=== PATIENT | male | born 1930 | race Caucasian/White ===

== ENCOUNTER 2019-05-04 09:12 | Emergency (ER) | payer MEDICARE ==
[~2019-05-04] VITALS: Ht 182.8 cm; Wt 75.0 kg
[~2019-05-04 09:12] MED LIST: CODE118S2 PO; FLEC100T2; IMIP25TA4; LISI20TA; Z-Pak
[2019-05-04] MEDS ORDERED: IBUPROFEN 800 MG (MOTRIN) TAB PO STA (09:34)
--- NOTE | 2019-05-04 09:34 | ED Fall/Injury ---
General Stated Complaint: RIB PAIN Source: patient Exam Limitations: no limitations History of Present Illness Date Seen by Provider: May 04, 2019 Time Seen by Provider: 09:34 Initial Comments 88-year-old male presents with right posterior rib pain. Patient reports that he got his boots stuck in the mud last night around 5 PM. She was trying to get him unstuck he fell. Reports he just "hit a dirt clot" on his right posterior ribs. Reports he's having some pain with it today. He has taken some aspirin but nothing else for the pain. He does not have any shortness of breath, nausea, vomiting, palpitations or any other systemic complaints at this time. Patient did not hit his head denies any other injury. Allergies and Home Medications Allergies Coded Allergies: No Known Drug Allergies (Unverified , 06/07/13) Home Medications Codeine/Promethazine Hcl 120 Ml Syrup, 1 TSP PO Q 4 - 6 HRS PRN Prescribed by: LINDA ALCALA on 06/07/13 8262 Patient Home Medication List Home Medication List Reviewed: Yes Review of Systems Review of Systems Constitutional: No chills, No dizziness, No fever Eyes: No Symptoms Reported Ears, Nose, Mouth, Throat: no symptoms reported Respiratory: No cough, No dyspnea on exertion, No short of breath Cardiovascular: no symptoms reported Genitourinary: no symptoms reported Musculoskeletal: see HPI Skin: no symptoms reported Psychiatric/Neurological: No Symptoms Reported Past Mmumlzs-Mhlpvl-Vxczwa Hx Past Med/Social Hx: Reviewed Nursing Past Med/Soc Hx Patient Social History Recent Foreign Travel: No Contact w/Someone Who Travel: No Past Medical History Prostate Physical Exam Vital Signs Vital Signs - First Documented 05/04/19 09:25 Temp 36.0 Pulse 102 Resp 18 B/P (MAP) 130/82 (98) Capillary Refill : Height, Weight, BMI Height: 6'" Weight: 180lbs. oz. 81.927562vw; BMI Method: General Appearance: WD/WN, no apparent distress HEENT: PERRL/EOMI Neck: non-tender, full range of motion, supple Cardiovascular: normal peripheral pulses, regular rate, rhythm Respiratory: chest non-tender, lungs clear, normal breath sounds Gastrointestinal: non tender Back: other (mild right posterior rib tenderness) Extremities: non-tender, normal inspection Neurologic/Psychiatric: no motor/sensory deficits, alert, normal mood/affect, oriented x 3 Skin: normal color, warm/dry Progress/Results/Core Measures Results/Orders My Orders Orders - BAY SAUCEDA DO Ibuprofen Tablet (Motrin Tablet) (05/04/19 09:34) Ribs/Unilateral With Chest (05/04/19 09:34) Vital Signs/I&O 05/04/19 09:25 Temp 36.0 Pulse 102 Resp 18 B/P (MAP) 130/82 (98) Departure Impression Primary Impression: Fracture of one rib, right side, initial encounter for closed fracture Disposition: HOME, SELF-CARE Condition: Stable Departure-Patient Inst. Referrals: DAMARIS OLSEN DO (PCP/Family) Primary Care Physician Patient Instructions: Rib Fractures in Adults Scripts Hydrocodone Bit/Acetaminophen (Hydrocodone/Acetaminophen 5/325mg Tablet) 1 Tab Tab 1 EACH PO Q8H PRN for PAIN-MODERATE MDD 10 for 3 Days, #10 TAB Prov: BAY SAUCEDA DO 05/04/19 BAY SAUCEDA DO May 04, 2019 09:34
--- NOTE | 2019-05-04 10:07 | Diagnostic Imaging Report ---
INDICATION: Fall and right rib pain. TIME OF EXAM: 9:46 AM Right hemidiaphragm is elevated. Lungs appear to be clear. No contusion, effusion or pneumothorax is detected. There is a nondisplaced fracture which may be segmental involving a lower right lateral and anterolateral rib. As best seen on the final image and abdomen may represent approximately the 9th rib. No other fractures are seen. IMPRESSION: Right approximately 9th rib fracture. No pulmonary contusion, effusion or pneumothorax is detected. Dictated by: Dictated on workstation # [id number]
[2019-05-04] MEDS ORDERED: ACHD5005 PO (10:20)
[2019-05-04 10:35] VITALS: BP 130/82
== END 2019-05-04 10:35 | disposition home or self-care (01) ==
LOC: EDUNIT# 09:12 → ER 09:14
DX: S22.31XA Fracture of one rib, right side, initial encounter for closed fracture (principal); W18.39XA Other fall on same level, initial encounter
CPT/HCPCS: 71101

== ENCOUNTER → 2019-05-25 | Outpatient (CLI) | payer MEDICARE ==
[~2019-05-25] MED LIST changes: +ACHD5005 PO
== END ==
LOC: RT 15:15
PROVIDERS: ATTEND Family Medicine
DX: R06.00 Dyspnea, unspecified (principal)
CPT/HCPCS: 94060; 94726; 94729

== ENCOUNTER 2019-09-15 18:27 | Emergency (ER) | payer MEDICARE ==
[~2019-09-15] VITALS: Ht 182.8 cm; Wt 75.0 kg
--- OUTSIDE RECORDS SUMMARY | 2019-09-15 18:32 | XMS REPORT | CCD ---
Author Author Jason Carey APRN Organization [facility] Address [address] [place] [address] Phone Care Team Providers Care Employee Services Manager Name Role Phone PP Unavailable CCM Unavailable Summary Purpose Interface Exchange Insurance Providers Payer name Policy type / Coverage type Covered green party ID Effective Begin Date Effective End Date WPS MEDICARE PART B [place] Medicare Part B [id number] Unknown [facility] Medicare Part B [id number] Un known Family History Family History data not found Social History Social History Element Codes Description Effective Dates Tobacco history SNOMED CT: 337731742 Never smoker 01/20/2015 Allergies, Adverse Reactions, Alerts Substance Reaction Codes Entered Date Inactivated Date Status * NO KNOWN DRUG ALLERGIES Unknown 02/07/2012 No Inactiv e Date Active Problems Condition Codes Effective Dates Condition Status Anemia ICD-9: 285.9 ICD-10: D64.9 05/10/2019 Active Dyspnea ICD-9: 786.09 ICD-10: R06.00 07/05/2019 Active Dyspnea on exertion ICD-9: 786.09 ICD-10: R06.09 05/23/2019 Active Left hip pain ICD-9: 719.45 ICD-10: M25.552 06/11/2019 Active Recurrent falls ICD-9: V15.88 ICD-10: R29.6 06/11/2019 Active Urinary tract infection, site not specified ICD-9: 599 .0 ICD-10: N39.0 05/15/2019 Active Hypertension Unknown 05/10/2019 Active Essential (primary) hypertension ICD-9: 401.9 ICD-10: I10 05/10/2019 Active Hyperglycemia, unspecified ICD-9: 790.29 ICD-10: R73.9 05/10/2019 Active Mixed hyperlipidemia ICD-9: 272.4 ICD-10: E78.2 05/10/2019 Active Broken rib ICD-9: 807.00 ICD-10: S22.39XA 05/09/2019 Active Encounter for follow-up examination afte r completed treatment for conditions other than malignant neoplasm ICD-9: V67.4 ICD-10: Z09 01/27/2015 Active Localized enlarged lymph nodes ICD-9: 785.6 ICD-10: R59.0 01/12/2015 Active LOCAL SKIN INFECTION ICD-9: 686.9 01/12/2015 Active LYMPHADENOPATHY ICD-9: 785.6 01/12/2015 Active 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 02/07/2012 Active Medications Medication Codes Instructions Start Date Stop Date Status Fill Instructions Vitamin D3 2,000 unit tablet RxNorm: 369088 1 Tablet(s) Oral QD 01/2020 No Stop Date Active flecainide 100 mg tablet RxNorm: 169421 1 Tablet(s) Oral two ti mes a day 05/28/2019 No Stop Date Active imipramine 25 mg tablet RxNorm: 557957 1 Tablet(s) Oral three t imes a day 05/28/2019 No Stop Date Active aspirin 81 mg tablet,delayed release RxNorm: 426540 1 Tablet(s) Oral QD 05/23/2019 06/22/2019 Inactive multivitamin with iron tablet RxNorm: 1 Tablet(s) Oral QD 04/19 No Stop Date Active hydrocodone 10 mg-acetaminophen 300 mg tablet RxNorm: 862913 1 Tablet(s) Oral Q8H as needed for pain 05/09/2019 05/22/2019 Inactive hydrocodone 5 mg-acetaminophen 325 mg tablet RxNorm: 925528 1 Tablet(s) Oral Every 6 hours as needed 05/09/2019 06/10/2019 Inactive Bactrim DS 800 mg-160 mg tablet RxNorm: 640400 1 Tablet(s) PO BID 0 01/13/2015 01/22/2015 Inactive aspirin 81 mg tablet,delayed release RxNorm: 024754 1 Tablet(s) PO QD 02/07/2012 03/07/2012 Inactive Vitamin D3 1000 units Capsule RxNorm: 2 Capsule(s) PO QD No St art Date 05/27/2019 Inactive lisinopril 20 mg tablet RxNorm: 815903 1 Tablet(s) PO QD No Start D ate 02/06/2012 Inactive flecainide 100 mg tablet RxNorm: 482802 1 Tablet(s) PO QD No Start Date 05/27/2019 Inactive lisinopril 20 mg tablet RxNorm: 010854 1/2 Tablet(s) PO PRN No Star t Date 05/22/2019 Inactive Meclizine 25 mg Tab RxNorm: 6231690 1 Tablet(s) PO QID prn dizzi ness No Start Date 05/09/2019 Inactive imipramine pamoate 75 mg capsule RxNorm: 138817 1 Capsule(s) PO QD No Start Date 05/27/2019 Inactive Medication Administered No Medication Administered data Immunizations Vaccine Codes Date Status Tetanus, Diptheria, Pertussis CVX: 115 12/27/2018 Results Observation Observation Code Item Item Code Result Date S vice Location COMPLETE BLOOD COUNT [id number] WBC 6.8 10e9/L 07/05/19 20 Unknown COMPLETE BLOOD COUNT [id number] RBC 2.97 10e12/L 2019 Unknown COMPLETE BLOOD COUNT [id number] HEMOGLOBIN 10.1 g/dL 07/05/19 20 Unknown COMPLETE BLOOD COUNT [id number] HEMATOCRIT 31.5 % 07/05/19 20 Unknown COMPLETE BLOOD COUNT [id number] MCV 106.1 fL 0 Unknown COMPLETE BLOOD COUNT [id number] MCH 34.0 pg 0 Unknown COMPLETE BLOOD COUNT 5222819 MCHC 32.1 g/dL 0 Unknown COMPLETE BLOOD COUNT [id number] PLATELET COUNT 176 10e9/L Unknown COMPLETE BLOOD COUNT [id number] Mean Plt Volume 12.2 fL Unknown COMPLETE BLOOD COUNT [id number] Neut Auto 70.5 % 0 Unknown COMPLETE BLOOD COUNT [id number] Lymph Auto 15.8 % 07/05/19 20 Unknown COMPLETE BLOOD COUNT [id number] [place] Auto 12.4 % 0 Unknown COMPLETE BLOOD COUNT [id number] RDW 14.2 % 0 Unknown COMPLETE BLOOD COUNT 2262084 Eos Auto 1.2 % 0 Unknown COMPLETE BLOOD COUNT [id number] Baso Auto 0.1 % 0 Unknown COMPLETE BLOOD COUNT [id number] Neutrophil Abs 4.79 10e9/L Unknown COMPLETE BLOOD COUNT [id number] Lymphocyte Abs 1.07 10e9/L Unknown COMPLETE BLOOD COUNT [id number] Monocyte Abs 0.84 10e9/L 06/16 Unknown COMPLETE BLOOD COUNT [id number] Eosinophil Abs 0.08 10e9/L Unknown COMPLETE BLOOD COUNT [id number] RDW-SD 52.7 fL 0 Unknown COMPLETE BLOOD COUNT [id number] Basophil Abs 0.01 10e9/L 06/16 Unknown FERRITIN 60649 FERRITIN 238.7 ng/mL 05/10/2019 Unknown IRON PROFILE 67250 Iron 89 ug/dL 05/10/2019 Unknow n IRON PROFILE 09414 TIBC 295 ug/dL 05/10/2019 Unknow n IRON PROFILE 09054 % SATURATION 30 % 05/10/2019 Unk nown IRON PROFILE 36127 UIBC 206 ug/dL 05/10/2019 Unknow n COMPREHENSIVE METABOLIC 21828 AST 22 U/L 2019 Unknown COMPREHENSIVE METABOLIC 65772 ALT 15 U/L 2019 Unknown COMPREHENSIVE METABOLIC 88473 BUN 33 mg/dL 2019 Unknown COMPREHENSIVE METABOLIC 43762 ALBUMIN 4.1 g/dL 2019 Unknown COMPREHENSIVE METABOLIC 69195 CHLORIDE 100 mmol/L 05/10 Unknown COMPREHENSIVE METABOLIC 96855 Bili Total 0.4 mg/dL 05/10 Unknown COMPREHENSIVE METABOLIC 47091 ALK PHOS 63 U/L 2019 Unknown COMPREHENSIVE METABOLIC 58300 SODIUM 135 mmol/L 05/10 Unknown COMPREHENSIVE METABOLIC 93098 CREATININE 1.59 mg/dL 04/19 Unknown COMPREHENSIVE METABOLIC 98968 CALCIUM 9.3 mg/dL 2019 Unknown COMPREHENSIVE METABOLIC 82620 POTASSIUM 5.0 mmol/L 05/10 Unknown COMPREHENSIVE METABOLIC 69147 Total Protein 6.9 g/dL Unknown COMPREHENSIVE METABOLIC 12441 Glucose 106 mg/dL 2019 Unknown COMPREHENSIVE METABOLIC 88736 Bicarbonate 28 mmol/L 04/19 Unknown COMPREHENSIVE METABOLIC 39346 AGAP 7 mmol/L 2019 Unknown GFR CALC 1956625 GFR Non Afr Amr 41 mL/min 05/10/2019 Unk nown GFR CALC 5434555 GFR Afr Amr 50 mL/min 05/10/2019 Unknown COMPLETE BLOOD COUNT [id number] WBC 5.5 10e9/L 05/10/19 20 Unknown COMPLETE BLOOD COUNT [id number] RBC 3.11 10e12/L 2019 Unknown COMPLETE BLOOD COUNT 0736226 HEMOGLOBIN 10.5 g/dL 05/10/19 Unknown COMPLETE BLOOD COUNT [id number] HEMATOCRIT 32.8 % 05/10/19 20 Unknown COMPLETE BLOOD COUNT [id number] MCV 105.5 fL 0 Unknown COMPLETE BLOOD COUNT 0610493 MCH 33.8 pg 0 Unknown COMPLETE BLOOD COUNT 6137906 MCHC 32.0 g/dL 0 Unknown COMPLETE BLOOD COUNT 1886995 PLATELET COUNT 167 10e9/L Unknown COMPLETE BLOOD COUNT 5479174 Mean Plt Volume 13.2 fL Unknown COMPLETE BLOOD COUNT 1872256 Neut Auto 62.9 % 0 Unknown COMPLETE BLOOD COUNT 3042859 Lymph Auto 23.8 % 05/10/19 Unknown COMPLETE BLOOD COUNT 6386481 [place] Auto 11.6 % 0 Unknown COMPLETE BLOOD COUNT 9193484 RDW 14.6 % 0 Unknown COMPLETE BLOOD COUNT 5814459 Eos Auto 1.5 % 0 Unknown COMPLETE BLOOD COUNT 4270382 Baso Auto 0.2 % 0 Unknown COMPLETE BLOOD COUNT 4246120 Neutrophil Abs 3.46 10e9/L Unknown COMPLETE BLOOD COUNT 1559280 Lymphocyte Abs 1.31 10e9/L Unknown COMPLETE BLOOD COUNT [id number] Monocyte Abs 0.64 10e9/L 04/19 Unknown COMPLETE BLOOD COUNT [id number] Eosinophil Abs 0.08 10e9/L Unknown COMPLETE BLOOD COUNT 2651105 RDW-SD 54.4 fL 0 Unknown COMPLETE BLOOD COUNT 1403697 Basophil Abs 0.01 10e9/L 04/19 Unknown [facility] 20794 Cholesterol 173 mg/dL 05/10/2019 Unkno wn L[facility] GROUP 33398 Triglyceride 105 mg/dL 05/10/2019 Unkn own [facility] 21715 HDL CHOLESTEROL 47 mg/dL 05/10/2019 U nknown [facility] 37032 Chol/HDL Ratio 3.68 ratio 05/10/2019 U nknown [facility] 20816 NON-HDL Chol 126 mg/dL 05/10/2019 Unkn own [facility] 23695 LDL Cholesterol 105 mg/dL 05/10/2019 U nknown Procedures Procedure Codes Date ROUTINE VENIPUNCTURE CPT-4: 25561 07/05/2019 COMPLETE CBC W/AUTO DIFF WBC CPT-4: 13425 07/05/2019 URINE CULTURE/ COLONY COUNT CPT-4: 65168 05/15/2019 ROUTINE VENIPUNCTURE CPT-4: 16001 05/10/2019 COMPREHEN METABOLIC PANEL CPT-4: 07934 05/10/2019 COMPLETE CBC W/AUTO DIFF WBC CPT-4: 52977 05/10/2019 LIPID PANEL CPT-4: 61990 05/10/2019 IRON PROFILE CPT-4: 04902 05/10/2019 ASSAY OF FERRITIN CPT-4: 89161 05/10/2019 CUR TOBACCO NON-USER CPT-4: G8457 01/20/2015 PRESCRIP TRANSMIT VIA ERX SY CPT-4: G8553 01/13/2015 Vital Signs Date Vital 07/05/2019 Blood Pressure 1: 128/68 Code: 8480-6 Heart Rate 1: 88 bpm Respiratory Rate: 20 bpm SpO2: 99% Temperature: 36.6 (C) / 97.9 (F) We ight: 174 lbs 06/11/2019 Blood Pressure 1: 132/64 Code: 8480-6 Respirator y Rate: 20 bpm SpO2: 95% Temperature: 36.7 (C) / 98.0 (F) Weight: 172 lbs 05/23/2019 Blood Pressure 1: 142/70 Code: 8480-6 Heart Rate 1: 80 bpm Respiratory Rate: 20 bpm SpO2: 100% Temperature: 36.2 (C) / 97.2 (F) We ight: 168 lbs 05/09/2019 Blood Pressure 1: 143/75 Code: 8480-6 Heart Rate 1: 85 bpm Respiratory Rate: 17 bpm SpO2: 96% Temperature: 36.5 (C) / 97.7 (F) We ight: 170 lbs 01/28/2015 Blood Pressure 1: 126/70 Code: 8480-6 BMI: 24.8 Code: 62870-7 Heart Rate 1: 84 bpm Height: 6' Respiratory Rate: 20 bpm Temperature: 36 .6 (C) / 97.8 (F) Weight: 183 lbs 01/20/2015 Blood Pressure 1: 122/58 Code: 8480-6 BMI: 24.8 Code: 44920-7 Heart Rate 1: 80 bpm Height: 6' Respiratory Rate: 20 bpm Temperature: 36 .4 (C) / 97.6 (F) Weight: 183 lbs 01/13/2015 Blood Pressure 1: 142/68 Code: 8480-6 BMI: 24.8 Code: 32356-4 Heart Rate 1: 86 bpm Height: 6' Respiratory Rate: 20 bpm Temperature: 36 .6 (C) / 97.8 (F) Weight: 183 lbs 02/07/2012 Blood Pressure 1: 130/70 Code: 8480-6 BMI: 25.7 Code: 24745-1 Heart Rate 1: 74 bpm Height: 5'11" Temperature: 36.6 (C) / 97.8 (F) Weight: 184 lbs Functional Status No Functional Status data Reason For Visit Reason For Visit Effective Dates Notes follow up 07/05/[address] Caruso follow up 06/11/2019 follow up 05/23/2019 bone fracture 05/09/2019 right ribs follow up 01/28/2015 follow up 01/20/2015 1 week sore throat 01/13/2015 knee pain 02/07/2012 Encounters Encounter Performer Location Codes Date ([id number]) OFFICE/OUTPATIENT VISIT EST Diagnosis: Anemia[ICD10: D64.9] Diagnosis: Dyspnea[ICD10: R06.00] Damaris Cantu [employer] CPT-4: 65992 07/05/2019 ([id number]) OFFICE/OUTPATIENT VISIT EST Diagnosis: Left hip pain[ICD10: M25.552] Diagnosis: Recurrent falls[ICD10: R29.6] Diagnosis: Dyspnea on exertion[ICD10: R06.09] Damaris CONKLIN [employer] CPT-4: 31408 06/11/2019 ([id number]) OFFICE/OUTPATIENT VISIT EST Diagnosis: Dyspnea on exertion[ICD10: R06.09] Diagnosis: Anemia[ICD10: D64.9] Damaris CON[facility] DO [facility] CPT-4: 84824 05/23/2019 ([id number]) NURSE/OUTPATIENT VISIT EST Diagnosis: Urinary tract infection, site not specified[ICD10: N39.0] Damaris Solorio PATRICKNDER [employer] [facility] CPT-4: 43408 05/15/2019 ([id number]) NURSE/OUTPATIENT VISIT EST Diagnosis: Mixed hyperlipidemia[ICD10: E78.2] Diagnosis: Hyperglycemia, unspecified[ICD10: R73.9] Diagnosis: Essential (primary) hypertension[ICD10: I10] Diagnosis: Anemia, unspecified[ICD10: D64.9] Damaris Gustafson S. [facility]ER [employer] [facility] CPT-4: 59989 05/10/2019 ([id number]) OFFICE/OUTPATIENT VISIT NEW Diagnosis: Broken rib[ICD10: S22.39XA] Lizzette Giles DAMARIS S. Estella NAVARRO [employer] [facility] CPT-4: 64226 05/09/2019 OFFICE/OUTPATIENT VISIT EST Diagnosis: Localized enlarged lymph nodes[ICD10: R59.0] Diagnosis: Encounter for follow-up examination after completed treatment for conditions other than malignant neoplasm[ICD10: Z09] Lashawnsa Aldo OCAMPO S. [facility] [employer] [facility] CPT-4: 65543 01/28/2015 OFFICE/OUTPATIENT VISIT EST Diagnosis: Localized enlarged lymph nodes[ICD10: R59.0] Lashawn YuriTea OCAMPO S. [facility] [employer] [facility] CPT-4: 43122 01/20/2015 OFFICE/OUTPATIENT VISIT EST Diagnosis: LYMPHADENOPATHY[ICD9: 785.6] Diagnosis: LOCAL SKIN INFECTION[ICD9: 686.9] Lashawn Gustafson S. [facility] [employer] [facility] CPT-4: 03385 01/13/2015 OFFICE/OUTPATIENT VISIT NEW Diagnosis: Grey's cyst of knee[ICD9: 727.51] Taylor GAYLE S. 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 but since has not worsened patient wishes to monitor for now ICD-9 : 786.09 ICD-10 : R06.00 07/05/2019 Appointment: Damaris Conklinl: [address] [place], [place] [phone] [place] FOLLOW UP 07/05/2019 Appointment: Damaris Conklin WPtel: [address] [place], [place] [phone] [place] RESCHEDULED 07/02/2019 Visit Diagnosis Plan: Dyspnea on exertion Discussion: Difficult historian--now states he mainly gets short of air when he is using his arms which sounds more cardiac but her follows routinely with cardiology ICD-9 : 786.09 ICD-10 : R06.09 06/11/2019 Visit Diagnosis Plan: Recurrent falls Discussion: Last fall was because he tripped over a cord--he has 9 dogs ICD-9 : V15.88 ICD-10 : R29.6 06/11/2019 Visit Diagnosis Plan: Left hip pain Discussion: Improv ing Discussed need to stop hydrocodone since ribs are better ICD-9 : 719.45 ICD-10 : M25.552 06/11/2019 Appointment: Damaris Conklin WPtel: [address] [place] [address] [place] FOLLOW UP 06/11/2019 Appointment: Damaris Conklin WPtel: [address] [place] [address] [place] 05/28/2019 1407--updated medications from patients medication bottles (km) CANCELED 05/28/2019 Visit Diagnosis Plan: Dyspnea on exertion Discussion: Check PFT Obtain most recent ECHO results ICD-9 : 786.09 ICD-10 : R06.09 05/23/2019 Visit Diagnosis Plan: Anemia Discussion: Discussed Hem atology--wants to hold at this time ICD-9 : 285.9 ICD-10 : D64.9 05/23/2019 Appointment: Damaris Conklin WPtel: [address] [place], [place] [phone] [place] FOLLOW UP 05/23/2019 Appointment: Damaris Conklin WPtel: [address] [place], [place] [phone] [place] UA 05/15/2019 Appointment: Damaris Conklin WPtel: [address] [place], [place] [phone] [place] LAB 05/10/2019 Visit Diagnosis Plan: Broken rib Discussion: will obta in records from ED. hydrocodone rx filled to take as needed but instructed to avoid taking it with tylenol. instructed to alternate the two. miralax samples given to patient to be used daily to assist with opioid related constipation that may occur. instructed to go to ED with any worsening symptoms such as dyspnea or chest pain. patient hasn't been seen for 4 years. patient reports he sees dr. caruso and elier routinely so will obtain recent labs from their offices. instructed patient that he may need additional blood work though pending what they ordered. instructed to follow up with dr. conklin in 1 month though since he hasn't been seen much and will re-assess his bp. ICD-9 : 807.00 ICD-10 : S22.39XA 05/09/2019 Appointment: Lizzette Giles [address] [place], [place] [id number] FOLLOW UP 05/09/2019 Visit Plan: Continue to monitor localize d lymph nodes for changes Follow-up for worsening symptoms 01/28/2015 Appointment: Lashawn Carlson WPtel: [address] [place] [phone] [place] FOLLOW UP 01/28/2015 Patient Education: Patient Medication Summary Completed 01/28/2015 Visit Plan: Complete antibiotics. Monito r lymph node size and follow-up for persistent symptoms. 01/20/2015 Appointment: Lashawn Carlson WPtel: [address] [place], [place] [phone] 01/17 confirmed FOLLOW UP 01/20/2015 Patient Education: Patient Medication Summary Completed 01/20/2015 Visit Plan: Septra DS - 1 po bid x 10 da ys Follow-up in 1 week. 01/13/2015 Appointment: Lashawn Carlson WPtel: [address] [place] [phone] [place] FOLLOW UP 01/13/2015 Patient Education: Patient Medication Summary Completed 01/13/2015 Appointment: Clarisa Garcia WPtel: [address] [facility] [place] cancelled because patient evaluated in ER ACUTE ILLNESS 06/08/2013 Appointment: Damaris Conklin WPtel: [phone] [facility] [address] [place] INJECTION 12/04/2012 Appointment: Taylor Carey WPtel: [address] [place] [phone] RE-ESTABLISH 02/07/2012 Patient Education: Patient Medication Summary Completed 02/07/2012 Instructions Comment . Continue to monitor localized lymph no dory for changes Follow-up for worsening symptoms . Complete antibiotics. Monitor lymph node size and follow-up for persistent symptoms. . Septra DS - 1 po bid x 10 days Follow-up in 1 week. Medical Equipment No Medical Equipment data Health Concerns Section Health Concerns data not found Goals Section Goals data not found Interventions Section Interventions data not found Health Status Evaluations/Outcomes Section Health Status Evaluations/Outcomes data not found Advance Directives No Advance Directive data
--- OUTSIDE RECORDS SUMMARY | 2019-09-15 18:32 | XMS REPORT | CCD ---
Author Author Jason Carey APRN Organization [facility] Address [address] [place] [address] Phone Care Team Providers Care Repair Department Supervisor Name Role Phone PP Unavailable CCM Unavailable Summary Purpose Interface Exchange Insurance Providers Payer name Policy type / Coverage type Covered libertarian ID Effective Begin Date Effective End Date WPS MEDIC[place] PART B [place] Medicare Part B [id number] Unknown [facility] Medicare Part B [id number] Un known Family History Family History data not found Social History Social History Element Codes Description Effective Dates Tobacco history SNOMED CT: 759784341 Never smoker 01/20/2015 Allergies, Adverse Reactions, Alerts [...] Instructions Vitamin D3 2,000 unit tablet RxNorm: 959476 1 Tablet(s) Oral QD 01/2020 No Stop Date Active flecainide 100 mg tablet RxNorm: 807449 1 Tablet(s) Oral two ti mes a day 05/28/2019 No Stop Date Active imipramine 25 mg tablet RxNorm: 728315 1 Tablet(s) Oral three t imes a day 05/28/2019 No Stop Date Active aspirin 81 mg tablet,delayed release RxNorm: 747578 1 Tablet(s) Oral QD 05/23/2019 06/22/2019 Inactive multivitamin with iron tablet RxNorm: 1 Tablet(s) Oral QD 04/19 No Stop Date Active hydrocodone 10 mg-acetaminophen 300 mg tablet RxNorm: 329775 1 Tablet(s) Oral Q8H as needed for pain 05/09/2019 05/22/2019 Inactive hydrocodone 5 mg-acetaminophen 325 mg tablet RxNorm: 586591 1 Tablet(s) Oral Every 6 hours as needed 05/09/2019 06/10/2019 Inactive Bactrim DS 800 mg-160 mg tablet RxNorm: 607755 1 Tablet(s) PO BID 0 01/13/2015 01/22/2015 Inactive aspirin 81 mg tablet,delayed release RxNorm: 592192 1 Tablet(s) PO QD 02/07/2012 03/07/2012 Inactive Vitamin D3 1000 units Capsule RxNorm: 2 Capsule(s) PO QD No St art Date 05/27/2019 Inactive lisinopril 20 mg tablet RxNorm: 360553 1 Tablet(s) PO QD No Start D ate 02/06/2012 Inactive flecainide 100 mg tablet RxNorm: 046420 1 Tablet(s) PO QD No Start Date 05/27/2019 Inactive lisinopril 20 mg tablet RxNorm: 727448 1/2 Tablet(s) PO PRN No Star t Date 05/22/2019 Inactive Meclizine 25 mg Tab RxNorm: 0970584 1 Tablet(s) PO QID prn dizzi ness No Start Date 05/09/2019 Inactive imipramine pamoate 75 mg capsule RxNorm: 037829 1 Capsule(s) PO QD No Start Date 05/27/2019 Inactive Medication Administered No Medication Administered data Immunizations Vaccine Codes Date Status Tetanus, Diptheria, Pertussis CVX: 115 12/27/2018 Results Observation Observation Code Item Item Code Result Date S vice Location COMPLETE BLOOD COUNT [id number] WBC 6.8 10e9/L 07/05/19 20 Unknown COMPLETE BLOOD COUNT [id number] RBC 2.97 10e12/L 2019 Unknown COMPLETE BLOOD COUNT [id number] HEMOGLOBIN 10.1 g/dL 07/05/19 20 Unknown COMPLETE BLOOD COUNT [id number] HEMATOCRIT 31.5 % 07/05/19 20 Unknown COMPLETE BLOOD COUNT [id number] MCV 106.1 fL 0 Unknown COMPLETE BLOOD COUNT [id number] MCH 34.0 pg 0 Unknown COMPLETE BLOOD COUNT [id number] MCHC 32.1 g/dL 0 Unknown COMPLETE BLOOD COUNT [id number] PLATELET COUNT 176 10e9/L Unknown COMPLETE BLOOD COUNT 2130829 Mean Plt Volume 12.2 fL Unknown COMPLETE BLOOD COUNT [id number] Neut Auto 70.5 % 0 Unknown COMPLETE BLOOD COUNT [id number] Lymph Auto 15.8 % 07/05/19 20 Unknown COMPLETE BLOOD COUNT 0439527 [place] Auto 12.4 % 0 Unknown COMPLETE BLOOD COUNT [id number] RDW 14.2 % 0 Unknown COMPLETE BLOOD COUNT [id number] Eos Auto 1.2 % 0 Unknown COMPLETE BLOOD COUNT [id number] Baso Auto 0.1 % 0 Unknown COMPLETE BLOOD COUNT 1029637 Neutrophil Abs 4.79 10e9/L Unknown COMPLETE BLOOD COUNT [id number] Lymphocyte Abs 1.07 10e9/L Unknown COMPLETE BLOOD COUNT [id number] Monocyte Abs 0.84 10e9/L 06/16 Unknown COMPLETE BLOOD COUNT [id number] Eosinophil Abs 0.08 10e9/L Unknown COMPLETE BLOOD COUNT 3127525 RDW-SD 52.7 fL 0 Unknown COMPLETE BLOOD COUNT [id number] Basophil Abs 0.01 10e9/L 06/16 Unknown FERRITIN 60559 FERRITIN 238.7 ng/mL 05/10/2019 Unknown IRON PROFILE 18890 Iron 89 ug/dL 05/10/2019 Unknow n IRON PROFILE 40550 TIBC 295 ug/dL 05/10/2019 Unknow n IRON PROFILE 28464 % SATURATION 30 % 05/10/2019 Unk nown IRON PROFILE 74869 UIBC 206 ug/dL 05/10/2019 Unknow n COMPREHENSIVE METABOLIC 58145 AST 22 U/L 2019 Unknown COMPREHENSIVE METABOLIC 77259 ALT 15 U/L 2019 Unknown COMPREHENSIVE METABOLIC 85787 BUN 33 mg/dL 2019 Unknown COMPREHENSIVE METABOLIC 70885 ALBUMIN 4.1 g/dL 2019 Unknown COMPREHENSIVE METABOLIC 48994 CHLORIDE 100 mmol/L 05/10 Unknown COMPREHENSIVE METABOLIC 53032 Bili Total 0.4 mg/dL 05/10 Unknown COMPREHENSIVE METABOLIC 51435 ALK PHOS 63 U/L 2019 Unknown COMPREHENSIVE METABOLIC 19038 SODIUM 135 mmol/L 05/10 Unknown COMPREHENSIVE METABOLIC 29898 CREATININE 1.59 mg/dL 04/19 Unknown COMPREHENSIVE METABOLIC 10441 CALCIUM 9.3 mg/dL 2019 Unknown COMPREHENSIVE METABOLIC 35976 POTASSIUM 5.0 mmol/L 05/10 Unknown COMPREHENSIVE METABOLIC 17930 Total Protein 6.9 g/dL Unknown COMPREHENSIVE METABOLIC 90186 Glucose 106 mg/dL 2019 Unknown COMPREHENSIVE METABOLIC 88199 Bicarbonate 28 mmol/L 04/19 Unknown COMPREHENSIVE METABOLIC 79621 AGAP 7 mmol/L 2019 Unknown GFR CALC 6052991 GFR Non Afr Amr 41 mL/min 05/10/2019 Unk nown GFR CALC 2168116 GFR Afr Amr 50 mL/min 05/10/2019 Unknown COMPLETE BLOOD COUNT [id number] WBC 5.5 10e9/L 05/10/19 20 Unknown COMPLETE BLOOD COUNT [id number] RBC 3.11 10e12/L 2019 Unknown COMPLETE BLOOD COUNT [id number] HEMOGLOBIN 10.5 g/dL 05/10/19 Unknown COMPLETE BLOOD COUNT 0830610 HEMATOCRIT 32.8 % 05/10/19 20 Unknown COMPLETE BLOOD COUNT [id number] MCV 105.5 fL 0 Unknown COMPLETE BLOOD COUNT 4783916 MCH 33.8 pg 0 Unknown COMPLETE BLOOD COUNT 9169353 MCHC 32.0 g/dL 0 Unknown COMPLETE BLOOD COUNT 7428882 PLATELET COUNT 167 10e9/L Unknown COMPLETE BLOOD COUNT 4533772 Mean Plt Volume 13.2 fL Unknown COMPLETE BLOOD COUNT 8627515 Neut Auto 62.9 % 0 Unknown COMPLETE BLOOD COUNT 8773275 Lymph Auto 23.8 % 05/10/19 Unknown COMPLETE BLOOD COUNT 3954216 [place] Auto 11.6 % 0 Unknown COMPLETE BLOOD COUNT 5486675 RDW 14.6 % 0 Unknown COMPLETE BLOOD COUNT 1944231 Eos Auto 1.5 % 0 Unknown COMPLETE BLOOD COUNT 7259613 Baso Auto 0.2 % 0 Unknown COMPLETE BLOOD COUNT 6428224 Neutrophil Abs 3.46 10e9/L Unknown COMPLETE BLOOD COUNT 3254932 Lymphocyte Abs 1.31 10e9/L Unknown COMPLETE BLOOD COUNT 1623148 Monocyte Abs 0.64 10e9/L 04/19 Unknown COMPLETE BLOOD COUNT 8825600 Eosinophil Abs 0.08 10e9/L Unknown COMPLETE BLOOD COUNT 1347179 RDW-SD 54.4 fL 0 Unknown COMPLETE BLOOD COUNT [id number] Basophil Abs 0.01 10e9/L 04/19 Unknown LIPID GROUP 08151 Cholesterol 173 mg/dL 05/10/2019 Unkno wn LIPID GROUP 99661 Triglyceride 105 mg/dL 05/10/2019 Unkn own LIPID GROUP 55410 HDL CHOLESTEROL 47 mg/dL 05/10/2019 U nknown LIPID GROUP 05104 Chol/HDL Ratio 3.68 ratio 05/10/2019 U nknown LIPID GROUP 46014 NON-HDL Chol 126 mg/dL 05/10/2019 Unkn own L[facility] GROUP 37307 LDL Cholesterol 105 mg/dL 05/10/2019 U nknown Procedures Procedure Codes Date ROUTINE VENIPUNCTURE CPT-4: 33721 07/05/2019 COMPLETE CBC W/AUTO DIFF WBC CPT-4: 58180 07/05/2019 URINE CULTURE/ COLONY COUNT CPT-4: 88159 05/15/2019 ROUTINE VENIPUNCTURE CPT-4: 90025 05/10/2019 COMPREHEN METABOLIC PANEL CPT-4: 52751 05/10/2019 COMPLETE CBC W/AUTO DIFF WBC CPT-4: 87358 05/10/2019 LIPID PANEL CPT-4: 82891 05/10/2019 IRON PROFILE CPT-4: 43206 05/10/2019 ASSAY OF FERRITIN CPT-4: 24118 05/10/2019 CUR TOBACCO NON-USER CPT-4: G8457 01/20/2015 [...] 1: 126/70 Code: 8480-6 BMI: 24.8 Code: 86091-2 Heart Rate 1: 84 bpm Height: 6' Respiratory Rate: 20 bpm Temperature: 36 .6 (C) / 97.8 (F) Weight: 183 lbs 01/20/2015 Blood Pressure 1: 122/58 Code: 8480-6 BMI: 24.8 Code: 75124-2 Heart Rate 1: 80 bpm Height: 6' Respiratory Rate: 20 bpm Temperature: 36 .4 (C) / 97.6 (F) Weight: 183 lbs 01/13/2015 Blood Pressure 1: 142/68 Code: 8480-6 BMI: 24.8 Code: 92869-0 Heart Rate 1: 86 bpm Height: 6' Respiratory Rate: 20 bpm Temperature: 36 .6 (C) / 97.8 (F) Weight: 183 lbs 02/07/2012 Blood Pressure 1: 130/70 Code: 8480-6 BMI: 25.7 Code: 06887-4 Heart Rate 1: 74 bpm Height: 5'11" [...] 02/07/2012 Encounters Encounter Performer Location Codes Date ([id number]) OFFICE/OUTPATIENT VISIT EST Diagnosis: Anemia[ICD10: D64.9] Diagnosis: Dyspnea[ICD10: R06.00] [facility] Cantu [facility] CPT-4: 00492 07/05/2019 ([id number]) OFFICE/OUTPATIENT VISIT EST Diagnosis: Left hip pain[ICD10: M25.552] Diagnosis: Recurrent falls[ICD10: R29.6] Diagnosis: Dyspnea on exertion[ICD10: R06.09] Dam[facility] CPT-4: 72779 06/11/2019 ([id number]) OFFICE/OUTPATIENT VISIT EST Diagnosis: Dyspnea on exertion[ICD10: R06.09] Diagnosis: Anemia[ICD10: D64.9] Damaris CON[facility] DO [employer] CPT-4: 88343 05/23/2019 ([id number]) NURSE/OUTPATIENT VISIT EST Diagnosis: Urinary tract infection, site not specified[ICD10: N39.0] Damaris Solorio [facility] CPT-4: 10052 05/15/2019 ([id number]) NURSE/OUTPATIENT VISIT EST Diagnosis: Mixed hyperlipidemia[ICD10: E78.2] Diagnosis: Hyperglycemia, unspecified[ICD10: R73.9] Diagnosis: Essential (primary) hypertension[ICD10: I10] Diagnosis: Anemia, unspecified[ICD10: D64.9] Damaris Gustafson S. [facility]ER [facility] CPT-4: 23090 05/10/2019 ([id number]) OFFICE/OUTPATIENT VISIT NEW Diagnosis: Broken rib[ICD10: S22.39XA] Lizzette Giles DAM[facility] S. Estella NAVARRO [employer] CPT-4: 99558 05/09/2019 OFFICE/OUTPATIENT VISIT EST Diagnosis: Localized enlarged lymph nodes[ICD10: R59.0] Diagnosis: Encounter for follow-up examination after completed treatment for conditions other than malignant neoplasm[ICD10: Z09] Lashawnsa Aldo OCAMPO S. [facility] CPT-4: 23057 01/28/2015 OFFICE/OUTPATIENT VISIT EST Diagnosis: Localized enlarged lymph nodes[ICD10: R59.0] Lashawn YuriTea OCAMPO S. [facility] CPT-4: 00210 01/20/2015 OFFICE/OUTPATIENT VISIT EST Diagnosis: LYMPHADENOPATHY[ICD9: 785.6] Diagnosis: LOCAL SKIN INFECTION[ICD9: 686.9] Lashawn Gustafson S. [facility] [employer] [facility] CPT-4: 11924 01/13/2015 OFFICE/OUTPATIENT VISIT NEW Diagnosis: Grey's cyst of knee[ICD9: 727.51] Taylor GAYLE S. [facility] CPT-4: 08772 02/07/2012 Plan of Care Planned Activity Notes [...] ICD-10 : R06.00 07/05/2019 Appointment: Damaris Conklinl: [address] [place], [place] [id number] [place] RESCHEDULED 07/02/2019 Visit Diagnosis Plan: Dyspnea [...] : M25.552 06/11/2019 Appointment: Damaris Conklin WPtel: [address] [place], [place] [id number] [place] FOLLOW UP 06/11/2019 Appointment: Damaris Conklin WPtel: [address] [place], [place] [id number] [place] 05/28/2019 1407--updated medications from patients medication bottles (km) CANCELED 05/28/2019 Visit Diagnosis Plan: Dyspnea on exertion Discussion: Check PFT Obtain most recent ECHO results ICD-9 : 786.09 ICD-10 : R06.09 05/23/2019 Visit Diagnosis Plan: Anemia Discussion: Discussed Hem atology--wants to hold at this time ICD-9 : 285.9 ICD-10 : D64.9 05/23/2019 Appointment: Damaris Conklin WPtel: [address] [place], [place] [id number] [place] FOLLOW UP 05/23/2019 Appointment: Damaris Conklin WPtel: [address] [place], [place] [phone] [place] UA 05/15/2019 Appointment: Damaris Conklin WPtel: [address] [place], [place] [phone] [place] LAB 05/10/2019 Visit Diagnosis Plan: Broken [...] ICD-10 : S22.39XA 05/09/2019 Appointment: Lizzette Giles [address] [facility] FOLLOW UP 05/09/2019 Visit Plan: Continue to monitor localize d lymph nodes for changes Follow-up for worsening symptoms 01/28/2015 Appointment: Lashawn Carlson WPtel: [address] [place], [place] [phone] FOLLOW UP 01/28/2015 Patient Education: Patient Medication Summary Completed 01/28/2015 Visit Plan: Complete antibiotics. Monito r lymph node size and follow-up for persistent symptoms. 01/20/2015 Appointment: Lashawn Carlson WPtel: [address] [place], [place] [phone] 01/17 confirmed FOLLOW UP 01/20/2015 Patient Education: Patient Medication Summary Completed 01/20/2015 Visit Plan: Septra DS - 1 po bid x 10 da ys Follow-up in 1 week. 01/13/2015 Appointment: Lashawn Carlson WPtel: [address] [place], [place] [phone] [place] FOLLOW UP 01/13/2015 Patient Education: Patient Medication Summary Completed 01/13/2015 Appointment: Clarisa Garcia WPtel: [phone] [id number] [place] cancelled because patient evaluated in ER ACUTE ILLNESS 06/08/2013 [facility]ment[facility] [phone] [id number] [facility] 12/04/2012 [facility]ment[facility] [phone] [id number] [facility] 02/07/2012 Patient Education: Patient Medication Summary [...]
--- OUTSIDE RECORDS SUMMARY | 2019-09-15 18:32 | XMS REPORT | CCD ---
Author Author Jason Carey APRN Organization [facility] Address [address] [place] [address] Phone Care Team Providers Care Regulation Supervisor Name Role Phone PP Unavailable CCM Unavailable Summary Purpose Interface Exchange Insurance Providers Payer name Policy type / Coverage type Covered republican ID Effective Begin Date Effective End Date WPS MEDICARE PART B [place] Medicare Part B [id number] Unknown [facility] Medicare Part B [id number] Un known Family History Family History data not found Social History Social History Element Codes Description Effective Dates Tobacco history SNOMED CT: [id number] Never smoker 01/20/2015 Allergies, Adverse Reactions, Alerts [...] Instructions Vitamin D3 2,000 unit tablet RxNorm: 568196 1 Tablet(s) Oral QD 01/2020 No Stop Date Active flecainide 100 mg tablet RxNorm: 788825 1 Tablet(s) Oral two ti mes a day 05/28/2019 No Stop Date Active imipramine 25 mg tablet RxNorm: 318617 1 Tablet(s) Oral three t imes a day 05/28/2019 No Stop Date Active aspirin 81 mg tablet,delayed release RxNorm: 436074 1 Tablet(s) Oral QD 05/23/2019 06/22/2019 Inactive multivitamin with iron tablet RxNorm: 1 Tablet(s) Oral QD 04/19 No Stop Date Active hydrocodone 10 mg-acetaminophen 300 mg tablet RxNorm: 770096 1 Tablet(s) Oral Q8H as needed for pain 05/09/2019 05/22/2019 Inactive hydrocodone 5 mg-acetaminophen 325 mg tablet RxNorm: 758743 1 Tablet(s) Oral Every 6 hours as needed 05/09/2019 06/10/2019 Inactive Bactrim DS 800 mg-160 mg tablet RxNorm: 672746 1 Tablet(s) PO BID 0 01/13/2015 01/22/2015 Inactive aspirin 81 mg tablet,delayed release RxNorm: 858094 1 Tablet(s) PO QD 02/07/2012 03/07/2012 Inactive Vitamin D3 1000 units Capsule RxNorm: 2 Capsule(s) PO QD No St art Date 05/27/2019 Inactive lisinopril 20 mg tablet RxNorm: 800149 1 Tablet(s) PO QD No Start D ate 02/06/2012 Inactive flecainide 100 mg tablet RxNorm: 693999 1 Tablet(s) PO QD No Start Date 05/27/2019 Inactive lisinopril 20 mg tablet RxNorm: 338484 1/2 Tablet(s) PO PRN No Star t Date 05/22/2019 Inactive Meclizine 25 mg Tab RxNorm: 1900816 1 Tablet(s) PO QID prn dizzi ness No Start Date 05/09/2019 Inactive imipramine pamoate 75 mg capsule RxNorm: 370830 1 Capsule(s) PO QD No Start Date 05/27/2019 Inactive Medication Administered No Medication Administered data Immunizations Vaccine Codes Date Status Tetanus, Diptheria, Pertussis CVX: 115 12/27/2018 Results Observation Observation Code Item Item Code Result Date S vice Location COMPLETE BLOOD COUNT [id number] WBC 6.8 10e9/L 07/05/19 20 Unknown COMPLETE BLOOD COUNT [id number] RBC 2.97 10e12/L 2019 Unknown COMPLETE BLOOD COUNT [id number] HEMOGLOBIN 10.1 g/dL 07/05/19 20 Unknown COMPLETE BLOOD COUNT [id number] HEMATOCRIT 31.5 % 07/05/19 20 Unknown COMPLETE BLOOD COUNT [id number] MCV 106.1 fL 0 Unknown COMPLETE BLOOD COUNT [id number] MCH 34.0 pg 0 Unknown COMPLETE BLOOD COUNT 4623505 MCHC 32.1 g/dL 0 Unknown COMPLETE BLOOD COUNT [id number] PLATELET COUNT 176 10e9/L Unknown COMPLETE BLOOD COUNT 1052191 Mean Plt Volume 12.2 fL Unknown COMPLETE BLOOD COUNT 5903696 Neut Auto 70.5 % 0 Unknown COMPLETE BLOOD COUNT 6347964 Lymph Auto 15.8 % 07/05/19 20 Unknown COMPLETE BLOOD COUNT 9276614 Trimble Auto 12.4 % 0 Unknown COMPLETE BLOOD COUNT 2360717 RDW 14.2 % 0 Unknown COMPLETE BLOOD COUNT 0207964 Eos Auto 1.2 % 0 Unknown COMPLETE BLOOD COUNT 5960924 Baso Auto 0.1 % 0 Unknown COMPLETE BLOOD COUNT 8106575 Neutrophil Abs 4.79 10e9/L Unknown COMPLETE BLOOD COUNT [id number] Lymphocyte Abs 1.07 10e9/L Unknown COMPLETE BLOOD COUNT [id number] Monocyte Abs 0.84 10e9/L 06/16 Unknown COMPLETE BLOOD COUNT [id number] Eosinophil Abs 0.08 10e9/L Unknown COMPLETE BLOOD COUNT 1701961 RDW-SD 52.7 fL 0 Unknown COMPLETE BLOOD COUNT [id number] Basophil Abs 0.01 10e9/L 06/16 Unknown FERRITIN 96311 FERRITIN 238.7 ng/mL 05/10/2019 Unknown IRON PROFILE 21926 Iron 89 ug/dL 05/10/2019 Unknow n IRON PROFILE 04840 TIBC 295 ug/dL 05/10/2019 Unknow n IRON PROFILE 95266 % SATURATION 30 % 05/10/2019 Unk nown IRON PROFILE 52501 UIBC 206 ug/dL 05/10/2019 Unknow n COMPREHENSIVE METABOLIC 34715 AST 22 U/L 2019 Unknown COMPREHENSIVE METABOLIC 33220 ALT 15 U/L 2019 Unknown COMPREHENSIVE METABOLIC 24068 BUN 33 mg/dL 2019 Unknown COMPREHENSIVE METABOLIC 96347 ALBUMIN 4.1 g/dL 2019 Unknown COMPREHENSIVE METABOLIC 46963 CHLORIDE 100 mmol/L 05/10 Unknown COMPREHENSIVE METABOLIC 95967 Bili Total 0.4 mg/dL 05/10 Unknown COMPREHENSIVE METABOLIC 42608 ALK PHOS 63 U/L 2019 Unknown COMPREHENSIVE METABOLIC 01660 SODIUM 135 mmol/L 05/10 Unknown COMPREHENSIVE METABOLIC 61089 CREATININE 1.59 mg/dL 04/19 Unknown COMPREHENSIVE METABOLIC 25364 CALCIUM 9.3 mg/dL 2019 Unknown COMPREHENSIVE METABOLIC 66886 POTASSIUM 5.0 mmol/L 05/10 Unknown COMPREHENSIVE METABOLIC 03959 Total Protein 6.9 g/dL Unknown COMPREHENSIVE METABOLIC 77614 Glucose 106 mg/dL 2019 Unknown COMPREHENSIVE METABOLIC 61809 Bicarbonate 28 mmol/L 04/19 Unknown COMPREHENSIVE METABOLIC 69346 AGAP 7 mmol/L 2019 Unknown GFR CALC 0445503 GFR Non Afr Amr 41 mL/min 05/10/2019 Unk nown GFR CALC 8792830 GFR Afr Amr 50 mL/min 05/10/2019 Unknown COMPLETE BLOOD COUNT [id number] WBC 5.5 10e9/L 05/10/19 20 Unknown COMPLETE BLOOD COUNT 1130528 RBC 3.11 10e12/L 2019 Unknown COMPLETE BLOOD COUNT 8943555 HEMOGLOBIN 10.5 g/dL 05/10/19 Unknown COMPLETE BLOOD COUNT [id number] HEMATOCRIT 32.8 % 05/10/19 20 Unknown COMPLETE BLOOD COUNT 5379344 MCV 105.5 fL 0 Unknown COMPLETE BLOOD COUNT 3081793 MCH 33.8 pg 0 Unknown COMPLETE BLOOD COUNT 5691920 MCHC 32.0 g/dL 0 Unknown COMPLETE BLOOD COUNT 9928964 PLATELET COUNT 167 10e9/L Unknown COMPLETE BLOOD COUNT 6098375 Mean Plt Volume 13.2 fL Unknown COMPLETE BLOOD COUNT 5175621 Neut Auto 62.9 % 0 Unknown COMPLETE BLOOD COUNT 6169173 Lymph Auto 23.8 % 05/10/19 Unknown COMPLETE BLOOD COUNT 9737654 Trimble Auto 11.6 % 0 Unknown COMPLETE BLOOD COUNT 2548008 Eos Auto 1.5 % 0 Unknown COMPLETE BLOOD COUNT 1713560 RDW 14.6 % 0 Unknown COMPLETE BLOOD COUNT 1569997 Baso Auto 0.2 % 0 Unknown COMPLETE BLOOD COUNT 8678066 Neutrophil Abs 3.46 10e9/L Unknown COMPLETE BLOOD COUNT 6747429 Lymphocyte Abs 1.31 10e9/L Unknown COMPLETE BLOOD COUNT 8976725 Monocyte Abs 0.64 10e9/L 04/19 Unknown COMPLETE BLOOD COUNT 8898956 Eosinophil Abs 0.08 10e9/L Unknown COMPLETE BLOOD COUNT 2349258 RDW-SD 54.4 fL 0 Unknown COMPLETE BLOOD COUNT [id number] Basophil Abs 0.01 10e9/L 04/19 Unknown LIPID GROUP 69756 Cholesterol 173 mg/dL 05/10/2019 Unkno wn LIPID GROUP 17470 Triglyceride 105 mg/dL 05/10/2019 Unkn own LIP[facility] GROUP 83771 HDL CHOLESTEROL 47 mg/dL 05/10/2019 U nknown L[facility] GROUP 34416 Chol/HDL Ratio 3.68 ratio 05/10/2019 U nknown LIPID GROUP 26428 NON-HDL Chol 126 mg/dL 05/10/2019 Unkn own [facility] GROUP 68228 LDL Cholesterol 105 mg/dL 05/10/2019 U nknown Procedures Procedure Codes Date ROUTINE VENIPUNCTURE CPT-4: 34984 07/05/2019 COMPLETE CBC W/AUTO DIFF WBC CPT-4: 72145 07/05/2019 URINE CULTURE/ COLONY COUNT CPT-4: 78986 05/15/2019 ROUTINE VENIPUNCTURE CPT-4: 07436 05/10/2019 COMPREHEN METABOLIC PANEL CPT-4: 00016 05/10/2019 COMPLETE CBC W/AUTO DIFF WBC CPT-4: 18211 05/10/2019 LIPID PANEL CPT-4: 24164 05/10/2019 IRON PROFILE CPT-4: 68268 05/10/2019 ASSAY OF FERRITIN CPT-4: 14920 05/10/2019 CUR TOBACCO NON-USER CPT-4: G8457 01/20/2015 [...] 1: 126/70 Code: 8480-6 BMI: 24.8 Code: 57100-0 Heart Rate 1: 84 bpm Height: 6' Respiratory Rate: 20 bpm Temperature: 36 .6 (C) / 97.8 (F) Weight: 183 lbs 01/20/2015 Blood Pressure 1: 122/58 Code: 8480-6 BMI: 24.8 Code: 87626-1 Heart Rate 1: 80 bpm Height: 6' Respiratory Rate: 20 bpm Temperature: 36 .4 (C) / 97.6 (F) Weight: 183 lbs 01/13/2015 Blood Pressure 1: 142/68 Code: 8480-6 BMI: 24.8 Code: 52441-6 Heart Rate 1: 86 bpm Height: 6' Respiratory Rate: 20 bpm Temperature: 36 .6 (C) / 97.8 (F) Weight: 183 lbs 02/07/2012 Blood Pressure 1: 130/70 Code: 8480-6 BMI: 25.7 Code: 18212-5 Heart Rate 1: 74 bpm Height: 5'11" [...] 02/07/2012 Encounters Encounter Performer Location Codes Date ([id number]) OFFICE/OUTPATIENT VISIT EST Diagnosis: Anemia[ICD10: D64.9] Diagnosis: Dyspnea[ICD10: R06.00] Damaris Cantu [employer] CPT-4: 72267 07/05/2019 ([id number]) OFFICE/OUTPATIENT VISIT EST Diagnosis: Left hip pain[ICD10: M25.552] Diagnosis: Recurrent falls[ICD10: R29.6] Diagnosis: Dyspnea on exertion[ICD10: R06.09] Damaris CONKLIN [employer] CPT-4: 51470 06/11/2019 ([id number]) OFFICE/OUTPATIENT VISIT EST Diagnosis: Dyspnea on exertion[ICD10: R06.09] Diagnosis: Anemia[ICD10: D64.9] Damaris CONKLIN DO [employer] CPT-4: 94160 05/23/2019 ([id number]) NURSE/OUTPATIENT VISIT EST Diagnosis: Urinary tract infection, site not specified[ICD10: N39.0] Damaris Solorio [facility]ER [facility] CPT-4: 78416 05/15/2019 ([id number]) NURSE/OUTPATIENT VISIT EST Diagnosis: Mixed hyperlipidemia[ICD10: E78.2] Diagnosis: Hyperglycemia, unspecified[ICD10: R73.9] Diagnosis: Essential (primary) hypertension[ICD10: I10] Diagnosis: Anemia, unspecified[ICD10: D64.9] Damaris Gustafson S. PAT[facility]ICK[facility]ER [facility] CPT-4: 75898 05/10/2019 ([id number]) OFFICE/OUTPATIENT VISIT NEW Diagnosis: Broken rib[ICD10: S22.39XA] Lizzette Giles DAMARIS S. Estella NAVARRO [facility] CPT-4: 79734 05/09/2019 OFFICE/OUTPATIENT VISIT EST Diagnosis: Localized enlarged lymph nodes[ICD10: R59.0] Diagnosis: Encounter for follow-up examination after completed treatment for conditions other than malignant neoplasm[ICD10: Z09] Lashawnsa Aldo OCAMPO S. [facility] CPT-4: 84501 01/28/2015 OFFICE/OUTPATIENT VISIT EST Diagnosis: Localized enlarged lymph nodes[ICD10: R59.0] Lashawn YuriTea OCAMPO S. [facility] CPT-4: 19728 01/20/2015 OFFICE/OUTPATIENT VISIT EST Diagnosis: LYMPHADENOPATHY[ICD9: 785.6] Diagnosis: LOCAL SKIN INFECTION[ICD9: 686.9] Lashawn Gustafson S. 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 PATRICK[facility]ER [employer] CPT-4: 02709 02/07/2012 Plan of Care Planned Activity Notes [...] ICD-10 : R06.00 07/05/2019 Appointment: Damaris Conklinl: [address] [place], [place] [phone] [place] FOLLOW UP 07/05/2019 Appointment: Damaris Conklin WPtel: [address] [place], [place] [phone] [place] RESCHEDULED 07/02/2019 Visit Diagnosis Plan: Dyspnea [...] : M25.552 06/11/2019 Appointment: Damaris Conklin WPtel: [address] [place] [address] [place] FOLLOW UP 06/11/2019 Appointment: Damaris Conklin WPtel: [address] [place] [address] [place] 05/28/2019 1407--updated medications from patients medication bottles (km) CANCELED 05/28/2019 Visit Diagnosis Plan: Dyspnea on exertion Discussion: Check PFT Obtain most recent ECHO results ICD-9 : 786.09 ICD-10 : R06.09 05/23/2019 Visit Diagnosis Plan: Anemia Discussion: Discussed Hem atology--wants to hold at this time ICD-9 : 285.9 ICD-10 : D64.9 05/23/2019 Appointment: Damaris Conklin WPtel: [address] [place], [place] [phone] [place] FOLLOW UP 05/23/2019 Appointment: Damaris Conklin WPtel: [address] [place], [place] [phone] [place] UA 05/15/2019 Appointment: Damaris Conklin WPtel: [address] [place], [place] [phone] [place] LAB 05/10/2019 Visit Diagnosis Plan: Broken [...] ICD-10 : S22.39XA 05/09/2019 Appointment: Lizzette Giles [address] [place], [place] [phone] FOLLOW UP 05/09/2019 Visit Plan: Continue to monitor localize d lymph nodes for changes Follow-up for worsening symptoms 01/28/2015 Appointment: Lashawn Carlson WPtel: [address] [place], [place] [phone] [place] FOLLOW UP 01/28/2015 Patient Education: Patient Medication Summary Completed 01/28/2015 Visit Plan: Complete antibiotics. Monito r lymph node size and follow-up for persistent symptoms. 01/20/2015 Appointment: Lashawn Carlson WPtel: [address] [place], [place] [phone] 01/17 confirmed FOLLOW UP 01/20/2015 Patient Education: Patient Medication Summary Completed 01/20/2015 Visit Plan: Septra DS - 1 po bid x 10 da ys Follow-up in 1 week. 01/13/2015 Appointment: Lashawn Carlson WPtel: [address] [place], [place] [phone] [place] FOLLOW UP 01/13/2015 Patient Education: Patient Medication Summary Completed 01/13/2015 Appointment: Clarisa Garcia WPtel: [phone] [phone] [place] cancelled because patient evaluated in ER ACUTE ILLNESS 06/08/2013 Appointment: Damaris Conklin WPtel: [phone] [facility] [place] INJECTION 12/04/2012 Appointment: Taylor Carey WPtel: [phone] [place], [place] [phone] RE-ESTABLISH 02/07/2012 Patient Education: Patient Medication Summary [...]
--- OUTSIDE RECORDS SUMMARY | 2019-09-15 18:33 | XMS REPORT | CCD ---
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 Name Role Phone PP Unavailable CCM Unavailable Summary Purpose Interface Exchange Insurance Providers Payer name Policy type / Coverage type Covered democrat ID Effective Begin Date Effective End Date WPS MEDICARE PART B [place] Medicare Part B [id number] Unknown [facility] Medicare Part B [id number] Un known Family History Family History data not found Social History Social History Element Codes Description Effective Dates Tobacco history SNOMED CT: 754249076 Never smoker 01/20/2015 Allergies, Adverse Reactions, Alerts Substance Reaction Codes Entered Date Inactivated Date Status * NO KNOWN DRUG ALLERGIES Unknown 02/07/2012 No Inactiv e Date Active Problems Condition Codes Effective Dates Condition Status Dyspnea on exertion ICD-9: 786.09 ICD-10: R06.09 05/23/2019 Active Left hip pain ICD-9: 719.45 ICD-10: M25.552 06/11/2019 Active Recurrent falls ICD-9: V15.88 ICD-10: R29.6 06/11/2019 Active Anemia ICD-9: 285.9 ICD-10: D64.9 05/10/2019 Active Urinary tract infection, site not specified [...] Instructions Vitamin D3 2,000 unit tablet RxNorm: 767436 1 Tablet(s) Oral QD 01/2020 No Stop Date Active flecainide 100 mg tablet RxNorm: 553106 1 Tablet(s) Oral two ti mes a day 05/28/2019 No Stop Date Active imipramine 25 mg tablet RxNorm: 177461 1 Tablet(s) Oral three t imes a day 05/28/2019 No Stop Date Active aspirin 81 mg tablet,delayed release RxNorm: 293548 1 Tablet(s) Oral QD 05/23/2019 06/22/2019 Active multivitamin with iron tablet RxNorm: 1 Tablet(s) Oral QD 04/19 No Stop Date Active hydrocodone 10 mg-acetaminophen 300 mg tablet RxNorm: 869266 1 Tablet(s) Oral Q8H as needed for pain 05/09/2019 05/22/2019 Inactive hydrocodone 5 mg-acetaminophen 325 mg tablet RxNorm: 640777 1 Tablet(s) Oral Every 6 hours as needed 05/09/2019 06/10/2019 Inactive Bactrim DS 800 mg-160 mg tablet RxNorm: 518591 1 Tablet(s) PO BID 0 01/13/2015 01/22/2015 Inactive aspirin 81 mg tablet,delayed release RxNorm: 246082 1 Tablet(s) PO QD 02/07/2012 03/07/2012 Inactive Vitamin D3 1000 units Capsule RxNorm: 2 Capsule(s) PO QD No St art Date 05/27/2019 Inactive lisinopril 20 mg tablet RxNorm: 621140 1 Tablet(s) PO QD No Start D ate 02/06/2012 Inactive flecainide 100 mg tablet RxNorm: 446584 1 Tablet(s) PO QD No Start Date 05/27/2019 Inactive lisinopril 20 mg tablet RxNorm: 402339 1/2 Tablet(s) PO PRN No Star t Date 05/22/2019 Inactive Meclizine 25 mg Tab RxNorm: 5804774 1 Tablet(s) PO QID prn dizzi ness No Start Date 05/09/2019 Inactive imipramine pamoate 75 mg capsule RxNorm: 579413 1 Capsule(s) PO QD No Start Date 05/27/2019 Inactive Medication Administered No Medication Administered data Immunizations Vaccine Codes Date Status Tetanus, Diptheria, Pertussis CVX: 115 12/27/2018 Results Observation Observation Code Item Item Code Result Date S ervice Location FERRITIN 69280 FERRITIN 238.7 ng/mL 05/10/2019 Unknown IRON PROFILE 74503 Iron 89 ug/dL 05/10/2019 Unknow n IRON PROFILE 08760 TIBC 295 ug/dL 05/10/2019 Unknow n IRON PROFILE 04384 % SATURATION 30 % 05/10/2019 Unk nown IRON PROFILE 13809 UIBC 206 ug/dL 05/10/2019 Unknow n COMPREHENSIVE METABOLIC 30109 AST 22 U/L 2019 Unknown COMPREHENSIVE METABOLIC 62125 ALT 15 U/L 2019 Unknown COMPREHENSIVE METABOLIC 38850 BUN 33 mg/dL 2019 Unknown COMPREHENSIVE METABOLIC 34964 ALBUMIN 4.1 g/dL 2019 Unknown COMPREHENSIVE METABOLIC 22264 CHLORIDE 100 mmol/L 05/10 Unknown COMPREHENSIVE METABOLIC 78241 Bili Total 0.4 mg/dL 05/10 Unknown COMPREHENSIVE METABOLIC 44627 ALK PHOS 63 U/L 2019 Unknown COMPREHENSIVE METABOLIC 74277 SODIUM 135 mmol/L 05/10 Unknown COMPREHENSIVE METABOLIC 57740 CREATININE 1.59 mg/dL 04/19 Unknown COMPREHENSIVE METABOLIC 75022 CALCIUM 9.3 mg/dL 2019 Unknown COMPREHENSIVE METABOLIC 34113 POTASSIUM 5.0 mmol/L 05/10 Unknown COMPREHENSIVE METABOLIC 08950 Total Protein 6.9 g/dL Unknown COMPREHENSIVE METABOLIC 98537 Glucose 106 mg/dL 2019 Unknown COMPREHENSIVE METABOLIC 96234 Bicarbonate 28 mmol/L 04/19 Unknown COMPREHENSIVE METABOLIC 94543 AGAP 7 mmol/L 2019 Unknown GFR CALC 6910115 GFR Non Afr Amr 41 mL/min 05/10/2019 Unk nown GFR CALC 5772353 GFR Afr Amr 50 mL/min 05/10/2019 Unknown COMPLETE BLOOD COUNT 2404098 WBC 5.5 10e9/L 05/10/19 20 Unknown COMPLETE BLOOD COUNT 3975350 RBC 3.11 10e12/L 2019 Unknown COMPLETE BLOOD COUNT 1322327 HEMOGLOBIN 10.5 g/dL 05/10/19 20 Unknown COMPLETE BLOOD COUNT [id number] HEMATOCRIT 32.8 % 05/10/19 20 Unknown COMPLETE BLOOD COUNT 0232273 MCV 105.5 fL 0 Unknown COMPLETE BLOOD COUNT 1870256 MCH 33.8 pg 0 Unknown COMPLETE BLOOD COUNT 7136737 MCHC 32.0 g/dL 0 Unknown COMPLETE BLOOD COUNT 9886888 PLATELET COUNT 167 10e9/L Unknown COMPLETE BLOOD COUNT 6192408 Mean Plt Volume 13.2 fL Unknown COMPLETE BLOOD COUNT 4390373 Neut Auto 62.9 % 0 Unknown COMPLETE BLOOD COUNT 6260737 Lymph Auto 23.8 % 05/10/19 20 Unknown COMPLETE BLOOD COUNT 4446961 [place] Auto 11.6 % 0 Unknown COMPLETE BLOOD COUNT 2300497 RDW 14.6 % 0 Unknown COMPLETE BLOOD COUNT 6163923 Eos Auto 1.5 % 0 Unknown COMPLETE BLOOD COUNT 5978245 Baso Auto 0.2 % 0 Unknown COMPLETE BLOOD COUNT 3922661 Neutrophil Abs 3.46 10e9/L Unknown COMPLETE BLOOD COUNT 3328845 Lymphocyte Abs 1.31 10e9/L Unknown COMPLETE BLOOD COUNT 3992885 Monocyte Abs 0.64 10e9/L 04/19 Unknown COMPLETE BLOOD COUNT 6646807 Eosinophil Abs 0.08 10e9/L Unknown COMPLETE BLOOD COUNT 7516097 RDW-SD 54.4 fL 0 Unknown COMPLETE BLOOD COUNT 0706393 Basophil Abs 0.01 10e9/L 04/19 Unknown [facility] 03845 Cholesterol 173 mg/dL 05/10/2019 Unkno wn LIPID GROUP 15778 Triglyceride 105 mg/dL 05/10/2019 Unkn own L[facility] GROUP 15521 HDL CHOLESTEROL 47 mg/dL 05/10/2019 U nknown LIP[facility] GROUP 04792 Chol/HDL Ratio 3.68 ratio 05/10/2019 U nknown LIPID GROUP 40618 NON-HDL Chol 126 mg/dL 05/10/2019 Unkn own [facility] 37876 LDL Cholesterol 105 mg/dL 05/10/2019 U nknown Procedures Procedure Codes Date URINE CULTURE/ COLONY COUNT CPT-4: 44056 05/15/2019 ROUTINE VENIPUNCTURE CPT-4: 93209 05/10/2019 COMPREHEN METABOLIC PANEL CPT-4: 23742 05/10/2019 COMPLETE CBC W/AUTO DIFF WBC CPT-4: 76651 05/10/2019 LIPID PANEL CPT-4: 21136 05/10/2019 IRON PROFILE CPT-4: 01206 05/10/2019 ASSAY OF FERRITIN CPT-4: 04579 05/10/2019 CUR TOBACCO NON-USER CPT-4: G8457 01/20/2015 PRESCRIP TRANSMIT VIA ERX SY CPT-4: G8553 01/13/2015 Vital Signs Date Vital 06/11/2019 Blood Pressure 1: 132/64 Code: 8480-6 [...] 1: 126/70 Code: 8480-6 BMI: 24.8 Code: 94595-4 Heart Rate 1: 84 bpm Height: 6' Respiratory Rate: 20 bpm Temperature: 36 .6 (C) / 97.8 (F) Weight: 183 lbs 01/20/2015 Blood Pressure 1: 122/58 Code: 8480-6 BMI: 24.8 Code: 54928-7 Heart Rate 1: 80 bpm Height: 6' Respiratory Rate: 20 bpm Temperature: 36 .4 (C) / 97.6 (F) Weight: 183 lbs 01/13/2015 Blood Pressure 1: 142/68 Code: 8480-6 BMI: 24.8 Code: 48760-9 Heart Rate 1: 86 bpm Height: 6' Respiratory Rate: 20 bpm Temperature: 36 .6 (C) / 97.8 (F) Weight: 183 lbs 02/07/2012 Blood Pressure 1: 130/70 Code: 8480-6 BMI: 25.7 Code: 11310-7 Heart Rate 1: 74 bpm Height: 5'11" Temperature: 36.6 (C) / 97.8 (F) Weight: 184 lbs Functional Status No Functional Status data Reason For Visit Reason For Visit Effective Dates Notes follow up 06/11/2019 follow up 05/23/2019 bone fracture 05/09/2019 right ribs follow up 01/28/2015 follow up 01/20/2015 1 week sore throat 01/13/2015 knee pain 02/07/2012 Encounters Encounter Performer Location Codes Date ([id number]) OFFICE/OUTPATIENT VISIT EST Diagnosis: Left hip pain[ICD10: M25.552] Diagnosis: Recurrent falls[ICD10: R29.6] Diagnosis: Dyspnea on exertion[ICD10: R06.09] Dam[facility] GAYLE [email or web address] [facility] CPT-4: 12561 06/11/2019 ([id number]) OFFICE/OUTPATIENT VISIT EST Diagnosis: Dyspnea on exertion[ICD10: R06.09] Diagnosis: Anemia[ICD10: D64.9] Damaris OC[facility]PO [facility] CPT-4: 11115 05/23/2019 ([id number]) NURSE/OUTPATIENT VISIT EST Diagnosis: Urinary tract infection, site not specified[ICD10: N39.0] Dam[facility] Solorio [facility] CPT-4: 78853 05/15/2019 ([id number]) NURSE/OUTPATIENT VISIT EST Diagnosis: Mixed hyperlipidemia[ICD10: E78.2] Diagnosis: Hyperglycemia, unspecified[ICD10: R73.9] Diagnosis: Essential (primary) hypertension[ICD10: I10] Diagnosis: Anemia, unspecified[ICD10: D64.9] Dam[facility] Gustafson [email or web address] [facility] CPT-4: 96049 05/10/2019 ([id number]) OFFICE/OUTPATIENT VISIT NEW Diagnosis: Broken rib[ICD10: S22.39XA] Lizzette Giles [facility] SEcho NAVARRO DO [facility] CPT-4: 82059 05/09/2019 OFFICE/OUTPATIENT VISIT EST Diagnosis: Localized enlarged lymph nodes[ICD10: R59.0] Diagnosis: Encounter for follow-up examination after completed treatment for conditions other than malignant neoplasm[ICD10: Z09] Lashawn Aldo [facility]PO [facility]ICK[facility]CL[facility] CPT-4: 69344 01/28/2015 OFFICE/OUTPATIENT VISIT EST Diagnosis: Localized enlarged lymph nodes[ICD10: R59.0] Lashawn Aldo OC[facility] PATRICKNDER DO [facility] CPT-4: 11799 01/20/2015 OFFICE/OUTPATIENT VISIT EST Diagnosis: LYMPHADENOPATHY[ICD9: 785.6] Diagnosis: LOCAL SKIN INFECTION[ICD9: 686.9] Lashawn Aldo Gustafson [employer] [employer] [facility] CPT-4: 29344 01/13/2015 OFFICE/OUTPATIENT VISIT NEW Diagnosis: Grey's cyst of knee[ICD9: 727.51] Taylor GAYLE [facility] CPT-4: 49860 02/07/2012 Plan of Care Planned Activity Notes Codes Status Date Visit Diagnosis Plan: Dyspnea on exertion Discussion: [...] : M25.552 06/11/2019 Appointment: [facility] [phone] [facility] [id number] 05/28/2019 1402--updated medications from patients medication bottles (km) CANCELED 05/28/2019 Visit Diagnosis Plan: Dyspnea on exertion Discussion: Check PFT Obtain most recent ECHO results ICD-9 : 786.09 ICD-10 : R06.09 05/23/2019 Visit Diagnosis Plan: Anemia Discussion: Discussed Hem atology--wants to hold at this time ICD-9 : 285.9 ICD-10 : D64.9 05/23/2019 Appointment: [facility] WPtel: [address] [place], [place] [phone] [place] FOLLOW UP 05/23/2019 Appointment: [facility] WPtel: [phone] [place], [place] [phone] [place] UA 05/15/2019 Appointment: [facility] WPtel: [address] [place] [address] [place] LAB 05/10/2019 Visit Diagnosis Plan: Broken [...] 4 years. patient reports he sees dr. al and elier routinely so will obtain recent labs from their offices. instructed patient that he may need additional blood work though pending what they ordered. instructed to follow up with dr. conklin in 1 month though since he hasn't been seen much and will re-assess his bp. ICD-9 : 807.00 ICD-10 : S22.39XA 05/09/2019 Appointment: Lizzette Giles [address] [place] [address] FOLLOW UP 05/09/2019 Visit Plan: Continue to monitor localize d lymph nodes for changes Follow-up for worsening symptoms 01/28/2015 Appointment: Lashawn Carlson WPtel: [address] [place], [place] [phone] FOLLOW UP 01/28/2015 Patient Education: Patient Medication Summary Completed 01/28/2015 Visit Plan: Complete antibiotics. Monito r lymph node size and follow-up for persistent symptoms. 01/20/2015 Appointment: Lashawn Carlson WPtel: [address] [place], [place] [phone] 01/17 confirmed FOLLOW UP 01/20/2015 Patient Education: Patient Medication Summary Completed 01/20/2015 Visit Plan: Septra DS - 1 po bid x 10 da ys Follow-up in 1 week. 01/13/2015 Appointment: Lashawn Carlson WPtel: [address] [place], [place] [phone] [place] FOLLOW UP 01/13/2015 Patient Education: Patient Medication Summary Completed 01/13/2015 Appointment: Clarisa Garcia WPtel: [phone] [place] [address] [place] cancelled because patient evaluated in ER ACUTE ILLNESS 06/08/2013 Appointment: [facility] WPtel: [phone] [place], [place] [phone] [place] INJECTION 12/04/2012 Appointment: Taylor Carey WPtel: [address] [place] [address] [place] RE-ESTABLISH 02/07/2012 Patient Education: Patient Medication Summary [...]
--- OUTSIDE RECORDS SUMMARY | 2019-09-15 18:33 | XMS REPORT | CCD ---
Author Author Jason Carey APRN Organization [facility] Address [address] [place] [address] Phone Care Team Providers Care Asp Net Developer Name Role Phone PP Unavailable CCM Unavailable Summary Purpose Interface Exchange Insurance Providers Payer name Policy type / Coverage type Covered libertarian ID Effective Begin Date Effective End Date WPS MEDIC[place] PART B [place] Medicare Part B [id number] Unknown [facility] Medicare Part B [id number] Un known Family History Family History data not found Social History Social History Element Codes Description Effective Dates Tobacco history SNOMED CT: 164626235 Never smoker 01/20/2015 Allergies, Adverse Reactions, Alerts [...] Instructions Vitamin D3 2,000 unit tablet RxNorm: 771529 1 Tablet(s) Oral QD 01/2020 No Stop Date Active flecainide 100 mg tablet RxNorm: 996924 1 Tablet(s) Oral two ti mes a day 05/28/2019 No Stop Date Active imipramine 25 mg tablet RxNorm: 877405 1 Tablet(s) Oral three t imes a day 05/28/2019 No Stop Date Active aspirin 81 mg tablet,delayed release RxNorm: 549488 1 Tablet(s) Oral QD 05/23/2019 06/22/2019 Inactive multivitamin with iron tablet RxNorm: 1 Tablet(s) Oral QD 04/19 No Stop Date Active hydrocodone 10 mg-acetaminophen 300 mg tablet RxNorm: 653554 1 Tablet(s) Oral Q8H as needed for pain 05/09/2019 05/22/2019 Inactive hydrocodone 5 mg-acetaminophen 325 mg tablet RxNorm: 511528 1 Tablet(s) Oral Every 6 hours as needed 05/09/2019 06/10/2019 Inactive Bactrim DS 800 mg-160 mg tablet RxNorm: 410018 1 Tablet(s) PO BID 0 01/13/2015 01/22/2015 Inactive aspirin 81 mg tablet,delayed release RxNorm: 147621 1 Tablet(s) PO QD 02/07/2012 03/07/2012 Inactive Vitamin D3 1000 units Capsule RxNorm: 2 Capsule(s) PO QD No St art Date 05/27/2019 Inactive lisinopril 20 mg tablet RxNorm: 498235 1 Tablet(s) PO QD No Start D ate 02/06/2012 Inactive flecainide 100 mg tablet RxNorm: 191431 1 Tablet(s) PO QD No Start Date 05/27/2019 Inactive lisinopril 20 mg tablet RxNorm: 944271 1/2 Tablet(s) PO PRN No Star t Date 05/22/2019 Inactive Meclizine 25 mg Tab RxNorm: 6641310 1 Tablet(s) PO QID prn dizzi ness No Start Date 05/09/2019 Inactive imipramine pamoate 75 mg capsule RxNorm: 602757 1 Capsule(s) PO QD No Start Date 05/27/2019 Inactive Medication Administered No Medication Administered data Immunizations Vaccine Codes Date Status Tetanus, Diptheria, Pertussis CVX: 115 12/27/2018 Results Observation Observation Code Item Item Code Result Date S vice Location COMPLETE BLOOD COUNT [id number] WBC 6.8 10e9/L 07/05/19 20 Unknown COMPLETE BLOOD COUNT [id number] RBC 2.97 10e12/L 2019 Unknown COMPLETE BLOOD COUNT [id number] HEMOGLOBIN 10.1 g/dL 07/05/19 20 Unknown COMPLETE BLOOD COUNT [id number] HEMATOCRIT 31.5 % 07/05/19 20 Unknown COMPLETE BLOOD COUNT [id number] MCV 106.1 fL 0 Unknown COMPLETE BLOOD COUNT [id number] MCH 34.0 pg 0 Unknown COMPLETE BLOOD COUNT [id number] MCHC 32.1 g/dL 0 Unknown COMPLETE BLOOD COUNT [id number] PLATELET COUNT 176 10e9/L Unknown COMPLETE BLOOD COUNT [id number] Mean Plt Volume 12.2 fL Unknown COMPLETE BLOOD COUNT [id number] Neut Auto 70.5 % 0 Unknown COMPLETE BLOOD COUNT [id number] Lymph Auto 15.8 % 07/05/19 20 Unknown COMPLETE BLOOD COUNT [id number] [place] Auto 12.4 % 0 Unknown COMPLETE BLOOD COUNT [id number] RDW 14.2 % 0 Unknown COMPLETE BLOOD COUNT [id number] Eos Auto 1.2 % 0 Unknown COMPLETE BLOOD COUNT [id number] Baso Auto 0.1 % 0 Unknown COMPLETE BLOOD COUNT [id number] Neutrophil Abs 4.79 10e9/L Unknown COMPLETE BLOOD COUNT [id number] Lymphocyte Abs 1.07 10e9/L Unknown COMPLETE BLOOD COUNT [id number] Monocyte Abs 0.84 10e9/L 06/16 Unknown COMPLETE BLOOD COUNT [id number] Eosinophil Abs 0.08 10e9/L Unknown COMPLETE BLOOD COUNT [id number] RDW-SD 52.7 fL 0 Unknown COMPLETE BLOOD COUNT [id number] Basophil Abs 0.01 10e9/L 06/16 Unknown FERRITIN 65593 FERRITIN 238.7 ng/mL 05/10/2019 Unknown IRON PROFILE 01961 Iron 89 ug/dL 05/10/2019 Unknow n IRON PROFILE 55491 TIBC 295 ug/dL 05/10/2019 Unknow n IRON PROFILE 99823 % SATURATION 30 % 05/10/2019 Unk nown IRON PROFILE 53969 UIBC 206 ug/dL 05/10/2019 Unknow n COMPREHENSIVE METABOLIC 66347 AST 22 U/L 2019 Unknown COMPREHENSIVE METABOLIC 57217 ALT 15 U/L 2019 Unknown COMPREHENSIVE METABOLIC 67802 BUN 33 mg/dL 2019 Unknown COMPREHENSIVE METABOLIC 38048 ALBUMIN 4.1 g/dL 2019 Unknown COMPREHENSIVE METABOLIC 82128 CHLORIDE 100 mmol/L 05/10 Unknown COMPREHENSIVE METABOLIC 51554 Bili Total 0.4 mg/dL 05/10 Unknown COMPREHENSIVE METABOLIC 22843 ALK PHOS 63 U/L 2019 Unknown COMPREHENSIVE METABOLIC 71665 SODIUM 135 mmol/L 05/10 Unknown COMPREHENSIVE METABOLIC 72382 CREATININE 1.59 mg/dL 04/19 Unknown COMPREHENSIVE METABOLIC 65469 CALCIUM 9.3 mg/dL 2019 Unknown COMPREHENSIVE METABOLIC 41282 POTASSIUM 5.0 mmol/L 05/10 Unknown COMPREHENSIVE METABOLIC 19010 Total Protein 6.9 g/dL Unknown COMPREHENSIVE METABOLIC 24572 Glucose 106 mg/dL 2019 Unknown COMPREHENSIVE METABOLIC 09094 Bicarbonate 28 mmol/L 04/19 Unknown COMPREHENSIVE METABOLIC 77447 AGAP 7 mmol/L 2019 Unknown GFR CALC 6808432 GFR Non Afr Amr 41 mL/min 05/10/2019 Unk nown GFR CALC 6426850 GFR Afr Amr 50 mL/min 05/10/2019 Unknown COMPLETE BLOOD COUNT [id number] WBC 5.5 10e9/L 05/10/19 20 Unknown COMPLETE BLOOD COUNT [id number] RBC 3.11 10e12/L 2019 Unknown COMPLETE BLOOD COUNT [id number] HEMOGLOBIN 10.5 g/dL 05/10/19 Unknown COMPLETE BLOOD COUNT [id number] HEMATOCRIT 32.8 % 05/10/19 20 Unknown COMPLETE BLOOD COUNT [id number] MCV 105.5 fL 0 Unknown COMPLETE BLOOD COUNT [id number] MCH 33.8 pg 0 Unknown COMPLETE BLOOD COUNT 4080052 MCHC 32.0 g/dL 0 Unknown COMPLETE BLOOD COUNT [id number] PLATELET COUNT 167 10e9/L Unknown COMPLETE BLOOD COUNT [id number] Mean Plt Volume 13.2 fL Unknown COMPLETE BLOOD COUNT [id number] Neut Auto 62.9 % 0 Unknown COMPLETE BLOOD COUNT [id number] Lymph Auto 23.8 % 05/10/19 Unknown COMPLETE BLOOD COUNT [id number] [place] Auto 11.6 % 0 Unknown COMPLETE BLOOD COUNT [id number] RDW 14.6 % 0 Unknown COMPLETE BLOOD COUNT 0301303 Eos Auto 1.5 % 0 Unknown COMPLETE BLOOD COUNT [id number] Baso Auto 0.2 % 0 Unknown COMPLETE BLOOD COUNT [id number] Neutrophil Abs 3.46 10e9/L Unknown COMPLETE BLOOD COUNT [id number] Lymphocyte Abs 1.31 10e9/L Unknown COMPLETE BLOOD COUNT [id number] Monocyte Abs 0.64 10e9/L 04/19 Unknown COMPLETE BLOOD COUNT [id number] Eosinophil Abs 0.08 10e9/L Unknown COMPLETE BLOOD COUNT [id number] RDW-SD 54.4 fL 0 Unknown COMPLETE BLOOD COUNT [id number] Basophil Abs 0.01 10e9/L 04/19 Unknown LIPID GROUP 44009 Cholesterol 173 mg/dL 05/10/2019 Unkno wn L[facility] GROUP 58013 Triglyceride 105 mg/dL 05/10/2019 Unkn own [facility] 83633 HDL CHOLESTEROL 47 mg/dL 05/10/2019 U nknown [facility] 25749 Chol/HDL Ratio 3.68 ratio 05/10/2019 U nknown [facility] 44404 NON-HDL Chol 126 mg/dL 05/10/2019 Unkn own [facility] 28784 LDL Cholesterol 105 mg/dL 05/10/2019 U nknown Procedures Procedure Codes Date ROUTINE VENIPUNCTURE CPT-4: 83265 07/05/2019 COMPLETE CBC W/AUTO DIFF WBC CPT-4: 89500 07/05/2019 URINE CULTURE/ COLONY COUNT CPT-4: 96064 05/15/2019 ROUTINE VENIPUNCTURE CPT-4: 84817 05/10/2019 COMPREHEN METABOLIC PANEL CPT-4: 07836 05/10/2019 COMPLETE CBC W/AUTO DIFF WBC CPT-4: 82798 05/10/2019 LIPID PANEL CPT-4: 76234 05/10/2019 IRON PROFILE CPT-4: 21189 05/10/2019 ASSAY OF FERRITIN CPT-4: 82775 05/10/2019 CUR TOBACCO NON-USER CPT-4: G8457 01/20/2015 [...] 1: 126/70 Code: 8480-6 BMI: 24.8 Code: 92785-8 Heart Rate 1: 84 bpm Height: 6' Respiratory Rate: 20 bpm Temperature: 36 .6 (C) / 97.8 (F) Weight: 183 lbs 01/20/2015 Blood Pressure 1: 122/58 Code: 8480-6 BMI: 24.8 Code: 59906-5 Heart Rate 1: 80 bpm Height: 6' Respiratory Rate: 20 bpm Temperature: 36 .4 (C) / 97.6 (F) Weight: 183 lbs 01/13/2015 Blood Pressure 1: 142/68 Code: 8480-6 BMI: 24.8 Code: 44034-0 Heart Rate 1: 86 bpm Height: 6' Respiratory Rate: 20 bpm Temperature: 36 .6 (C) / 97.8 (F) Weight: 183 lbs 02/07/2012 Blood Pressure 1: 130/70 Code: 8480-6 BMI: 25.7 Code: 39743-2 Heart Rate 1: 74 bpm Height: 5'11" [...] 02/07/2012 Encounters Encounter Performer Location Codes Date ([id number]) OFFICE/OUTPATIENT VISIT EST Diagnosis: Anemia[ICD10: D64.9] Diagnosis: Dyspnea[ICD10: R06.00] Damaris Cantu TOOVIA CPT-4: 51522 07/05/2019 ([id number]) OFFICE/OUTPATIENT VISIT EST Diagnosis: Left hip pain[ICD10: M25.552] Diagnosis: Recurrent falls[ICD10: R29.6] Diagnosis: Dyspnea on exertion[ICD10: R06.09] Damaris CONKLIN TOOVIA CPT-4: 28867 06/11/2019 ([id number]) OFFICE/OUTPATIENT VISIT EST Diagnosis: Dyspnea on exertion[ICD10: R06.09] Diagnosis: Anemia[ICD10: D64.9] Damaris CONKLIN DO [employer] CPT-4: 65819 05/23/2019 ([id number]) NURSE/OUTPATIENT VISIT EST Diagnosis: Urinary tract infection, site not specified[ICD10: N39.0] Damaris Solorio PATR[facility]NDER [facility] CPT-4: 02969 05/15/2019 ([id number]) NURSE/OUTPATIENT VISIT EST Diagnosis: Mixed hyperlipidemia[ICD10: E78.2] Diagnosis: Hyperglycemia, unspecified[ICD10: R73.9] Diagnosis: Essential (primary) hypertension[ICD10: I10] Diagnosis: Anemia, unspecified[ICD10: D64.9] Damaris Gustafson S. [facility]NDER [facility] CPT-4: 86863 05/10/2019 ([id number]) OFFICE/OUTPATIENT VISIT NEW Diagnosis: Broken rib[ICD10: S22.39XA] Lizzette Giles DAMARIS S. Estella NAVARRO [facility] CPT-4: 59536 05/09/2019 OFFICE/OUTPATIENT VISIT EST Diagnosis: Localized enlarged lymph nodes[ICD10: R59.0] Diagnosis: Encounter for follow-up examination after completed treatment for conditions other than malignant neoplasm[ICD10: Z09] Lashawn OCAMPO S. [facility]ER [facility] CPT-4: 55149 01/28/2015 OFFICE/OUTPATIENT VISIT EST Diagnosis: Localized enlarged lymph nodes[ICD10: R59.0] Lashawn YuriTea OCAMPO S. [facility] CPT-4: 36790 01/20/2015 OFFICE/OUTPATIENT VISIT EST Diagnosis: LYMPHADENOPATHY[ICD9: 785.6] Diagnosis: LOCAL SKIN INFECTION[ICD9: 686.9] Lashawn Gustafson S. [facility]ER [facility] CPT-4: 25816 01/13/2015 OFFICE/OUTPATIENT VISIT NEW Diagnosis: Grey's cyst of knee[ICD9: 727.51] Taylor GAYLE S. 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 but since has not worsened patient wishes to monitor for now ICD-9 : 786.09 ICD-10 : R06.00 07/05/2019 Visit Diagnosis Plan: Anemia Discussion: Repeat CBC Fw up pending results Follow Up: As needed ICD-9 : 285.9 ICD-10 : D64.9 07/05/2019 Appointment: Damaris Conklinl: [address] [place], [place] [id number] [place] RESCHEDULED 07/02/2019 Visit Diagnosis Plan: Dyspnea [...] : M25.552 06/11/2019 Appointment: Damaris Conklin WPtel: [address] [place], [place] [id number] [place] FOLLOW UP 06/11/2019 Appointment: Damaris Conklin WPtel: [address] [place], [place] [id number] [place] 05/28/2019 1407--updated medications from patients medication bottles (km) CANCELED 05/28/2019 Visit Diagnosis Plan: Dyspnea on exertion Discussion: Check PFT Obtain most recent ECHO results ICD-9 : 786.09 ICD-10 : R06.09 05/23/2019 Visit Diagnosis Plan: Anemia Discussion: Discussed Hem atology--wants to hold at this time ICD-9 : 285.9 ICD-10 : D64.9 05/23/2019 Appointment: Damaris Conklin WPtel: [address] [place], [place] [id number] [place] FOLLOW UP 05/23/2019 Appointment: Damaris Conklin WPtel: [address] [place], [place] [phone] [place] UA 05/15/2019 Appointment: Damaris Conklin WPtel: [address] [place], [place] [phone] [place] LAB 05/10/2019 Visit Diagnosis Plan: Broken [...] S22.39XA 05/09/2019 Appointment: Lizzette Giles [address] [facility] FOLLOW UP 05/09/2019 Visit Plan: Continue to monitor localize d lymph nodes for changes Follow-up for worsening symptoms 01/28/2015 Appointment: Lashawn Carlson WPtel: [address] [place], [place] [phone] FOLLOW UP 01/28/2015 Patient Education: Patient Medication Summary Completed 01/28/2015 Visit Plan: Complete antibiotics. Monito r lymph node size and follow-up for persistent symptoms. 01/20/2015 Appointment: Lashawn Carlson WPtel: [address] [place], [place] [phone] 01/17 confirmed FOLLOW UP 01/20/2015 Patient Education: Patient Medication Summary Completed 01/20/2015 Visit Plan: Septra DS - 1 po bid x 10 da ys Follow-up in 1 week. 01/13/2015 Appointment: Lashawn Carlson WPtel: [address] [place], [place] [phone] [place] FOLLOW UP 01/13/2015 Patient Education: Patient Medication Summary Completed 01/13/2015 Appointment: Clarisa Garcia WPtel: [phone] [id number] [place] cancelled because patient evaluated in ER ACUTE ILLNESS 06/08/2013 Appointment: [facility]el[facility] [phone] [facility] [facility] 12/04/2012 Appointment: Taylor [facility]el[facility] [phone] [facility] [facility] 02/07/2012 Patient Education: Patient Medication Summary [...]
--- OUTSIDE RECORDS SUMMARY | 2019-09-15 18:33 | XMS REPORT | CCD ---
Author Author Jason Carey APRN Organization [facility] Address [address] [place] [address] Phone Care Team Providers Care Drapery And Upholstery Estimator Name Role Phone PP Unavailable CCM Unavailable Summary Purpose Interface Exchange Insurance Providers Payer name Policy type / Coverage type Covered green party ID Effective Begin Date Effective End Date WPS MEDICARE PART B [place] Medicare Part B [id number] Unknown [facility] Medicare Part B [id number] Un known Family History Family History data not found Social History Social History Element Codes Description Effective Dates Tobacco history SNOMED CT: [id number] Never smoker 01/20/2015 Allergies, Adverse Reactions, Alerts [...] Instructions Vitamin D3 2,000 unit tablet RxNorm: 901844 1 Tablet(s) Oral QD 01/2020 No Stop Date Active flecainide 100 mg tablet RxNorm: 712194 1 Tablet(s) Oral two ti mes a day 05/28/2019 No Stop Date Active imipramine 25 mg tablet RxNorm: 185324 1 Tablet(s) Oral three t imes a day 05/28/2019 No Stop Date Active aspirin 81 mg tablet,delayed release RxNorm: 191057 1 Tablet(s) Oral QD 05/23/2019 06/22/2019 Active multivitamin with iron tablet RxNorm: 1 Tablet(s) Oral QD 04/19 No Stop Date Active hydrocodone 10 mg-acetaminophen 300 mg tablet RxNorm: 815465 1 Tablet(s) Oral Q8H as needed for pain 05/09/2019 05/22/2019 Inactive hydrocodone 5 mg-acetaminophen 325 mg tablet RxNorm: 919882 1 Tablet(s) Oral Every 6 hours as needed 05/09/2019 06/10/2019 Inactive Bactrim DS 800 mg-160 mg tablet RxNorm: 541329 1 Tablet(s) PO BID 0 01/13/2015 01/22/2015 Inactive aspirin 81 mg tablet,delayed release RxNorm: 893260 1 Tablet(s) PO QD 02/07/2012 03/07/2012 Inactive Vitamin D3 1000 units Capsule RxNorm: 2 Capsule(s) PO QD No St art Date 05/27/2019 Inactive lisinopril 20 mg tablet RxNorm: 206993 1 Tablet(s) PO QD No Start D ate 02/06/2012 Inactive flecainide 100 mg tablet RxNorm: 860713 1 Tablet(s) PO QD No Start Date 05/27/2019 Inactive lisinopril 20 mg tablet RxNorm: 618843 1/2 Tablet(s) PO PRN No Star t Date 05/22/2019 Inactive Meclizine 25 mg Tab RxNorm: 2236929 1 Tablet(s) PO QID prn dizzi ness No Start Date 05/09/2019 Inactive imipramine pamoate 75 mg capsule RxNorm: 986170 1 Capsule(s) PO QD No Start Date 05/27/2019 Inactive Medication Administered No Medication Administered data Immunizations Vaccine Codes Date Status Tetanus, Diptheria, Pertussis CVX: 115 12/27/2018 Results Observation Observation Code Item Item Code Result Date S ervice Location FERRITIN 45056 FERRITIN 238.7 ng/mL 05/10/2019 Unknown IRON PROFILE 54039 Iron 89 ug/dL 05/10/2019 Unknow n IRON PROFILE 20450 TIBC 295 ug/dL 05/10/2019 Unknow n IRON PROFILE 27491 % SATURATION 30 % 05/10/2019 Unk nown IRON PROFILE 50270 UIBC 206 ug/dL 05/10/2019 Unknow n COMPREHENSIVE METABOLIC 08468 AST 22 U/L 2019 Unknown COMPREHENSIVE METABOLIC 29944 ALT 15 U/L 2019 Unknown COMPREHENSIVE METABOLIC 84523 BUN 33 mg/dL 2019 Unknown COMPREHENSIVE METABOLIC 61668 ALBUMIN 4.1 g/dL 2019 Unknown COMPREHENSIVE METABOLIC 04680 CHLORIDE 100 mmol/L 05/10 Unknown COMPREHENSIVE METABOLIC 44080 Bili Total 0.4 mg/dL 05/10 Unknown COMPREHENSIVE METABOLIC 59150 ALK PHOS 63 U/L 2019 Unknown COMPREHENSIVE METABOLIC 70163 SODIUM 135 mmol/L 05/10 Unknown COMPREHENSIVE METABOLIC 91422 CREATININE 1.59 mg/dL 04/19 Unknown COMPREHENSIVE METABOLIC 10440 CALCIUM 9.3 mg/dL 2019 Unknown COMPREHENSIVE METABOLIC 97583 POTASSIUM 5.0 mmol/L 05/10 Unknown COMPREHENSIVE METABOLIC 54152 Total Protein 6.9 g/dL Unknown COMPREHENSIVE METABOLIC 42690 Glucose 106 mg/dL 2019 Unknown COMPREHENSIVE METABOLIC 54671 Bicarbonate 28 mmol/L 04/19 Unknown COMPREHENSIVE METABOLIC 66591 AGAP 7 mmol/L 2019 Unknown GFR CALC 0211127 GFR Non Afr Amr 41 mL/min 05/10/2019 Unk nown GFR CALC 4797920 GFR Afr Amr 50 mL/min 05/10/2019 Unknown COMPLETE BLOOD COUNT 2213318 WBC 5.5 10e9/L 05/10/19 20 Unknown COMPLETE BLOOD COUNT 6010389 RBC 3.11 10e12/L 2019 Unknown COMPLETE BLOOD COUNT 1771951 HEMOGLOBIN 10.5 g/dL 05/10/19 20 Unknown COMPLETE BLOOD COUNT 7195768 HEMATOCRIT 32.8 % 05/10/19 20 Unknown COMPLETE BLOOD COUNT 1367217 MCV 105.5 fL 0 Unknown COMPLETE BLOOD COUNT 2356264 MCH 33.8 pg 0 Unknown COMPLETE BLOOD COUNT 9484557 MCHC 32.0 g/dL 0 Unknown COMPLETE BLOOD COUNT 0140595 PLATELET COUNT 167 10e9/L Unknown COMPLETE BLOOD COUNT 8155152 Mean Plt Volume 13.2 fL Unknown COMPLETE BLOOD COUNT 5542419 Neut Auto 62.9 % 0 Unknown COMPLETE BLOOD COUNT 5650232 Lymph Auto 23.8 % 05/10/19 20 Unknown COMPLETE BLOOD COUNT 3601949 [place] Auto 11.6 % 0 Unknown COMPLETE BLOOD COUNT 4877306 RDW 14.6 % 0 Unknown COMPLETE BLOOD COUNT 4504761 Eos Auto 1.5 % 0 Unknown COMPLETE BLOOD COUNT 9345531 Baso Auto 0.2 % 0 Unknown COMPLETE BLOOD COUNT 5785478 Neutrophil Abs 3.46 10e9/L Unknown COMPLETE BLOOD COUNT 9100967 Lymphocyte Abs 1.31 10e9/L Unknown COMPLETE BLOOD COUNT 2501401 Monocyte Abs 0.64 10e9/L 04/19 Unknown COMPLETE BLOOD COUNT 9123802 Eosinophil Abs 0.08 10e9/L Unknown COMPLETE BLOOD COUNT 3559609 RDW-SD 54.4 fL 0 Unknown COMPLETE BLOOD COUNT 1209960 Basophil Abs 0.01 10e9/L 04/19 Unknown LIPID GROUP 99959 Cholesterol 173 mg/dL 05/10/2019 Unkno wn L[facility] 54667 Triglyceride 105 mg/dL 05/10/2019 Unkn own [facility] 22910 HDL CHOLESTEROL 47 mg/dL 05/10/2019 U nknown [facility] 40690 Chol/HDL Ratio 3.68 ratio 05/10/2019 U nknown [facility] GROUP 73701 NON-HDL Chol 126 mg/dL 05/10/2019 Unkn own [facility] 65556 LDL Cholesterol 105 mg/dL 05/10/2019 U nknown Procedures Procedure Codes Date URINE CULTURE/ COLONY COUNT CPT-4: 60099 05/15/2019 ROUTINE VENIPUNCTURE CPT-4: 86935 05/10/2019 COMPREHEN METABOLIC PANEL CPT-4: 04984 05/10/2019 COMPLETE CBC W/AUTO DIFF WBC CPT-4: 46373 05/10/2019 LIPID PANEL CPT-4: 56910 05/10/2019 IRON PROFILE CPT-4: 29219 05/10/2019 ASSAY OF FERRITIN CPT-4: 34016 05/10/2019 CUR TOBACCO NON-USER CPT-4: G8457 01/20/2015 [...] 1: 126/70 Code: 8480-6 BMI: 24.8 Code: 33110-3 Heart Rate 1: 84 bpm Height: 6' Respiratory Rate: 20 bpm Temperature: 36 .6 (C) / 97.8 (F) Weight: 183 lbs 01/20/2015 Blood Pressure 1: 122/58 Code: 8480-6 BMI: 24.8 Code: 88471-3 Heart Rate 1: 80 bpm Height: 6' Respiratory Rate: 20 bpm Temperature: 36 .4 (C) / 97.6 (F) Weight: 183 lbs 01/13/2015 Blood Pressure 1: 142/68 Code: 8480-6 BMI: 24.8 Code: 06244-4 Heart Rate 1: 86 bpm Height: 6' Respiratory Rate: 20 bpm Temperature: 36 .6 (C) / 97.8 (F) Weight: 183 lbs 02/07/2012 Blood Pressure 1: 130/70 Code: 8480-6 BMI: 25.7 Code: 60716-7 Heart Rate 1: 74 bpm Height: 5'11" Temperature: 36.6 (C) / 97.8 (F) Weight: 184 lbs Functional Status No Functional Status data Reason For Visit Reason For Visit Effective Dates Notes follow up 06/11/2019 follow up 05/23/2019 bone fracture 05/09/2019 right ribs follow up 01/28/2015 follow up 01/20/2015 1 week sore throat 01/13/2015 knee pain 02/07/2012 Encounters Encounter Performer Location Codes Date (37599) OFFICE/OUTPATIENT VISIT EST Diagnosis: Left hip pain[ICD10: M25.552] Diagnosis: Recurrent falls[ICD10: R29.6] Diagnosis: Dyspnea on exertion[ICD10: R06.09] Damaris GAYLE [email or web address] CPT-4: 58463 06/11/2019 ([id number]) OFFICE/OUTPATIENT VISIT EST Diagnosis: Dyspnea on exertion[ICD10: R06.09] Diagnosis: Anemia[ICD10: D64.9] Damaris OCAMPO [employer] CPT-4: 21280 05/23/2019 ([id number]) NURSE/OUTPATIENT VISIT EST Diagnosis: Urinary tract infection, site not specified[ICD10: N39.0] Damaris Solorio [employer] CPT-4: 20204 05/15/2019 ([id number]) NURSE/OUTPATIENT VISIT EST Diagnosis: Mixed hyperlipidemia[ICD10: E78.2] Diagnosis: Hyperglycemia, unspecified[ICD10: R73.9] Diagnosis: Essential (primary) hypertension[ICD10: I10] Diagnosis: Anemia, unspecified[ICD10: D64.9] Damaris Gustafson [email or web address] CPT-4: 51814 05/10/2019 ([id number]) OFFICE/OUTPATIENT VISIT NEW Diagnosis: Broken rib[ICD10: S22.39XA] Lizzette Giles DAMARIS SEcho NAVARRO DO [facility] CPT-4: 84118 05/09/2019 OFFICE/OUTPATIENT VISIT EST Diagnosis: Localized enlarged lymph nodes[ICD10: R59.0] Diagnosis: Encounter for follow-up examination after completed treatment for conditions other than malignant neoplasm[ICD10: Z09] Lashawn Aldo OCAMPO S. PATRICKNDCLIFF DO [facility] CPT-4: 53233 01/28/2015 OFFICE/OUTPATIENT VISIT EST Diagnosis: Localized enlarged lymph nodes[ICD10: R59.0] Lashawn Aldo OCAMPO SEcho PATRICKNDER DO [facility] CPT-4: 02071 01/20/2015 OFFICE/OUTPATIENT VISIT EST Diagnosis: LYMPHADENOPATHY[ICD9: 785.6] Diagnosis: LOCAL SKIN INFECTION[ICD9: 686.9] Lashawn Aldo Gustafson [employer] DO [employer] CPT-4: 42396 01/13/2015 OFFICE/OUTPATIENT VISIT NEW Diagnosis: Grey's cyst of knee[ICD9: 727.51] Taylor GAYLE S. PATRICKNDCLIFF DO [employer] CPT-4: 02142 02/07/2012 Plan of Care Planned Activity Notes [...] Appointment: Damaris Conklin [facility]el[facility] [phone] [facility] 05/28/2019 1403--updated medications from patients medication bottles (km) CANCELED 05/28/2019 Visit Diagnosis Plan: Dyspnea on exertion Discussion: Check PFT Obtain most recent ECHO results ICD-9 : 786.09 ICD-10 : R06.09 05/23/2019 Visit Diagnosis Plan: Anemia Discussion: Discussed Hem atology--wants to hold at this time ICD-9 : 285.9 ICD-10 : D64.9 05/23/2019 Appointment: Damaris Conklin WPtel: [address] [place], [place] [phone] [place] FOLLOW UP 05/23/2019 Appointment: Damaris Conklin WPtel: [phone] [place], [place] [phone] [place] UA 05/15/2019 Appointment: Damaris Conklin WPtel: [address] [place] [address] US LAB 05/10/2019 Visit Diagnosis Plan: Broken [...] ICD-10 : S22.39XA 05/09/2019 Appointment: Lizzette Giles [address] [place] [address] FOLLOW UP 05/09/2019 Visit Plan: Continue to monitor localize d lymph nodes for changes Follow-up for worsening symptoms 01/28/2015 Appointment: Lashawn Carlson WPtel: [address] [place], [place] [phone] FOLLOW UP 01/28/2015 Patient Education: Patient Medication Summary Completed 01/28/2015 Visit Plan: Complete antibiotics. Monito r lymph node size and follow-up for persistent symptoms. 01/20/2015 Appointment: Lashawn Carlson WPtel: [address] [place] [place] [phone] 01/17 confirmed FOLLOW UP 01/20/2015 Patient Education: Patient Medication Summary Completed 01/20/2015 Visit Plan: Septra DS - 1 po bid x 10 da ys Follow-up in 1 week. 01/13/2015 Appointment: Lashawn Carlson WPtel: [address] [place], [place] [phone] [place] FOLLOW UP 01/13/2015 Patient Education: Patient Medication Summary Completed 01/13/2015 Appointment: Clarisa Garcia WPtel: [phone] [place] [address] US cancelled because patient evaluated in ER ACUTE ILLNESS 06/08/2013 Appointment: Damaris Conklin WPtel: [address] [place], [place] [phone] US INJECTION 12/04/2012 Appointment: Taylor Carey WPtel: [address] [place] [address] [place] RE-ESTABLISH 02/07/2012 Patient Education: Patient Medication [...]
--- OUTSIDE RECORDS SUMMARY | 2019-09-15 18:33 | XMS REPORT | CCD ---
Author Author Jason Carey APRN Organization [facility] Address [address] [place] [address] Phone Care Team Providers Care Satellite Technician Name Role Phone PP Unavailable CCM Unavailable Summary Purpose Interface Exchange Insurance Providers Payer name Policy type / Coverage type Covered democrat ID Effective Begin Date Effective End Date WPS MEDIC[place] PART [place] Medicare Part B [id number] Unknown [facility] Medicare Part B [id number] Un known Family History Family History data not found Social History Social History Element Codes Description Effective Dates Tobacco history SNOMED CT: 866748622 Never smoker 01/20/2015 Allergies, Adverse Reactions, Alerts [...] Instructions Vitamin D3 2,000 unit tablet RxNorm: 114417 1 Tablet(s) Oral QD 01/2020 No Stop Date Active flecainide 100 mg tablet RxNorm: 262087 1 Tablet(s) Oral two ti mes a day 05/28/2019 No Stop Date Active imipramine 25 mg tablet RxNorm: 321957 1 Tablet(s) Oral three t imes a day 05/28/2019 No Stop Date Active aspirin 81 mg tablet,delayed release RxNorm: 732901 1 Tablet(s) Oral QD 05/23/2019 06/22/2019 Active multivitamin with iron tablet RxNorm: 1 Tablet(s) Oral QD 04/19 No Stop Date Active hydrocodone 10 mg-acetaminophen 300 mg tablet RxNorm: 200024 1 Tablet(s) Oral Q8H as needed for pain 05/09/2019 05/22/2019 Inactive hydrocodone 5 mg-acetaminophen 325 mg tablet RxNorm: 960014 1 Tablet(s) Oral Every 6 hours as needed 05/09/2019 06/10/2019 Inactive Bactrim DS 800 mg-160 mg tablet RxNorm: 198513 1 Tablet(s) PO BID 0 01/13/2015 01/22/2015 Inactive aspirin 81 mg tablet,delayed release RxNorm: 351395 1 Tablet(s) PO QD 02/07/2012 03/07/2012 Inactive Vitamin D3 1000 units Capsule RxNorm: 2 Capsule(s) PO QD No St art Date 05/27/2019 Inactive lisinopril 20 mg tablet RxNorm: 299315 1 Tablet(s) PO QD No Start D ate 02/06/2012 Inactive flecainide 100 mg tablet RxNorm: 543109 1 Tablet(s) PO QD No Start Date 05/27/2019 Inactive lisinopril 20 mg tablet RxNorm: 448263 1/2 Tablet(s) PO PRN No Star t Date 05/22/2019 Inactive Meclizine 25 mg Tab RxNorm: 7903467 1 Tablet(s) PO QID prn dizzi ness No Start Date 05/09/2019 Inactive imipramine pamoate 75 mg capsule RxNorm: 937181 1 Capsule(s) PO QD No Start Date 05/27/2019 Inactive Medication Administered No Medication Administered data Immunizations Vaccine Codes Date Status Tetanus, Diptheria, Pertussis CVX: 115 12/27/2018 Results Observation Observation Code Item Item Code Result Date S ervice Location FERRITIN 14991 FERRITIN 238.7 ng/mL 05/10/2019 Unknown IRON PROFILE 81793 Iron 89 ug/dL 05/10/2019 Unknow n IRON PROFILE 27854 TIBC 295 ug/dL 05/10/2019 Unknow n IRON PROFILE 25717 % SATURATION 30 % 05/10/2019 Unk nown IRON PROFILE 52759 UIBC 206 ug/dL 05/10/2019 Unknow n COMPREHENSIVE METABOLIC 91847 AST 22 U/L 2019 Unknown COMPREHENSIVE METABOLIC 80605 ALT 15 U/L 2019 Unknown COMPREHENSIVE METABOLIC 98665 BUN 33 mg/dL 2019 Unknown COMPREHENSIVE METABOLIC 00781 ALBUMIN 4.1 g/dL 2019 Unknown COMPREHENSIVE METABOLIC 29924 CHLORIDE 100 mmol/L 05/10 Unknown COMPREHENSIVE METABOLIC 00540 Bili Total 0.4 mg/dL 05/10 Unknown COMPREHENSIVE METABOLIC 41490 ALK PHOS 63 U/L 2019 Unknown COMPREHENSIVE METABOLIC 15934 SODIUM 135 mmol/L 05/10 Unknown COMPREHENSIVE METABOLIC 49239 CREATININE 1.59 mg/dL 04/19 Unknown COMPREHENSIVE METABOLIC 25990 CALCIUM 9.3 mg/dL 2019 Unknown COMPREHENSIVE METABOLIC 56235 POTASSIUM 5.0 mmol/L 05/10 Unknown COMPREHENSIVE METABOLIC 59537 Total Protein 6.9 g/dL Unknown COMPREHENSIVE METABOLIC 37320 Glucose 106 mg/dL 2019 Unknown COMPREHENSIVE METABOLIC 03698 Bicarbonate 28 mmol/L 04/19 Unknown COMPREHENSIVE METABOLIC 60184 AGAP 7 mmol/L 2019 Unknown GFR CALC 5507855 GFR Non Afr Amr 41 mL/min 05/10/2019 Unk nown GFR CALC 6366360 GFR Afr Amr 50 mL/min 05/10/2019 Unknown COMPLETE BLOOD COUNT 8249517 WBC 5.5 10e9/L 05/10/19 20 Unknown COMPLETE BLOOD COUNT 3800083 RBC 3.11 10e12/L 2019 Unknown COMPLETE BLOOD COUNT 9999074 HEMOGLOBIN 10.5 g/dL 05/10/19 20 Unknown COMPLETE BLOOD COUNT 1710612 HEMATOCRIT 32.8 % 05/10/19 20 Unknown COMPLETE BLOOD COUNT 1270832 MCV 105.5 fL 0 Unknown COMPLETE BLOOD COUNT 2006317 MCH 33.8 pg 0 Unknown COMPLETE BLOOD COUNT 0605837 MCHC 32.0 g/dL 0 Unknown COMPLETE BLOOD COUNT 5021334 PLATELET COUNT 167 10e9/L Unknown COMPLETE BLOOD COUNT 8820819 Mean Plt Volume 13.2 fL Unknown COMPLETE BLOOD COUNT 6822942 Neut Auto 62.9 % 0 Unknown COMPLETE BLOOD COUNT 8033404 Lymph Auto 23.8 % 05/10/19 20 Unknown COMPLETE BLOOD COUNT 7231354 [place] Auto 11.6 % 0 Unknown COMPLETE BLOOD COUNT 8879871 RDW 14.6 % 0 Unknown COMPLETE BLOOD COUNT 9719728 Eos Auto 1.5 % 0 Unknown COMPLETE BLOOD COUNT 6952536 Baso Auto 0.2 % 0 Unknown COMPLETE BLOOD COUNT 1015229 Neutrophil Abs 3.46 10e9/L Unknown COMPLETE BLOOD COUNT 4835901 Lymphocyte Abs 1.31 10e9/L Unknown COMPLETE BLOOD COUNT 3599740 Monocyte Abs 0.64 10e9/L 04/19 Unknown COMPLETE BLOOD COUNT 5059756 Eosinophil Abs 0.08 10e9/L Unknown COMPLETE BLOOD COUNT 7592186 RDW-SD 54.4 fL 0 Unknown COMPLETE BLOOD COUNT 3850733 Basophil Abs 0.01 10e9/L 04/19 Unknown LIPID GROUP 37833 Cholesterol 173 mg/dL 05/10/2019 Unkno wn LIPID GROUP 18773 Triglyceride 105 mg/dL 05/10/2019 Unkn own [facility] GROUP 22633 HDL CHOLESTEROL 47 mg/dL 05/10/2019 U nknown L[facility] GROUP 68427 Chol/HDL Ratio 3.68 ratio 05/10/2019 U nknown LIPID GROUP 62743 NON-HDL Chol 126 mg/dL 05/10/2019 Unkn own LIP[facility] GROUP 69100 LDL Cholesterol 105 mg/dL 05/10/2019 U nknown Procedures Procedure Codes Date URINE CULTURE/ COLONY COUNT CPT-4: 55351 05/15/2019 ROUTINE VENIPUNCTURE CPT-4: 54622 05/10/2019 COMPREHEN METABOLIC PANEL CPT-4: 36293 05/10/2019 COMPLETE CBC W/AUTO DIFF WBC CPT-4: 54701 05/10/2019 LIPID PANEL CPT-4: 59504 05/10/2019 IRON PROFILE CPT-4: 74881 05/10/2019 ASSAY OF FERRITIN CPT-4: 62900 05/10/2019 CUR TOBACCO NON-USER CPT-4: G8457 01/20/2015 [...] 1: 126/70 Code: 8480-6 BMI: 24.8 Code: 53943-8 Heart Rate 1: 84 bpm Height: 6' Respiratory Rate: 20 bpm Temperature: 36 .6 (C) / 97.8 (F) Weight: 183 lbs 01/20/2015 Blood Pressure 1: 122/58 Code: 8480-6 BMI: 24.8 Code: 28551-8 Heart Rate 1: 80 bpm Height: 6' Respiratory Rate: 20 bpm Temperature: 36 .4 (C) / 97.6 (F) Weight: 183 lbs 01/13/2015 Blood Pressure 1: 142/68 Code: 8480-6 BMI: 24.8 Code: 72652-7 Heart Rate 1: 86 bpm Height: 6' Respiratory Rate: 20 bpm Temperature: 36 .6 (C) / 97.8 (F) Weight: 183 lbs 02/07/2012 Blood Pressure 1: 130/70 Code: 8480-6 BMI: 25.7 Code: 17959-5 Heart Rate 1: 74 bpm Height: 5'11" Temperature: 36.6 (C) / 97.8 (F) Weight: 184 lbs Functional Status No Functional Status data Reason For Visit Reason For Visit Effective Dates Notes follow up 06/11/2019 follow up 05/23/2019 bone fracture 05/09/2019 right ribs follow up 01/28/2015 follow up 01/20/2015 1 week sore throat 01/13/2015 knee pain 02/07/2012 Encounters Encounter Performer Location Codes Date ([id number]) OFFICE/OUTPATIENT VISIT EST Diagnosis: Left hip pain[ICD10: M25.552] Diagnosis: Recurrent falls[ICD10: R29.6] Diagnosis: Dyspnea on exertion[ICD10: R06.09] Damaris GAYLE [employer] CPT-4: 62871 06/11/2019 ([id number]) OFFICE/OUTPATIENT VISIT EST Diagnosis: Dyspnea on exertion[ICD10: R06.09] Diagnosis: Anemia[ICD10: D64.9] Damaris OCAMPO [facility]cho [employer] CPT-4: 27433 05/23/2019 ([id number]) NURSE/OUTPATIENT VISIT EST Diagnosis: Urinary tract infection, site not specified[ICD10: N39.0] Damaris Solorio [employer] CPT-4: 56506 05/15/2019 ([id number]) NURSE/OUTPATIENT VISIT EST Diagnosis: Mixed hyperlipidemia[ICD10: E78.2] Diagnosis: Hyperglycemia, unspecified[ICD10: R73.9] Diagnosis: Essential (primary) hypertension[ICD10: I10] Diagnosis: Anemia, unspecified[ICD10: D64.9] Damaris Gustafson [employer] CPT-4: 75850 05/10/2019 ([id number]) OFFICE/OUTPATIENT VISIT NEW Diagnosis: Broken rib[ICD10: S22.39XA] Lizzette Giles [facility] SEcho NAVARRO DO [facility] CPT-4: 57194 05/09/2019 OFFICE/OUTPATIENT VISIT EST Diagnosis: Localized enlarged lymph nodes[ICD10: R59.0] Diagnosis: Encounter for follow-up examination after completed treatment for conditions other than malignant neoplasm[ICD10: Z09] Lashawn Aldo OCAMPO S. PATRICKNDCLIFF DO [facility] CPT-4: 73085 01/28/2015 OFFICE/OUTPATIENT VISIT EST Diagnosis: Localized enlarged lymph nodes[ICD10: R59.0] Lashawn Aldo OCAMPO SEcho PATRICKNDER DO [facility] CPT-4: 11426 01/20/2015 OFFICE/OUTPATIENT VISIT EST Diagnosis: LYMPHADENOPATHY[ICD9: 785.6] Diagnosis: LOCAL SKIN INFECTION[ICD9: 686.9] Lashawn Aldo Gustafson SEcho PRETTY DO [facility] CPT-4: 06245 01/13/2015 OFFICE/OUTPATIENT VISIT NEW Diagnosis: Grey's cyst of knee[ICD9: 727.51] Taylor GAYLE S. PATRICKNDCLIFF DO [facility] CPT-4: 62369 02/07/2012 Plan of Care Planned Activity Notes [...] M25.552 06/11/2019 Appointment: [facility] [phone] [id number] 05/28/2019 1404--updated medications from patients medication bottles (km) CANCELED 05/28/2019 Visit Diagnosis Plan: Dyspnea on exertion Discussion: Check PFT Obtain most recent ECHO results ICD-9 : 786.09 ICD-10 : R06.09 05/23/2019 Visit Diagnosis Plan: Anemia Discussion: Discussed Hem atology--wants to hold at this time ICD-9 : 285.9 ICD-10 : D64.9 05/23/2019 Appointment: Damaris Conklin WPtel: [address] [place], [place] [phone] [place] FOLLOW UP 05/23/2019 Appointment: Damaris Conklin WPtel: [phone] [place], [place] [phone] [place] UA 05/15/2019 Appointment: Damaris Conklin WPtel: [address] [place] [address] US LAB 05/10/2019 Visit Diagnosis Plan: Broken [...] ICD-10 : S22.39XA 05/09/2019 Appointment: Lizzette Giles [address] [place] [address] FOLLOW UP 05/09/2019 Visit Plan: Continue to monitor localize d lymph nodes for changes Follow-up for worsening symptoms 01/28/2015 Appointment: Lashawn Carlson WPtel: [address] [place], [place] [phone] FOLLOW UP 01/28/2015 Patient Education: Patient Medication Summary Completed 01/28/2015 Visit Plan: Complete antibiotics. Monito r lymph node size and follow-up for persistent symptoms. 01/20/2015 Appointment: Lashawn Carlson WPtel: [address] [place], [place] [phone] 01/17 confirmed FOLLOW UP 01/20/2015 Patient Education: Patient Medication Summary Completed 01/20/2015 Visit Plan: Septra DS - 1 po bid x 10 da ys Follow-up in 1 week. 01/13/2015 Appointment: Lashawn Carlson WPtel: [address] [place], [place] [phone] [place] FOLLOW UP 01/13/2015 Patient Education: Patient Medication Summary Completed 01/13/2015 Appointment: Clarisa Garcia WPtel: [phone] [place] [address] US cancelled because patient evaluated in ER ACUTE ILLNESS 06/08/2013 Appointment: Damaris Conklin WPtel: [address] [place], [place] [phone] US INJECTION 12/04/2012 Appointment: Taylor Carey WPtel: [address] [place] [address] [place] RE-ESTABLISH 02/07/2012 Patient Education: Patient Medication [...]
--- OUTSIDE RECORDS SUMMARY | 2019-09-15 18:33 | XMS REPORT | CCD ---
Author Author Jason Carey APRN Organization [facility] Address [address] [place] [address] Phone Care Team Providers Care Candy Cutter Hand Name Role Phone PP Unavailable CCM Unavailable Summary Purpose Interface Exchange Insurance Providers Payer name Policy type / Coverage type Covered alliance party ID Effective Begin Date Effective End Date WPS MEDICARE PART B [place] Medicare Part B [id number] Unknown [facility] Medicare Part B [id number] Un known Family History Family History data not found Social History Social History Element Codes Description Effective Dates Tobacco history SNOMED CT: 263481872 Never smoker 01/20/2015 Allergies, Adverse Reactions, Alerts [...] Instructions Vitamin D3 2,000 unit tablet RxNorm: 293372 1 Tablet(s) Oral QD 01/2020 No Stop Date Active flecainide 100 mg tablet RxNorm: 059210 1 Tablet(s) Oral two ti mes a day 05/28/2019 No Stop Date Active imipramine 25 mg tablet RxNorm: 915476 1 Tablet(s) Oral three t imes a day 05/28/2019 No Stop Date Active aspirin 81 mg tablet,delayed release RxNorm: 947441 1 Tablet(s) Oral QD 05/23/2019 06/22/2019 Active multivitamin with iron tablet RxNorm: 1 Tablet(s) Oral QD 04/19 No Stop Date Active hydrocodone 10 mg-acetaminophen 300 mg tablet RxNorm: 106727 1 Tablet(s) Oral Q8H as needed for pain 05/09/2019 05/22/2019 Inactive hydrocodone 5 mg-acetaminophen 325 mg tablet RxNorm: 816333 1 Tablet(s) Oral Every 6 hours as needed 05/09/2019 06/10/2019 Inactive Bactrim DS 800 mg-160 mg tablet RxNorm: 725861 1 Tablet(s) PO BID 0 01/13/2015 01/22/2015 Inactive aspirin 81 mg tablet,delayed release RxNorm: 117554 1 Tablet(s) PO QD 02/07/2012 03/07/2012 Inactive Vitamin D3 1000 units Capsule RxNorm: 2 Capsule(s) PO QD No St art Date 05/27/2019 Inactive lisinopril 20 mg tablet RxNorm: 562199 1 Tablet(s) PO QD No Start D ate 02/06/2012 Inactive flecainide 100 mg tablet RxNorm: 112821 1 Tablet(s) PO QD No Start Date 05/27/2019 Inactive lisinopril 20 mg tablet RxNorm: 289919 1/2 Tablet(s) PO PRN No Star t Date 05/22/2019 Inactive Meclizine 25 mg Tab RxNorm: 0055762 1 Tablet(s) PO QID prn dizzi ness No Start Date 05/09/2019 Inactive imipramine pamoate 75 mg capsule RxNorm: 660832 1 Capsule(s) PO QD No Start Date 05/27/2019 Inactive Medication Administered No Medication Administered data Immunizations Vaccine Codes Date Status Tetanus, Diptheria, Pertussis CVX: 115 12/27/2018 Results Observation Observation Code Item Item Code Result Date S ervice Location FERRITIN 55151 FERRITIN 238.7 ng/mL 05/10/2019 Unknown IRON PROFILE 57874 Iron 89 ug/dL 05/10/2019 Unknow n IRON PROFILE 99980 TIBC 295 ug/dL 05/10/2019 Unknow n IRON PROFILE 14308 % SATURATION 30 % 05/10/2019 Unk nown IRON PROFILE 67820 UIBC 206 ug/dL 05/10/2019 Unknow n COMPREHENSIVE METABOLIC 61994 AST 22 U/L 2019 Unknown COMPREHENSIVE METABOLIC 19814 ALT 15 U/L 2019 Unknown COMPREHENSIVE METABOLIC 18768 BUN 33 mg/dL 2019 Unknown COMPREHENSIVE METABOLIC 38369 ALBUMIN 4.1 g/dL 2019 Unknown COMPREHENSIVE METABOLIC 01374 CHLORIDE 100 mmol/L 05/10 Unknown COMPREHENSIVE METABOLIC 84731 Bili Total 0.4 mg/dL 05/10 Unknown COMPREHENSIVE METABOLIC 52065 ALK PHOS 63 U/L 2019 Unknown COMPREHENSIVE METABOLIC 43945 SODIUM 135 mmol/L 05/10 Unknown COMPREHENSIVE METABOLIC 09881 CREATININE 1.59 mg/dL 04/19 Unknown COMPREHENSIVE METABOLIC 65354 CALCIUM 9.3 mg/dL 2019 Unknown COMPREHENSIVE METABOLIC 56999 POTASSIUM 5.0 mmol/L 05/10 Unknown COMPREHENSIVE METABOLIC 99191 Total Protein 6.9 g/dL Unknown COMPREHENSIVE METABOLIC 12332 Glucose 106 mg/dL 2019 Unknown COMPREHENSIVE METABOLIC 19673 Bicarbonate 28 mmol/L 04/19 Unknown COMPREHENSIVE METABOLIC 37269 AGAP 7 mmol/L 2019 Unknown GFR CALC 6958092 GFR Non Afr Amr 41 mL/min 05/10/2019 Unk nown GFR CALC 8388513 GFR Afr Amr 50 mL/min 05/10/2019 Unknown COMPLETE BLOOD COUNT 2110347 WBC 5.5 10e9/L 05/10/19 20 Unknown COMPLETE BLOOD COUNT 6106417 RBC 3.11 10e12/L 2019 Unknown COMPLETE BLOOD COUNT 3060824 HEMOGLOBIN 10.5 g/dL 05/10/19 20 Unknown COMPLETE BLOOD COUNT 0920173 HEMATOCRIT 32.8 % 05/10/19 20 Unknown COMPLETE BLOOD COUNT 8014523 MCV 105.5 fL 0 Unknown COMPLETE BLOOD COUNT 8127492 MCH 33.8 pg 0 Unknown COMPLETE BLOOD COUNT 8660674 MCHC 32.0 g/dL 0 Unknown COMPLETE BLOOD COUNT 6231134 PLATELET COUNT 167 10e9/L Unknown COMPLETE BLOOD COUNT 7074315 Mean Plt Volume 13.2 fL Unknown COMPLETE BLOOD COUNT 3338602 Neut Auto 62.9 % 0 Unknown COMPLETE BLOOD COUNT 9281655 Lymph Auto 23.8 % 05/10/19 20 Unknown COMPLETE BLOOD COUNT 3878451 [place] Auto 11.6 % 0 Unknown COMPLETE BLOOD COUNT 3695158 RDW 14.6 % 0 Unknown COMPLETE BLOOD COUNT 2054164 Eos Auto 1.5 % 0 Unknown COMPLETE BLOOD COUNT 1369366 Baso Auto 0.2 % 0 Unknown COMPLETE BLOOD COUNT 5807928 Neutrophil Abs 3.46 10e9/L Unknown COMPLETE BLOOD COUNT 4846962 Lymphocyte Abs 1.31 10e9/L Unknown COMPLETE BLOOD COUNT 1795928 Monocyte Abs 0.64 10e9/L 04/19 Unknown COMPLETE BLOOD COUNT 0113762 Eosinophil Abs 0.08 10e9/L Unknown COMPLETE BLOOD COUNT 2784235 RDW-SD 54.4 fL 0 Unknown COMPLETE BLOOD COUNT 9865041 Basophil Abs 0.01 10e9/L 04/19 Unknown LIPID GROUP 31743 Cholesterol 173 mg/dL 05/10/2019 Unkno wn LIPID GROUP 67395 Triglyceride 105 mg/dL 05/10/2019 Unkn own LIPID GROUP 75008 HDL CHOLESTEROL 47 mg/dL 05/10/2019 U nknown LIPID GROUP 17771 Chol/HDL Ratio 3.68 ratio 05/10/2019 U nknown LIPID GROUP 02796 NON-HDL Chol 126 mg/dL 05/10/2019 Unkn own LIPID GROUP 79268 LDL Cholesterol 105 mg/dL 05/10/2019 U nknown Procedures Procedure Codes Date URINE CULTURE/ COLONY COUNT CPT-4: 49801 05/15/2019 ROUTINE VENIPUNCTURE CPT-4: 17152 05/10/2019 COMPREHEN METABOLIC PANEL CPT-4: 53816 05/10/2019 COMPLETE CBC W/AUTO DIFF WBC CPT-4: 79608 05/10/2019 LIPID PANEL CPT-4: 86111 05/10/2019 IRON PROFILE CPT-4: 85302 05/10/2019 ASSAY OF FERRITIN CPT-4: 11025 05/10/2019 CUR TOBACCO NON-USER CPT-4: G8457 01/20/2015 [...] 1: 126/70 Code: 8480-6 BMI: 24.8 Code: 25470-9 Heart Rate 1: 84 bpm Height: 6' Respiratory Rate: 20 bpm Temperature: 36 .6 (C) / 97.8 (F) Weight: 183 lbs 01/20/2015 Blood Pressure 1: 122/58 Code: 8480-6 BMI: 24.8 Code: 77389-2 Heart Rate 1: 80 bpm Height: 6' Respiratory Rate: 20 bpm Temperature: 36 .4 (C) / 97.6 (F) Weight: 183 lbs 01/13/2015 Blood Pressure 1: 142/68 Code: 8480-6 BMI: 24.8 Code: 69816-5 Heart Rate 1: 86 bpm Height: 6' Respiratory Rate: 20 bpm Temperature: 36 .6 (C) / 97.8 (F) Weight: 183 lbs 02/07/2012 Blood Pressure 1: 130/70 Code: 8480-6 BMI: 25.7 Code: 38814-2 Heart Rate 1: 74 bpm Height: 5'11" Temperature: 36.6 (C) / 97.8 (F) Weight: 184 lbs Functional Status No Functional Status data Reason For Visit Reason For Visit Effective Dates Notes follow up 06/11/2019 follow up 05/23/2019 bone fracture 05/09/2019 right ribs follow up 01/28/2015 follow up 01/20/2015 1 week sore throat 01/13/2015 knee pain 02/07/2012 Encounters Encounter Performer Location Codes Date ([id number]) OFFICE/OUTPATIENT VISIT EST Diagnosis: Left hip pain[ICD10: M25.552] Diagnosis: Recurrent falls[ICD10: R29.6] Diagnosis: Dyspnea on exertion[ICD10: R06.09] Damaris GAYLE [employer] CPT-4: 11291 06/11/2019 ([id number]) OFFICE/OUTPATIENT VISIT EST Diagnosis: Dyspnea on exertion[ICD10: R06.09] Diagnosis: Anemia[ICD10: D64.9] Damaris OCAMPO [employer] [employer] CPT-4: 99605 05/23/2019 ([id number]) NURSE/OUTPATIENT VISIT EST Diagnosis: Urinary tract infection, site not specified[ICD10: N39.0] Damaris Solorio [employer] CPT-4: 70985 05/15/2019 ([id number]) NURSE/OUTPATIENT VISIT EST Diagnosis: Mixed hyperlipidemia[ICD10: E78.2] Diagnosis: Hyperglycemia, unspecified[ICD10: R73.9] Diagnosis: Essential (primary) hypertension[ICD10: I10] Diagnosis: Anemia, unspecified[ICD10: D64.9] Damaris Gustafson [employer] CPT-4: 56651 05/10/2019 ([id number]) OFFICE/OUTPATIENT VISIT NEW Diagnosis: Broken rib[ICD10: S22.39XA] Lizzette Giles DAMARIS SEcho NAVARRO DO [facility] CPT-4: 16317 05/09/2019 OFFICE/OUTPATIENT VISIT EST Diagnosis: Localized enlarged lymph nodes[ICD10: R59.0] Diagnosis: Encounter for follow-up examination after completed treatment for conditions other than malignant neoplasm[ICD10: Z09] Lashawn Aldo OCAMPO S[facility] PATRICKNDCLIFF DO [facility] CPT-4: 19066 01/28/2015 OFFICE/OUTPATIENT VISIT EST Diagnosis: Localized enlarged lymph nodes[ICD10: R59.0] Lashawn Aldo OCAMPO SEcho PATRICKNDER DO [facility] CPT-4: 12423 01/20/2015 OFFICE/OUTPATIENT VISIT EST Diagnosis: LYMPHADENOPATHY[ICD9: 785.6] Diagnosis: LOCAL SKIN INFECTION[ICD9: 686.9] Lashawn Aldo Gustafson SEcho PRETTY DO [employer] CPT-4: 55464 01/13/2015 OFFICE/OUTPATIENT VISIT NEW Diagnosis: Grey's cyst of knee[ICD9: 727.51] Taylor GAYLE S. PATRICKNDCLIFF DO [employer] CPT-4: 66653 02/07/2012 Plan of Care Planned Activity Notes [...] M25.552 06/11/2019 Appointment: Dam[facility] Conklin [facility]el[facility] [phone] [id number] 05/28/2019 1404--updated medications from patients medication bottles (km) CANCELED 05/28/2019 Visit Diagnosis Plan: Dyspnea on exertion Discussion: Check PFT Obtain most recent ECHO results ICD-9 : 786.09 ICD-10 : R06.09 05/23/2019 Visit Diagnosis Plan: Anemia Discussion: Discussed Hem atology--wants to hold at this time ICD-9 : 285.9 ICD-10 : D64.9 05/23/2019 Appointment: Damaris Conklin WPtel: [address] [place], [place] [phone] [place] FOLLOW UP 05/23/2019 Appointment: Damaris Conklin WPtel: [address] [place], [place] [phone] [place] UA 05/15/2019 Appointment: Damaris Conklin WPtel: [address] [place] [address] US LAB 05/10/2019 Visit Diagnosis Plan: Broken [...] ICD-10 : S22.39XA 05/09/2019 Appointment: Lizzette Giles [address] [place] [address] FOLLOW UP 05/09/2019 Visit Plan: Continue to monitor localize d lymph nodes for changes Follow-up for worsening symptoms 01/28/2015 Appointment: Lashawn Carlson WPtel: [address] [place], [place] [phone] FOLLOW UP 01/28/2015 Patient Education: Patient Medication Summary Completed 01/28/2015 Visit Plan: Complete antibiotics. Monito r lymph node size and follow-up for persistent symptoms. 01/20/2015 Appointment: Lashawn Carlson WPtel: [address] [place], [place] [phone] 01/17 confirmed FOLLOW UP 01/20/2015 Patient Education: Patient Medication Summary Completed 01/20/2015 Visit Plan: Septra DS - 1 po bid x 10 da ys Follow-up in 1 week. 01/13/2015 Appointment: Lashawn Carlson WPtel: [address] [place], [place] [phone] [place] FOLLOW UP 01/13/2015 Patient Education: Patient Medication Summary Completed 01/13/2015 Appointment: Clarisa Garcia WPtel: [address] [place] [address] US cancelled because patient evaluated in ER ACUTE ILLNESS 06/08/2013 Appointment: Damaris Conklin WPtel: [address] [place], [place] [phone] [place] INJECTION 12/04/2012 Appointment: Taylor Carey WPtel: [address] [place] [address] [place] RE-ESTABLISH 02/07/2012 Patient Education: Patient Medication [...]
--- OUTSIDE RECORDS SUMMARY | 2019-09-15 18:33 | XMS REPORT | CCD ---
Author Author Jason Carey APRN Organization [facility] Address [address] [place] [address] Phone Care Team Providers Care Operations Planner Name Role Phone PP Unavailable CCM Unavailable Summary Purpose Interface Exchange Insurance Providers Payer name Policy type / Coverage type Covered alliance party ID Effective Begin Date Effective End Date WPS MEDIC[place] PART B [place] Medicare Part B [id number] Unknown [facility] Medicare Part B [id number] Un known Family History Family History data not found Social History Social History Element Codes Description Effective Dates Tobacco history SNOMED CT: 730010060 Never smoker 01/20/2015 Allergies, Adverse Reactions, Alerts Substance Reaction Codes Entered Date Inactivated Date Status * NO KNOWN DRUG ALLERGIES Unknown 02/07/2012 No Inactiv e Date Active Problems Condition Codes Effective Dates Condition Status Anemia ICD-9: 285.9 ICD-10: D64.9 05/10/2019 Active Dyspnea on exertion ICD-9: 786.09 ICD-10: [...] Instructions Vitamin D3 2,000 unit tablet RxNorm: 471262 1 Tablet(s) Oral QD 01/2020 No Stop Date Active flecainide 100 mg tablet RxNorm: 891047 1 Tablet(s) Oral two ti mes a day 05/28/2019 No Stop Date Active imipramine 25 mg tablet RxNorm: 435639 1 Tablet(s) Oral three t imes a day 05/28/2019 No Stop Date Active aspirin 81 mg tablet,delayed release RxNorm: 963272 1 Tablet(s) Oral QD 05/23/2019 06/22/2019 Inactive multivitamin with iron tablet RxNorm: 1 Tablet(s) Oral QD 04/19 No Stop Date Active hydrocodone 10 mg-acetaminophen 300 mg tablet RxNorm: 342345 1 Tablet(s) Oral Q8H as needed for pain 05/09/2019 05/22/2019 Inactive hydrocodone 5 mg-acetaminophen 325 mg tablet RxNorm: 281512 1 Tablet(s) Oral Every 6 hours as needed 05/09/2019 06/10/2019 Inactive Bactrim DS 800 mg-160 mg tablet RxNorm: 188415 1 Tablet(s) PO BID 0 01/13/2015 01/22/2015 Inactive aspirin 81 mg tablet,delayed release RxNorm: 431689 1 Tablet(s) PO QD 02/07/2012 03/07/2012 Inactive Vitamin D3 1000 units Capsule RxNorm: 2 Capsule(s) PO QD No St art Date 05/27/2019 Inactive lisinopril 20 mg tablet RxNorm: 767426 1 Tablet(s) PO QD No Start D ate 02/06/2012 Inactive flecainide 100 mg tablet RxNorm: 715731 1 Tablet(s) PO QD No Start Date 05/27/2019 Inactive lisinopril 20 mg tablet RxNorm: 188509 1/2 Tablet(s) PO PRN No Star t Date 05/22/2019 Inactive Meclizine 25 mg Tab RxNorm: 8937217 1 Tablet(s) PO QID prn dizzi ness No Start Date 05/09/2019 Inactive imipramine pamoate 75 mg capsule RxNorm: 001444 1 Capsule(s) PO QD No Start Date 05/27/2019 Inactive Medication Administered No Medication Administered data Immunizations Vaccine Codes Date Status Tetanus, Diptheria, Pertussis CVX: 115 12/27/2018 Results Observation Observation Code Item Item Code Result Date S ervice Location COMPLETE BLOOD COUNT [id number] WBC 6.8 10e9/L 07/05/19 20 Unknown COMPLETE BLOOD COUNT [id number] RBC 2.97 10e12/L 2019 Unknown COMPLETE BLOOD COUNT [id number] HEMOGLOBIN 10.1 g/dL 07/05/19 20 Unknown COMPLETE BLOOD COUNT [id number] HEMATOCRIT 31.5 % 07/05/19 20 Unknown COMPLETE BLOOD COUNT [id number] MCV 106.1 fL 0 Unknown COMPLETE BLOOD COUNT [id number] MCH 34.0 pg 0 Unknown COMPLETE BLOOD COUNT [id number] MCHC 32.1 g/dL 0 Unknown COMPLETE BLOOD COUNT [id number] PLATELET COUNT 176 10e9/L Unknown COMPLETE BLOOD COUNT [id number] Mean Plt Volume 12.2 fL Unknown COMPLETE BLOOD COUNT 4489137 Neut Auto 70.5 % 0 Unknown COMPLETE BLOOD COUNT [id number] Lymph Auto 15.8 % 07/05/19 20 Unknown COMPLETE BLOOD COUNT [id number] Bracken Auto 12.4 % 0 Unknown COMPLETE BLOOD COUNT [id number] RDW 14.2 % 0 Unknown COMPLETE BLOOD COUNT [id number] Eos Auto 1.2 % 0 Unknown COMPLETE BLOOD COUNT [id number] Baso Auto 0.1 % 0 Unknown COMPLETE BLOOD COUNT [id number] Neutrophil Abs 4.79 10e9/L Unknown COMPLETE BLOOD COUNT [id number] Lymphocyte Abs 1.07 10e9/L Unknown COMPLETE BLOOD COUNT [id number] Monocyte Abs 0.84 10e9/L 06/16 Unknown COMPLETE BLOOD COUNT [id number] Eosinophil Abs 0.08 10e9/L Unknown COMPLETE BLOOD COUNT [id number] RDW-SD 52.7 fL 0 Unknown COMPLETE BLOOD COUNT [id number] Basophil Abs 0.01 10e9/L 06/16 Unknown FERRITIN 79487 FERRITIN 238.7 ng/mL 05/10/2019 Unknown IRON PROFILE 97699 Iron 89 ug/dL 05/10/2019 Unknow n IRON PROFILE 18763 TIBC 295 ug/dL 05/10/2019 Unknow n IRON PROFILE 33720 % SATURATION 30 % 05/10/2019 Unk nown IRON PROFILE 75351 UIBC 206 ug/dL 05/10/2019 Unknow n COMPREHENSIVE METABOLIC 29649 AST 22 U/L 2019 Unknown COMPREHENSIVE METABOLIC 51776 ALT 15 U/L 2019 Unknown COMPREHENSIVE METABOLIC 80745 BUN 33 mg/dL 2019 Unknown COMPREHENSIVE METABOLIC 23665 ALBUMIN 4.1 g/dL 2019 Unknown COMPREHENSIVE METABOLIC 29731 CHLORIDE 100 mmol/L 05/10 Unknown COMPREHENSIVE METABOLIC 27806 Bili Total 0.4 mg/dL 05/10 Unknown COMPREHENSIVE METABOLIC 98262 ALK PHOS 63 U/L 2019 Unknown COMPREHENSIVE METABOLIC 08914 SODIUM 135 mmol/L 05/10 Unknown COMPREHENSIVE METABOLIC 44742 CREATININE 1.59 mg/dL 04/19 Unknown COMPREHENSIVE METABOLIC 30447 CALCIUM 9.3 mg/dL 2019 Unknown COMPREHENSIVE METABOLIC 09115 POTASSIUM 5.0 mmol/L 05/10 Unknown COMPREHENSIVE METABOLIC 25839 Total Protein 6.9 g/dL Unknown COMPREHENSIVE METABOLIC 99169 Glucose 106 mg/dL 2019 Unknown COMPREHENSIVE METABOLIC 22535 Bicarbonate 28 mmol/L 04/19 Unknown COMPREHENSIVE METABOLIC 63098 AGAP 7 mmol/L 2019 Unknown GFR CALC 5021694 GFR Afr Amr 50 mL/min 05/10/2019 Unknown GFR CALC 6906323 GFR Non Afr Amr 41 mL/min 05/10/2019 Unk nown COMPLETE BLOOD COUNT [id number] WBC 5.5 10e9/L 05/10/19 20 Unknown COMPLETE BLOOD COUNT [id number] RBC 3.11 10e12/L 2019 Unknown COMPLETE BLOOD COUNT [id number] HEMOGLOBIN 10.5 g/dL 05/10/19 20 Unknown COMPLETE BLOOD COUNT [id number] HEMATOCRIT 32.8 % 05/10/19 20 Unknown COMPLETE BLOOD COUNT [id number] MCV 105.5 fL 0 Unknown COMPLETE BLOOD COUNT [id number] MCH 33.8 pg 0 Unknown COMPLETE BLOOD COUNT [id number] MCHC 32.0 g/dL 0 Unknown COMPLETE BLOOD COUNT [id number] PLATELET COUNT 167 10e9/L Unknown COMPLETE BLOOD COUNT 3734746 Mean Plt Volume 13.2 fL Unknown COMPLETE BLOOD COUNT [id number] Neut Auto 62.9 % 0 Unknown COMPLETE BLOOD COUNT [id number] Lymph Auto 23.8 % 05/10/19 20 Unknown COMPLETE BLOOD COUNT [id number] Bracken Auto 11.6 % 0 Unknown COMPLETE BLOOD COUNT [id number] RDW 14.6 % 0 Unknown COMPLETE BLOOD COUNT [id number] Eos Auto 1.5 % 0 Unknown COMPLETE BLOOD COUNT [id number] Baso Auto 0.2 % 0 Unknown COMPLETE BLOOD COUNT [id number] Neutrophil Abs 3.46 10e9/L Unknown COMPLETE BLOOD COUNT [id number] Lymphocyte Abs 1.31 10e9/L Unknown COMPLETE BLOOD COUNT [id number] Monocyte Abs 0.64 10e9/L 04/19 Unknown COMPLETE BLOOD COUNT 4876531 Eosinophil Abs 0.08 10e9/L Unknown COMPLETE BLOOD COUNT [id number] RDW-SD 54.4 fL 0 Unknown COMPLETE BLOOD COUNT [id number] Basophil Abs 0.01 10e9/L 04/19 Unknown [facility] 32703 Cholesterol 173 mg/dL 05/10/2019 Unkno wn [facility] 48551 Triglyceride 105 mg/dL 05/10/2019 Unkn own [facility] 45949 HDL CHOLESTEROL 47 mg/dL 05/10/2019 U nknown [facility] 47041 Chol/HDL Ratio 3.68 ratio 05/10/2019 U nknown [facility] 05294 NON-HDL Chol 126 mg/dL 05/10/2019 Unkn own [facility] 66112 LDL Cholesterol 105 mg/dL 05/10/2019 U nknown Procedures Procedure Codes Date URINE CULTURE/ COLONY COUNT CPT-4: 09569 05/15/2019 ROUTINE VENIPUNCTURE CPT-4: 46254 05/10/2019 COMPREHEN METABOLIC PANEL CPT-4: 84059 05/10/2019 COMPLETE CBC W/AUTO DIFF WBC CPT-4: 11642 05/10/2019 LIPID PANEL CPT-4: 02998 05/10/2019 IRON PROFILE CPT-4: 77306 05/10/2019 ASSAY OF FERRITIN CPT-4: 49847 05/10/2019 CUR TOBACCO NON-USER CPT-4: G8457 01/20/2015 [...] 1: 126/70 Code: 8480-6 BMI: 24.8 Code: 61337-7 Heart Rate 1: 84 bpm Height: 6' Respiratory Rate: 20 bpm Temperature: 36 .6 (C) / 97.8 (F) Weight: 183 lbs 01/20/2015 Blood Pressure 1: 122/58 Code: 8480-6 BMI: 24.8 Code: 98775-2 Heart Rate 1: 80 bpm Height: 6' Respiratory Rate: 20 bpm Temperature: 36 .4 (C) / 97.6 (F) Weight: 183 lbs 01/13/2015 Blood Pressure 1: 142/68 Code: 8480-6 BMI: 24.8 Code: 22683-3 Heart Rate 1: 86 bpm Height: 6' Respiratory Rate: 20 bpm Temperature: 36 .6 (C) / 97.8 (F) Weight: 183 lbs 02/07/2012 Blood Pressure 1: 130/70 Code: 8480-6 BMI: 25.7 Code: 20475-3 Heart Rate 1: 74 bpm Height: 5'11" Temperature: 36.6 (C) / 97.8 (F) Weight: 184 lbs Functional Status No Functional Status data Reason For Visit Reason For Visit Effective Dates Notes follow up 06/11/2019 follow up 05/23/2019 bone fracture 05/09/2019 right ribs follow up 01/28/2015 follow up 01/20/2015 1 week sore throat 01/13/2015 knee pain 02/07/2012 Encounters Encounter Performer Location Codes Date ([id number]) OFFICE/OUTPATIENT VISIT EST Diagnosis: Left hip pain[ICD10: M25.552] Diagnosis: Recurrent falls[ICD10: R29.6] Diagnosis: Dyspnea on exertion[ICD10: R06.09] Damaris Solorio [employer] CPT-4: 86543 06/11/2019 ([id number]) OFFICE/OUTPATIENT VISIT EST Diagnosis: Dyspnea on exertion[ICD10: R06.09] Diagnosis: Anemia[ICD10: D64.9] Damaris OCAMPO SEcho [employer] CPT-4: 81094 05/23/2019 ([id number]) NURSE/OUTPATIENT VISIT EST Diagnosis: Urinary tract infection, site not specified[ICD10: N39.0] Damaris Solorio [facility] [employer] [employer] CPT-4: 37346 05/15/2019 ([id number]) NURSE/OUTPATIENT VISIT EST Diagnosis: Mixed hyperlipidemia[ICD10: E78.2] Diagnosis: Hyperglycemia, unspecified[ICD10: R73.9] Diagnosis: Essential (primary) hypertension[ICD10: I10] Diagnosis: Anemia, unspecified[ICD10: D64.9] Damaris Gustafson [employer] CPT-4: 27012 05/10/2019 ([id number]) OFFICE/OUTPATIENT VISIT NEW Diagnosis: Broken rib[ICD10: S22.39XA] Lizzette Giles DAMARIS S. Estella NAVARRO [employer] CPT-4: 68129 05/09/2019 OFFICE/OUTPATIENT VISIT EST Diagnosis: Localized enlarged lymph nodes[ICD10: R59.0] Diagnosis: Encounter for follow-up examination after completed treatment for conditions other than malignant neoplasm[ICD10: Z09] Lashawn CONKLIN [employer] CPT-4: 82393 01/28/2015 OFFICE/OUTPATIENT VISIT EST Diagnosis: Localized enlarged lymph nodes[ICD10: R59.0] Lashawn NGUYENNDER DO [place] CPT-4: 02798 01/20/2015 OFFICE/OUTPATIENT VISIT EST Diagnosis: LYMPHADENOPATHY[ICD9: 785.6] Diagnosis: LOCAL SKIN INFECTION[ICD9: 686.9] Lashawn Gustafson SEcho NGUYENNDER DO [place] CPT-4: 24772 01/13/2015 OFFICE/OUTPATIENT VISIT NEW Diagnosis: Grey's cyst of knee[ICD9: 727.51] Taylor GAYLE SEcho NGUYENNDER [employer] CPT-4: 77549 02/07/2012 Plan of Care Planned Activity Notes Codes Status Date Appointment: Damaris Conklintel: [address] [place], [place] [phone] US RESCHEDULED 07/02/2019 Visit Diagnosis Plan: Dyspnea [...] 719.45 ICD-10 : M25.552 06/11/2019 Appointment: Damaris Conklintel: [address] [place], [place] [phone] [place] FOLLOW UP 06/11/2019 Appointment: Damaris Conklin WPtel: [address] [place], [place] [phone] [place] 05/28/2019 1407--updated medications from patients medication bottles (km) CANCELED 05/28/2019 Visit Diagnosis Plan: Dyspnea on exertion Discussion: Check PFT Obtain most recent ECHO results ICD-9 : 786.09 ICD-10 : R06.09 05/23/2019 Visit Diagnosis Plan: Anemia Discussion: Discussed Hem atology--wants to hold at this time ICD-9 : 285.9 ICD-10 : D64.9 05/23/2019 Appointment: Damaris Conklin WPtel: [address] [place] [address] US FOLLOW UP 05/23/2019 Appointment: Damaris Conklin WPtel: [address] [place] [address] US UA 05/15/2019 Appointment: Damaris Conklin WPtel: [address] [place] [address] US LAB 05/10/2019 Visit Diagnosis Plan: Broken [...] ICD-10 : S22.39XA 05/09/2019 Appointment: Lizzette Giles [address] [place] [address] FOLLOW UP 05/09/2019 Visit Plan: Continue to monitor localize d lymph nodes for changes Follow-up for worsening symptoms 01/28/2015 Appointment: Lashawn Carlson WPtel: [address] [place] [address] [place] FOLLOW UP 01/28/2015 Patient Education: Patient Medication Summary Completed 01/28/2015 Visit Plan: Complete antibiotics. Monito r lymph node size and follow-up for persistent symptoms. 01/20/2015 Appointment: Lashawn Carlson WPtel: [address] [place], [place] [phone] 01/17 confirmed FOLLOW UP 01/20/2015 Patient Education: Patient Medication Summary Completed 01/20/2015 Visit Plan: Septra DS - 1 po bid x 10 da ys Follow-up in 1 week. 01/13/2015 Appointment: Lashawn Carlson WPtel: [address] [place], [place] [phone] FOLLOW UP 01/13/2015 Patient Education: Patient Medication Summary Completed 01/13/2015 Appointment: Clarisa Garcia WPtel: [address] [place], [place] [phone] [place] cancelled because patient evaluated in ER ACUTE ILLNESS 06/08/2013 Appointment: Damaris Conklin WPtel: [address] [place], [place] [phone] [place] INJECTION 12/04/2012 Appointment: Taylor Carey WPtel: [address] [place], [place] [phone] [place] RE-ESTABLISH 02/07/2012 Patient Education: Patient Medication [...]
--- OUTSIDE RECORDS SUMMARY | 2019-09-15 18:34 | XMS REPORT | CCD ---
Author Author Jason Carey APRN Organization [facility] Address [address] [place] [address] Phone Care Team Providers Care Negative Turner Name Role Phone PP Unavailable CCM Unavailable Summary Purpose Interface Exchange Insurance Providers Payer name Policy type / Coverage type Covered green party ID Effective Begin Date Effective End Date WPS MEDIC[place] PART B [place] Medicare Part B [id number] Unknown [facility] Medicare Part B [id number] Un known Family History Family History data not found Social History Social History Element Codes Description Effective Dates Tobacco history SNOMED CT: 301510411 Never smoker 01/20/2015 Allergies, Adverse Reactions, Alerts Substance Reaction Codes Entered Date Inactivated Date Status * NO KNOWN DRUG ALLERGIES Unknown 02/07/2012 No Inactiv e Date Active Problems Condition Codes Effective Dates Condition Status Urinary tract infection, site not specified ICD-9: 599 .0 ICD-10: N39.0 05/15/2019 Active Hypertension Unknown 05/10/2019 Active Anemia, unspecified ICD-9: 285.9 ICD-10: D64.9 05/10/2019 Active Essential (primary) hypertension ICD-9: 401.9 [...] Start Date Stop Date Status Fill Instructions multivitamin with iron tablet RxNorm: 1 Tablet(s) Oral QD 04/19 No Stop Date Active hydrocodone 10 mg-acetaminophen 300 mg tablet RxNorm: 880138 1 Tablet(s) Oral Q8H as needed for pain 05/09/2019 No Stop Date Active hydrocodone 5 mg-acetaminophen 325 mg tablet RxNorm: 520144 1 Tablet(s) Oral Every 6 hours as needed 05/09/2019 No Stop Date Active Bactrim DS 800 mg-160 mg tablet RxNorm: 084471 1 Tablet(s) PO BID 0 01/13/2015 01/22/2015 Inactive aspirin 81 mg tablet,delayed release RxNorm: 056551 1 Tablet(s) PO QD 02/07/2012 03/07/2012 Inactive Vitamin D3 1000 units Capsule RxNorm: 2 Capsule(s) PO QD No Start Date Active flecainide 100 mg tablet RxNorm: 995809 1 Tablet(s) PO QD No Start Da te Active lisinopril 20 mg tablet RxNorm: 315757 1/2 Tablet(s) PO PRN No Start Date Active imipramine pamoate 75 mg capsule RxNorm: 723172 1 Capsule(s) PO QD No Start Date Active lisinopril 20 mg tablet RxNorm: 602015 1 Tablet(s) PO QD No Start D ate 02/06/2012 Inactive Meclizine 25 mg Tab RxNorm: 6683367 1 Tablet(s) PO QID prn dizzi ness No Start Date 05/09/2019 Inactive Medication Administered No Medication Administered data Immunizations Vaccine Codes Date Status Tetanus, Diptheria, Pertussis CVX: 115 12/27/2018 Results Observation Observation Code Item Item Code Result Date S ervice Location FERRITIN 52068 FERRITIN 238.7 ng/mL 05/10/2019 Unknown IRON PROFILE 43121 Iron 89 ug/dL 05/10/2019 Unknow n IRON PROFILE 05797 TIBC 295 ug/dL 05/10/2019 Unknow n IRON PROFILE 84641 % SATURATION 30 % 05/10/2019 Unk nown IRON PROFILE 30926 UIBC 206 ug/dL 05/10/2019 Unknow n COMPREHENSIVE METABOLIC 54895 AST 22 U/L 2019 Unknown COMPREHENSIVE METABOLIC 15193 ALT 15 U/L 2019 Unknown COMPREHENSIVE METABOLIC 78098 BUN 33 mg/dL 2019 Unknown COMPREHENSIVE METABOLIC 36957 ALBUMIN 4.1 g/dL 2019 Unknown COMPREHENSIVE METABOLIC 79847 CHLORIDE 100 mmol/L 05/10 Unknown COMPREHENSIVE METABOLIC 51201 Bili Total 0.4 mg/dL 05/10 Unknown COMPREHENSIVE METABOLIC 17567 ALK PHOS 63 U/L 2019 Unknown COMPREHENSIVE METABOLIC 99360 SODIUM 135 mmol/L 05/10 Unknown COMPREHENSIVE METABOLIC 21456 CREATININE 1.59 mg/dL 04/19 Unknown COMPREHENSIVE METABOLIC 31707 CALCIUM 9.3 mg/dL 2019 Unknown COMPREHENSIVE METABOLIC 79332 POTASSIUM 5.0 mmol/L 05/10 Unknown COMPREHENSIVE METABOLIC 70092 Total Protein 6.9 g/dL Unknown COMPREHENSIVE METABOLIC 79086 Glucose 106 mg/dL 2019 Unknown COMPREHENSIVE METABOLIC 52181 Bicarbonate 28 mmol/L 04/19 Unknown COMPREHENSIVE METABOLIC 36989 AGAP 7 mmol/L 2019 Unknown GFR CALC 5067404 GFR Non Afr Amr 41 mL/min 05/10/2019 Unk nown GFR CALC 6926033 GFR Afr Amr 50 mL/min 05/10/2019 Unknown COMPLETE BLOOD COUNT 4594125 WBC 5.5 10e9/L 05/10/19 20 Unknown COMPLETE BLOOD COUNT [id number] RBC 3.11 10e12/L 2019 Unknown COMPLETE BLOOD COUNT 8568955 HEMOGLOBIN 10.5 g/dL 05/10/19 20 Unknown COMPLETE BLOOD COUNT 1439512 HEMATOCRIT 32.8 % 05/10/19 20 Unknown COMPLETE BLOOD COUNT 7607315 MCV 105.5 fL 0 Unknown COMPLETE BLOOD COUNT 7968191 MCH 33.8 pg 0 Unknown COMPLETE BLOOD COUNT 0053949 MCHC 32.0 g/dL 0 Unknown COMPLETE BLOOD COUNT 9035526 PLATELET COUNT 167 10e9/L Unknown COMPLETE BLOOD COUNT 5788877 Mean Plt Volume 13.2 fL Unknown COMPLETE BLOOD COUNT 5230146 Neut Auto 62.9 % 0 Unknown COMPLETE BLOOD COUNT 1752019 Lymph Auto 23.8 % 05/10/19 20 Unknown COMPLETE BLOOD COUNT 0408581 Frio Auto 11.6 % 0 Unknown COMPLETE BLOOD COUNT 7278169 RDW 14.6 % 0 Unknown COMPLETE BLOOD COUNT 9077959 Eos Auto 1.5 % 0 Unknown COMPLETE BLOOD COUNT 1931958 Baso Auto 0.2 % 0 Unknown COMPLETE BLOOD COUNT 6472403 Neutrophil Abs 3.46 10e9/L Unknown COMPLETE BLOOD COUNT 9567255 Lymphocyte Abs 1.31 10e9/L Unknown COMPLETE BLOOD COUNT 7461254 Monocyte Abs 0.64 10e9/L 04/19 Unknown COMPLETE BLOOD COUNT 0932832 Eosinophil Abs 0.08 10e9/L Unknown COMPLETE BLOOD COUNT 4108010 RDW-SD 54.4 fL 0 Unknown COMPLETE BLOOD COUNT 8554034 Basophil Abs 0.01 10e9/L 04/19 Unknown [facility] 16783 Cholesterol 173 mg/dL 05/10/2019 Unkno wn [facility] 98081 Triglyceride 105 mg/dL 05/10/2019 Unkn own [facility] 20375 HDL CHOLESTEROL 47 mg/dL 05/10/2019 U nknown [facility] 49793 Chol/HDL Ratio 3.68 ratio 05/10/2019 U nknown [facility] 80282 NON-HDL Chol 126 mg/dL 05/10/2019 Unkn own [facility] 31432 LDL Cholesterol 105 mg/dL 05/10/2019 U nknown Procedures Procedure Codes Date URINE CULTURE/ COLONY COUNT CPT-4: 44308 05/15/2019 ROUTINE VENIPUNCTURE CPT-4: 23044 05/10/2019 COMPREHEN METABOLIC PANEL CPT-4: 88618 05/10/2019 COMPLETE CBC W/AUTO DIFF WBC CPT-4: 33713 05/10/2019 LIPID PANEL CPT-4: 10028 05/10/2019 IRON PROFILE CPT-4: 76038 05/10/2019 ASSAY OF FERRITIN CPT-4: 43810 05/10/2019 CUR TOBACCO NON-USER CPT-4: G8457 01/20/2015 PRESCRIP TRANSMIT VIA ERX SY CPT-4: G8553 01/13/2015 Vital Signs Date Vital 05/09/2019 Blood Pressure 1: 143/75 Code: 8480-6 Heart Rate 1: 85 bpm Respiratory Rate: 17 bpm SpO2: 96% Temperature: 36.5 (C) / 97.7 (F) We ight: 170 lbs 01/28/2015 Blood Pressure 1: 126/70 Code: 8480-6 BMI: 24.8 Code: 72270-2 Heart Rate 1: 84 bpm Height: 6' Respiratory Rate: 20 bpm Temperature: 36 .6 (C) / 97.8 (F) Weight: 183 lbs 01/20/2015 Blood Pressure 1: 122/58 Code: 8480-6 BMI: 24.8 Code: 37612-5 Heart Rate 1: 80 bpm Height: 6' Respiratory Rate: 20 bpm Temperature: 36 .4 (C) / 97.6 (F) Weight: 183 lbs 01/13/2015 Blood Pressure 1: 142/68 Code: 8480-6 BMI: 24.8 Code: 25136-6 Heart Rate 1: 86 bpm Height: 6' Respiratory Rate: 20 bpm Temperature: 36 .6 (C) / 97.8 (F) Weight: 183 lbs 02/07/2012 Blood Pressure 1: 130/70 Code: 8480-6 BMI: 25.7 Code: 75537-2 Heart Rate 1: 74 bpm Height: 5'11" Temperature: 36.6 (C) / 97.8 (F) Weight: 184 lbs Functional Status No Functional Status data Reason For Visit Reason For Visit Effective Dates Notes bone fracture 05/09/2019 right ribs follow up 01/28/2015 follow up 01/20/2015 1 week sore throat 01/13/2015 knee pain 02/07/2012 Encounters Encounter Performer Location Codes Date (07225) NURSE/OUTPATIENT VISIT EST Diagnosis: Urinary tract infection, site not specified[ICD10: N39.0] Damaris POON DO [facility] CPT-4: 41949 05/15/2019 ([id number]) NURSE/OUTPATIENT VISIT EST Diagnosis: Mixed hyperlipidemia[ICD10: E78.2] Diagnosis: Hyperglycemia, unspecified[ICD10: R73.9] Diagnosis: Essential (primary) hypertension[ICD10: I10] Diagnosis: Anemia, unspecified[ICD10: D64.9] Damaris OROZCOER DO [facility] CPT-4: 39982 05/10/2019 ([id number]) OFFICE/OUTPATIENT VISIT NEW Diagnosis: Broken rib[ICD10: S22.39XA] Lizzette JACOBSENQUELINE Lyndsey NAVARRO DO [facility] CPT-4: 15820 05/09/2019 OFFICE/OUTPATIENT VISIT EST Diagnosis: Localized enlarged lymph nodes[ICD10: R59.0] Diagnosis: Encounter for follow-up examination after completed treatment for conditions other than malignant neoplasm[ICD10: Z09] Lashawn WelchRaisaelza CERVANTESLINE Lyndsey POON DO [facility] CPT-4: 48164 01/28/2015 OFFICE/OUTPATIENT VISIT EST Diagnosis: Localized enlarged lymph nodes[ICD10: R59.0] Lashawn CERVANTESLINE Lyndsey POON DO [facility] CPT-4: 76694 01/20/2015 OFFICE/OUTPATIENT VISIT EST Diagnosis: LYMPHADENOPATHY[ICD9: 785.6] Diagnosis: LOCAL SKIN INFECTION[ICD9: 686.9] Lashawn WelchRaisatobiasmaya ZAMORA Janay SchumacherEcho PRETTY MUELLER [employer] CPT-4: 21278 01/13/2015 OFFICE/OUTPATIENT VISIT NEW Diagnosis: Grey's cyst of knee[ICD9: 727.51] Taylor GAYLE Lyndsey POON DO [employer] CPT-4: 53608 02/07/2012 Plan of Care Planned Activity Notes Codes Status Date Appointment: Damaris [facility]oon [facility] [phone] [id number] [facility] 05/10/2019 Visit Diagnosis Plan: Broken rib [...] 4 years. patient reports he sees dr. mehta routinely so will obtain recent labs from their offices. instructed patient that he may need additional blood work though pending what they ordered. instructed to follow up with dr. poon in 1 month though since he hasn't been seen much and will re-assess his bp. ICD-9 : 807.00 ICD-10 : S22.39XA 05/09/2019 Appointment: Lizzette Giles [address] FOLLOW UP 05/09/2019 Visit Plan: Continue to monitor localize d lymph nodes for changes Follow-up for worsening symptoms 01/28/2015 Appointment: Lashawn Carlson WPtel: [address] [place] [address] [place] FOLLOW UP 01/28/2015 Patient Education: Patient Medication Summary Completed 01/28/2015 Visit Plan: Complete antibiotics. Monito r lymph node size and follow-up for persistent symptoms. 01/20/2015 Appointment: Lashawn Carlson WPtel: [address] [place] [address] 01/17 confirmed FOLLOW UP 01/20/2015 Patient Education: Patient Medication Summary Completed 01/20/2015 Visit Plan: Septra DS - 1 po bid x 10 da ys Follow-up in 1 week. 01/13/2015 Appointment: Lashawn Carlson WPtel: [address] [place] [address] US FOLLOW UP 01/13/2015 Patient Education: Patient Medication Summary Completed 01/13/2015 Appointment: Clarisa Garcia WPtel: [address] [place] [address] US cancelled because patient evaluated in ER ACUTE ILLNESS 06/08/2013 Appointment: Damaris Poon WPtel: [address] [place] [address] US INJECTION 12/04/2012 Appointment: Taylor Carey WPtel: [address] [place] [address] US RE-ESTABLISH 02/07/2012 Patient Education: Patient Medication [...]
--- OUTSIDE RECORDS SUMMARY | 2019-09-15 18:34 | XMS REPORT | CCD ---
Author Author Jason Carey APRN Organization [facility] Address [address] [place] [address] Phone Care Team Providers Care Bindery Leadperson Name Role Phone PP Unavailable CCM Unavailable Summary Purpose Interface Exchange Insurance Providers Payer name Policy type / Coverage type Covered green party ID Effective Begin Date Effective End Date WPS MEDIC[place] B [place] Medicare Part B [id number] [address] [facility] Medicare Part B [id number] Un known Family History Family History data not found Social History Social History Element Codes Description Effective Dates Tobacco history SNOMED CT: 634126830 Never smoker 01/20/2015 Allergies, Adverse Reactions, Alerts Substance Reaction Codes Entered Date Inactivated Date Status * NO KNOWN DRUG ALLERGIES Unknown 02/07/2012 No Inactiv e Date Active Problems Condition Codes Effective Dates Condition Status Hypertension Unknown 05/10/2019 Active Anemia, unspecified ICD-9: [...] Start Date Stop Date Status Fill Instructions hydrocodone 10 mg-acetaminophen 300 mg tablet RxNorm: 404911 1 Tablet(s) Oral Q8H as needed for pain 05/09/2019 No Stop Date Active hydrocodone 5 mg-acetaminophen 325 mg tablet RxNorm: 625668 1 Tablet(s) Oral Every 6 hours as needed 05/09/2019 No Stop Date Active Bactrim DS 800 mg-160 mg tablet RxNorm: 061896 1 Tablet(s) PO BID 0 01/13/2015 01/22/2015 Inactive aspirin 81 mg tablet,delayed release RxNorm: 508373 1 Tablet(s) PO QD 02/07/2012 03/07/2012 Inactive Vitamin D3 1000 units Capsule RxNorm: 2 Capsule(s) PO QD No Start Date Active flecainide 100 mg tablet RxNorm: 648960 1 Tablet(s) PO QD No Start Da te Active lisinopril 20 mg tablet RxNorm: 091737 1/2 Tablet(s) PO PRN No Start Date Active imipramine pamoate 75 mg capsule RxNorm: 523827 1 Capsule(s) PO QD No Start Date Active lisinopril 20 mg tablet RxNorm: 557786 1 Tablet(s) PO QD No Start D ate 02/06/2012 Inactive Meclizine 25 mg Tab RxNorm: 7409663 1 Tablet(s) PO QID prn dizzi ness No Start Date 05/09/2019 Inactive Medication Administered No Medication Administered data Immunizations Vaccine Codes Date Status Tetanus, Diptheria, Pertussis CVX: 115 12/27/2018 Results No Results data Procedures Procedure Codes Date ROUTINE VENIPUNCTURE CPT-4: 89674 05/10/2019 COMPREHEN METABOLIC PANEL CPT-4: 71594 05/10/2019 COMPLETE CBC W/AUTO DIFF WBC CPT-4: 36692 05/10/2019 LIPID PANEL CPT-4: 53743 05/10/2019 IRON PROFILE CPT-4: 92542 05/10/2019 ASSAY OF FERRITIN CPT-4: 28465 05/10/2019 CUR TOBACCO NON-USER CPT-4: G8457 01/20/2015 PRESCRIP TRANSMIT VIA ERX SY CPT-4: G8553 01/13/2015 Vital Signs Date Vital 05/09/2019 Blood Pressure 1: 143/75 Code: 8480-6 Heart Rate 1: 85 bpm Respiratory Rate: 17 bpm SpO2: 96% Temperature: 36.5 (C) / 97.7 (F) We ight: 170 lbs 01/28/2015 Blood Pressure 1: 126/70 Code: 8480-6 BMI: 24.8 Code: 75082-5 Heart Rate 1: 84 bpm Height: 6' Respiratory Rate: 20 bpm Temperature: 36 .6 (C) / 97.8 (F) Weight: 183 lbs 01/20/2015 Blood Pressure 1: 122/58 Code: 8480-6 BMI: 24.8 Code: 00207-4 Heart Rate 1: 80 bpm Height: 6' Respiratory Rate: 20 bpm Temperature: 36 .4 (C) / 97.6 (F) Weight: 183 lbs 01/13/2015 Blood Pressure 1: 142/68 Code: 8480-6 BMI: 24.8 Code: 06255-5 Heart Rate 1: 86 bpm Height: 6' Respiratory Rate: 20 bpm Temperature: 36 .6 (C) / 97.8 (F) Weight: 183 lbs 02/07/2012 Blood Pressure 1: 130/70 Code: 8480-6 BMI: 25.7 Code: 52969-9 Heart Rate 1: 74 bpm Height: 5'11" Temperature: 36.6 (C) / 97.8 (F) Weight: 184 lbs Functional Status No Functional Status data Reason For Visit Reason For Visit Effective Dates Notes bone fracture 05/09/2019 right ribs follow up 01/28/2015 follow up 01/20/2015 1 week sore throat 01/13/2015 knee pain 02/07/2012 Encounters Encounter Performer Location Codes Date (61984) NURSE/OUTPATIENT VISIT EST Diagnosis: Mixed hyperlipidemia[ICD10: E78.2] Diagnosis: Hyperglycemia, unspecified[ICD10: R73.9] Diagnosis: Essential (primary) hypertension[ICD10: I10] Diagnosis: Anemia, unspecified[ICD10: D64.9] Damaris CONKLIN DO [employer] CPT-4: 12526 05/10/2019 (71538) OFFICE/OUTPATIENT VISIT NEW Diagnosis: Broken rib[ICD10: S22.39XA] Lizzette Tisha OCAMPO S. Estella NAVARRO kaufDA CPT-4: 94806 05/09/2019 OFFICE/OUTPATIENT VISIT EST Diagnosis: Localized enlarged lymph nodes[ICD10: R59.0] Diagnosis: Encounter for follow-up examination after completed treatment for conditions other than malignant neoplasm[ICD10: Z09] Lashawn WelchRaisaelza CONKLIN DO [facility] CPT-4: 56350 01/28/2015 OFFICE/OUTPATIENT VISIT EST Diagnosis: Localized enlarged lymph nodes[ICD10: R59.0] Lashawn CONKLIN DO [facility] CPT-4: 68182 01/20/2015 OFFICE/OUTPATIENT VISIT EST Diagnosis: LYMPHADENOPATHY[ICD9: 785.6] Diagnosis: LOCAL SKIN INFECTION[ICD9: 686.9] Lashwan ZAMORA Janay CONKLIN DO [facility] CPT-4: 14095 01/13/2015 OFFICE/OUTPATIENT VISIT NEW Diagnosis: Grey's cyst of knee[ICD9: 727.51] Taylor GAYLE Lyndsey CONKLIN DO [facility] CPT-4: 64911 02/07/2012 Plan of Care Planned Activity Notes Codes Status Date Visit Diagnosis Plan: Broken rib Discussion: will [...] ICD-10 : S22.39XA 05/09/2019 Appointment: Lizzette Giles [address] [place], [place] [phone] FOLLOW UP 05/09/2019 Visit Plan: Continue to monitor localize d lymph nodes for changes Follow-up for worsening symptoms 01/28/2015 Appointment: Lashawn Carlson WPtel: [address] [place], [place] [phone] [place] FOLLOW UP 01/28/2015 Patient Education: Patient Medication Summary Completed 01/28/2015 Visit Plan: Complete antibiotics. Monito r lymph node size and follow-up for persistent symptoms. 01/20/2015 Appointment: Lashawn Carlson WPtel: [address] [place], [place] [phone] 01/17 confirmed FOLLOW UP 01/20/2015 Patient Education: Patient Medication Summary Completed 01/20/2015 Visit Plan: Septra DS - 1 po bid x 10 da ys Follow-up in 1 week. 01/13/2015 Appointment: Lashawn Carlson WPtel: [address] [place], [place] [phone] [place] FOLLOW UP 01/13/2015 Patient Education: Patient Medication Summary Completed 01/13/2015 Appointment: Clarisa Garcia WPtel: [address] [place] [address] [place] cancelled because patient evaluated in ER ACUTE ILLNESS 06/08/2013 Appointment: Damaris Conklin WPtel: [address] [place], [place] [phone] [place] INJECTION 12/04/2012 Referral: Damaris Conklin WPtel: [address] [place], [place] [phone] [place] Referral Initiated 02/14/2012 Appointment: Taylor Carey WPtel: [address] [place], [place] [phone] [place] RE-ESTABLISH 02/07/2012 Patient Education: Patient Medication [...]
--- OUTSIDE RECORDS SUMMARY | 2019-09-15 18:34 | XMS REPORT | CCD ---
Author Author Jason Carey APRN Organization [facility] Address [address] [place] [address] Phone Care Team Providers Care Furnace Liner Name Role Phone PP Unavailable CCM Unavailable Summary Purpose Interface Exchange Insurance Providers Payer name Policy type / Coverage type Covered libertarian ID Effective Begin Date Effective End Date WPS MEDIC[place] PART B [place] Medicare Part B [id number] Unknown [facility] Medicare Part B [id number] Un known Family History Family History data not found Social History Social History Element Codes Description Effective Dates Tobacco history SNOMED CT: 900611228 Never smoker 01/20/2015 Allergies, Adverse Reactions, Alerts [...] hydrocodone 10 mg-acetaminophen 300 mg tablet RxNorm: 950585 1 Tablet(s) Oral Q8H as needed for pain 05/09/2019 No Stop Date Active hydrocodone 5 mg-acetaminophen 325 mg tablet RxNorm: 926432 1 Tablet(s) Oral Every 6 hours as needed 05/09/2019 No Stop Date Active Bactrim DS 800 mg-160 mg tablet RxNorm: 372821 1 Tablet(s) PO BID 0 01/13/2015 01/22/2015 Inactive aspirin 81 mg tablet,delayed release RxNorm: 879066 1 Tablet(s) PO QD 02/07/2012 03/07/2012 Inactive Vitamin D3 1000 units Capsule RxNorm: 2 Capsule(s) PO QD No Start Date Active flecainide 100 mg tablet RxNorm: 036090 1 Tablet(s) PO QD No Start Da te Active lisinopril 20 mg tablet RxNorm: 715103 1/2 Tablet(s) PO PRN No Start Date Active imipramine pamoate 75 mg capsule RxNorm: 448646 1 Capsule(s) PO QD No Start Date Active lisinopril 20 mg tablet RxNorm: 206563 1 Tablet(s) PO QD No Start D ate 02/06/2012 Inactive Meclizine 25 mg Tab RxNorm: 9791747 1 Tablet(s) PO QID prn dizzi ness No Start Date 05/09/2019 Inactive Medication Administered No Medication Administered data Immunizations Vaccine Codes Date Status Tetanus, Diptheria, Pertussis CVX: 115 12/27/2018 Results Observation Observation Code Item Item Code Result Date S ervice Location FERRITIN 89688 FERRITIN 238.7 ng/mL 05/10/2019 Unknown IRON PROFILE 70550 Iron 89 ug/dL 05/10/2019 Unknow n IRON PROFILE 03267 TIBC 295 ug/dL 05/10/2019 Unknow n IRON PROFILE 57084 % SATURATION 30 % 05/10/2019 Unk nown IRON PROFILE 89290 UIBC 206 ug/dL 05/10/2019 Unknow n COMPREHENSIVE METABOLIC 50181 AST 22 U/L 2019 Unknown COMPREHENSIVE METABOLIC 62055 ALT 15 U/L 2019 Unknown COMPREHENSIVE METABOLIC 58231 BUN 33 mg/dL 2019 Unknown COMPREHENSIVE METABOLIC 47568 ALBUMIN 4.1 g/dL 2019 Unknown COMPREHENSIVE METABOLIC 56554 CHLORIDE 100 mmol/L 05/10 Unknown COMPREHENSIVE METABOLIC 19215 Bili Total 0.4 mg/dL 05/10 Unknown COMPREHENSIVE METABOLIC 30849 ALK PHOS 63 U/L 2019 Unknown COMPREHENSIVE METABOLIC 18087 SODIUM 135 mmol/L 05/10 Unknown COMPREHENSIVE METABOLIC 23904 CREATININE 1.59 mg/dL 04/19 Unknown COMPREHENSIVE METABOLIC 99490 CALCIUM 9.3 mg/dL 2019 Unknown COMPREHENSIVE METABOLIC 66086 POTASSIUM 5.0 mmol/L 05/10 Unknown COMPREHENSIVE METABOLIC 22681 Total Protein 6.9 g/dL Unknown COMPREHENSIVE METABOLIC 32703 Glucose 106 mg/dL 2019 Unknown COMPREHENSIVE METABOLIC 33529 Bicarbonate 28 mmol/L 04/19 Unknown COMPREHENSIVE METABOLIC 11200 AGAP 7 mmol/L 2019 Unknown GFR CALC 1105925 GFR Non Afr Amr 41 mL/min 05/10/2019 Unk nown GFR CALC 8732544 GFR Afr Amr 50 mL/min 05/10/2019 Unknown COMPLETE BLOOD COUNT [id number] WBC 5.5 10e9/L 05/10/19 20 Unknown COMPLETE BLOOD COUNT 9102519 RBC 3.11 10e12/L 2019 Unknown COMPLETE BLOOD COUNT 6979651 HEMOGLOBIN 10.5 g/dL 05/10/19 20 Unknown COMPLETE BLOOD COUNT 8356295 HEMATOCRIT 32.8 % 05/10/19 20 Unknown COMPLETE BLOOD COUNT 7939938 MCV 105.5 fL 0 Unknown COMPLETE BLOOD COUNT [id number] MCH 33.8 pg 0 Unknown COMPLETE BLOOD COUNT 9553540 MCHC 32.0 g/dL 0 Unknown COMPLETE BLOOD COUNT 9746722 PLATELET COUNT 167 10e9/L Unknown COMPLETE BLOOD COUNT 4770384 Mean Plt Volume 13.2 fL Unknown COMPLETE BLOOD COUNT 1315998 Neut Auto 62.9 % 0 Unknown COMPLETE BLOOD COUNT 1937818 Lymph Auto 23.8 % 05/10/19 20 Unknown COMPLETE BLOOD COUNT 8538800 [place] Auto 11.6 % 0 Unknown COMPLETE BLOOD COUNT 8823361 RDW 14.6 % 0 Unknown COMPLETE BLOOD COUNT 6505683 Eos Auto 1.5 % 0 Unknown COMPLETE BLOOD COUNT 5851306 Baso Auto 0.2 % 0 Unknown COMPLETE BLOOD COUNT 7431161 Neutrophil Abs 3.46 10e9/L Unknown COMPLETE BLOOD COUNT 9656843 Lymphocyte Abs 1.31 10e9/L Unknown COMPLETE BLOOD COUNT 1216555 Monocyte Abs 0.64 10e9/L 04/19 Unknown COMPLETE BLOOD COUNT 8778111 Eosinophil Abs 0.08 10e9/L Unknown COMPLETE BLOOD COUNT 0554263 RDW-SD 54.4 fL 0 Unknown COMPLETE BLOOD COUNT 3237542 Basophil Abs 0.01 10e9/L 04/19 Unknown LIPID GROUP 05114 Cholesterol 173 mg/dL 05/10/2019 Unkno wn LIPID GROUP 15784 Triglyceride 105 mg/dL 05/10/2019 Unkn own LIPID GROUP 93317 HDL CHOLESTEROL 47 mg/dL 05/10/2019 U nknown LIPID GROUP 95671 Chol/HDL Ratio 3.68 ratio 05/10/2019 U nknown LIPID GROUP 28850 NON-HDL Chol 126 mg/dL 05/10/2019 Unkn own LIPID GROUP 64849 LDL Cholesterol 105 mg/dL 05/10/2019 U nknown Procedures Procedure Codes Date URINE CULTURE/ COLONY COUNT CPT-4: 60968 05/15/2019 ROUTINE VENIPUNCTURE CPT-4: 98612 05/10/2019 COMPREHEN METABOLIC PANEL CPT-4: 82913 05/10/2019 COMPLETE CBC W/AUTO DIFF WBC CPT-4: 58807 05/10/2019 LIPID PANEL CPT-4: 85722 05/10/2019 IRON PROFILE CPT-4: 24086 05/10/2019 ASSAY OF FERRITIN CPT-4: 07027 05/10/2019 CUR TOBACCO NON-USER CPT-4: G8457 01/20/2015 PRESCRIP TRANSMIT VIA ERX SY CPT-4: G8553 01/13/2015 Vital Signs Date Vital 05/09/2019 Blood Pressure 1: 143/75 Code: 8480-6 Heart Rate 1: 85 bpm Respiratory Rate: 17 bpm SpO2: 96% Temperature: 36.5 (C) / 97.7 (F) We ight: 170 lbs 01/28/2015 Blood Pressure 1: 126/70 Code: 8480-6 BMI: 24.8 Code: 63229-7 Heart Rate 1: 84 bpm Height: 6' Respiratory Rate: 20 bpm Temperature: 36 .6 (C) / 97.8 (F) Weight: 183 lbs 01/20/2015 Blood Pressure 1: 122/58 Code: 8480-6 BMI: 24.8 Code: 06424-3 Heart Rate 1: 80 bpm Height: 6' Respiratory Rate: 20 bpm Temperature: 36 .4 (C) / 97.6 (F) Weight: 183 lbs 01/13/2015 Blood Pressure 1: 142/68 Code: 8480-6 BMI: 24.8 Code: 93431-2 Heart Rate 1: 86 bpm Height: 6' Respiratory Rate: 20 bpm Temperature: 36 .6 (C) / 97.8 (F) Weight: 183 lbs 02/07/2012 Blood Pressure 1: 130/70 Code: 8480-6 BMI: 25.7 Code: 85578-6 Heart Rate 1: 74 bpm Height: 5'11" Temperature: 36.6 (C) / 97.8 (F) Weight: 184 lbs Functional Status No Functional Status data Reason For Visit Reason For Visit Effective Dates Notes bone fracture 05/09/2019 right ribs follow up 01/28/2015 follow up 01/20/2015 1 week sore throat 01/13/2015 knee pain 02/07/2012 Encounters Encounter Performer Location Codes Date (87867) NURSE/OUTPATIENT VISIT EST Diagnosis: Urinary tract infection, site not specified[ICD10: N39.0] Damaris POON DO [facility] CPT-4: 69209 05/15/2019 (02073) NURSE/OUTPATIENT VISIT EST Diagnosis: Mixed hyperlipidemia[ICD10: E78.2] Diagnosis: Hyperglycemia, unspecified[ICD10: R73.9] Diagnosis: Essential (primary) hypertension[ICD10: I10] Diagnosis: Anemia, unspecified[ICD10: D64.9] Damaris OROZCOER DO [facility] CPT-4: 60360 05/10/2019 (74749) OFFICE/OUTPATIENT VISIT NEW Diagnosis: Broken rib[ICD10: S22.39XA] Lizzette JACOBSENQUELINE Lyndsey NAVARRO DO [facility] CPT-4: 49021 05/09/2019 OFFICE/OUTPATIENT VISIT EST Diagnosis: Localized enlarged lymph nodes[ICD10: R59.0] Diagnosis: Encounter for follow-up examination after completed treatment for conditions other than malignant neoplasm[ICD10: Z09] Lashawn WelchRaisaelza CERVANTESLINE Lyndsey POON DO [facility] CPT-4: 06215 01/28/2015 OFFICE/OUTPATIENT VISIT EST Diagnosis: Localized enlarged lymph nodes[ICD10: R59.0] Lashawn CERVANTESLINE Lyndsey POON DO [facility] CPT-4: 51060 01/20/2015 OFFICE/OUTPATIENT VISIT EST Diagnosis: LYMPHADENOPATHY[ICD9: 785.6] Diagnosis: LOCAL SKIN INFECTION[ICD9: 686.9] Lashawn WelchRaisatobiasmaya ZAMORA Janay SchumacherEcho PRETTY MUELLER [place] CPT-4: 87896 01/13/2015 OFFICE/OUTPATIENT VISIT NEW Diagnosis: Grey's cyst of knee[ICD9: 727.51] Taylor GAYLE Lyndsey POON DO [facility] CPT-4: 41334 02/07/2012 Plan of Care Planned Activity Notes Codes Status Date Appointment: [facility] [phone] [id number] [facility]2019 Visit Diagnosis Plan: Broken rib [...] : S22.39XA 05/09/2019 Appointment: Lizzette Giles [address] FOLLOW UP 05/09/2019 Visit Plan: Continue to monitor localize d lymph nodes for changes Follow-up for worsening symptoms 01/28/2015 Appointment: Lashawn Carlson WPtel: [address] [place] [address] [place] FOLLOW UP 01/28/2015 Patient Education: Patient Medication Summary Completed 01/28/2015 Visit Plan: Complete antibiotics. Monito r lymph node size and follow-up for persistent symptoms. 01/20/2015 Appointment: Lashawn Carlson WPtel: [address] [place] [address] 01/17 confirmed FOLLOW UP 01/20/2015 Patient Education: Patient Medication Summary Completed 01/20/2015 Visit Plan: Septra DS - 1 po bid x 10 da ys Follow-up in 1 week. 01/13/2015 Appointment: Lashawn Carlson WPtel: [address] [place] [address] [place] FOLLOW UP 01/13/2015 Patient Education: Patient Medication Summary Completed 01/13/2015 Appointment: Clarisa Garcia WPtel: [address] [place] [address] [place] cancelled because patient evaluated in ER ACUTE ILLNESS 06/08/2013 Appointment: Damaris Poon WPtel: [address] [place] [address] [place] INJECTION 12/04/2012 Appointment: Taylor Carey WPtel: [address] [place] [address] [place] RE-ESTABLISH 02/07/2012 Patient Education: Patient Medication [...]
--- OUTSIDE RECORDS SUMMARY | 2019-09-15 18:34 | XMS REPORT | CCD ---
Author Author Jason Carey APRN Organization [facility] Address [address] [place] [address] Phone Care Team Providers Care Contact Person Name Role Phone PP Unavailable CCM Unavailable Summary Purpose Interface Exchange Insurance Providers Payer name Policy type / Coverage type Covered libertarian ID Effective Begin Date Effective End Date W[place] MEDIC[place] PART B [place] Medicare Part B [id number] 2015 Unknown [facility] Medicare Part B [id number] Un known Family History Family History data not found Social History Social History Element Codes Description Effective Dates Tobacco history SNOMED CT: 778209465 Never smoker 01/20/2015 Allergies, Adverse Reactions, Alerts [...] hydrocodone 10 mg-acetaminophen 300 mg tablet RxNorm: 348303 1 Tablet(s) Oral Q8H as needed for pain 05/09/2019 No Stop Date Active hydrocodone 5 mg-acetaminophen 325 mg tablet RxNorm: 324893 1 Tablet(s) Oral Every 6 hours as needed 05/09/2019 No Stop Date Active Bactrim DS 800 mg-160 mg tablet RxNorm: 774231 1 Tablet(s) PO BID 0 01/13/2015 01/22/2015 Inactive aspirin 81 mg tablet,delayed release RxNorm: 826595 1 Tablet(s) PO QD 02/07/2012 03/07/2012 Inactive Vitamin D3 1000 units Capsule RxNorm: 2 Capsule(s) PO QD No Start Date Active flecainide 100 mg tablet RxNorm: 045874 1 Tablet(s) PO QD No Start Da te Active lisinopril 20 mg tablet RxNorm: 230714 1/2 Tablet(s) PO PRN No Start Date Active imipramine pamoate 75 mg capsule RxNorm: 166328 1 Capsule(s) PO QD No Start Date Active lisinopril 20 mg tablet RxNorm: 948315 1 Tablet(s) PO QD No Start D ate 02/06/2012 Inactive Meclizine 25 mg Tab RxNorm: 8450227 1 Tablet(s) PO QID prn dizzi ness No Start Date 05/09/2019 Inactive Medication Administered No Medication Administered data Immunizations Vaccine Codes Date Status Tetanus, Diptheria, Pertussis CVX: 115 12/27/2018 Results Observation Observation Code Item Item Code Result Date S [facility] Location COMPLETE BLOOD COUNT [id number] WBC 5.5 10e9/L 05/10/19 20 Unknown COMPLETE BLOOD COUNT 2574756 RBC 3.11 10e12/L 2019 Unknown COMPLETE BLOOD COUNT 3205602 HEMOGLOBIN 10.5 g/dL 05/10/19 20 Unknown COMPLETE BLOOD COUNT 5094002 HEMATOCRIT 32.8 % 05/10/19 20 Unknown COMPLETE BLOOD COUNT 5653069 MCV 105.5 fL 0 Unknown COMPLETE BLOOD COUNT 4860716 MCH 33.8 pg 0 Unknown COMPLETE BLOOD COUNT 7672469 MCHC 32.0 g/dL 0 Unknown COMPLETE BLOOD COUNT 7703238 PLATELET COUNT 167 10e9/L Unknown COMPLETE BLOOD COUNT 1241246 Mean Plt Volume 13.2 fL Unknown COMPLETE BLOOD COUNT 0882034 Neut Auto 62.9 % 0 Unknown COMPLETE BLOOD COUNT 1487835 Lymph Auto 23.8 % 05/10/19 20 Unknown COMPLETE BLOOD COUNT 5219903 [place] Auto 11.6 % 0 Unknown COMPLETE BLOOD COUNT 4274477 RDW 14.6 % 0 Unknown COMPLETE BLOOD COUNT 1962425 Eos Auto 1.5 % 0 Unknown COMPLETE BLOOD COUNT 9708596 Baso Auto 0.2 % 0 Unknown COMPLETE BLOOD COUNT 8092884 Neutrophil Abs 3.46 10e9/L Unknown COMPLETE BLOOD COUNT 4374274 Lymphocyte Abs 1.31 10e9/L Unknown COMPLETE BLOOD COUNT 4385243 Monocyte Abs 0.64 10e9/L 04/19 Unknown COMPLETE BLOOD COUNT 9516961 Eosinophil Abs 0.08 10e9/L Unknown COMPLETE BLOOD COUNT 5780282 RDW-SD 54.4 fL 0 Unknown COMPLETE BLOOD COUNT 6033550 Basophil Abs 0.01 10e9/L 04/19 Unknown Procedures Procedure Codes Date ROUTINE VENIPUNCTURE CPT-4: 95804 05/10/2019 COMPREHEN METABOLIC PANEL CPT-4: 77008 05/10/2019 COMPLETE CBC W/AUTO DIFF WBC CPT-4: 14807 05/10/2019 LIPID PANEL CPT-4: 51084 05/10/2019 IRON PROFILE CPT-4: 70224 05/10/2019 ASSAY OF FERRITIN CPT-4: 01089 05/10/2019 CUR TOBACCO NON-USER CPT-4: G8457 01/20/2015 PRESCRIP TRANSMIT VIA ERX SY CPT-4: G8553 01/13/2015 Vital Signs Date Vital 05/09/2019 Blood Pressure 1: 143/75 Code: 8480-6 Heart Rate 1: 85 bpm Respiratory Rate: 17 bpm SpO2: 96% Temperature: 36.5 (C) / 97.7 (F) We ight: 170 lbs 01/28/2015 Blood Pressure 1: 126/70 Code: 8480-6 BMI: 24.8 Code: 22471-4 Heart Rate 1: 84 bpm Height: 6' Respiratory Rate: 20 bpm Temperature: 36 .6 (C) / 97.8 (F) Weight: 183 lbs 01/20/2015 Blood Pressure 1: 122/58 Code: 8480-6 BMI: 24.8 Code: 75704-6 Heart Rate 1: 80 bpm Height: 6' Respiratory Rate: 20 bpm Temperature: 36 .4 (C) / 97.6 (F) Weight: 183 lbs 01/13/2015 Blood Pressure 1: 142/68 Code: 8480-6 BMI: 24.8 Code: 67035-0 Heart Rate 1: 86 bpm Height: 6' Respiratory Rate: 20 bpm Temperature: 36 .6 (C) / 97.8 (F) Weight: 183 lbs 02/07/2012 Blood Pressure 1: 130/70 Code: 8480-6 BMI: 25.7 Code: 75777-9 Heart Rate 1: 74 bpm Height: 5'11" Temperature: 36.6 (C) / 97.8 (F) Weight: 184 lbs Functional Status No Functional Status data Reason For Visit Reason For Visit Effective Dates Notes bone fracture 05/09/2019 right ribs follow up 01/28/2015 follow up 01/20/2015 1 week sore throat 01/13/2015 knee pain 02/07/2012 Encounters Encounter Performer Location Codes Date (58360) NURSE/OUTPATIENT VISIT EST Diagnosis: Mixed hyperlipidemia[ICD10: E78.2] Diagnosis: Hyperglycemia, unspecified[ICD10: R73.9] Diagnosis: Essential (primary) hypertension[ICD10: I10] Diagnosis: Anemia, unspecified[ICD10: D64.9] Damaris CONKLIN DO [facility] CPT-4: 94389 05/10/2019 (79725) OFFICE/OUTPATIENT VISIT NEW Diagnosis: Broken rib[ICD10: S22.39XA] Lizzette Tisha NAVARRO DO [facility] CPT-4: 89667 05/09/2019 OFFICE/OUTPATIENT VISIT EST Diagnosis: Localized enlarged lymph nodes[ICD10: R59.0] Diagnosis: Encounter for follow-up examination after completed treatment for conditions other than malignant neoplasm[ICD10: Z09] Lashawn NGUYENNDER DO [facility] CPT-4: 25330 01/28/2015 OFFICE/OUTPATIENT VISIT EST Diagnosis: Localized enlarged lymph nodes[ICD10: R59.0] Lashawn CONKLIN DO [facility] CPT-4: 40869 01/20/2015 OFFICE/OUTPATIENT VISIT EST Diagnosis: LYMPHADENOPATHY[ICD9: 785.6] Diagnosis: LOCAL SKIN INFECTION[ICD9: 686.9] Lashawn JACOBSENAMADOU CONKLIN DO [facility] CPT-4: 64732 01/13/2015 OFFICE/OUTPATIENT VISIT NEW Diagnosis: Grey's cyst of knee[ICD9: 727.51] Taylor GAYLE Lyndsey CONKLIN DO [facility] CPT-4: 80349 02/07/2012 Plan of Care Planned Activity Notes [...] ICD-10 : S22.39XA 05/09/2019 Appointment: Lizzette Giles [address] [place], [place] [phone] FOLLOW UP 05/09/2019 Visit Plan: Continue to monitor localize d lymph nodes for changes Follow-up for worsening symptoms 01/28/2015 Appointment: Lashawn Carlson WPtel: [phone] [facility] [place] FOLLOW UP 01/28/2015 Patient Education: Patient Medication Summary Completed 01/28/2015 Visit Plan: Complete antibiotics. Monito r lymph node size and follow-up for persistent symptoms. 01/20/2015 Appointment: Lashawn Carlson WPtel: [address] [place], [place] [phone] 01/17 confirmed FOLLOW UP 01/20/2015 Patient Education: Patient Medication Summary Completed 01/20/2015 Visit Plan: Septra DS - 1 po bid x 10 da ys Follow-up in 1 week. 01/13/2015 Appointment: Lashawn Carlson WPtel: [address] [place], [place] [phone] [place] FOLLOW UP 01/13/2015 Patient Education: Patient Medication Summary Completed 01/13/2015 Appointment: Clarisa Garcia WPtel: [address] [place], [place] [phone] [place] cancelled because patient evaluated in ER ACUTE ILLNESS 06/08/2013 Appointment: Damaris Conklin WPtel: [address] [place], [place] [phone] [place] INJECTION 12/04/2012 Referral: Damaris Conklin WPtel: [address] [place], [place] [phone] [place] Referral Initiated 02/14/2012 Appointment: Taylor Carey WPtel: [address] [place], [place] [phone] [place] RE-ESTABLISH 02/07/2012 Patient Education: Patient Medication [...]
--- OUTSIDE RECORDS SUMMARY | 2019-09-15 18:34 | XMS REPORT | CCD ---
Author Author Jasno Carey APRN Organization ELENI CONKLIN [facility] Address [address] [place] [address] Phone Care Team Providers Care Mobile Designer Name Role Phone PP Unavailable CCM Unavailable Summary Purpose Interface Exchange Insurance Providers Payer name Policy type / Coverage type Covered libertarian ID Effective Begin Date Effective End Date WPS MEDIC[place] PART [place] Medicare Part B [id number] 2015 Unknown [facility] Medicare Part B [id number] Un known Family History Family History data not found Social History Social History Element Codes Description Effective Dates Tobacco history SNOMED CT: 189119433 Never smoker 01/20/2015 Allergies, Adverse Reactions, Alerts Substance Reaction Codes Entered Date Inactivated Date Status * NO KNOWN DRUG ALLERGIES Unknown 02/07/2012 No Inactiv e Date Active Problems Condition Codes Effective Dates Condition Status Anemia ICD-9: 285.9 ICD-10: D64.9 05/10/2019 Active Dyspnea on exertion ICD-9: 786.09 ICD-10: R06.09 05/23/2019 Active Urinary tract infection, site not specified [...] Start Date Stop Date Status Fill Instructions aspirin 81 mg tablet,delayed release RxNorm: 335311 1 Tablet(s) Oral QD 05/23/2019 06/22/2019 Active multivitamin with iron tablet RxNorm: 1 Tablet(s) Oral QD 04/19 No Stop Date Active hydrocodone 5 mg-acetaminophen 325 mg tablet RxNorm: 849696 1 Tablet(s) Oral Every 6 hours as needed 05/09/2019 No Stop Date Active hydrocodone 10 mg-acetaminophen 300 mg tablet RxNorm: 741508 1 Tablet(s) Oral Q8H as needed for pain 05/09/2019 05/22/2019 Inactive Bactrim DS 800 mg-160 mg tablet RxNorm: 913178 1 Tablet(s) PO BID 0 01/13/2015 01/22/2015 Inactive aspirin 81 mg tablet,delayed release RxNorm: 263573 1 Tablet(s) PO QD 02/07/2012 03/07/2012 Inactive Vitamin D3 1000 units Capsule RxNorm: 2 Capsule(s) PO QD No Start Date Active flecainide 100 mg tablet RxNorm: 521428 1 Tablet(s) PO QD No Start Da te Active imipramine pamoate 75 mg capsule RxNorm: 912004 1 Capsule(s) PO QD No Start Date Active lisinopril 20 mg tablet RxNorm: 465567 1 Tablet(s) PO QD No Start D ate 02/06/2012 Inactive lisinopril 20 mg tablet RxNorm: 283196 1/2 Tablet(s) PO PRN No Star t Date 05/22/2019 Inactive Meclizine 25 mg Tab RxNorm: 6348462 1 Tablet(s) PO QID prn dizzi ness No Start Date 05/09/2019 Inactive Medication Administered No Medication Administered data Immunizations Vaccine Codes Date Status Tetanus, Diptheria, Pertussis CVX: 115 12/27/2018 Results Observation Observation Code Item Item Code Result Date S ervice Location FERRITIN 60827 FERRITIN 238.7 ng/mL 05/10/2019 Unknown IRON PROFILE 33529 Iron 89 ug/dL 05/10/2019 Unknow n IRON PROFILE 11910 TIBC 295 ug/dL 05/10/2019 Unknow n IRON PROFILE 82154 % SATURATION 30 % 05/10/2019 Unk nown IRON PROFILE 34023 UIBC 206 ug/dL 05/10/2019 Unknow n COMPREHENSIVE METABOLIC 98245 AST 22 U/L 2019 Unknown COMPREHENSIVE METABOLIC 39055 ALT 15 U/L 2019 Unknown COMPREHENSIVE METABOLIC 48531 BUN 33 mg/dL 2019 Unknown COMPREHENSIVE METABOLIC 27819 ALBUMIN 4.1 g/dL 2019 Unknown COMPREHENSIVE METABOLIC 90859 CHLORIDE 100 mmol/L 05/10 Unknown COMPREHENSIVE METABOLIC 19978 Bili Total 0.4 mg/dL 05/10 Unknown COMPREHENSIVE METABOLIC 55689 ALK PHOS 63 U/L 2019 Unknown COMPREHENSIVE METABOLIC 09971 SODIUM 135 mmol/L 05/10 Unknown COMPREHENSIVE METABOLIC 79833 CREATININE 1.59 mg/dL 04/19 Unknown COMPREHENSIVE METABOLIC 17489 CALCIUM 9.3 mg/dL 2019 Unknown COMPREHENSIVE METABOLIC 00472 POTASSIUM 5.0 mmol/L 05/10 Unknown COMPREHENSIVE METABOLIC 72862 Total Protein 6.9 g/dL Unknown COMPREHENSIVE METABOLIC 24489 Glucose 106 mg/dL 2019 Unknown COMPREHENSIVE METABOLIC 22924 Bicarbonate 28 mmol/L 04/19 Unknown COMPREHENSIVE METABOLIC 23473 AGAP 7 mmol/L 2019 Unknown GFR CALC 2158523 GFR Non Afr Amr 41 mL/min 05/10/2019 Unk nown GFR CALC 3129000 GFR Afr Amr 50 mL/min 05/10/2019 Unknown COMPLETE BLOOD COUNT [id number] WBC 5.5 10e9/L 05/10/19 20 Unknown COMPLETE BLOOD COUNT 2621681 RBC 3.11 10e12/L 2019 Unknown COMPLETE BLOOD COUNT 5401229 HEMOGLOBIN 10.5 g/dL 05/10/19 20 Unknown COMPLETE BLOOD COUNT 7103486 HEMATOCRIT 32.8 % 05/10/19 20 Unknown COMPLETE BLOOD COUNT 1997175 MCV 105.5 fL 0 Unknown COMPLETE BLOOD COUNT 6672641 MCH 33.8 pg 0 Unknown COMPLETE BLOOD COUNT 8874868 MCHC 32.0 g/dL 0 Unknown COMPLETE BLOOD COUNT 2453791 PLATELET COUNT 167 10e9/L Unknown COMPLETE BLOOD COUNT 3057595 Mean Plt Volume 13.2 fL Unknown COMPLETE BLOOD COUNT [id number] Neut Auto 62.9 % 0 Unknown COMPLETE BLOOD COUNT [id number] Lymph Auto 23.8 % 05/10/19 20 Unknown COMPLETE BLOOD COUNT 4741317 [place] Auto 11.6 % 0 Unknown COMPLETE BLOOD COUNT 5606319 RDW 14.6 % 0 Unknown COMPLETE BLOOD COUNT 2386211 Eos Auto 1.5 % 0 Unknown COMPLETE BLOOD COUNT 3243280 Baso Auto 0.2 % 0 Unknown COMPLETE BLOOD COUNT 0264374 Neutrophil Abs 3.46 10e9/L Unknown COMPLETE BLOOD COUNT 8724428 Lymphocyte Abs 1.31 10e9/L Unknown COMPLETE BLOOD COUNT [id number] Monocyte Abs 0.64 10e9/L 04/19 Unknown COMPLETE BLOOD COUNT 6887220 Eosinophil Abs 0.08 10e9/L Unknown COMPLETE BLOOD COUNT [id number] RDW-SD 54.4 fL 0 Unknown COMPLETE BLOOD COUNT 1869553 Basophil Abs 0.01 10e9/L 04/19 Unknown LIP[facility] GROUP 74297 Cholesterol 173 mg/dL 05/10/2019 Unkno wn [facility] 16337 Triglyceride 105 mg/dL 05/10/2019 Unkn own [facility] 86347 HDL CHOLESTEROL 47 mg/dL 05/10/2019 U nknown [facility] 25398 Chol/HDL Ratio 3.68 ratio 05/10/2019 U nknown L[facility] GROUP 79075 NON-HDL Chol 126 mg/dL 05/10/2019 Unkn own [facility] 42889 LDL Cholesterol 105 mg/dL 05/10/2019 U nknown Procedures Procedure Codes Date URINE CULTURE/ COLONY COUNT CPT-4: 75701 05/15/2019 ROUTINE VENIPUNCTURE CPT-4: 52272 05/10/2019 COMPREHEN METABOLIC PANEL CPT-4: 03728 05/10/2019 COMPLETE CBC W/AUTO DIFF WBC CPT-4: 07636 05/10/2019 LIPID PANEL CPT-4: 36394 05/10/2019 IRON PROFILE CPT-4: 82624 05/10/2019 ASSAY OF FERRITIN CPT-4: 43416 05/10/2019 CUR TOBACCO NON-USER CPT-4: G8457 01/20/2015 PRESCRIP TRANSMIT VIA ERX SY CPT-4: G8553 01/13/2015 Vital Signs Date Vital 05/23/2019 Blood Pressure 1: 142/70 Code: 8480-6 [...] 1: 126/70 Code: 8480-6 BMI: 24.8 Code: 01195-9 Heart Rate 1: 84 bpm Height: 6' Respiratory Rate: 20 bpm Temperature: 36 .6 (C) / 97.8 (F) Weight: 183 lbs 01/20/2015 Blood Pressure 1: 122/58 Code: 8480-6 BMI: 24.8 Code: 89373-1 Heart Rate 1: 80 bpm Height: 6' Respiratory Rate: 20 bpm Temperature: 36 .4 (C) / 97.6 (F) Weight: 183 lbs 01/13/2015 Blood Pressure 1: 142/68 Code: 8480-6 BMI: 24.8 Code: 83014-8 Heart Rate 1: 86 bpm Height: 6' Respiratory Rate: 20 bpm Temperature: 36 .6 (C) / 97.8 (F) Weight: 183 lbs 02/07/2012 Blood Pressure 1: 130/70 Code: 8480-6 BMI: 25.7 Code: 01870-5 Heart Rate 1: 74 bpm Height: 5'11" Temperature: 36.6 (C) / 97.8 (F) Weight: 184 lbs Functional Status No Functional Status data Reason For Visit Reason For Visit Effective Dates Notes follow up 05/23/2019 bone fracture 05/09/2019 right ribs follow up 01/28/2015 follow up 01/20/2015 1 week sore throat 01/13/2015 knee pain 02/07/2012 Encounters Encounter Performer Location Codes Date ([id number]) OFFICE/OUTPATIENT VISIT EST Diagnosis: Dyspnea on exertion[ICD10: R06.09] Diagnosis: Anemia[ICD10: D64.9] Eleni CERVANTESLINE Lyndsey CONKLIN [employer] [facility] CPT-4: 65647 05/23/2019 ([id number]) NURSE/OUTPATIENT VISIT EST Diagnosis: Urinary tract infection, site not specified[ICD10: N39.0] Eleni CONKLIN DO [facility] CPT-4: 98404 05/15/2019 ([id number]) NURSE/OUTPATIENT VISIT EST Diagnosis: Mixed hyperlipidemia[ICD10: E78.2] Diagnosis: Hyperglycemia, unspecified[ICD10: R73.9] Diagnosis: Essential (primary) hypertension[ICD10: I10] Diagnosis: Anemia, unspecified[ICD10: D64.9] Eleni CERVANTESLIN Janay CONKLIN [employer] [facility] CPT-4: 62367 05/10/2019 ([id number]) OFFICE/OUTPATIENT VISIT NEW Diagnosis: Broken rib[ICD10: S22.39XA] Lizzette Giles ELENI S. Estella NAVARRO [facility] CPT-4: 74861 05/09/2019 OFFICE/OUTPATIENT VISIT EST Diagnosis: Localized enlarged lymph nodes[ICD10: R59.0] Diagnosis: Encounter for follow-up examination after completed treatment for conditions other than malignant neoplasm[ICD10: Z09] Lashawn WelchRaisaelza CERVANTESLINE Endy. PRE[employer]Y [employer] [facility] CPT-4: 02582 01/28/2015 OFFICE/OUTPATIENT VISIT EST Diagnosis: Localized enlarged lymph nodes[ICD10: R59.0] Lashawn WelchRaisatobiasmaya ELENI Lyndsey CONKLIN DO [facility] CPT-4: 12822 01/20/2015 OFFICE/OUTPATIENT VISIT EST Diagnosis: LYMPHADENOPATHY[ICD9: 785.6] Diagnosis: LOCAL SKIN INFECTION[ICD9: 686.9] Lashawn YuriTea Gustafson Lyndsey CONKLIN [employer] [facility] CPT-4: 30218 01/13/2015 OFFICE/OUTPATIENT VISIT NEW Diagnosis: Grey's cyst of knee[ICD9: 727.51] Taylor GAYLE Lyndsey OROZCO [employer] [facility] CPT-4: 89539 02/07/2012 Plan of Care Planned Activity Notes Codes Status Date Visit Diagnosis Plan: Dyspnea on exertion Discussion: Check PFT Obtain most recent ECHO results ICD-9 : 786.09 ICD-10 : R06.09 05/23/2019 Visit Diagnosis Plan: Anemia Discussion: Discussed Hem atology--wants to hold at this time ICD-9 : 285.9 ICD-10 : D64.9 05/23/2019 Appointment: Eleni Conklin WPtel: [address] [place], [place] [phone] [place] UA 05/15/2019 Appointment: Eleni Conklin WPtel: [address] [place], [place] [phone] [place] LAB 05/10/2019 Visit Diagnosis Plan: Broken [...] : S22.39XA 05/09/2019 Appointment: Lizzette Giles [address] FOLLOW UP 05/09/2019 Visit Plan: Continue to monitor localize d lymph nodes for changes Follow-up for worsening symptoms 01/28/2015 Appointment: Lashawn Carlson WPtel: [address] [place] [address] [place] FOLLOW UP 01/28/2015 Patient Education: Patient Medication Summary Completed 01/28/2015 Visit Plan: Complete antibiotics. Monito r lymph node size and follow-up for persistent symptoms. 01/20/2015 Appointment: Lashawn Carlson WPtel: [address] [place], [place] [phone] 01/17 confirmed FOLLOW UP 01/20/2015 Patient Education: Patient Medication Summary Completed 01/20/2015 Visit Plan: Septra DS - 1 po bid x 10 da ys Follow-up in 1 week. 01/13/2015 Appointment: Lashawn Carlson WPtel: [address] [place], [place] [phone] [place] FOLLOW UP 01/13/2015 Patient Education: Patient Medication Summary Completed 01/13/2015 Appointment: Clarisa Garcia WPtel: [address] [place], [place] [phone] [place] cancelled because patient evaluated in ER ACUTE ILLNESS 06/08/2013 Appointment: Eleni Conklin WPtel: [address] [place], [place] [phone] [place] INJECTION 12/04/2012 Appointment: Taylor Carey WPtel: [address] [place], [place] [phone] [place] RE-ESTABLISH 02/07/2012 Patient Education: Patient Medication [...]
--- OUTSIDE RECORDS SUMMARY | 2019-09-15 18:34 | XMS REPORT | CCD ---
Author Author Jason Carey APRN Organization [facility] PO[facility] Address [address] [place] [address] Phone Care Team Providers Care Physical Chemistry Teacher Name Role Phone PP Unavailable CCM Unavailable Summary Purpose Interface Exchange Insurance Providers Payer name Policy type / Coverage type Covered green party ID Effective Begin Date Effective End Date WPS MEDICARE PART B [place] Medicare Part B [id number] Unknown [facility] Medicare Part B [id number] Un known Family History Family History data not found Social History Social History Element Codes Description Effective Dates Tobacco history SNOMED CT: 938397581 Never smoker 01/20/2015 Allergies, Adverse Reactions, Alerts [...] hydrocodone 10 mg-acetaminophen 300 mg tablet RxNorm: 410829 1 Tablet(s) Oral Q8H as needed for pain 05/09/2019 No Stop Date Active hydrocodone 5 mg-acetaminophen 325 mg tablet RxNorm: 195295 1 Tablet(s) Oral Every 6 hours as needed 05/09/2019 No Stop Date Active Bactrim DS 800 mg-160 mg tablet RxNorm: 158787 1 Tablet(s) PO BID 0 01/13/2015 01/22/2015 Inactive aspirin 81 mg tablet,delayed release RxNorm: 939344 1 Tablet(s) PO QD 02/07/2012 03/07/2012 Inactive Vitamin D3 1000 units Capsule RxNorm: 2 Capsule(s) PO QD No Start Date Active flecainide 100 mg tablet RxNorm: 205014 1 Tablet(s) PO QD No Start Da te Active lisinopril 20 mg tablet RxNorm: 666452 1/2 Tablet(s) PO PRN No Start Date Active imipramine pamoate 75 mg capsule RxNorm: 967587 1 Capsule(s) PO QD No Start Date Active lisinopril 20 mg tablet RxNorm: 037325 1 Tablet(s) PO QD No Start D ate 02/06/2012 Inactive Meclizine 25 mg Tab RxNorm: 3145196 1 Tablet(s) PO QID prn dizzi ness No Start Date 05/09/2019 Inactive Medication Administered No Medication Administered data Immunizations Vaccine Codes Date Status Tetanus, Diptheria, Pertussis CVX: 115 12/27/2018 Results Observation Observation Code Item Item Code Result Date S ervice Location FERRITIN 10039 FERRITIN 238.7 ng/mL 05/10/2019 Unknown IRON PROFILE 46048 Iron 89 ug/dL 05/10/2019 Unknow n IRON PROFILE 67648 TIBC 295 ug/dL 05/10/2019 Unknow n IRON PROFILE 27295 % SATURATION 30 % 05/10/2019 Unk nown IRON PROFILE 52284 UIBC 206 ug/dL 05/10/2019 Unknow n COMPREHENSIVE METABOLIC 48454 AST 22 U/L 2019 Unknown COMPREHENSIVE METABOLIC 84367 ALT 15 U/L 2019 Unknown COMPREHENSIVE METABOLIC 52291 BUN 33 mg/dL 2019 Unknown COMPREHENSIVE METABOLIC 87348 ALBUMIN 4.1 g/dL 2019 Unknown COMPREHENSIVE METABOLIC 15821 CHLORIDE 100 mmol/L 05/10 Unknown COMPREHENSIVE METABOLIC 78383 Bili Total 0.4 mg/dL 05/10 Unknown COMPREHENSIVE METABOLIC 29708 ALK PHOS 63 U/L 2019 Unknown COMPREHENSIVE METABOLIC 73697 SODIUM 135 mmol/L 05/10 Unknown COMPREHENSIVE METABOLIC 81371 CREATININE 1.59 mg/dL 04/19 Unknown COMPREHENSIVE METABOLIC 56705 CALCIUM 9.3 mg/dL 2019 Unknown COMPREHENSIVE METABOLIC 94346 POTASSIUM 5.0 mmol/L 05/10 Unknown COMPREHENSIVE METABOLIC 87804 Total Protein 6.9 g/dL Unknown COMPREHENSIVE METABOLIC 76052 Glucose 106 mg/dL 2019 Unknown COMPREHENSIVE METABOLIC 05151 Bicarbonate 28 mmol/L 04/19 Unknown COMPREHENSIVE METABOLIC 86557 AGAP 7 mmol/L 2019 Unknown GFR CALC 7450563 GFR Non Afr Amr 41 mL/min 05/10/2019 Unk nown GFR CALC 0498852 GFR Afr Amr 50 mL/min 05/10/2019 Unknown COMPLETE BLOOD COUNT 4704602 WBC 5.5 10e9/L 05/10/19 20 Unknown COMPLETE BLOOD COUNT 3768177 RBC 3.11 10e12/L 2019 Unknown COMPLETE BLOOD COUNT 7068134 HEMOGLOBIN 10.5 g/dL 05/10/19 20 Unknown COMPLETE BLOOD COUNT 6995154 HEMATOCRIT 32.8 % 05/10/19 20 Unknown COMPLETE BLOOD COUNT 5875813 MCV 105.5 fL 0 Unknown COMPLETE BLOOD COUNT 7288490 MCH 33.8 pg 0 Unknown COMPLETE BLOOD COUNT 9384147 MCHC 32.0 g/dL 0 Unknown COMPLETE BLOOD COUNT 3110757 PLATELET COUNT 167 10e9/L Unknown COMPLETE BLOOD COUNT 5243776 Mean Plt Volume 13.2 fL Unknown COMPLETE BLOOD COUNT 4609519 Neut Auto 62.9 % 0 Unknown COMPLETE BLOOD COUNT 1399251 Lymph Auto 23.8 % 05/10/19 20 Unknown COMPLETE BLOOD COUNT 2960508 [place] Auto 11.6 % 0 Unknown COMPLETE BLOOD COUNT 5965655 RDW 14.6 % 0 Unknown COMPLETE BLOOD COUNT 1168321 Eos Auto 1.5 % 0 Unknown COMPLETE BLOOD COUNT 0109574 Baso Auto 0.2 % 0 Unknown COMPLETE BLOOD COUNT 3343365 Neutrophil Abs 3.46 10e9/L Unknown COMPLETE BLOOD COUNT 8656536 Lymphocyte Abs 1.31 10e9/L Unknown COMPLETE BLOOD COUNT 1300769 Monocyte Abs 0.64 10e9/L 04/19 Unknown COMPLETE BLOOD COUNT 3513612 Eosinophil Abs 0.08 10e9/L Unknown COMPLETE BLOOD COUNT 1313499 RDW-SD 54.4 fL 0 Unknown COMPLETE BLOOD COUNT 2510925 Basophil Abs 0.01 10e9/L 04/19 Unknown LIPID GROUP 13951 Cholesterol 173 mg/dL 05/10/2019 Unkno wn L[facility] GROUP 12810 Triglyceride 105 mg/dL 05/10/2019 Unkn own [facility] 72691 HDL CHOLESTEROL 47 mg/dL 05/10/2019 U nknown L[facility] GROUP 69354 Chol/HDL Ratio 3.68 ratio 05/10/2019 U nknown L[facility] GROUP 02724 NON-HDL Chol 126 mg/dL 05/10/2019 Unkn own [facility] 61249 LDL Cholesterol 105 mg/dL 05/10/2019 U nknown Procedures Procedure Codes Date URINE CULTURE/ COLONY COUNT CPT-4: 43030 05/15/2019 ROUTINE VENIPUNCTURE CPT-4: 72459 05/10/2019 COMPREHEN METABOLIC PANEL CPT-4: 07680 05/10/2019 COMPLETE CBC W/AUTO DIFF WBC CPT-4: 62556 05/10/2019 LIPID PANEL CPT-4: 01715 05/10/2019 IRON PROFILE CPT-4: 78159 05/10/2019 ASSAY OF FERRITIN CPT-4: 09061 05/10/2019 CUR TOBACCO NON-USER CPT-4: G8457 01/20/2015 PRESCRIP TRANSMIT VIA ERX SY CPT-4: G8553 01/13/2015 Vital Signs Date Vital 05/09/2019 Blood Pressure 1: 143/75 Code: 8480-6 Heart Rate 1: 85 bpm Respiratory Rate: 17 bpm SpO2: 96% Temperature: 36.5 (C) / 97.7 (F) We ight: 170 lbs 01/28/2015 Blood Pressure 1: 126/70 Code: 8480-6 BMI: 24.8 Code: 34201-4 Heart Rate 1: 84 bpm Height: 6' Respiratory Rate: 20 bpm Temperature: 36 .6 (C) / 97.8 (F) Weight: 183 lbs 01/20/2015 Blood Pressure 1: 122/58 Code: 8480-6 BMI: 24.8 Code: 69750-4 Heart Rate 1: 80 bpm Height: 6' Respiratory Rate: 20 bpm Temperature: 36 .4 (C) / 97.6 (F) Weight: 183 lbs 01/13/2015 Blood Pressure 1: 142/68 Code: 8480-6 BMI: 24.8 Code: 57229-2 Heart Rate 1: 86 bpm Height: 6' Respiratory Rate: 20 bpm Temperature: 36 .6 (C) / 97.8 (F) Weight: 183 lbs 02/07/2012 Blood Pressure 1: 130/70 Code: 8480-6 BMI: 25.7 Code: 65270-3 Heart Rate 1: 74 bpm Height: 5'11" Temperature: 36.6 (C) / 97.8 (F) Weight: 184 lbs Functional Status No Functional Status data Reason For Visit Reason For Visit Effective Dates Notes bone fracture 05/09/2019 right ribs follow up 01/28/2015 follow up 01/20/2015 1 week sore throat 01/13/2015 knee pain 02/07/2012 Encounters Encounter Performer Location Codes Date (98006) NURSE/OUTPATIENT VISIT EST Diagnosis: Urinary tract infection, site not specified[ICD10: N39.0] Damaris POON DO [facility] CPT-4: 65884 05/15/2019 ([id number]) NURSE/OUTPATIENT VISIT EST Diagnosis: Mixed hyperlipidemia[ICD10: E78.2] Diagnosis: Hyperglycemia, unspecified[ICD10: R73.9] Diagnosis: Essential (primary) hypertension[ICD10: I10] Diagnosis: Anemia, unspecified[ICD10: D64.9] Damaris OROZCOER DO [facility] CPT-4: 91150 05/10/2019 ([id number]) OFFICE/OUTPATIENT VISIT NEW Diagnosis: Broken rib[ICD10: S22.39XA] Lizzette JACOBSENQUELINE Lyndsey NAVARRO DO [facility] CPT-4: 32137 05/09/2019 OFFICE/OUTPATIENT VISIT EST Diagnosis: Localized enlarged lymph nodes[ICD10: R59.0] Diagnosis: Encounter for follow-up examination after completed treatment for conditions other than malignant neoplasm[ICD10: Z09] Lashawn WelchRaisaelza CERVANTESLINE Lyndsey POON DO [facility] CPT-4: 79963 01/28/2015 OFFICE/OUTPATIENT VISIT EST Diagnosis: Localized enlarged lymph nodes[ICD10: R59.0] Lashawn CERVANTESLINE Lyndsey POON DO [facility] CPT-4: 42702 01/20/2015 OFFICE/OUTPATIENT VISIT EST Diagnosis: LYMPHADENOPATHY[ICD9: 785.6] Diagnosis: LOCAL SKIN INFECTION[ICD9: 686.9] Lashawn WelchRaisatobiasmaya ZAMORA Janay SchumacherEcho PRETTY MUELLER [employer] CPT-4: 69562 01/13/2015 OFFICE/OUTPATIENT VISIT NEW Diagnosis: Grey's cyst of knee[ICD9: 727.51] Taylor GAYLE Lyndsey POON DO [employer] CPT-4: 75866 02/07/2012 Plan of Care Planned Activity Notes Codes Status Date Appointment: [facility] [phone] [id number] [facility] 05/10/2019 Visit Diagnosis Plan: Broken rib [...] : S22.39XA 05/09/2019 Appointment: Lizzette Giles [address] FOLLOW UP 05/09/2019 Visit Plan: Continue to monitor localize d lymph nodes for changes Follow-up for worsening symptoms 01/28/2015 Appointment: Lashawn Carlson WPtel: [address] [place] [address] [place] FOLLOW UP 01/28/2015 Patient Education: Patient Medication Summary Completed 01/28/2015 Visit Plan: Complete antibiotics. Monito r lymph node size and follow-up for persistent symptoms. 01/20/2015 Appointment: Lashawn Carlson WPtel: [address] [place] [address] 01/17 confirmed FOLLOW UP 01/20/2015 Patient Education: Patient Medication Summary Completed 01/20/2015 Visit Plan: Septra DS - 1 po bid x 10 da ys Follow-up in 1 week. 01/13/2015 Appointment: Lashawn Carlson WPtel: [address] [place] [address] [place] FOLLOW UP 01/13/2015 Patient Education: Patient Medication Summary Completed 01/13/2015 Appointment: Clarisa Garcia WPtel: [address] [place] [address] [place] cancelled because patient evaluated in ER ACUTE ILLNESS 06/08/2013 Appointment: Damaris Poon WPtel: [address] [place] [address] [place] INJECTION 12/04/2012 Appointment: Taylor Carey WPtel: [address] [place] [address] [place] RE-ESTABLISH 02/07/2012 Patient Education: Patient Medication [...]
--- OUTSIDE RECORDS SUMMARY | 2019-09-15 18:34 | XMS REPORT | CCD ---
Author Author Jason Carey APRN Organization [facility] Address [address] [place] [address] Phone Care Team Providers Care Penology Teacher Name Role Phone PP Unavailable CCM Unavailable Summary Purpose Interface Exchange Insurance Providers Payer name Policy type / Coverage type Covered republican ID Effective Begin Date Effective End Date WPS MEDICARE PART B [place] Medicare Part B [id number] 2015 Unknown [facility] Medicare Part B [id number] Un known Family History Family History data not found Social History Social History Element Codes Description Effective Dates Tobacco history SNOMED CT: 867491013 Never smoker 01/20/2015 Allergies, Adverse Reactions, Alerts [...] Instructions aspirin 81 mg tablet,delayed release RxNorm: 278917 1 Tablet(s) Oral QD 05/23/2019 06/22/2019 Active multivitamin with iron tablet RxNorm: 1 Tablet(s) Oral QD 04/19 No Stop Date Active hydrocodone 5 mg-acetaminophen 325 mg tablet RxNorm: 414289 1 Tablet(s) Oral Every 6 hours as needed 05/09/2019 No Stop Date Active hydrocodone 10 mg-acetaminophen 300 mg tablet RxNorm: 084677 1 Tablet(s) Oral Q8H as needed for pain 05/09/2019 05/22/2019 Inactive Bactrim DS 800 mg-160 mg tablet RxNorm: 329257 1 Tablet(s) PO BID 0 01/13/2015 01/22/2015 Inactive aspirin 81 mg tablet,delayed release RxNorm: 902024 1 Tablet(s) PO QD 02/07/2012 03/07/2012 Inactive Vitamin D3 1000 units Capsule RxNorm: 2 Capsule(s) PO QD No Start Date Active flecainide 100 mg tablet RxNorm: 731019 1 Tablet(s) PO QD No Start Da te Active imipramine pamoate 75 mg capsule RxNorm: 911974 1 Capsule(s) PO QD No Start Date Active lisinopril 20 mg tablet RxNorm: 096787 1 Tablet(s) PO QD No Start D ate 02/06/2012 Inactive lisinopril 20 mg tablet RxNorm: 659882 1/2 Tablet(s) PO PRN No Star t Date 05/22/2019 Inactive Meclizine 25 mg Tab RxNorm: 1168784 1 Tablet(s) PO QID prn dizzi ness No Start Date 05/09/2019 Inactive Medication Administered No Medication Administered data Immunizations Vaccine Codes Date Status Tetanus, Diptheria, Pertussis CVX: 115 12/27/2018 Results Observation Observation Code Item Item Code Result Date S ervice Location FERRITIN 83531 FERRITIN 238.7 ng/mL 05/10/2019 Unknown IRON PROFILE 26178 Iron 89 ug/dL 05/10/2019 Unknow n IRON PROFILE 24435 TIBC 295 ug/dL 05/10/2019 Unknow n IRON PROFILE 71341 % SATURATION 30 % 05/10/2019 Unk nown IRON PROFILE 89523 UIBC 206 ug/dL 05/10/2019 Unknow n COMPREHENSIVE METABOLIC 53074 AST 22 U/L 2019 Unknown COMPREHENSIVE METABOLIC 51544 ALT 15 U/L 2019 Unknown COMPREHENSIVE METABOLIC 82739 BUN 33 mg/dL 2019 Unknown COMPREHENSIVE METABOLIC 43167 ALBUMIN 4.1 g/dL 2019 Unknown COMPREHENSIVE METABOLIC 49260 CHLORIDE 100 mmol/L 05/10 Unknown COMPREHENSIVE METABOLIC 40671 Bili Total 0.4 mg/dL 05/10 Unknown COMPREHENSIVE METABOLIC 87207 ALK PHOS 63 U/L 2019 Unknown COMPREHENSIVE METABOLIC 04295 SODIUM 135 mmol/L 05/10 Unknown COMPREHENSIVE METABOLIC 55391 CREATININE 1.59 mg/dL 04/19 Unknown COMPREHENSIVE METABOLIC 33118 CALCIUM 9.3 mg/dL 2019 Unknown COMPREHENSIVE METABOLIC 78942 POTASSIUM 5.0 mmol/L 05/10 Unknown COMPREHENSIVE METABOLIC 46851 Total Protein 6.9 g/dL Unknown COMPREHENSIVE METABOLIC 44501 Glucose 106 mg/dL 2019 Unknown COMPREHENSIVE METABOLIC 37205 Bicarbonate 28 mmol/L 04/19 Unknown COMPREHENSIVE METABOLIC 12848 AGAP 7 mmol/L 2019 Unknown GFR CALC 0150039 GFR Non Afr Amr 41 mL/min 05/10/2019 Unk nown GFR CALC 2907361 GFR Afr Amr 50 mL/min 05/10/2019 Unknown COMPLETE BLOOD COUNT 2767498 WBC 5.5 10e9/L 05/10/19 20 Unknown COMPLETE BLOOD COUNT 7322606 RBC 3.11 10e12/L 2019 Unknown COMPLETE BLOOD COUNT 1076359 HEMOGLOBIN 10.5 g/dL 05/10/19 20 Unknown COMPLETE BLOOD COUNT 5172879 HEMATOCRIT 32.8 % 05/10/19 20 Unknown COMPLETE BLOOD COUNT 2933664 MCV 105.5 fL 0 Unknown COMPLETE BLOOD COUNT 4788963 MCH 33.8 pg 0 Unknown COMPLETE BLOOD COUNT 5065068 MCHC 32.0 g/dL 0 Unknown COMPLETE BLOOD COUNT 0677408 PLATELET COUNT 167 10e9/L Unknown COMPLETE BLOOD COUNT 4099861 Mean Plt Volume 13.2 fL Unknown COMPLETE BLOOD COUNT 5423950 Neut Auto 62.9 % 0 Unknown COMPLETE BLOOD COUNT [id number] Lymph Auto 23.8 % 05/10/19 20 Unknown COMPLETE BLOOD COUNT 2459095 [place] Auto 11.6 % 0 Unknown COMPLETE BLOOD COUNT 1732776 RDW 14.6 % 0 Unknown COMPLETE BLOOD COUNT 7720312 Eos Auto 1.5 % 0 Unknown COMPLETE BLOOD COUNT 1544593 Baso Auto 0.2 % 0 Unknown COMPLETE BLOOD COUNT 8520589 Neutrophil Abs 3.46 10e9/L Unknown COMPLETE BLOOD COUNT 4674602 Lymphocyte Abs 1.31 10e9/L Unknown COMPLETE BLOOD COUNT 9062069 Monocyte Abs 0.64 10e9/L 04/19 Unknown COMPLETE BLOOD COUNT 5209080 Eosinophil Abs 0.08 10e9/L Unknown COMPLETE BLOOD COUNT 9511703 RDW-SD 54.4 fL 0 Unknown COMPLETE BLOOD COUNT [id number] Basophil Abs 0.01 10e9/L 04/19 Unknown LIPID GROUP 98746 Cholesterol 173 mg/dL 05/10/2019 Unkno wn L[facility] 49152 Triglyceride 105 mg/dL 05/10/2019 Unkn own [facility] 83398 HDL CHOLESTEROL 47 mg/dL 05/10/2019 U nknown L[facility] GROUP 48684 Chol/HDL Ratio 3.68 ratio 05/10/2019 U nknown L[facility] GROUP 25901 NON-HDL Chol 126 mg/dL 05/10/2019 Unkn own [facility] 96885 LDL Cholesterol 105 mg/dL 05/10/2019 U nknown Procedures Procedure Codes Date URINE CULTURE/ COLONY COUNT CPT-4: 62184 05/15/2019 ROUTINE VENIPUNCTURE CPT-4: 91289 05/10/2019 COMPREHEN METABOLIC PANEL CPT-4: 17259 05/10/2019 COMPLETE CBC W/AUTO DIFF WBC CPT-4: 30067 05/10/2019 LIPID PANEL CPT-4: 54730 05/10/2019 IRON PROFILE CPT-4: 52309 05/10/2019 ASSAY OF FERRITIN CPT-4: 30272 05/10/2019 CUR TOBACCO NON-USER CPT-4: G8457 01/20/2015 [...] 1: 126/70 Code: 8480-6 BMI: 24.8 Code: 90169-0 Heart Rate 1: 84 bpm Height: 6' Respiratory Rate: 20 bpm Temperature: 36 .6 (C) / 97.8 (F) Weight: 183 lbs 01/20/2015 Blood Pressure 1: 122/58 Code: 8480-6 BMI: 24.8 Code: 66091-7 Heart Rate 1: 80 bpm Height: 6' Respiratory Rate: 20 bpm Temperature: 36 .4 (C) / 97.6 (F) Weight: 183 lbs 01/13/2015 Blood Pressure 1: 142/68 Code: 8480-6 BMI: 24.8 Code: 47624-8 Heart Rate 1: 86 bpm Height: 6' Respiratory Rate: 20 bpm Temperature: 36 .6 (C) / 97.8 (F) Weight: 183 lbs 02/07/2012 Blood Pressure 1: 130/70 Code: 8480-6 BMI: 25.7 Code: 39062-0 Heart Rate 1: 74 bpm Height: 5'11" Temperature: 36.6 (C) / 97.8 (F) Weight: 184 lbs Functional Status No Functional Status data Reason For Visit Reason For Visit Effective Dates Notes follow up 05/23/2019 bone fracture 05/09/2019 right ribs follow up 01/28/2015 follow up 01/20/2015 1 week sore throat 01/13/2015 knee pain 02/07/2012 Encounters Encounter Performer Location Codes Date ([id number]) OFFICE/OUTPATIENT VISIT EST Diagnosis: Dyspnea on exertion[ICD10: R06.09] Diagnosis: Anemia[ICD10: D64.9] Eleni CERVANTESLINE Lyndsey CONKLIN [facility] CPT-4: 24486 05/23/2019 ([id number]) NURSE/OUTPATIENT VISIT EST Diagnosis: Urinary tract infection, site not specified[ICD10: N39.0] Eleni CONKLIN DO [facility] CPT-4: 63389 05/15/2019 ([id number]) NURSE/OUTPATIENT VISIT EST Diagnosis: Mixed hyperlipidemia[ICD10: E78.2] Diagnosis: Hyperglycemia, unspecified[ICD10: R73.9] Diagnosis: Essential (primary) hypertension[ICD10: I10] Diagnosis: Anemia, unspecified[ICD10: D64.9] Eleni CERVANTESLIN Janay CONKLIN [employer] CPT-4: 86446 05/10/2019 ([id number]) OFFICE/OUTPATIENT VISIT NEW Diagnosis: Broken rib[ICD10: S22.39XA] Lizzette Giles ELENI S. Estella NAVARRO [facility] CPT-4: 29871 05/09/2019 OFFICE/OUTPATIENT VISIT EST Diagnosis: Localized enlarged lymph nodes[ICD10: R59.0] Diagnosis: Encounter for follow-up examination after completed treatment for conditions other than malignant neoplasm[ICD10: Z09] Lashawn WelchRaisaelza CERVANTESLINE Endy. PRETTY [employer] CPT-4: 77719 01/28/2015 OFFICE/OUTPATIENT VISIT EST Diagnosis: Localized enlarged lymph nodes[ICD10: R59.0] Lashawn WelchRaisatobiasmaya ELENI Lyndsey CONKLIN DO [facility] CPT-4: 66445 01/20/2015 OFFICE/OUTPATIENT VISIT EST Diagnosis: LYMPHADENOPATHY[ICD9: 785.6] Diagnosis: LOCAL SKIN INFECTION[ICD9: 686.9] Lashawn YuriTea Gustafson Lyndsey CONKLIN [facility] CPT-4: 19233 01/13/2015 OFFICE/OUTPATIENT VISIT NEW Diagnosis: Grey's cyst of knee[ICD9: 727.51] Taylor GAYLE Lyndsey OROZCO [employer] CPT-4: 97543 02/07/2012 Plan of Care Planned Activity Notes Codes Status Date Visit Diagnosis Plan: Dyspnea on exertion Discussion: Check PFT Obtain most recent ECHO results ICD-9 : 786.09 ICD-10 : R06.09 05/23/2019 Visit Diagnosis Plan: Anemia Discussion: Discussed Hem atology--wants to hold at this time ICD-9 : 285.9 ICD-10 : D64.9 05/23/2019 Appointment: Eleni Conklin WPtel: [address] [place], [place] [phone] [place] UA 05/15/2019 Appointment: Eleni Conklin WPtel: [address] [place], [place] [phone] [place] LAB 05/10/2019 Visit Diagnosis Plan: Broken [...] : S22.39XA 05/09/2019 Appointment: Lizzette Giles [address] FOLLOW UP 05/09/2019 Visit Plan: Continue to monitor localize d lymph nodes for changes Follow-up for worsening symptoms 01/28/2015 Appointment: Lashawn Carlson WPtel: [address] [place] [address] [place] FOLLOW UP 01/28/2015 Patient Education: Patient Medication Summary Completed 01/28/2015 Visit Plan: Complete antibiotics. Monito r lymph node size and follow-up for persistent symptoms. 01/20/2015 Appointment: Lashawn Carlson WPtel: [address] [place], [place] [phone] 01/17 confirmed FOLLOW UP 01/20/2015 Patient Education: Patient Medication Summary Completed 01/20/2015 Visit Plan: Septra DS - 1 po bid x 10 da ys Follow-up in 1 week. 01/13/2015 Appointment: Lashawn Carlson WPtel: [address] [place], [place] [phone] [place] FOLLOW UP 01/13/2015 Patient Education: Patient Medication Summary Completed 01/13/2015 Appointment: Clarisa Garcia WPtel: [phone] [place], [place] [phone] [place] cancelled because patient evaluated in ER ACUTE ILLNESS 06/08/2013 Appointment: Eleni Conklin WPtel: [address] [place], [place] [phone] [place] INJECTION 12/04/2012 Appointment: Taylor Carey WPtel: [address] [place], [place] [phone] [place] RE-ESTABLISH 02/07/2012 Patient Education: Patient Medication [...]
--- OUTSIDE RECORDS SUMMARY | 2019-09-15 18:34 | XMS REPORT | CCD ---
Author Author Jason Carey APRN Organization [facility] Address [address] [place] [address] Phone Care Team Providers Care Decatizer Name Role Phone PP Unavailable CCM Unavailable Summary Purpose Interface Exchange Insurance Providers Payer name Policy type / Coverage type Covered republican ID Effective Begin Date Effective End Date WPS MEDICARE PART B [place] Medicare Part B [id number] Unknown [facility] Medicare Part B [id number] Un known Family History Family History data not found Social History Social History Element Codes Description Effective Dates Tobacco history SNOMED CT: 220171797 Never smoker 01/20/2015 Allergies, Adverse Reactions, Alerts [...] hydrocodone 10 mg-acetaminophen 300 mg tablet RxNorm: 893371 1 Tablet(s) Oral Q8H as needed for pain 05/09/2019 No Stop Date Active hydrocodone 5 mg-acetaminophen 325 mg tablet RxNorm: 160418 1 Tablet(s) Oral Every 6 hours as needed 05/09/2019 No Stop Date Active Bactrim DS 800 mg-160 mg tablet RxNorm: 286613 1 Tablet(s) PO BID 0 01/13/2015 01/22/2015 Inactive aspirin 81 mg tablet,delayed release RxNorm: 730741 1 Tablet(s) PO QD 02/07/2012 03/07/2012 Inactive Vitamin D3 1000 units Capsule RxNorm: 2 Capsule(s) PO QD No Start Date Active flecainide 100 mg tablet RxNorm: 778376 1 Tablet(s) PO QD No Start Da te Active lisinopril 20 mg tablet RxNorm: 908988 1/2 Tablet(s) PO PRN No Start Date Active imipramine pamoate 75 mg capsule RxNorm: 609330 1 Capsule(s) PO QD No Start Date Active lisinopril 20 mg tablet RxNorm: 701277 1 Tablet(s) PO QD No Start D ate 02/06/2012 Inactive Meclizine 25 mg Tab RxNorm: 3478035 1 Tablet(s) PO QID prn dizzi ness No Start Date 05/09/2019 Inactive Medication Administered No Medication Administered data Immunizations Vaccine Codes Date Status Tetanus, Diptheria, Pertussis CVX: 115 12/27/2018 Results Observation Observation Code Item Item Code Result Date S ervice Location FERRITIN 94604 FERRITIN 238.7 ng/mL 05/10/2019 Unknown IRON PROFILE 53535 Iron 89 ug/dL 05/10/2019 Unknow n IRON PROFILE 27897 TIBC 295 ug/dL 05/10/2019 Unknow n IRON PROFILE 23804 % SATURATION 30 % 05/10/2019 Unk nown IRON PROFILE 27606 UIBC 206 ug/dL 05/10/2019 Unknow n COMPREHENSIVE METABOLIC 88919 AST 22 U/L 2019 Unknown COMPREHENSIVE METABOLIC 34997 ALT 15 U/L 2019 Unknown COMPREHENSIVE METABOLIC 11692 BUN 33 mg/dL 2019 Unknown COMPREHENSIVE METABOLIC 99404 ALBUMIN 4.1 g/dL 2019 Unknown COMPREHENSIVE METABOLIC 35976 CHLORIDE 100 mmol/L 05/10 Unknown COMPREHENSIVE METABOLIC 89119 Bili Total 0.4 mg/dL 05/10 Unknown COMPREHENSIVE METABOLIC 53651 ALK PHOS 63 U/L 2019 Unknown COMPREHENSIVE METABOLIC 34498 SODIUM 135 mmol/L 05/10 Unknown COMPREHENSIVE METABOLIC 22929 CREATININE 1.59 mg/dL 04/19 Unknown COMPREHENSIVE METABOLIC 99129 CALCIUM 9.3 mg/dL 2019 Unknown COMPREHENSIVE METABOLIC 43411 POTASSIUM 5.0 mmol/L 05/10 Unknown COMPREHENSIVE METABOLIC 22641 Total Protein 6.9 g/dL Unknown COMPREHENSIVE METABOLIC 13436 Glucose 106 mg/dL 2019 Unknown COMPREHENSIVE METABOLIC 93181 Bicarbonate 28 mmol/L 04/19 Unknown COMPREHENSIVE METABOLIC 96205 AGAP 7 mmol/L 2019 Unknown GFR CALC 5835473 GFR Non Afr Amr 41 mL/min 05/10/2019 Unk nown GFR CALC 7079703 GFR Afr Amr 50 mL/min 05/10/2019 Unknown COMPLETE BLOOD COUNT 0845411 WBC 5.5 10e9/L 05/10/19 20 Unknown COMPLETE BLOOD COUNT 2741923 RBC 3.11 10e12/L 2019 Unknown COMPLETE BLOOD COUNT 7378079 HEMOGLOBIN 10.5 g/dL 05/10/19 20 Unknown COMPLETE BLOOD COUNT 1814685 HEMATOCRIT 32.8 % 05/10/19 20 Unknown COMPLETE BLOOD COUNT 6042597 MCV 105.5 fL 0 Unknown COMPLETE BLOOD COUNT 7701030 MCH 33.8 pg 0 Unknown COMPLETE BLOOD COUNT 2769802 MCHC 32.0 g/dL 0 Unknown COMPLETE BLOOD COUNT 8280795 PLATELET COUNT 167 10e9/L Unknown COMPLETE BLOOD COUNT 6725393 Mean Plt Volume 13.2 fL Unknown COMPLETE BLOOD COUNT 4054149 Neut Auto 62.9 % 0 Unknown COMPLETE BLOOD COUNT 2034355 Lymph Auto 23.8 % 05/10/19 20 Unknown COMPLETE BLOOD COUNT 0667426 [place] Auto 11.6 % 0 Unknown COMPLETE BLOOD COUNT 1782954 RDW 14.6 % 0 Unknown COMPLETE BLOOD COUNT 7267731 Eos Auto 1.5 % 0 Unknown COMPLETE BLOOD COUNT 1649622 Baso Auto 0.2 % 0 Unknown COMPLETE BLOOD COUNT 4236498 Neutrophil Abs 3.46 10e9/L Unknown COMPLETE BLOOD COUNT 1087518 Lymphocyte Abs 1.31 10e9/L Unknown COMPLETE BLOOD COUNT 6022408 Monocyte Abs 0.64 10e9/L 04/19 Unknown COMPLETE BLOOD COUNT 2986306 Eosinophil Abs 0.08 10e9/L Unknown COMPLETE BLOOD COUNT 3206546 RDW-SD 54.4 fL 0 Unknown COMPLETE BLOOD COUNT 2823587 Basophil Abs 0.01 10e9/L 04/19 Unknown LIPID GROUP 66243 Cholesterol 173 mg/dL 05/10/2019 Unkno wn L[facility] GROUP 22282 Triglyceride 105 mg/dL 05/10/2019 Unkn own [facility] 42149 HDL CHOLESTEROL 47 mg/dL 05/10/2019 U nknown L[facility] GROUP 72308 Chol/HDL Ratio 3.68 ratio 05/10/2019 U nknown L[facility] GROUP 89845 NON-HDL Chol 126 mg/dL 05/10/2019 Unkn own [facility] GROUP 82410 LDL Cholesterol 105 mg/dL 05/10/2019 U nknown Procedures Procedure Codes Date URINE CULTURE/ COLONY COUNT CPT-4: 96772 05/15/2019 ROUTINE VENIPUNCTURE CPT-4: 42059 05/10/2019 COMPREHEN METABOLIC PANEL CPT-4: 23449 05/10/2019 COMPLETE CBC W/AUTO DIFF WBC CPT-4: 71958 05/10/2019 LIPID PANEL CPT-4: 27182 05/10/2019 IRON PROFILE CPT-4: 57113 05/10/2019 ASSAY OF FERRITIN CPT-4: 85603 05/10/2019 CUR TOBACCO NON-USER CPT-4: G8457 01/20/2015 PRESCRIP TRANSMIT VIA ERX SY CPT-4: G8553 01/13/2015 Vital Signs Date Vital 05/09/2019 Blood Pressure 1: 143/75 Code: 8480-6 Heart Rate 1: 85 bpm Respiratory Rate: 17 bpm SpO2: 96% Temperature: 36.5 (C) / 97.7 (F) We ight: 170 lbs 01/28/2015 Blood Pressure 1: 126/70 Code: 8480-6 BMI: 24.8 Code: 16586-2 Heart Rate 1: 84 bpm Height: 6' Respiratory Rate: 20 bpm Temperature: 36 .6 (C) / 97.8 (F) Weight: 183 lbs 01/20/2015 Blood Pressure 1: 122/58 Code: 8480-6 BMI: 24.8 Code: 98095-2 Heart Rate 1: 80 bpm Height: 6' Respiratory Rate: 20 bpm Temperature: 36 .4 (C) / 97.6 (F) Weight: 183 lbs 01/13/2015 Blood Pressure 1: 142/68 Code: 8480-6 BMI: 24.8 Code: 78469-2 Heart Rate 1: 86 bpm Height: 6' Respiratory Rate: 20 bpm Temperature: 36 .6 (C) / 97.8 (F) Weight: 183 lbs 02/07/2012 Blood Pressure 1: 130/70 Code: 8480-6 BMI: 25.7 Code: 83533-0 Heart Rate 1: 74 bpm Height: 5'11" Temperature: 36.6 (C) / 97.8 (F) Weight: 184 lbs Functional Status No Functional Status data Reason For Visit Reason For Visit Effective Dates Notes bone fracture 05/09/2019 right ribs follow up 01/28/2015 follow up 01/20/2015 1 week sore throat 01/13/2015 knee pain 02/07/2012 Encounters Encounter Performer Location Codes Date (92649) NURSE/OUTPATIENT VISIT EST Diagnosis: Urinary tract infection, site not specified[ICD10: N39.0] Damaris POON DO [facility] CPT-4: 12503 05/15/2019 ([id number]) NURSE/OUTPATIENT VISIT EST Diagnosis: Mixed hyperlipidemia[ICD10: E78.2] Diagnosis: Hyperglycemia, unspecified[ICD10: R73.9] Diagnosis: Essential (primary) hypertension[ICD10: I10] Diagnosis: Anemia, unspecified[ICD10: D64.9] Damaris OROZCOER DO [facility] CPT-4: 41360 05/10/2019 ([id number]) OFFICE/OUTPATIENT VISIT NEW Diagnosis: Broken rib[ICD10: S22.39XA] Lizzette JACOBSENQUELINE Lyndsey NAVARRO DO [facility] CPT-4: 03012 05/09/2019 OFFICE/OUTPATIENT VISIT EST Diagnosis: Localized enlarged lymph nodes[ICD10: R59.0] Diagnosis: Encounter for follow-up examination after completed treatment for conditions other than malignant neoplasm[ICD10: Z09] Lashawn WelchRaisaelza CERVANTESLINE Lyndsey POON DO [facility] CPT-4: 39595 01/28/2015 OFFICE/OUTPATIENT VISIT EST Diagnosis: Localized enlarged lymph nodes[ICD10: R59.0] Lashawn CERVANTESLINE Lyndsey POON DO [facility] CPT-4: 94863 01/20/2015 OFFICE/OUTPATIENT VISIT EST Diagnosis: LYMPHADENOPATHY[ICD9: 785.6] Diagnosis: LOCAL SKIN INFECTION[ICD9: 686.9] Lashawn WelchRaisatobiasmaya ZAMORA Janay SchumacherEcho PRETTY MUELLER [employer] CPT-4: 45974 01/13/2015 OFFICE/OUTPATIENT VISIT NEW Diagnosis: Grey's cyst of knee[ICD9: 727.51] Taylor GAYLE Lyndsey POON DO [employer] CPT-4: 92050 02/07/2012 Plan of Care Planned Activity Notes Codes Status Date Appointment: [facility]el[facility] [phone] [id number] [place] 05/10/2019 Visit Diagnosis Plan: Broken [...] : S22.39XA 05/09/2019 Appointment: Lizzette Giles [address] FOLLOW UP 05/09/2019 Visit Plan: Continue to monitor localize d lymph nodes for changes Follow-up for worsening symptoms 01/28/2015 Appointment: Lashawn Carlson WPtel: [address] [place] [address] [place] FOLLOW UP 01/28/2015 Patient Education: Patient Medication Summary Completed 01/28/2015 Visit Plan: Complete antibiotics. Monito r lymph node size and follow-up for persistent symptoms. 01/20/2015 Appointment: Lashawn Carlson WPtel: [address] [place] [address] 01/17 confirmed FOLLOW UP 01/20/2015 Patient Education: Patient Medication Summary Completed 01/20/2015 Visit Plan: Septra DS - 1 po bid x 10 da ys Follow-up in 1 week. 01/13/2015 Appointment: Lashawn Carlson WPtel: [address] [place] [address] [place] FOLLOW UP 01/13/2015 Patient Education: Patient Medication Summary Completed 01/13/2015 Appointment: Clarisa Garcia WPtel: [address] [place] [address] [place] cancelled because patient evaluated in ER ACUTE ILLNESS 06/08/2013 Appointment: Damaris Poon WPtel: [address] [place] [address] [place] INJECTION 12/04/2012 Appointment: Taylor Carey WPtel: [address] [place] [address] [place] RE-ESTABLISH 02/07/2012 Patient Education: Patient Medication [...]
--- OUTSIDE RECORDS SUMMARY | 2019-09-15 18:35 | XMS REPORT | CCD ---
Author Author Jason Carey APRN Organization [facility] Address [address] [place] [address] Phone Care Team Providers Care Die Casting Machine Maintainer Name Role Phone PP Unavailable CCM Unavailable Summary Purpose Interface Exchange Insurance Providers Payer name Policy type / Coverage type Covered alliance party ID Effective Begin Date Effective End Date WPS MEDICARE PART B [place] Medicare Part B [id number] 2015 Unknown [facility] Medicare Part B [id number] Un known Family History Family History data not found Social History Social History Element Codes Description Effective Dates Tobacco history SNOMED CT: 529882991 Never smoker 01/20/2015 Allergies, Adverse Reactions, Alerts Substance Reaction Codes Entered Date Inactivated Date Status * NO KNOWN DRUG ALLERGIES Unknown 02/07/2012 No Inactiv e Date Active Problems Condition Codes Effective Dates Condition Status Broken rib ICD-9: 807.00 ICD-10: S22.39XA 05/09/2019 [...] hydrocodone 10 mg-acetaminophen 300 mg tablet RxNorm: 339730 1 Tablet(s) Oral Q8H as needed for pain 05/09/2019 No Stop Date Active hydrocodone 5 mg-acetaminophen 325 mg tablet RxNorm: 303118 1 Tablet(s) Oral Every 6 hours as needed 05/09/2019 No Stop Date Active Bactrim DS 800 mg-160 mg tablet RxNorm: 199515 1 Tablet(s) PO BID 0 01/13/2015 01/22/2015 Inactive aspirin 81 mg tablet,delayed release RxNorm: 789360 1 Tablet(s) PO QD 02/07/2012 03/07/2012 Inactive Vitamin D3 1000 units Capsule RxNorm: 2 Capsule(s) PO QD No Start Date Active flecainide 100 mg tablet RxNorm: 401865 1 Tablet(s) PO QD No Start Da te Active lisinopril 20 mg tablet RxNorm: 264923 1/2 Tablet(s) PO PRN No Start Date Active imipramine pamoate 75 mg capsule RxNorm: 774109 1 Capsule(s) PO QD No Start Date Active lisinopril 20 mg tablet RxNorm: 121797 1 Tablet(s) PO QD No Start D ate 02/06/2012 Inactive Meclizine 25 mg Tab RxNorm: 7497450 1 Tablet(s) PO QID prn dizzi ness No Start Date 05/09/2019 Inactive Medication Administered No Medication Administered data Immunizations Vaccine Codes Date Status Tetanus, Diptheria, Pertussis CVX: 115 12/27/2018 Results No Results data Procedures Procedure Codes Date CUR TOBACCO NON-USER CPT-4: G8457 01/20/2015 PRESCRIP TRANSMIT VIA ERX SY CPT-4: G8553 01/13/2015 Vital Signs Date Vital 05/09/2019 Blood Pressure 1: 143/75 Code: 8480-6 Heart Rate 1: 85 bpm Respiratory Rate: 17 bpm SpO2: 96% Temperature: 36.5 (C) / 97.7 (F) We ight: 170 lbs 01/28/2015 Blood Pressure 1: 126/70 Code: 8480-6 BMI: 24.8 Code: 13942-0 Heart Rate 1: 84 bpm Height: 6' Respiratory Rate: 20 bpm Temperature: 36 .6 (C) / 97.8 (F) Weight: 183 lbs 01/20/2015 Blood Pressure 1: 122/58 Code: 8480-6 BMI: 24.8 Code: 25805-7 Heart Rate 1: 80 bpm Height: 6' Respiratory Rate: 20 bpm Temperature: 36 .4 (C) / 97.6 (F) Weight: 183 lbs 01/13/2015 Blood Pressure 1: 142/68 Code: 8480-6 BMI: 24.8 Code: 44814-9 Heart Rate 1: 86 bpm Height: 6' Respiratory Rate: 20 bpm Temperature: 36 .6 (C) / 97.8 (F) Weight: 183 lbs 02/07/2012 Blood Pressure 1: 130/70 Code: 8480-6 BMI: 25.7 Code: 99189-8 Heart Rate 1: 74 bpm Height: 5'11" Temperature: 36.6 (C) / 97.8 (F) Weight: 184 lbs Functional Status No Functional Status data Reason For Visit Reason For Visit Effective Dates Notes bone fracture 05/09/2019 right ribs follow up 01/28/2015 follow up 01/20/2015 1 week sore throat 01/13/2015 knee pain 02/07/2012 Encounters Encounter Performer Location Codes Date () OFFICE/OUTPATIENT VISIT NEW Diagnosis: Broken rib[ICD10: S22.39XA] Lizzette Winjonna OCAMPO S. Estella NAVARRO [employer] CPT-4: 02311 05/09/2019 OFFICE/OUTPATIENT VISIT EST Diagnosis: Localized enlarged lymph nodes[ICD10: R59.0] Diagnosis: Encounter for follow-up examination after completed treatment for conditions other than malignant neoplasm[ICD10: Z09] Lashawn OCAMPO S. ZonoffNDER [employer] CPT-4: 83415 01/28/2015 OFFICE/OUTPATIENT VISIT EST Diagnosis: Localized enlarged lymph nodes[ICD10: R59.0] Lashawn OCAMPO S. ORENDER [employer] CPT-4: 49278 01/20/2015 OFFICE/OUTPATIENT VISIT EST Diagnosis: LYMPHADENOPATHY[ICD9: 785.6] Diagnosis: LOCAL SKIN INFECTION[ICD9: 686.9] Lashawn Gustafson S. ORENDER [employer] CPT-4: 28471 01/13/2015 OFFICE/OUTPATIENT VISIT NEW Diagnosis: Grey's cyst of knee[ICD9: 727.51] Taylor GAYLE S. ZonoffNDER [employer] CPT-4: 85721 02/07/2012 Plan of Care Planned Activity Notes [...] ICD-9 : 807.00 ICD-10 : S22.39XA 05/09/2019 Visit Plan: Continue to monitor localize d lymph nodes for changes Follow-up for worsening symptoms 01/28/2015 Appointment: Lashawn Carlson WPtel: [address] [place], [place] [phone] [place] FOLLOW UP 01/28/2015 Patient Education: Patient Medication Summary Completed 01/28/2015 Visit Plan: Complete antibiotics. Monito r lymph node size and follow-up for persistent symptoms. 01/20/2015 Appointment: Lashawn Carlson WPtel: [address] [place], [place] [phone] 01/17 confirmed FOLLOW UP 01/20/2015 Patient Education: Patient Medication Summary Completed 01/20/2015 Visit Plan: Septra DS - 1 po bid x 10 da ys Follow-up in 1 week. 01/13/2015 Appointment: Lashawn Carlson WPtel: [address] [place], [place] [phone] [place] FOLLOW UP 01/13/2015 Patient Education: Patient Medication Summary Completed 01/13/2015 Appointment: Clarisa Garcia WPtel: [address] [place], [place] [phone] [place] cancelled because patient evaluated in ER ACUTE ILLNESS 06/08/2013 Appointment: Damaris Conklin WPtel: [phone] [facility] [place] INJECTION 12/04/2012 Ref[facility] [phone] [facility] Referral Initiated 02/14/2012 [facility]ment: [facility] [phone] [facility] [facility] 02/07/2012 Patient Education: Patient Medication Summary [...]
--- OUTSIDE RECORDS SUMMARY | 2019-09-15 18:35 | XMS REPORT | CCD ---
Author Author Jason Carey APRN Organization [facility] Address [address] [place] [address] Phone Care Team Providers Care Welt Edge Rounder Name Role Phone PP Unavailable CCM Unavailable Summary Purpose Interface Exchange Insurance Providers Payer name Policy type / Coverage type Covered alliance party ID Effective Begin Date Effective End Date WPS MEDIC[place] PART B [place] Medicare Part B [id number] 2015 Unknown [facility] Medicare Part B [id number] Un known Family History Family History data not found Social History Social History Element Codes Description Effective Dates Tobacco history SNOMED CT: 447421452 Never smoker 01/20/2015 Allergies, Adverse Reactions, Alerts [...] hydrocodone 10 mg-acetaminophen 300 mg tablet RxNorm: 267536 1 Tablet(s) Oral Q8H as needed for pain 05/09/2019 No Stop Date Active hydrocodone 5 mg-acetaminophen 325 mg tablet RxNorm: 077459 1 Tablet(s) Oral Every 6 hours as needed 05/09/2019 No Stop Date Active Bactrim DS 800 mg-160 mg tablet RxNorm: 415848 1 Tablet(s) PO BID 0 01/13/2015 01/22/2015 Inactive aspirin 81 mg tablet,delayed release RxNorm: 538666 1 Tablet(s) PO QD 02/07/2012 03/07/2012 Inactive Vitamin D3 1000 units Capsule RxNorm: 2 Capsule(s) PO QD No Start Date Active flecainide 100 mg tablet RxNorm: 502700 1 Tablet(s) PO QD No Start Da te Active lisinopril 20 mg tablet RxNorm: 463613 1/2 Tablet(s) PO PRN No Start Date Active imipramine pamoate 75 mg capsule RxNorm: 039482 1 Capsule(s) PO QD No Start Date Active lisinopril 20 mg tablet RxNorm: 755439 1 Tablet(s) PO QD No Start D ate 02/06/2012 Inactive Meclizine 25 mg Tab RxNorm: 9157487 1 Tablet(s) PO QID prn dizzi ness No Start Date 05/09/2019 Inactive Medication Administered No Medication Administered data Immunizations Vaccine Codes Date Status Tetanus, Diptheria, Pertussis CVX: 115 12/27/2018 Results No Results data Procedures Procedure Codes Date ROUTINE VENIPUNCTURE CPT-4: 58893 05/10/2019 COMPREHEN METABOLIC PANEL CPT-4: 78033 05/10/2019 COMPLETE CBC W/AUTO DIFF WBC CPT-4: 17087 05/10/2019 LIPID PANEL CPT-4: 10302 05/10/2019 IRON PROFILE CPT-4: 80344 05/10/2019 ASSAY OF FERRITIN CPT-4: 35251 05/10/2019 CUR TOBACCO NON-USER CPT-4: G8457 01/20/2015 PRESCRIP TRANSMIT VIA ERX SY CPT-4: G8553 01/13/2015 Vital Signs Date Vital 05/09/2019 Blood Pressure 1: 143/75 Code: 8480-6 Heart Rate 1: 85 bpm Respiratory Rate: 17 bpm SpO2: 96% Temperature: 36.5 (C) / 97.7 (F) We ight: 170 lbs 01/28/2015 Blood Pressure 1: 126/70 Code: 8480-6 BMI: 24.8 Code: 84517-1 Heart Rate 1: 84 bpm Height: 6' Respiratory Rate: 20 bpm Temperature: 36 .6 (C) / 97.8 (F) Weight: 183 lbs 01/20/2015 Blood Pressure 1: 122/58 Code: 8480-6 BMI: 24.8 Code: 96985-1 Heart Rate 1: 80 bpm Height: 6' Respiratory Rate: 20 bpm Temperature: 36 .4 (C) / 97.6 (F) Weight: 183 lbs 01/13/2015 Blood Pressure 1: 142/68 Code: 8480-6 BMI: 24.8 Code: 05821-0 Heart Rate 1: 86 bpm Height: 6' Respiratory Rate: 20 bpm Temperature: 36 .6 (C) / 97.8 (F) Weight: 183 lbs 02/07/2012 Blood Pressure 1: 130/70 Code: 8480-6 BMI: 25.7 Code: 61089-2 Heart Rate 1: 74 bpm Height: 5'11" Temperature: 36.6 (C) / 97.8 (F) Weight: 184 lbs Functional Status No Functional Status data Reason For Visit Reason For Visit Effective Dates Notes bone fracture 05/09/2019 right ribs follow up 01/28/2015 follow up 01/20/2015 1 week sore throat 01/13/2015 knee pain 02/07/2012 Encounters Encounter Performer Location Codes Date (06820) NURSE/OUTPATIENT VISIT EST Diagnosis: Mixed hyperlipidemia[ICD10: E78.2] Diagnosis: Hyperglycemia, unspecified[ICD10: R73.9] Diagnosis: Essential (primary) hypertension[ICD10: I10] Diagnosis: Anemia, unspecified[ICD10: D64.9] Damaris CONKLIN DO [employer] CPT-4: 77357 05/10/2019 (49108) OFFICE/OUTPATIENT VISIT NEW Diagnosis: Broken rib[ICD10: S22.39XA] Lizzette Tisha OCAMPO S. Estella NAVARRO [employer] CPT-4: 66215 05/09/2019 OFFICE/OUTPATIENT VISIT EST Diagnosis: Localized enlarged lymph nodes[ICD10: R59.0] Diagnosis: Encounter for follow-up examination after completed treatment for conditions other than malignant neoplasm[ICD10: Z09] Lashawn WelchRaisaelza CONKLIN DO [facility] CPT-4: 91928 01/28/2015 OFFICE/OUTPATIENT VISIT EST Diagnosis: Localized enlarged lymph nodes[ICD10: R59.0] Lashawn CONKLIN DO [facility] CPT-4: 83301 01/20/2015 OFFICE/OUTPATIENT VISIT EST Diagnosis: LYMPHADENOPATHY[ICD9: 785.6] Diagnosis: LOCAL SKIN INFECTION[ICD9: 686.9] Lashawn ZAMORA Janay CONKLIN DO [facility] CPT-4: 83208 01/13/2015 OFFICE/OUTPATIENT VISIT NEW Diagnosis: Grey's cyst of knee[ICD9: 727.51] Taylor GAYLE Lyndsey CONKLIN DO [facility] CPT-4: 78608 02/07/2012 Plan of Care Planned Activity Notes [...] ICD-10 : S22.39XA 05/09/2019 Appointment: Lizzette Giles [address] [place], [place] [phone] FOLLOW UP 05/09/2019 Visit Plan: Continue to monitor localize d lymph nodes for changes Follow-up for worsening symptoms 01/28/2015 Appointment: Lashawn Carlson WPtel: [address] [place], [place] [phone] [place] FOLLOW UP 01/28/2015 Patient Education: Patient Medication Summary Completed 01/28/2015 Visit Plan: Complete antibiotics. Monito r lymph node size and follow-up for persistent symptoms. 01/20/2015 Appointment: Lashawn Carlson WPtel: [address] [place], [place] [phone] 01/17 confirmed FOLLOW UP 01/20/2015 Patient Education: Patient Medication Summary Completed 01/20/2015 Visit Plan: Septra DS - 1 po bid x 10 da ys Follow-up in 1 week. 01/13/2015 Appointment: Lashawn Carlson WPtel: [address] [place], [place] [phone] [place] FOLLOW UP 01/13/2015 Patient Education: Patient Medication Summary Completed 01/13/2015 Appointment: Clarisa Garcia WPtel: [address] [place] [address] [place] cancelled because patient evaluated in ER ACUTE ILLNESS 06/08/2013 Appointment: Damaris Conklin WPtel: [address] [place], [place] [phone] [place] INJECTION 12/04/2012 Referral: Damaris Conklin WPtel: [address] [place], [place] [phone] [place] Referral Initiated 02/14/2012 Appointment: Taylor Carey WPtel: [address] [place], [place] [phone] [place] RE-ESTABLISH 02/07/2012 Patient Education: Patient Medication [...]
--- OUTSIDE RECORDS SUMMARY | 2019-09-15 18:35 | XMS REPORT | CCD ---
Author Author Jason Carey APRN Organization [facility] Address [address] [place] [address] Phone Care Team Providers Care Fleet Mechanic Name Role Phone PP Unavailable CCM Unavailable Summary Purpose Interface Exchange Insurance Providers Payer name Policy type / Coverage type Covered constitution party ID Effective Begin Date Effective End Date WPS MEDICARE PART B [place] Medicare Part B [id number] 2015 Unknown [facility] Medicare Part B [id number] Un known Family History Family History data not found Social History Social History Element Codes Description Effective Dates Tobacco history SNOMED CT: 578134882 Never smoker 01/20/2015 Allergies, Adverse Reactions, Alerts [...] hydrocodone 10 mg-acetaminophen 300 mg tablet RxNorm: 425998 1 Tablet(s) Oral Q8H as needed for pain 05/09/2019 No Stop Date Active hydrocodone 5 mg-acetaminophen 325 mg tablet RxNorm: 207847 1 Tablet(s) Oral Every 6 hours as needed 05/09/2019 No Stop Date Active Bactrim DS 800 mg-160 mg tablet RxNorm: 398178 1 Tablet(s) PO BID 0 01/13/2015 01/22/2015 Inactive aspirin 81 mg tablet,delayed release RxNorm: 566150 1 Tablet(s) PO QD 02/07/2012 03/07/2012 Inactive Vitamin D3 1000 units Capsule RxNorm: 2 Capsule(s) PO QD No Start Date Active flecainide 100 mg tablet RxNorm: 881218 1 Tablet(s) PO QD No Start Da te Active lisinopril 20 mg tablet RxNorm: 895452 1/2 Tablet(s) PO PRN No Start Date Active imipramine pamoate 75 mg capsule RxNorm: 560078 1 Capsule(s) PO QD No Start Date Active lisinopril 20 mg tablet RxNorm: 557220 1 Tablet(s) PO QD No Start D ate 02/06/2012 Inactive Meclizine 25 mg Tab RxNorm: 7809374 1 Tablet(s) PO QID prn dizzi ness No Start Date 05/09/2019 Inactive Medication Administered No Medication Administered data Immunizations Vaccine Codes Date Status Tetanus, Diptheria, Pertussis CVX: 115 12/27/2018 Results No Results data Procedures Procedure Codes Date ROUTINE VENIPUNCTURE CPT-4: 59101 05/10/2019 COMPREHEN METABOLIC PANEL CPT-4: 89884 05/10/2019 COMPLETE CBC W/AUTO DIFF WBC CPT-4: 01837 05/10/2019 LIPID PANEL CPT-4: 60820 05/10/2019 IRON PROFILE CPT-4: 93106 05/10/2019 ASSAY OF FERRITIN CPT-4: 71558 05/10/2019 CUR TOBACCO NON-USER CPT-4: G8457 01/20/2015 PRESCRIP TRANSMIT VIA ERX SY CPT-4: G8553 01/13/2015 Vital Signs Date Vital 05/09/2019 Blood Pressure 1: 143/75 Code: 8480-6 Heart Rate 1: 85 bpm Respiratory Rate: 17 bpm SpO2: 96% Temperature: 36.5 (C) / 97.7 (F) We ight: 170 lbs 01/28/2015 Blood Pressure 1: 126/70 Code: 8480-6 BMI: 24.8 Code: 18271-9 Heart Rate 1: 84 bpm Height: 6' Respiratory Rate: 20 bpm Temperature: 36 .6 (C) / 97.8 (F) Weight: 183 lbs 01/20/2015 Blood Pressure 1: 122/58 Code: 8480-6 BMI: 24.8 Code: 14504-9 Heart Rate 1: 80 bpm Height: 6' Respiratory Rate: 20 bpm Temperature: 36 .4 (C) / 97.6 (F) Weight: 183 lbs 01/13/2015 Blood Pressure 1: 142/68 Code: 8480-6 BMI: 24.8 Code: 27980-3 Heart Rate 1: 86 bpm Height: 6' Respiratory Rate: 20 bpm Temperature: 36 .6 (C) / 97.8 (F) Weight: 183 lbs 02/07/2012 Blood Pressure 1: 130/70 Code: 8480-6 BMI: 25.7 Code: 10218-8 Heart Rate 1: 74 bpm Height: 5'11" Temperature: 36.6 (C) / 97.8 (F) Weight: 184 lbs Functional Status No Functional Status data Reason For Visit Reason For Visit Effective Dates Notes bone fracture 05/09/2019 right ribs follow up 01/28/2015 follow up 01/20/2015 1 week sore throat 01/13/2015 knee pain 02/07/2012 Encounters Encounter Performer Location Codes Date (67419) NURSE/OUTPATIENT VISIT EST Diagnosis: Mixed hyperlipidemia[ICD10: E78.2] Diagnosis: Hyperglycemia, unspecified[ICD10: R73.9] Diagnosis: Essential (primary) hypertension[ICD10: I10] Diagnosis: Anemia, unspecified[ICD10: D64.9] Damaris CONKLIN DO [email or web address] CPT-4: 28219 05/10/2019 (26172) OFFICE/OUTPATIENT VISIT NEW Diagnosis: Broken rib[ICD10: S22.39XA] Lizzette Tisha OCAMPO S. Estella NAVARRO [employer] CPT-4: 93710 05/09/2019 OFFICE/OUTPATIENT VISIT EST Diagnosis: Localized enlarged lymph nodes[ICD10: R59.0] Diagnosis: Encounter for follow-up examination after completed treatment for conditions other than malignant neoplasm[ICD10: Z09] Lashawn WelchRaisaelza CONKLIN DO [facility] CPT-4: 06836 01/28/2015 OFFICE/OUTPATIENT VISIT EST Diagnosis: Localized enlarged lymph nodes[ICD10: R59.0] Lashawn CONKLIN DO [facility] CPT-4: 58888 01/20/2015 OFFICE/OUTPATIENT VISIT EST Diagnosis: LYMPHADENOPATHY[ICD9: 785.6] Diagnosis: LOCAL SKIN INFECTION[ICD9: 686.9] Lashawn ZAMORA Janay CONKLIN DO [facility] CPT-4: 82065 01/13/2015 OFFICE/OUTPATIENT VISIT NEW Diagnosis: Grey's cyst of knee[ICD9: 727.51] Taylor GAYLE Lyndsey CONKLIN DO [facility] CPT-4: 59951 02/07/2012 Plan of Care Planned Activity Notes [...] ICD-10 : S22.39XA 05/09/2019 Appointment: Lizzette Giles [address] [place], [place] [phone] FOLLOW UP 05/09/2019 Visit Plan: Continue to monitor localize d lymph nodes for changes Follow-up for worsening symptoms 01/28/2015 Appointment: Lashawn Carlson WPtel: [address] [place], [place] [phone] [place] FOLLOW UP 01/28/2015 Patient Education: Patient Medication Summary Completed 01/28/2015 Visit Plan: Complete antibiotics. Monito r lymph node size and follow-up for persistent symptoms. 01/20/2015 Appointment: Lashawn Carlson WPtel: [address] [place], [place] [phone] 01/17 confirmed FOLLOW UP 01/20/2015 Patient Education: Patient Medication Summary Completed 01/20/2015 Visit Plan: Septra DS - 1 po bid x 10 da ys Follow-up in 1 week. 01/13/2015 Appointment: Lashawn Carlson WPtel: [address] [place], [place] [phone] [place] FOLLOW UP 01/13/2015 Patient Education: Patient Medication Summary Completed 01/13/2015 Appointment: Clarisa Garcia WPtel: [address] [place] [address] [place] cancelled because patient evaluated in ER ACUTE ILLNESS 06/08/2013 Appointment: Damaris Conklin WPtel: [address] [place], [place] [phone] [place] INJECTION 12/04/2012 Referral: Damaris Conklin WPtel: [address] [place], [place] [phone] [place] Referral Initiated 02/14/2012 Appointment: Taylor Carey WPtel: [address] [place], [place] [phone] [place] RE-ESTABLISH 02/07/2012 Patient Education: Patient Medication [...]
--- OUTSIDE RECORDS SUMMARY | 2019-09-15 18:35 | XMS REPORT | CCD ---
Author Author Jason Carey APRN Organization [facility] Address [address] [place] [address] Phone Care Team Providers Care Roofer Assistant Name Role Phone PP Unavailable CCM Unavailable Summary Purpose Interface Exchange Insurance Providers Payer name Policy type / Coverage type Covered green party ID Effective Begin Date Effective End Date WPS MEDICARE PART B [place] Medicare Part B [id number] 2015 Unknown [facility] Medicare Part B [id number] Un known Family History Family History data not found Social History Social History Element Codes Description Effective Dates Tobacco history SNOMED CT: 735662352 Never smoker 01/20/2015 Allergies, Adverse Reactions, Alerts [...] hydrocodone 10 mg-acetaminophen 300 mg tablet RxNorm: 196358 1 Tablet(s) Oral Q8H as needed for pain 05/09/2019 No Stop Date Active hydrocodone 5 mg-acetaminophen 325 mg tablet RxNorm: 092151 1 Tablet(s) Oral Every 6 hours as needed 05/09/2019 No Stop Date Active Bactrim DS 800 mg-160 mg tablet RxNorm: 383772 1 Tablet(s) PO BID 0 01/13/2015 01/22/2015 Inactive aspirin 81 mg tablet,delayed release RxNorm: 661460 1 Tablet(s) PO QD 02/07/2012 03/07/2012 Inactive Vitamin D3 1000 units Capsule RxNorm: 2 Capsule(s) PO QD No Start Date Active flecainide 100 mg tablet RxNorm: 411071 1 Tablet(s) PO QD No Start Da te Active lisinopril 20 mg tablet RxNorm: 168186 1/2 Tablet(s) PO PRN No Start Date Active imipramine pamoate 75 mg capsule RxNorm: 050114 1 Capsule(s) PO QD No Start Date Active lisinopril 20 mg tablet RxNorm: 745818 1 Tablet(s) PO QD No Start D ate 02/06/2012 Inactive Meclizine 25 mg Tab RxNorm: 3824825 1 Tablet(s) PO QID prn dizzi ness [...] 1: 126/70 Code: 8480-6 BMI: 24.8 Code: 15754-1 Heart Rate 1: 84 bpm Height: 6' Respiratory Rate: 20 bpm Temperature: 36 .6 (C) / 97.8 (F) Weight: 183 lbs 01/20/2015 Blood Pressure 1: 122/58 Code: 8480-6 BMI: 24.8 Code: 55147-3 Heart Rate 1: 80 bpm Height: 6' Respiratory Rate: 20 bpm Temperature: 36 .4 (C) / 97.6 (F) Weight: 183 lbs 01/13/2015 Blood Pressure 1: 142/68 Code: 8480-6 BMI: 24.8 Code: 85818-3 Heart Rate 1: 86 bpm Height: 6' Respiratory Rate: 20 bpm Temperature: 36 .6 (C) / 97.8 (F) Weight: 183 lbs 02/07/2012 Blood Pressure 1: 130/70 Code: 8480-6 BMI: 25.7 Code: 85700-2 Heart Rate 1: 74 bpm Height: 5'11" [...] S22.39XA] Lizzette Winjonna OCAMPO S. Estella NAVARRO [employer] CPT-4: 08846 05/09/2019 OFFICE/OUTPATIENT VISIT EST Diagnosis: Localized enlarged lymph nodes[ICD10: R59.0] Diagnosis: Encounter for follow-up examination after completed treatment for conditions other than malignant neoplasm[ICD10: Z09] Lashawn OCAMPO S. [employer] CPT-4: 68669 01/28/2015 OFFICE/OUTPATIENT VISIT EST Diagnosis: Localized enlarged lymph nodes[ICD10: R59.0] Lashawn OCAMPO S. ORENDER [employer] CPT-4: 13596 01/20/2015 OFFICE/OUTPATIENT VISIT EST Diagnosis: LYMPHADENOPATHY[ICD9: 785.6] Diagnosis: LOCAL SKIN INFECTION[ICD9: 686.9] Lashawn Gustafson S. ORENDER [employer] CPT-4: 86256 01/13/2015 OFFICE/OUTPATIENT VISIT NEW Diagnosis: Grey's cyst of knee[ICD9: 727.51] Taylor GAYLE S. [employer] CPT-4: 66918 02/07/2012 Plan of Care Planned Activity Notes [...] worsening symptoms 01/28/2015 Appointment: Lashawn Carlson WPtel: [address] [place], [place] [phone] [place] FOLLOW UP 01/28/2015 Patient Education: Patient Medication Summary Completed 01/28/2015 Visit Plan: Complete antibiotics. Monito r lymph node size and follow-up for persistent symptoms. 01/20/2015 Appointment: Lashawn Carlson WPtel: [address] [place], [place] [phone] 01/17 confirmed FOLLOW UP 01/20/2015 Patient Education: Patient Medication Summary Completed 01/20/2015 Visit Plan: Septra DS - 1 po bid x 10 da ys Follow-up in 1 week. 01/13/2015 Appointment: Lashawn Carlson WPtel: [address] [place], [place] [phone] [place] FOLLOW UP 01/13/2015 Patient Education: Patient Medication Summary Completed 01/13/2015 Appointment: Clarisa Garcia WPtel: [address] [place], [place] [phone] [place] cancelled because patient evaluated in ER ACUTE ILLNESS 06/08/2013 Appointment: Damaris Conklin WPtel: [phone] [facility] [place] INJECTION 12/04/2012 Referral: Damaris Conklin [facility]Ptel[facility] [phone] [facility] Referral Initiated 02/14/2012 Appointment: [phone] [facility] [facility] 02/07/2012 Patient Education: Patient Medication [...]
--- OUTSIDE RECORDS SUMMARY | 2019-09-15 18:35 | XMS REPORT | CCD ---
Author Author Jason Carey APRN Organization DAMAR[facility] CONKLIN [facility] Address [address] [place] [address] Phone Care Team Providers Care Contact Worker Name Role Phone PP Unavailable CCM Unavailable Summary Purpose Interface Exchange Insurance Providers Payer name Policy type / Coverage type Covered constitution party ID Effective Begin Date Effective End Date WPS MEDICARE PART B [place] Medicare Part B [id number] 2015 Unknown [facility] Medicare Part B [id number] Un known Family History Family History data not found Social History Social History Element Codes Description Effective Dates Tobacco history SNOMED CT: 858648088 Never smoker 01/20/2015 Allergies, Adverse Reactions, Alerts [...] hydrocodone 10 mg-acetaminophen 300 mg tablet RxNorm: 792008 1 Tablet(s) Oral Q8H as needed for pain 05/09/2019 No Stop Date Active hydrocodone 5 mg-acetaminophen 325 mg tablet RxNorm: 774077 1 Tablet(s) Oral Every 6 hours as needed 05/09/2019 No Stop Date Active Bactrim DS 800 mg-160 mg tablet RxNorm: 701302 1 Tablet(s) PO BID 0 01/13/2015 01/22/2015 Inactive aspirin 81 mg tablet,delayed release RxNorm: 167735 1 Tablet(s) PO QD 02/07/2012 03/07/2012 Inactive Vitamin D3 1000 units Capsule RxNorm: 2 Capsule(s) PO QD No Start Date Active flecainide 100 mg tablet RxNorm: 495289 1 Tablet(s) PO QD No Start Da te Active lisinopril 20 mg tablet RxNorm: 450665 1/2 Tablet(s) PO PRN No Start Date Active imipramine pamoate 75 mg capsule RxNorm: 204253 1 Capsule(s) PO QD No Start Date Active lisinopril 20 mg tablet RxNorm: 314037 1 Tablet(s) PO QD No Start D ate 02/06/2012 Inactive Meclizine 25 mg Tab RxNorm: 7905143 1 Tablet(s) PO QID prn dizzi ness No Start Date 05/09/2019 Inactive Medication Administered No Medication Administered data Immunizations Vaccine Codes Date Status Tetanus, Diptheria, Pertussis CVX: 115 12/27/2018 Results No Results data Procedures Procedure Codes Date ROUTINE VENIPUNCTURE CPT-4: 33490 05/10/2019 COMPREHEN METABOLIC PANEL CPT-4: 50034 05/10/2019 COMPLETE CBC W/AUTO DIFF WBC CPT-4: 86994 05/10/2019 LIPID PANEL CPT-4: 37336 05/10/2019 IRON PROFILE CPT-4: 53526 05/10/2019 ASSAY OF FERRITIN CPT-4: 56183 05/10/2019 CUR TOBACCO NON-USER CPT-4: G8457 01/20/2015 PRESCRIP TRANSMIT VIA ERX SY CPT-4: G8553 01/13/2015 Vital Signs Date Vital 05/09/2019 Blood Pressure 1: 143/75 Code: 8480-6 Heart Rate 1: 85 bpm Respiratory Rate: 17 bpm SpO2: 96% Temperature: 36.5 (C) / 97.7 (F) We ight: 170 lbs 01/28/2015 Blood Pressure 1: 126/70 Code: 8480-6 BMI: 24.8 Code: 66692-2 Heart Rate 1: 84 bpm Height: 6' Respiratory Rate: 20 bpm Temperature: 36 .6 (C) / 97.8 (F) Weight: 183 lbs 01/20/2015 Blood Pressure 1: 122/58 Code: 8480-6 BMI: 24.8 Code: 83469-9 Heart Rate 1: 80 bpm Height: 6' Respiratory Rate: 20 bpm Temperature: 36 .4 (C) / 97.6 (F) Weight: 183 lbs 01/13/2015 Blood Pressure 1: 142/68 Code: 8480-6 BMI: 24.8 Code: 98151-5 Heart Rate 1: 86 bpm Height: 6' Respiratory Rate: 20 bpm Temperature: 36 .6 (C) / 97.8 (F) Weight: 183 lbs 02/07/2012 Blood Pressure 1: 130/70 Code: 8480-6 BMI: 25.7 Code: 41605-2 Heart Rate 1: 74 bpm Height: 5'11" Temperature: 36.6 (C) / 97.8 (F) Weight: 184 lbs Functional Status No Functional Status data Reason For Visit Reason For Visit Effective Dates Notes bone fracture 05/09/2019 right ribs follow up 01/28/2015 follow up 01/20/2015 1 week sore throat 01/13/2015 knee pain 02/07/2012 Encounters Encounter Performer Location Codes Date (90847) NURSE/OUTPATIENT VISIT EST Diagnosis: Mixed hyperlipidemia[ICD10: E78.2] Diagnosis: Hyperglycemia, unspecified[ICD10: R73.9] Diagnosis: Essential (primary) hypertension[ICD10: I10] Diagnosis: Anemia, unspecified[ICD10: D64.9] Damaris CONKLIN DO [facility] CPT-4: 38419 05/10/2019 (95049) OFFICE/OUTPATIENT VISIT NEW Diagnosis: Broken rib[ICD10: S22.39XA] Lizzette Tisha OCAMPO S. Estella NAVARRO [facility] CPT-4: 93678 05/09/2019 OFFICE/OUTPATIENT VISIT EST Diagnosis: Localized enlarged lymph nodes[ICD10: R59.0] Diagnosis: Encounter for follow-up examination after completed treatment for conditions other than malignant neoplasm[ICD10: Z09] Lashawn WelchRaisaelza CONKLIN DO [facility] CPT-4: 80963 01/28/2015 OFFICE/OUTPATIENT VISIT EST Diagnosis: Localized enlarged lymph nodes[ICD10: R59.0] Lashawn CONKLIN DO [facility] CPT-4: 01685 01/20/2015 OFFICE/OUTPATIENT VISIT EST Diagnosis: LYMPHADENOPATHY[ICD9: 785.6] Diagnosis: LOCAL SKIN INFECTION[ICD9: 686.9] Lashawn ZAMORA Janay CONKLIN DO [facility] CPT-4: 19994 01/13/2015 OFFICE/OUTPATIENT VISIT NEW Diagnosis: Grey's cyst of knee[ICD9: 727.51] Taylor GAYLE Lyndsey CONKLIN DO [facility] CPT-4: 70227 02/07/2012 Plan of Care Planned Activity Notes [...] ICD-10 : S22.39XA 05/09/2019 Appointment: Lizzette Giles [address] [place], [place] [phone] FOLLOW UP 05/09/2019 Visit Plan: Continue to monitor localize d lymph nodes for changes Follow-up for worsening symptoms 01/28/2015 Appointment: Lashawn Carlson WPtel: [address] [place], [place] [phone] [place] FOLLOW UP 01/28/2015 Patient Education: Patient Medication Summary Completed 01/28/2015 Visit Plan: Complete antibiotics. Monito r lymph node size and follow-up for persistent symptoms. 01/20/2015 Appointment: Lashawn Carlson WPtel: [address] [place], [place] [phone] 01/17 confirmed FOLLOW UP 01/20/2015 Patient Education: Patient Medication Summary Completed 01/20/2015 Visit Plan: Septra DS - 1 po bid x 10 da ys Follow-up in 1 week. 01/13/2015 Appointment: Lashawn Carlson WPtel: [address] [place], [place] [phone] [place] FOLLOW UP 01/13/2015 Patient Education: Patient Medication Summary Completed 01/13/2015 Appointment: Clarisa Garcia WPtel: [address] [place] [address] [place] cancelled because patient evaluated in ER ACUTE ILLNESS 06/08/2013 Appointment: Damaris Conklin WPtel: [address] [place], [place] [phone] [place] INJECTION 12/04/2012 Referral: Damaris Conklin WPtel: [address] [place], [place] [phone] [place] Referral Initiated 02/14/2012 Appointment: Taylor Carey WPtel: [address] [place], [place] [phone] [place] RE-ESTABLISH 02/07/2012 Patient Education: Patient Medication [...]
--- OUTSIDE RECORDS SUMMARY | 2019-09-15 18:35 | XMS REPORT | Continuity of Care Document ---
Demographics Preferred Language Unknown Marital Status Unknown Moravian Affiliation Unknown Race Unknown Ethnic Group Unknown Author Organization Unknown Address Unknown Phone Unavailable Allergies Active Description Code Type Severity Reaction Onset Reported/Identified Relationship to Patient Clinical Status Yes No Known Drug Allergies [id number] Drug Allergy Unknown N/A 06/07/2013 Medications There is no data. Problems Date Dx Coded Attending Type Code Diagnosis Diagnosed By 05/04/2019 SAUCEDA DO, BAY L Ot R07.8 1 PLEURODYNIA 05/04/2019 SAUCEDA DO, BAY L Ot S22.31XA FRACTURE OF ONE RIB, RIGHT SIDE, INIT FO 05/04/2019 SAUCEDA DO, BAY L Ot W18.39XA OTHER FALL ON SAME LEVEL, INITIAL ENCOUN 05/08/2019 SAUCEDA DO, BAY L Ot R07.8 1 PLEURODYNIA 05/08/2019 SAUCEDA DO, BAY L Ot S22.31XA FRACTURE OF ONE RIB, RIGHT SIDE, INIT FO 05/08/2019 SAUCEDA DO, BAY L Ot W18.39XA OTHER FALL ON SAME LEVEL, INITIAL ENCOUN 06/15/2019 W M25.552 Le ft hip pain Godwinnder, Damaris S. 06/15/2019 W R06.09 Dys pnea on exertion Orender, Damaris S. 06/15/2019 W R29.6 Recu rrent falls Godwinnder, Damaris S. 06/15/2019 W D64.9 Anem ia, unspecified Orender, Damaris S. 06/15/2019 W E78.2 Mixe d hyperlipidemia Orender, Damaris S. 06/15/2019 W I10 Essent ial (primary) hypertension Orender, Damaris S. 06/15/2019 W R73.9 Hype rglycemia, unspecified Orender, Damaris S. 06/15/2019 W N39.0 Urin roasline tract infection, site not specified Orender, Damaris S. 06/15/2019 W S22.39XA B roken rib Tisha, Lizzette 06/15/2019 W D64.9 Anemia Godwinnder, Damaris S. 06/15/2019 W R06.09 Dys pnea on exertion GodwinndJuan Luis garciaDamaris S. 06/21/2019 GODWINNDER , DAMARIS S Ot R06.00 DYSPNEA, UNSPECIFIED 06/27/2019 GODWINNDER DO, DAMARIS S Ot R06.00 DYSPNEA, UNSPECIFIED 07/05/2019 W D64.9 Anemia Orender, Damaris S. 07/05/2019 W R06.00 Dyspnea Godwinnder, Damaris S. 07/09/2019 W D64.9 Anemia Orender, Damaris S. 07/09/2019 W R06.00 Dyspnea Godwinnder, Damaris S. Procedures There is no data. Results There is no data. Encounters ACCT No. Visit Date/Time Discharge Status Pt. Type Provider Facility Loc./Unit Complaint [id number] 06/11/2019 10:34:00 Document Registration [id number] 05/25/2019 15:15:00 020 23:59:59 CLS Outpatient DAMARIS OLSEN DO S [facility] RT DYSPNEA [id number] 05/04/2019 09:14:00 020 10:35:00 DIS Emergency BAY SAUCEDA DO [facility] ER FALL/RIB PAIN [id number] 06/07/2013 09:28:00 014 12:11:00 DIS Emergency
--- OUTSIDE RECORDS SUMMARY | 2019-09-15 18:35 | XMS REPORT | CCD ---
Author Author Jason Carey APRN Organization [facility] Address [address] [place] [address] Phone Care Team Providers Care Griddle Attendant Name Role Phone PP Unavailable CCM Unavailable Summary Purpose Interface Exchange Insurance Providers Payer name Policy type / Coverage type Covered constitution party ID Effective Begin Date Effective End Date WPS MEDICARE PART B [place] Medicare Part B [id number] 2015 Unknown [facility] Medicare Part B [id number] Un known Family History Family History data not found Social History Social History Element Codes Description Effective Dates Tobacco history SNOMED CT: 734845792 Never smoker 01/20/2015 Allergies, Adverse Reactions, Alerts [...] hydrocodone 10 mg-acetaminophen 300 mg tablet RxNorm: 436474 1 Tablet(s) Oral Q8H as needed for pain 05/09/2019 No Stop Date Active hydrocodone 5 mg-acetaminophen 325 mg tablet RxNorm: 036585 1 Tablet(s) Oral Every 6 hours as needed 05/09/2019 No Stop Date Active Bactrim DS 800 mg-160 mg tablet RxNorm: 186763 1 Tablet(s) PO BID 0 01/13/2015 01/22/2015 Inactive aspirin 81 mg tablet,delayed release RxNorm: 735467 1 Tablet(s) PO QD 02/07/2012 03/07/2012 Inactive Vitamin D3 1000 units Capsule RxNorm: 2 Capsule(s) PO QD No Start Date Active flecainide 100 mg tablet RxNorm: 864438 1 Tablet(s) PO QD No Start Da te Active lisinopril 20 mg tablet RxNorm: 786425 1/2 Tablet(s) PO PRN No Start Date Active imipramine pamoate 75 mg capsule RxNorm: 643325 1 Capsule(s) PO QD No Start Date Active lisinopril 20 mg tablet RxNorm: 889041 1 Tablet(s) PO QD No Start D ate 02/06/2012 Inactive Meclizine 25 mg Tab RxNorm: 0411804 1 Tablet(s) PO QID prn dizzi ness [...] 1: 126/70 Code: 8480-6 BMI: 24.8 Code: 93111-5 Heart Rate 1: 84 bpm Height: 6' Respiratory Rate: 20 bpm Temperature: 36 .6 (C) / 97.8 (F) Weight: 183 lbs 01/20/2015 Blood Pressure 1: 122/58 Code: 8480-6 BMI: 24.8 Code: 68812-7 Heart Rate 1: 80 bpm Height: 6' Respiratory Rate: 20 bpm Temperature: 36 .4 (C) / 97.6 (F) Weight: 183 lbs 01/13/2015 Blood Pressure 1: 142/68 Code: 8480-6 BMI: 24.8 Code: 73764-8 Heart Rate 1: 86 bpm Height: 6' Respiratory Rate: 20 bpm Temperature: 36 .6 (C) / 97.8 (F) Weight: 183 lbs 02/07/2012 Blood Pressure 1: 130/70 Code: 8480-6 BMI: 25.7 Code: 78494-5 Heart Rate 1: 74 bpm Height: 5'11" [...] S22.39XA] Lizzette Winjonna OCAMPO S. Estella NAVARRO [facility] CPT-4: 34006 05/09/2019 OFFICE/OUTPATIENT VISIT EST Diagnosis: Localized enlarged lymph nodes[ICD10: R59.0] Diagnosis: Encounter for follow-up examination after completed treatment for conditions other than malignant neoplasm[ICD10: Z09] Lashawn OCAMPO S. [employer]olidaysNDER [employer] CPT-4: 96391 01/28/2015 OFFICE/OUTPATIENT VISIT EST Diagnosis: Localized enlarged lymph nodes[ICD10: R59.0] Lashawn OCAMPO S. ORENDER [facility] CPT-4: 91491 01/20/2015 OFFICE/OUTPATIENT VISIT EST Diagnosis: LYMPHADENOPATHY[ICD9: 785.6] Diagnosis: LOCAL SKIN INFECTION[ICD9: 686.9] Lashawn Gustafson S. ORENDER [facility] CPT-4: 79593 01/13/2015 OFFICE/OUTPATIENT VISIT NEW Diagnosis: Grey's cyst of knee[ICD9: 727.51] Taylor GAYLE S. [employer]olid[employer] [facility] CPT-4: 89194 02/07/2012 Plan of Care Planned Activity Notes [...] worsening symptoms 01/28/2015 Appointment: Lashawn Carlson WPtel: [address] [place], [place] [phone] [place] FOLLOW UP 01/28/2015 Patient Education: Patient Medication Summary Completed 01/28/2015 Visit Plan: Complete antibiotics. Monito r lymph node size and follow-up for persistent symptoms. 01/20/2015 Appointment: Lashawn Carlson WPtel: [address] [place], [place] [phone] 01/17 confirmed FOLLOW UP 01/20/2015 Patient Education: Patient Medication Summary Completed 01/20/2015 Visit Plan: Septra DS - 1 po bid x 10 da ys Follow-up in 1 week. 01/13/2015 Appointment: Lashawn Carlson WPtel: [address] [place], [place] [phone] [place] FOLLOW UP 01/13/2015 Patient Education: Patient Medication Summary Completed 01/13/2015 Appointment: Clarisa Garcia WPtel: [address] [place], [place] [phone] [place] cancelled because patient evaluated in ER ACUTE ILLNESS 06/08/2013 Appointment: Damaris Conklin WPtel: [phone] [facility] [place] INJECTION 12/04/2012 Referral: [facility] [phone] [facility] Referral Initiated 02/14/2012 App[facility]ment: [facility] [phone] [facility] [facility] 02/07/2012 Patient Education: Patient Medication [...]
--- OUTSIDE RECORDS SUMMARY | 2019-09-15 18:35 | XMS REPORT | CCD ---
Author Author Jason Carey APRN Organization [facility] Address [address] [place] [address] Phone Care Team Providers Care Retail Advertising Sales Manager Name Role Phone PP Unavailable CCM Unavailable Summary Purpose Interface Exchange Insurance Providers Payer name Policy type / Coverage type Covered constitution party ID Effective Begin Date Effective End Date WPS MEDICARE PART B [place] Medicare Part B [id number] 2015 Unknown [facility] Medicare Part B [id number] Un known Family History Family History data not found Social History Social History Element Codes Description Effective Dates Tobacco history SNOMED CT: 147128176 Never smoker 01/20/2015 Allergies, Adverse Reactions, Alerts [...] hydrocodone 10 mg-acetaminophen 300 mg tablet RxNorm: 217246 1 Tablet(s) Oral Q8H as needed for pain 05/09/2019 No Stop Date Active hydrocodone 5 mg-acetaminophen 325 mg tablet RxNorm: 413055 1 Tablet(s) Oral Every 6 hours as needed 05/09/2019 No Stop Date Active Bactrim DS 800 mg-160 mg tablet RxNorm: 416286 1 Tablet(s) PO BID 0 01/13/2015 01/22/2015 Inactive aspirin 81 mg tablet,delayed release RxNorm: 485463 1 Tablet(s) PO QD 02/07/2012 03/07/2012 Inactive Vitamin D3 1000 units Capsule RxNorm: 2 Capsule(s) PO QD No Start Date Active flecainide 100 mg tablet RxNorm: 714619 1 Tablet(s) PO QD No Start Da te Active lisinopril 20 mg tablet RxNorm: 838349 1/2 Tablet(s) PO PRN No Start Date Active imipramine pamoate 75 mg capsule RxNorm: 909927 1 Capsule(s) PO QD No Start Date Active lisinopril 20 mg tablet RxNorm: 407496 1 Tablet(s) PO QD No Start D ate 02/06/2012 Inactive Meclizine 25 mg Tab RxNorm: 5785348 1 Tablet(s) PO QID prn dizzi ness [...] 1: 126/70 Code: 8480-6 BMI: 24.8 Code: 62333-6 Heart Rate 1: 84 bpm Height: 6' Respiratory Rate: 20 bpm Temperature: 36 .6 (C) / 97.8 (F) Weight: 183 lbs 01/20/2015 Blood Pressure 1: 122/58 Code: 8480-6 BMI: 24.8 Code: 09015-9 Heart Rate 1: 80 bpm Height: 6' Respiratory Rate: 20 bpm Temperature: 36 .4 (C) / 97.6 (F) Weight: 183 lbs 01/13/2015 Blood Pressure 1: 142/68 Code: 8480-6 BMI: 24.8 Code: 34442-1 Heart Rate 1: 86 bpm Height: 6' Respiratory Rate: 20 bpm Temperature: 36 .6 (C) / 97.8 (F) Weight: 183 lbs 02/07/2012 Blood Pressure 1: 130/70 Code: 8480-6 BMI: 25.7 Code: 39907-1 Heart Rate 1: 74 bpm Height: 5'11" [...] S22.39XA] Lizzette Winjonna OCAMPO S. Estella NAVARRO [employer] CPT-4: 08814 05/09/2019 OFFICE/OUTPATIENT VISIT EST Diagnosis: Localized enlarged lymph nodes[ICD10: R59.0] Diagnosis: Encounter for follow-up examination after completed treatment for conditions other than malignant neoplasm[ICD10: Z09] Lashawn OCAMPO S. SamanageNDER [employer] CPT-4: 79170 01/28/2015 OFFICE/OUTPATIENT VISIT EST Diagnosis: Localized enlarged lymph nodes[ICD10: R59.0] Lashawn OCAMPO S. ORENDER [employer] CPT-4: 58792 01/20/2015 OFFICE/OUTPATIENT VISIT EST Diagnosis: LYMPHADENOPATHY[ICD9: 785.6] Diagnosis: LOCAL SKIN INFECTION[ICD9: 686.9] Lashawn Gustafson S. ORENDER [employer] CPT-4: 82050 01/13/2015 OFFICE/OUTPATIENT VISIT NEW Diagnosis: Grey's cyst of knee[ICD9: 727.51] Taylor GAYLE S. SamanageNDER [employer] CPT-4: 39141 02/07/2012 Plan of Care Planned Activity Notes [...] worsening symptoms 01/28/2015 Appointment: Lashawn Carlson WPtel: [address] [place], [place] [phone] [place] FOLLOW UP 01/28/2015 Patient Education: Patient Medication Summary Completed 01/28/2015 Visit Plan: Complete antibiotics. Monito r lymph node size and follow-up for persistent symptoms. 01/20/2015 Appointment: Lashawn Carlson WPtel: [address] [place], [place] [phone] 01/17 confirmed FOLLOW UP 01/20/2015 Patient Education: Patient Medication Summary Completed 01/20/2015 Visit Plan: Septra DS - 1 po bid x 10 da ys Follow-up in 1 week. 01/13/2015 Appointment: Lashawn Carlson WPtel: [address] [place], [place] [phone] [place] FOLLOW UP 01/13/2015 Patient Education: Patient Medication Summary Completed 01/13/2015 Appointment: Clarisa Garcia WPtel: [address] [place], [place] [phone] [place] cancelled because patient evaluated in ER ACUTE ILLNESS 06/08/2013 Appointment: Damaris Conklin WPtel: [phone] [facility] [place] INJECTION 12/04/2012 Referral: Dmaaris Conklin [facility]el[facility] [phone] [facility] Referral Initiated 02/14/2012 Appointment: Taylor [facility]el[facility] [phone] [facility] [facility] 02/07/2012 Patient Education: Patient Medication Summary [...]
--- OUTSIDE RECORDS SUMMARY | 2019-09-15 18:35 | XMS REPORT | CCD ---
Author Author Jason Carey APRN Organization DAM[facility] CONKLIN [facility] Address [address] [place] [address] Phone Care Team Providers Care Interpreter For The Deaf Name Role Phone PP Unavailable CCM Unavailable Summary Purpose Interface Exchange Insurance Providers Payer name Policy type / Coverage type Covered alliance party ID Effective Begin Date Effective End Date WPS MEDICARE PART B [place] Medicare Part B [id number] 2015 Unknown [facility] Medicare Part B [id number] Un known Family History Family History data not found Social History Social History Element Codes Description Effective Dates Tobacco history SNOMED CT: 252451573 Never smoker 01/20/2015 Allergies, Adverse Reactions, Alerts [...] hydrocodone 10 mg-acetaminophen 300 mg tablet RxNorm: 739317 1 Tablet(s) Oral Q8H as needed for pain 05/09/2019 No Stop Date Active hydrocodone 5 mg-acetaminophen 325 mg tablet RxNorm: 586060 1 Tablet(s) Oral Every 6 hours as needed 05/09/2019 No Stop Date Active Bactrim DS 800 mg-160 mg tablet RxNorm: 638473 1 Tablet(s) PO BID 0 01/13/2015 01/22/2015 Inactive aspirin 81 mg tablet,delayed release RxNorm: 026494 1 Tablet(s) PO QD 02/07/2012 03/07/2012 Inactive Vitamin D3 1000 units Capsule RxNorm: 2 Capsule(s) PO QD No Start Date Active flecainide 100 mg tablet RxNorm: 312223 1 Tablet(s) PO QD No Start Da te Active lisinopril 20 mg tablet RxNorm: 949860 1/2 Tablet(s) PO PRN No Start Date Active imipramine pamoate 75 mg capsule RxNorm: 041427 1 Capsule(s) PO QD No Start Date Active lisinopril 20 mg tablet RxNorm: 932905 1 Tablet(s) PO QD No Start D ate 02/06/2012 Inactive Meclizine 25 mg Tab RxNorm: 8129383 1 Tablet(s) PO QID prn dizzi ness [...] 1: 126/70 Code: 8480-6 BMI: 24.8 Code: 59273-4 Heart Rate 1: 84 bpm Height: 6' Respiratory Rate: 20 bpm Temperature: 36 .6 (C) / 97.8 (F) Weight: 183 lbs 01/20/2015 Blood Pressure 1: 122/58 Code: 8480-6 BMI: 24.8 Code: 66907-4 Heart Rate 1: 80 bpm Height: 6' Respiratory Rate: 20 bpm Temperature: 36 .4 (C) / 97.6 (F) Weight: 183 lbs 01/13/2015 Blood Pressure 1: 142/68 Code: 8480-6 BMI: 24.8 Code: 01860-1 Heart Rate 1: 86 bpm Height: 6' Respiratory Rate: 20 bpm Temperature: 36 .6 (C) / 97.8 (F) Weight: 183 lbs 02/07/2012 Blood Pressure 1: 130/70 Code: 8480-6 BMI: 25.7 Code: 83244-0 Heart Rate 1: 74 bpm Height: 5'11" [...] S22.39XA] Lizzette Winjonna OCAMPO S. Estella NAVARRO [facility] CPT-4: 29779 05/09/2019 OFFICE/OUTPATIENT VISIT EST Diagnosis: Localized enlarged lymph nodes[ICD10: R59.0] Diagnosis: Encounter for follow-up examination after completed treatment for conditions other than malignant neoplasm[ICD10: Z09] Lashawn OCAMPO S. Jelly HQND[employer] Level CPT-4: 08238 01/28/2015 OFFICE/OUTPATIENT VISIT EST Diagnosis: Localized enlarged lymph nodes[ICD10: R59.0] Lashawn OCAMPO S. ORENDER Level CPT-4: 62782 01/20/2015 OFFICE/OUTPATIENT VISIT EST Diagnosis: LYMPHADENOPATHY[ICD9: 785.6] Diagnosis: LOCAL SKIN INFECTION[ICD9: 686.9] Lashawn Gustafson S. ORENDER Level CPT-4: 11474 01/13/2015 OFFICE/OUTPATIENT VISIT NEW Diagnosis: Grey's cyst of knee[ICD9: 727.51] Taylor GAYLE S. Jelly HQNDER [facility] CPT-4: 44026 02/07/2012 Plan of Care Planned Activity Notes [...] worsening symptoms 01/28/2015 Appointment: Lashawn Carlson WPtel: [address] [place], [place] [phone] [place] FOLLOW UP 01/28/2015 Patient Education: Patient Medication Summary Completed 01/28/2015 Visit Plan: Complete antibiotics. Monito r lymph node size and follow-up for persistent symptoms. 01/20/2015 Appointment: Lashawn Carlson WPtel: [address] [place], [place] [phone] 01/17 confirmed FOLLOW UP 01/20/2015 Patient Education: Patient Medication Summary Completed 01/20/2015 Visit Plan: Septra DS - 1 po bid x 10 da ys Follow-up in 1 week. 01/13/2015 Appointment: Lashawn Carlson WPtel: [address] [place], [place] [phone] [place] FOLLOW UP 01/13/2015 Patient Education: Patient Medication Summary Completed 01/13/2015 Appointment: Clarisa Garcia WPtel: [address] [place], [place] [phone] [place] cancelled because patient evaluated in ER ACUTE ILLNESS 06/08/2013 Appointment: Damaris Conklin WPtel: [phone] [facility] [place] INJECTION 12/04/2012 Referral: Damaris Conklin [facility] [phone] [facility] Referral Initiated 02/14/2012 Appointment: Taylor Carey [...]
[2019-09-15 18:55] LABS: BASOPHILS % (AUTO) 0 % (0-10); EOSINOPHILS % (AUTO) 0 % (0-10); HEMATOCRIT 31 % (40-54); HEMOGLOBIN 10.4 G/DL (13.3-17.7); LYMPHOCYTES # (AUTO) 1.8 X 10^3 (1.0-4.0); LYMPHOCYTES % (AUTO) 20 % (12-44); MEAN CORPUSCULAR HEMOGLOBIN 34 PG (25-34); MEAN CORPUSCULAR HGB CONC 33 G/DL (32-36); MEAN CORPUSCULAR VOLUME 102 FL (80-99); MONOCYTES # (AUTO) 1.1 X 10^3 (0.0-1.0); MONOCYTES % (AUTO) 13 % (0-12); NEUTROPHILS # (AUTO) 6.1 X 10^3 (1.8-7.8); NEUTROPHILS % (AUTO) 67 % (42-75); PLATELET COUNT 196 10^3/uL (130-400); RED CELL DISTRIBUTION WIDTH 14.3 % (10.0-14.5); WHITE BLOOD COUNT 9.2 10^3/uL (4.3-11.0)
--- NOTE | 2019-09-15 19:04 | ED General ---
General Chief Complaint: Respiratory Problems Stated Complaint: WEAKNESS Nursing Triage Note: PT TO RM 9 WITH COMPLAINT OF SOA THAT HAS BEEN ON AND OFF FOR A MONTH. STATES HE WAS MOWING THE GRASS TODAY AND WHEN HE GOT OFF THE MOWER IS SOA INCREASED AND HE FELT DIZZY AND WEAK. Nursing Sepsis Screen: No Definite Risk Source of Information: Patient Exam Limitations: No Limitations History of Present Illness Date Seen by Provider: September 15, 2019 Time Seen by Provider: 18:44 Initial Comments Patient arrives the ER by by private conveyance with his daughter and chief complaint that couple hours prior to arrival he was out mowing the grass and suddenly when he finished he was very weak and tired. He is not having any lateralizing symptoms, facial droop but he says he does have some slurred speech. He says last known well time was 4:00. He is not having any chest pain but does have some increased shortness of breath and work of breathing. He denies a history of lung or heart disease. He is on flecainide and follows with a senior medical writer Dr. Guerra but does not take blood thinners. He was recently discovered to be anemic by Dr. Poon his primary care doctor and for the past couple weeks has been on iron. Allergies and Home Medications Allergies Coded Allergies: No Known Drug Allergies (Unverified , 06/07/13) Home Medications Codeine/Promethazine Hcl 120 Ml Syrup, 1 TSP PO Q 4 - 6 HRS PRN Prescribed by: LINDA ALCALA on 06/07/13 1158 Hydrocodone Bit/Acetaminophen 1 Tab Tab, 1 EACH PO Q8H PRN for PAIN-MODERATE Prescribed by: BAY SAUCEDA on 05/04/19 1020 Patient Home Medication List Home Medication List Reviewed: Yes Review of Systems Review of Systems Constitutional: No chills, No dizziness, No fever; malaise, weakness EENTM: No ear discharge, No hearing loss, No ear pain Respiratory: No cough, No phlegm; short of breath; No wheezing Cardiovascular: No chest pain, No edema, No Hx of Intervention Gastrointestinal: No abdominal pain, No constipation, No diarrhea Genitourinary: No discharge, No dysuria Musculoskeletal: No back pain, No joint pain Skin: No pruritus, No rash Psychiatric/Neurological: Headache; Denies Numbness, Denies Paresthesia All Other Systems Reviewed Negative Unless Noted: Yes Past Zspupqw-Cvtxyi-Licnfv Hx Patient Social History Alcohol Use: Denies Use Recreational Drug Use: No Smoking Status: Never a Smoker 2nd Hand Smoke Exposure: No Recent Foreign Travel: No Contact w/Someone Who Travel: No Recent Infectious Disease Expo: No Recent Hopitalizations: No Seasonal Allergies Seasonal Allergies: No Past Medical History Surgeries: Yes Respiratory: No Cardiac: Yes Neurological: No Genitourinary: No Gastrointestinal: No Musculoskeletal: No Endocrine: No HEENT: No Cancer: Yes Prostate Physical Exam Vital Signs Vital Signs - First Documented 09/15/19 18:36 Pulse 89 Resp 30 B/P (MAP) 144/85 (104) Pulse Ox 100 O2 Delivery Room Air Capillary Refill : Less Than 3 Seconds Height, Weight, BMI Height: 6'" Weight: 180lbs. oz. 81.765887ho; 22.00 BMI Method: General Appearance: Anxious, Thin Eyes: Bilateral Eye Normal Inspection, Bilateral Eye PERRL, Bilateral Eye EOMI HEENT: PERRL/EOMI, TMs Normal, Pharynx Normal, Moist Mucous Membranes Neck: Full Range of Motion, Normal Inspection Respiratory: Lungs Clear, Normal Breath Sounds, Decreased Breath Sounds (increased rate around 24 breaths per minute) Cardiovascular: Regular Rate, Rhythm, No Edema, Normal Peripheral Pulses Gastrointestinal: Normal Bowel Sounds, Non Tender, Soft Extremity: Normal Capillary Refill, Normal Inspection, No Pedal Edema Neurologic/Psychiatric: Alert, Oriented x3, No Motor/Sensory Deficits (all 4 extremities. No facial asymmetry. 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3-11.0 10^3/uL Red Blood Count 3.09 L 4.35-5.85 10^6/uL Hemoglobin 10.4 L 13.3-17.7 G/DL Hematocrit 31 L 40-54 % Mean Corpuscular Volume 102 H 80-99 FL Mean Corpuscular Hemoglobin 34 25-34 PG Mean Corpuscular Hemoglobin Concent 33 32-36 G/DL Red Cell Distribution Width 14.3 10.0-14.5 % Platelet Count 196 130-400 10^3/uL Mean Platelet Volume 12.0 H 7.4-10.4 FL Neutrophils (%) (Auto) 67 42-75 % Lymphocytes (%) (Auto) 20 12-44 % Monocytes (%) (Auto) 13 H 0-12 % Eosinophils (%) (Auto) 0 0-10 % Basophils (%) (Auto) 0 0-10 % Neutrophils # (Auto) 6.1 1.8-7.8 X 10^3 Lymphocytes # (Auto) 1.8 1.0-4.0 X 10^3 Monocytes # (Auto) 1.1 H 0.0-1.0 X 10^3 Eosinophils # (Auto) 0.0 0.0-0.3 10^3/uL Basophils # (Auto) 0.0 0.0-0.1 10^3/uL Prothrombin Time 13.5 12.2-14.7 SEC INR Comment 1.0 0.8-1.4 Activated Partial Thromboplast Time 28 24-35 SEC Sodium Level 135 135-145 MMOL/L Potassium Level 5.1 H 3.6-5.0 MMOL/L Chloride Level 101 98-107 MMOL/L Carbon Dioxide Level 19 L 21-32 MMOL/L Anion Gap 15 H 5-14 MMOL/L Blood Urea Nitrogen 29 H 7-18 MG/DL Creatinine 2.16 H 0.60-1.30 MG/DL Estimat Glomerular Filtration Rate 29 BUN/Creatinine Ratio 13 Glucose Level 125 H 70-105 MG/DL Calcium Level 9.8 8.5-10.1 MG/DL Corrected Calcium 9.7 8.5-10.1 MG/DL Magnesium Level 1.9 1.6-2.4 MG/DL Total Bilirubin 0.7 0.1-1.0 MG/DL Aspartate Amino Transf (AST/SGOT) 23 5-34 U/L Alanine Aminotransferase (ALT/SGPT) 15 0-55 U/L Alkaline Phosphatase 67 40-136 U/L Total Creatine Kinase 131 30-200 U/L Myoglobin 263.9 H 10.0-92.0 NG/ML Troponin I < 0.028 < 0.028 <0.028 NG/ML B-Type Natriuretic Peptide 40.6 <100.0 PG/ML Total Protein 7.7 6.4-8.2 GM/DL Albumin 4.1 3.2-4.5 GM/DL Urine Color YELLOW Urine Clarity CLEAR Urine pH 6.0 5-9 Urine Specific [place] 1.010 L 1.016-1.022 Urine Protein NEGATIVE NEGATIVE Urine Glucose (UA) NEGATIVE NEGATIVE Urine Ketones TRACE H NEGATIVE Urine Nitrite NEGATIVE NEGATIVE Urine Bilirubin NEGATIVE NEGATIVE Urine Urobilinogen 0.2 < = 1.0 MG/DL Urine Leukocyte Esterase NEGATIVE NEGATIVE Urine RBC (Auto) NEGATIVE NEGATIVE Urine RBC NONE /HPF Urine WBC 0-2 /HPF Urine Crystals PRESENT H /LPF Urine Amorphous Sediment RARE JOEY URATES H /LPF Urine Bacteria NEGATIVE /HPF Urine Casts PRESENT /LPF Urine Hyaline Casts 2-5 H /LPF Urine Mucus NEGATIVE /LPF Urine Culture Indicated NO My Orders Orders - SHANNON MORTON Ed Iv/Invasive Line Start (09/15/19 19:09) Ns Iv 1000 Ml (Sodium Chloride 0.9%) (09/15/19 19:09) Ct Head Wo (09/15/19 19:09) Ua Culture If Indicated (09/15/19 19:09) Creatine Kinase (09/15/19 19:40) Ed Iv/Invasive Line Start (09/15/19 19:46) Ns Iv 500 Ml (Sodium Chloride 0.9%) (09/15/19 19:46) Troponin I (09/15/19 20:40) Ed Iv/Invasive Line Start (09/15/19 20:35) Ns Iv 1000 Ml (Sodium Chloride 0.9%) (09/15/19 20:35) Medications Given in ED Current Medications Medications Dose Ordered Sig/Rohan Route Start Time Stop Time Status Last Admin Dose Admin Sodium Chloride 500 ml @ 0 mls/hr Q0M ONCE IV 09/15/19 19:46 09/15/19 19:47 DC 09/15/19 19:51 0 MLS/HR Vital Signs/I&O 09/15/19 18:36 Pulse 89 Resp 30 B/P (MAP) 144/85 (104) Pulse Ox 100 O2 Delivery Room Air Capillary Refill : Less Than 3 Seconds Blood Pressure Mean: 104 Progress Note #1: Time: 19:08 Progress Note Acute onset weakness and shortness of breath with even minor exertion. Cardiac, pneumonia, PE etc. Plan to get a CT of the head and chest. Aseptic vital signs, not tachycardic. Oxygen saturations on room air 98%. Progress Note #2: Time: 19:56 Progress Note Labs are more consistent with dehydration, heat injury. Patient says he was not sweating all time he was mowing grass and it is warm today. His last troponin from 2013 was 1.7. He denies having history of chronic kidney disease that he is aware of. 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 He has an elevated BUN of 29. He's received a liter of fluids or any give him another 500 cc and check a CPK. He is drinking water and tolerating it. Initial troponins negative. He has not been able to produce a urine yet which would also be consistent with dehydration. We'll keep fluids going until he is able to urinate and repeat a two-hour delta troponin at 2039. Progress Note #3: Time: 20:36 Progress Note After 1500 cc or 20 mils per kilogram fluid bolus patient still not able to make urine. We did offer an observation stay for IV fluids versus try some more fluids here in the ER and he would prefer to try fluids in the ER should he go home tonight preferably. Still plan to get a delta troponin in 1 hour. He has not had any anginal symptoms. Progress Note #4: Time: 22:25 Progress Note The patient says he feels significantly better. He's been drinking water throughout his stay. He was finally able to make urine. He has ketones in it as well as other evidence of dehydration. No significant harm seems to the fell his heart. We're going to have him follow-up by calling Tuesday for an appointment with Dr. Poon to be seen within the next week and repeat labs as necessary. We have given good return precautions and the patient is okay with this plan. Patient does not want to stay in the hospital overnight. ECG Initial ECG Impression Date: September 15, 2019 Initial ECG Impression Time: 18:41 Initial ECG Rate: 89 Initial ECG Rhythm: Normal Sinus Initial ECG Intervals: QT (474) Initial ECG Impression: Normal, Nonspecific Changes Comment Normal sinus rhythm without clinically relevant ST T elevation or depression. Diagnostic Imaging Diagonstic Imaging: Xray Plain Films/CT/US/NM/MRI: chest (1v) Comments NAME: KAROLINE AGUILAR [facility] REC#: [id number] PT STATUS: REG ER : 1930 PHYSICIAN: MARION DEGROOT APRN ADMIT DATE: 09/15/19/ER Draft Date of Exam:09/15/19 CHEST 1 VIEW, AP/PA ONLY INDICATION: Shortness of breath Portable chest 6:50 PM Heart size and pulmonary vascularity are normal. Lungs are clear. There are no effusions or pneumothoraces. IMPRESSION: Negative chest Dictated on workstation # [id number] Dict: 09/15/191905 Trans: 09/15/191908 CINDY [id number] Interpreted by: ARGENIS ROCHE MD Electronically signed by: Reviewed: Reviewed by Me Diagonstic Imaging: CT (without IV contrast) Plain Films/CT/US/NM/MRI: head Comments [facility] [place], [place] NAME: KAROLINE AGUILAR [facility] REC#: [id number] PT STATUS: REG ER : 1930 PHYSICIAN: SHANNON MORTON MD ADMIT DATE: 09/15/19/ER Signed Date of Exam:09/15/19 CT HEAD WO PROCEDURE: CT head without contrast. TECHNIQUE: Multiple contiguous axial images were obtained through the brain without the use of intravenous contrast. Auto Exposure Controls were utilized during the CT exam to meet ALARA standards for radiation dose reduction. INDICATION: Weakness and confusion There is decreased density in the periventricular white matter both cerebral hemispheres. There are no masses or hemorrhages. There are no extra-axial fluid collections. IMPRESSION: Chronic ischemic leukoencephalopathy. No acute abnormalities seen. 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 Decision time for Depature: 22:27 Referrals: DAMARIS POON DO (PCP/Family) Primary Care Physician Patient Instructions: Dehydration, Adult (DC), Heat Exhaustion and Heat Stroke (DC) Add. Discharge Instructions: For the next week you should take it easy and stay out of the sun. Drink plenty of fluids. Sports drinks especially mixed 50% with water would be acceptable. Plan to follow up with Dr. Poon early next week to get an appointment and reexamination within the next 1 week. Return to the ER if you have new or worrisome symptoms especially such as chest pain, shortness of breath etc. When you return to exercise or work make sure you take plenty of frequent, short breaks and rehydrate with fluids. All discharge instructions reviewed with patient and/or family. Voiced understanding. Copy Copies To 1: DAMARIS POON TITUS J September 15, 2019 19:04
[2019-09-15 19:08] LABS: PROTHROMBIN TIME PATIENT 13.5 SEC (12.2-14.7)
[2019-09-15] MEDS ORDERED: NS IV 1000 ML 1,000 ML IV SCH ×2 (19:09→20:35)
--- NOTE | 2019-09-15 19:09 | Diagnostic Imaging Report ---
INDICATION: Shortness of breath Portable chest 6:50 PM Heart size and pulmonary vascularity are normal. Lungs are clear. There are no effusions or pneumothoraces. IMPRESSION: Negative chest Dictated by: Dictated on workstation # [id number]
[2019-09-15 19:18] LABS: ALBUMIN 4.1 GM/DL (3.2-4.5); BILIRUBIN,TOTAL 0.7 MG/DL (0.1-1.0); CALCIUM 9.8 MG/DL (8.5-10.1); CREATININE SERUM 2.16 MG/DL (0.60-1.30); MAGNESIUM 1.9 MG/DL (1.6-2.4); POTASSIUM 5.1 MMOL/L (3.6-5.0); TOTAL PROTEIN 7.7 GM/DL (6.4-8.2)
--- NOTE | 2019-09-15 19:44 | Diagnostic Imaging Report ---
PROCEDURE: CT head without contrast. TECHNIQUE: Multiple contiguous axial images were obtained through the brain without the use of intravenous contrast. Auto Exposure Controls were utilized during the CT exam to meet ALARA standards for radiation dose reduction. INDICATION: Weakness and confusion There is decreased density in the periventricular white matter both cerebral hemispheres. There are no masses or hemorrhages. There are no extra-axial fluid collections. IMPRESSION: Chronic ischemic leukoencephalopathy. No acute abnormalities seen. Dictated by: Dictated on workstation # [id number]
[2019-09-15] MEDS ORDERED: NS IV 500 ML 500 ML IV ONE (19:46)
[2019-09-15 21:53] LABS: BILIRUBIN,URINE NEGATIVE (NEGATIVE); CLARITY,URINE CLEAR; COLOR,URINE YELLOW; GLUCOSE, URINE (UA) NEGATIVE (NEGATIVE); KETONES,URINE TRACE (NEGATIVE); LEUKOCYTE ESTERASE ,URINE NEGATIVE (NEGATIVE); NITRITE,URINE NEGATIVE (NEGATIVE); PROTEIN,URINE NEGATIVE (NEGATIVE)
[2019-09-15 22:12] LABS: AMORPHOUS SEDIMENT,UR RARE AMOR URATES /LPF; BACTERIA,URINE NEGATIVE /HPF
[2019-09-15 22:13] LABS: WBC,URINE 0-2 /HPF
[2019-09-15 22:29] VITALS: BP 146/95
== END 2019-09-15 22:29 | disposition home or self-care (01) ==
LOC: EDUNIT# 18:27 → ER 18:28
DX: T67.3XXA Heat exhaustion, anhydrotic, initial encounter (principal); E86.0 Dehydration; Z85.46 Personal history of malignant neoplasm of prostate
CPT/HCPCS: 36415; 70450; 71045; 80053; 81000; 82550; 83735; 83874; 83880; 84484; 85025; 85610; 85730; 93005; 93041; 96360; 96361

== ENCOUNTER → 2020-01-08 | Emergency (ER) | payer MEDICARE ==
[~2020-01-08] VITALS: Ht 182.8 cm; Wt 72.5 kg
[~2020-01-08] MED LIST changes: +NS IV 500 ML 500 ML IV ONE
[2020-01-08 12:38] LABS: BASOPHILS % (AUTO) 0 % (0-10); EOSINOPHILS # (AUTO) 0.1 10^3/uL (0.0-0.3); EOSINOPHILS % (AUTO) 1 % (0-10); HEMATOCRIT 26 % (40-54); HEMOGLOBIN 8.9 g/dL (13.3-17.7); LYMPHOCYTES # (AUTO) 1.5 10^3/uL (1.0-4.0); LYMPHOCYTES % (AUTO) 18 % (12-44); MEAN CORPUSCULAR HEMOGLOBIN 34 pg (25-34); MEAN CORPUSCULAR HGB CONC 34 g/dL (32-36); MEAN CORPUSCULAR VOLUME 100 fL (80-99); MEAN PLATELET VOLUME 12.6 fL (9.0-12.2); MONOCYTES # (AUTO) 1.1 10^3/uL (0.0-1.0); MONOCYTES % (AUTO) 13 % (0-12); NEUTROPHILS # (AUTO) 5.7 10^3/uL (1.8-7.8); NEUTROPHILS % (AUTO) 68 % (42-75); PLATELET COUNT 155 10^3/uL (130-400); WHITE BLOOD COUNT 8.4 10^3/uL (4.3-11.0)
--- NOTE | 2020-01-08 12:40 | ED Fall/Injury ---
General Chief Complaint: Trauma-Non Activation Stated Complaint: FALL Nursing Triage Note: pt reports getting up from sitting position gets dizzy and falls. reports x2. SOB has been getting worse with any use of arms, denies respiratory history. Source: patient Exam Limitations: no limitations History of Present Illness Date Seen by Provider: Jan 08, 2020 Time Seen by Provider: 12:20 Initial Comments Here with report of a few falls this weekend. Has not had CT scan. States that he was laying in his recliner and heard the doorbell. He got up to answer and passed out. States he's only had 1 cup of water today but otherwise eating and drinking okay. Denies fever or chills. Denies dysuria or diarrhea. Denies nausea or vomiting. Overall feels better now. Follows with Dr. Poon. He apparently called her office and they instructed him to come here. Occurred: this morning Severity: mild Injuries/Pain Location: head Context: lightheaded Loss of Consciousness: brief (seconds) Modifying Factors: Improves With Rest Associated Symptoms (Fall): No Abdominal Pain, No Chest Pain, No Confusion, No Dizziness, No Headache, No Nausea/Vomiting, No Neck Pain, No Shortness of Air Allergies and Home Medications Allergies Coded Allergies: No Known Drug Allergies (Unverified , 06/07/13) Home Medications Codeine/Promethazine Hcl 120 Ml Syrup, 1 TSP PO Q 4 - 6 HRS PRN Prescribed by: LINDA ALCALA on 06/07/13 1158 Hydrocodone Bit/Acetaminophen 1 Tab Tab, 1 EACH PO Q8H PRN for PAIN-MODERATE Prescribed by: BAY SAUCEDA on 05/04/19 1020 Patient Home Medication List Home Medication List Reviewed: Yes Review of Systems Review of Systems Constitutional: see HPI; No chills, No fever Eyes: No Symptoms Reported Ears, Nose, Mouth, Throat: no symptoms reported Respiratory: No cough, No short of breath Cardiovascular: No chest pain, No edema; syncope Gastrointestinal: No abdominal pain, No nausea, No vomiting Musculoskeletal: No muscle pain; muscle weakness; No neck pain Skin: change in color, lesions Psychiatric/Neurological: Denies Headache, Denies Weakness Past Venttne-Btbyrz-Qhchok Hx Past Med/Social Hx: Reviewed Nursing Past Med/Soc Hx Patient Social History Alcohol Use: Denies Use Recreational Drug Use: No Smoking Status: Never a Smoker 2nd Hand Smoke Exposure: No Recent Foreign Travel: No Contact w/Someone Who Travel: No Recent Infectious Disease Expo: No Recent Hopitalizations: No Seasonal Allergies Seasonal Allergies: No Past Medical History Surgeries: Yes Respiratory: No Cardiac: Yes Neurological: No Genitourinary: No Gastrointestinal: No Musculoskeletal: No Endocrine: No HEENT: No Cancer: Yes Prostate Family Medical History Reviewed Nursing Family Hx Physical Exam Vital Signs Vital Signs - First Documented 01/08/20 12:08 Temp 36.1 Pulse 89 Resp 21 B/P (MAP) 164/100 (121) Pulse Ox 99 O2 Delivery Room Air Capillary Refill : Less Than 3 Seconds Height, Weight, BMI Height: 6'" Weight: 180lbs. oz. 81.949128xk; 21.00 BMI Method: General Appearance: WD/WN, no apparent distress HEENT: PERRL/EOMI, TMs normal, pharynx normal Neck: full range of motion, supple Cardiovascular: regular rate, rhythm, no murmur Respiratory: lungs clear, normal breath sounds Gastrointestinal: non tender, soft Back: normal inspection, no CVA tenderness, no vertebral tenderness Extremities: non-tender, normal inspection Neurologic/Psychiatric: alert, oriented x 3 Skin: warm/dry, ecchymosis (left-sided had), other (a few scattered abrasions to the left side of his head on the scalp) Marta Coma Score Best Eye Response: (4) Open Spontaneously Best Verbal Response: (5) Oriented Best Motor Response: (6) Obeys Commands Progress/Results/Core Measures Results/Orders Lab Results Laboratory Tests Test 01/08/20 12:25 01/08/20 13:28 Range/Units White Blood Count 8.4 4.3-11.0 10^3/uL Red Blood Count 2.59 L 4.30-5.52 10^6/uL Hemoglobin 8.9 L 13.3-17.7 g/dL Hematocrit 26 L 40-54 % Mean Corpuscular Volume 100 H 80-99 fL Mean Corpuscular Hemoglobin 34 25-34 pg Mean Corpuscular Hemoglobin Concent 34 32-36 g/dL Red Cell Distribution Width 13.6 10.0-14.5 % Platelet Count 155 130-400 10^3/uL Mean Platelet Volume 12.6 H 9.0-12.2 fL Immature Granulocyte % (Auto) 0 % Neutrophils (%) (Auto) 68 42-75 % Lymphocytes (%) (Auto) 18 12-44 % Monocytes (%) (Auto) 13 H 0-12 % Eosinophils (%) (Auto) 1 0-10 % Basophils (%) (Auto) 0 0-10 % Neutrophils # (Auto) 5.7 1.8-7.8 10^3/uL Lymphocytes # (Auto) 1.5 1.0-4.0 10^3/uL Monocytes # (Auto) 1.1 H 0.0-1.0 10^3/uL Eosinophils # (Auto) 0.1 0.0-0.3 10^3/uL Basophils # (Auto) 0.0 0.0-0.1 10^3/uL Immature Granulocyte # (Auto) 0.0 0.0-0.1 10^3/uL Sodium Level 130 L 135-145 MMOL/L Potassium Level 4.0 3.6-5.0 MMOL/L Chloride Level 96 L 98-107 MMOL/L Carbon Dioxide Level 28 21-32 MMOL/L Anion Gap 6 5-14 MMOL/L Blood Urea Nitrogen 26 H 7-18 MG/DL Creatinine 2.03 H 0.60-1.30 MG/DL Estimat Glomerular Filtration Rate 31 BUN/Creatinine Ratio 13 Glucose Level 93 70-105 MG/DL Calcium Level 8.9 8.5-10.1 MG/DL Corrected Calcium 9.1 8.5-10.1 MG/DL Total Bilirubin 0.6 0.1-1.0 MG/DL Aspartate Amino Transf (AST/SGOT) 25 5-34 U/L Alanine Aminotransferase (ALT/SGPT) 14 0-55 U/L Alkaline Phosphatase 72 40-136 U/L Total Protein 6.8 6.4-8.2 GM/DL Albumin 3.7 3.2-4.5 GM/DL Urine Color YELLOW Urine Clarity CLEAR Urine pH 6.0 5-9 Urine Specific [place] <=1.005 1.016-1.022 Urine Protein NEGATIVE NEGATIVE Urine Glucose (UA) NEGATIVE NEGATIVE Urine Ketones NEGATIVE NEGATIVE Urine Nitrite NEGATIVE NEGATIVE Urine Bilirubin NEGATIVE NEGATIVE Urine Urobilinogen 0.2 < = 1.0 MG/DL Urine Leukocyte Esterase NEGATIVE NEGATIVE Urine RBC (Auto) NEGATIVE NEGATIVE Urine RBC NONE /HPF Urine WBC NONE /HPF Urine Squamous Epithelial Cells 0-2 /HPF Urine Crystals NONE /LPF Urine Bacteria NEGATIVE /HPF Urine Casts NONE /LPF Urine Mucus NEGATIVE /LPF Urine Culture Indicated NO My Orders Orders - ARGENIS ALONSO MD Ct Head/Cervical Spine Wo (01/08/20 12:32) Cbc With Automated Diff (01/08/20 12:32) Comprehensive Metabolic Panel (01/08/20 12:32) Ua Culture If Indicated (01/08/20 12:32) Ns Iv 500 Ml (Sodium Chloride 0.9%) (01/08/20 12:38) Medications Given in ED Current Medications Medications Dose Ordered Sig/Rohan Route Start Time Stop Time Status Last Admin Dose Admin Sodium Chloride 500 ml @ 0 mls/hr Q0M ONCE IV 01/08/20 12:38 01/08/20 12:39 DC 01/08/20 12:48 500 MLS/HR Vital Signs/I&O 01/08/20 01/08/20 12:08 13:21 Temp 36.1 Pulse 89 75 Resp 21 16 B/P (MAP) 164/100 (121) 180/94 (122) Pulse Ox 99 98 O2 Delivery Room Air Room Air Blood Pressure Mean: 121 Progress Progress Note : Progress Note Seen and evaluated. IV, labs, UA, normal saline 500 mL bolus, CT head and neck ordered. Monitor patient. 1430: No acute findings of significant other than hemoglobin lower than before. CT head does not show acute findings. He is without symptoms currently and wants to go home. I discussed the case with his stepdaughter she is in agreement as well the patient does not want to stay. He was offered observation admission but he declined. Discharged home with return precautions. Patient verbalize understanding instructions and agreement with plan. I did talk with him about potentially using a walker or wheeled walker for stability and the agreed that that might be a good idea. Diagnostic Imaging Diagonstic Imaging: CT Plain Films/CT/US/NM/MRI: c-spine, head Comments [facility], [place] NAME: KAROLINE AGUILAR [facility] REC#: [id number] PT STATUS: REG ER : 1930 PHYSICIAN: ARGENIS ALONSO MD ADMIT DATE: 01/08/20/ER Draft Date of Exam:01/08/20 CT HEAD/CERVICAL SPINE WO PROCEDURE: CT head and CT cervical spine without contrast. TECHNIQUE: Multiple contiguous axial images were obtained through the brain and cervical spine without the use of intravenous contrast. Sagittal and coronal reformations through the cervical spine were then performed. Auto Exposure Controls were utilized during the CT exam to meet ALARA standards for radiation dose reduction. INDICATION: Fall with head and neck trauma. COMPARISON: Correlation is made with prior head CT from 09/15/2019. CT Head: FINDINGS: Ventricles and sulci are prominent consistent with cerebral atrophy. Moderate periventricular hypodensity is noted consistent with senescent change. No sulcal effacement or midline shift is identified. No acute intra-axial or extra-axial hemorrhage is detected. Cisterns are patent. Visualized paranasal sinuses are clear. IMPRESSION: Chronic and senescent changes. No acute intracranial process is detected. CT Cervical Spine: FINDINGS: Curvature and alignment of the cervical spine is normal. 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 No fracture is identified. The prevertebral tissues are normal. Odontoid is intact. IMPRESSION: Cervical spondylosis. No acute bony abnormality is detected. Dictated on workstation # [id number] Dict: 01/08/20 1305 Trans: 01/08/20 1310 [id number] Interpreted by: JEREMIAH BOLAÑOS MD Electronically signed by: Departure Impression Primary Impression: Syncope Qualified Codes: R55 - Syncope and collapse Disposition: 01 HOME, SELF-CARE Condition: Improved Departure-Patient Inst. Decision time for Depature: 14:31 Referrals: DAMARIS POON DO (PCP/Family) Primary Care Physician Patient Instructions: Syncope (Fainting) (DC) Add. Discharge Instructions: All discharge instructions reviewed with patient and/or family. Voiced understanding. Drink plenty of fluids and eat a normal diet. Follow-up with her doctor within one week for recheck and further evaluation. You should consider using a walker or wheeled walker with chair for stability. Return for worse pain, weakness, breathing problems, vision or balance problems or other concerns as needed. ARGENIS ALONSO MD Jan 08, 2020 12:40
[2020-01-08 12:46] LABS: ALBUMIN 3.7 GM/DL (3.2-4.5)
[2020-01-08 12:48] LABS: CALCIUM 8.9 MG/DL (8.5-10.1)
[2020-01-08 12:49] LABS: TOTAL PROTEIN 6.8 GM/DL (6.4-8.2)
[2020-01-08 12:50] LABS: BILIRUBIN,TOTAL 0.6 MG/DL (0.1-1.0)
[2020-01-08 12:52] LABS: CREATININE SERUM 2.03 MG/DL (0.60-1.30)
--- NOTE | 2020-01-08 13:10 | Diagnostic Imaging Report ---
PROCEDURE: CT head and CT cervical spine without contrast. TECHNIQUE: Multiple contiguous axial images were obtained through the brain and cervical spine without the use of intravenous contrast. Sagittal and coronal reformations through the cervical spine were then performed. Auto Exposure Controls were utilized during the CT exam to meet ALARA standards for radiation dose reduction. INDICATION: Fall with head and neck trauma. COMPARISON: Correlation is made with prior head CT from 09/15/2019. CT Head: FINDINGS: Ventricles and sulci are prominent consistent with cerebral atrophy. Moderate periventricular hypodensity is noted consistent with senescent change. No sulcal effacement or midline shift is identified. No acute intra-axial or extra-axial hemorrhage is detected. Cisterns are patent. Visualized paranasal sinuses are clear. IMPRESSION: Chronic and senescent changes. No acute intracranial process is detected. CT Cervical Spine: FINDINGS: Curvature and alignment of the cervical spine is normal. 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 No fracture is identified. The prevertebral tissues are normal. Odontoid is intact. IMPRESSION: Cervical spondylosis. No acute bony abnormality is detected. Dictated by: Dictated on workstation # [id number]
--- NOTE | 2020-01-08 13:16 | NUR ---
pt unable to provide urine specimen at this time.
[2020-01-08 13:21] VITALS: BP 180/94
[2020-01-08 13:35] LABS: BILIRUBIN,URINE NEGATIVE (NEGATIVE); CLARITY,URINE CLEAR; COLOR,URINE YELLOW; GLUCOSE, URINE (UA) NEGATIVE (NEGATIVE); KETONES,URINE NEGATIVE (NEGATIVE); LEUKOCYTE ESTERASE ,URINE NEGATIVE (NEGATIVE); NITRITE,URINE NEGATIVE (NEGATIVE); PROTEIN,URINE NEGATIVE (NEGATIVE)
[2020-01-08 13:55] LABS: BACTERIA,URINE NEGATIVE /HPF; SQUAMOUS EPITHELIAL CELL,UR 0-2 /HPF
--- NOTE | 2020-01-08 14:33 | NUR ---
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
== END ==
LOC: EDUNIT# 12:01 → ER 12:04
DX: R55 Syncope and collapse (principal); Z85.46 Personal history of malignant neoplasm of prostate
CPT/HCPCS: 36415; 70450; 72125; 80053; 81000; 85025

== ENCOUNTER 2020-01-14 14:18 | Emergency (ER) | payer MEDICARE ==
[~2020-01-14] VITALS: Ht 177 cm; Wt 77.0 kg
[~2020-01-14 14:18] MED LIST changes: -NS IV 500 ML 500 ML IV ONE
--- NOTE | 2020-01-14 14:40 | ED General ---
General Stated Complaint: HIGH BP Source of Information: Patient Exam Limitations: No Limitations History of Present Illness Date Seen by Provider: Jan 14, 2020 Time Seen by Provider: 14:37 Initial Comments To ER with reports of high blood pressure. Objective this morning and found it to be 180s systolic. He otherwise feels fine, has no complaints. He takes no blood pressure medications that he is aware of. Timing/Duration: 1-2 Days Severity: Moderate Associated Systoms: No Chest Pain, No Syncope, No Weakness Allergies and Home Medications Allergies Coded Allergies: No Known Drug Allergies (Unverified , 06/07/13) Home Medications Codeine/Promethazine Hcl 120 Ml Syrup, 1 TSP PO Q 4 - 6 HRS PRN Prescribed by: LINDA ALCALA on 06/07/13 1158 Hydrocodone Bit/Acetaminophen 1 Tab Tab, 1 EACH PO Q8H PRN for PAIN-MODERATE Prescribed by: BAY SAUCEDA on 05/04/19 1020 Patient Home Medication List Home Medication List Reviewed: Yes Review of Systems Review of Systems Constitutional: see HPI EENTM: see HPI Respiratory: no symptoms reported Cardiovascular: no symptoms reported Genitourinary: no symptoms reported Skin: no symptoms reported Psychiatric/Neurological: No Symptoms Reported Hematologic/Lymphatic: No Symptoms Reported Immunological/Allergic: no symptoms reported Past Itwbgwu-Bjlvwv-Fzdumu Hx Patient Social History 2nd Hand Smoke Exposure: No Recent Foreign Travel: No Contact w/Someone Who Travel: No Recent Hopitalizations: No Seasonal Allergies Seasonal Allergies: No Past Medical History Surgeries: Yes Respiratory: No Cardiac: Yes Neurological: No Genitourinary: No Gastrointestinal: No Musculoskeletal: No Endocrine: No HEENT: No Cancer: Yes Prostate Psychosocial: No Integumentary: No Blood Disorders: No Physical Exam Vital Signs Vital Signs - First Documented 01/14/20 14:20 Temp 37.0 Pulse 89 Resp 16 B/P (MAP) 162/109 (126) Pulse Ox 100 O2 Delivery Room Air Capillary Refill : Height, Weight, BMI Height: 6'" Weight: 180lbs. oz. 81.340881lg; 21.00 BMI Method: General Appearance: No Apparent Distress, WD/WN Eyes: Bilateral Eye Normal Inspection, Bilateral Eye PERRL, Bilateral Eye EOMI HEENT: PERRL/EOMI Respiratory: Normal Breath Sounds, No Accessory Muscle Use, No Respiratory Distress Cardiovascular: Regular Rate, Rhythm, Normal Peripheral Pulses Gastrointestinal: Non Tender, Soft Extremity: Normal Capillary Refill, Normal Inspection Neurologic/Psychiatric: Alert, Oriented x3 Skin: Normal Color, Warm/Dry Progress/Results/Core Measures Suspected Sepsis SIRS Temperature: Pulse: Respiratory Rate: Laboratory Tests 01/14/20 14:30: White Blood Count 7.3 Blood Pressure / Mean: Laboratory Tests 01/14/20 14:30: Creatinine 1.66H, Platelet Count 165, Total Bilirubin 0.5 Results/Orders Lab Results Laboratory Tests Test 01/14/20 14:30 Range/Units White Blood Count 7.3 4.3-11.0 10^3/uL Red Blood Count 2.75 L 4.30-5.52 10^6/uL Hemoglobin 9.4 L 13.3-17.7 g/dL Hematocrit 28 L 40-54 % Mean Corpuscular Volume 102 H 80-99 fL Mean Corpuscular Hemoglobin 34 25-34 pg Mean Corpuscular Hemoglobin Concent 34 32-36 g/dL Red Cell Distribution Width 13.7 10.0-14.5 % Platelet Count 165 130-400 10^3/uL Mean Platelet Volume 12.1 9.0-12.2 fL Immature Granulocyte % (Auto) 1 % Neutrophils (%) (Auto) 72 42-75 % Lymphocytes (%) (Auto) 16 12-44 % Monocytes (%) (Auto) 11 0-12 % Eosinophils (%) (Auto) 0 0-10 % Basophils (%) (Auto) 0 0-10 % Neutrophils # (Auto) 5.3 1.8-7.8 10^3/uL Lymphocytes # (Auto) 1.2 1.0-4.0 10^3/uL Monocytes # (Auto) 0.8 0.0-1.0 10^3/uL Eosinophils # (Auto) 0.0 0.0-0.3 10^3/uL Basophils # (Auto) 0.0 0.0-0.1 10^3/uL Immature Granulocyte # (Auto) 0.0 0.0-0.1 10^3/uL Sodium Level 131 L 135-145 MMOL/L Potassium Level 4.0 3.6-5.0 MMOL/L Chloride Level 97 L 98-107 MMOL/L Carbon Dioxide Level 24 21-32 MMOL/L Anion Gap 10 5-14 MMOL/L Blood Urea Nitrogen 26 H 7-18 MG/DL Creatinine 1.66 H 0.60-1.30 MG/DL Estimat Glomerular Filtration Rate 39 BUN/Creatinine Ratio 16 Glucose Level 117 H 70-105 MG/DL Calcium Level 9.0 8.5-10.1 MG/DL Corrected Calcium 9.1 8.5-10.1 MG/DL Total Bilirubin 0.5 0.1-1.0 MG/DL Aspartate Amino Transf (AST/SGOT) 25 5-34 U/L Alanine Aminotransferase (ALT/SGPT) 15 0-55 U/L Alkaline Phosphatase 64 40-136 U/L B-Type Natriuretic Peptide 159.5 H <100.0 PG/ML Total Protein 7.1 6.4-8.2 GM/DL Albumin 3.9 3.2-4.5 GM/DL My Orders Orders - MARION DEGROOT APRN Cbc With Automated Diff (01/14/20 14:35) Comprehensive Metabolic Panel (01/14/20 14:35) BNP (01/14/20 14:35) Metoprolol Succinate (Xl) Tab (Toprol Xl (01/14/20 15:30) Metoprolol Succinate (Xl) Tab (Toprol Xl (01/14/20 15:45) Vital Signs/I&O 01/14/20 14:20 Temp 37.0 Pulse 89 Resp 16 B/P (MAP) 162/109 (126) Pulse Ox 100 O2 Delivery Room Air Capillary Refill : Departure Communication (Admissions) 1530-telemetry strip shows sinus rhythm without ectopy in the 80s. Pressure has been 170s to 180s systolic. Impression Primary Impression: High blood pressure Qualified Codes: I10 - Essential (primary) hypertension Disposition: 01 HOME, SELF-CARE Condition: Stable Departure-Patient Inst. Decision time for Depature: 15:06 Referrals: DAMARIS OLSEN DO (PCP/Family) Primary Care Physician Patient Instructions: High Blood Pressure (DC) Copy Copies To 1: DAMARIS OLSEN PETER J APRN Jan 14, 2020 14:40
[2020-01-14 14:42] LABS: BASOPHILS % (AUTO) 0 % (0-10); EOSINOPHILS % (AUTO) 0 % (0-10); HEMATOCRIT 28 % (40-54); HEMOGLOBIN 9.4 g/dL (13.3-17.7); LYMPHOCYTES # (AUTO) 1.2 10^3/uL (1.0-4.0); LYMPHOCYTES % (AUTO) 16 % (12-44); MEAN CORPUSCULAR HEMOGLOBIN 34 pg (25-34); MEAN CORPUSCULAR HGB CONC 34 g/dL (32-36); MEAN CORPUSCULAR VOLUME 102 fL (80-99); MEAN PLATELET VOLUME 12.1 fL (9.0-12.2); MONOCYTES # (AUTO) 0.8 10^3/uL (0.0-1.0); MONOCYTES % (AUTO) 11 % (0-12); NEUTROPHILS # (AUTO) 5.3 10^3/uL (1.8-7.8); NEUTROPHILS % (AUTO) 72 % (42-75); PLATELET COUNT 165 10^3/uL (130-400); WHITE BLOOD COUNT 7.3 10^3/uL (4.3-11.0)
[2020-01-14 14:57] LABS: ALBUMIN 3.9 GM/DL (3.2-4.5)
[2020-01-14 15:00] LABS: TOTAL PROTEIN 7.1 GM/DL (6.4-8.2)
[2020-01-14 15:02] LABS: BILIRUBIN,TOTAL 0.5 MG/DL (0.1-1.0)
[2020-01-14 15:03] LABS: CREATININE SERUM 1.66 MG/DL (0.60-1.30)
[2020-01-14] MEDS ORDERED: meTOproloL SUCCINATE 50 MG (TOPROL XL) TAB PO SCH (15:30)
--- NOTE | 2020-01-14 15:30 | NUR ---
TALKED WITH PT'S STEP DAUGHTER GERONIMO ON THE PHONE. UPDATE GIVEN
[2020-01-14 15:35] VITALS: BP 171/96
== END 2020-01-14 15:35 | disposition home or self-care (01) ==
LOC: EDUNIT# 14:18 → ER 14:19
DX: I10 Essential (primary) hypertension (principal); Z85.46 Personal history of malignant neoplasm of prostate
CPT/HCPCS: 36415; 80053; 83880; 85025; 99283

== ENCOUNTER 2020-01-21 17:15 | Observation (INO) | payer MEDICARE ==
[~2020-01-21] VITALS: Ht 182.8 cm; Wt 70.9 kg
[2020-01-21 17:50] LABS: BASOPHILS % (AUTO) 0 % (0-10); EOSINOPHILS # (AUTO) 0.1 10^3/uL (0.0-0.3); EOSINOPHILS % (AUTO) 1 % (0-10); HEMATOCRIT 30 % (40-54); HEMOGLOBIN 10.2 g/dL (13.3-17.7); LYMPHOCYTES # (AUTO) 1.5 10^3/uL (1.0-4.0); LYMPHOCYTES % (AUTO) 21 % (12-44); MEAN CORPUSCULAR HEMOGLOBIN 34 pg (25-34); MEAN CORPUSCULAR HGB CONC 34 g/dL (32-36); MEAN CORPUSCULAR VOLUME 100 fL (80-99); MONOCYTES # (AUTO) 0.9 10^3/uL (0.0-1.0); MONOCYTES % (AUTO) 12 % (0-12); NEUTROPHILS # (AUTO) 4.6 10^3/uL (1.8-7.8); NEUTROPHILS % (AUTO) 65 % (42-75); PLATELET COUNT 160 10^3/uL (130-400); WHITE BLOOD COUNT 7.1 10^3/uL (4.3-11.0)
[2020-01-21 17:59] LABS: ALBUMIN 4.1 GM/DL (3.2-4.5); POTASSIUM 4.1 MMOL/L (3.6-5.0)
[2020-01-21 18:00] LABS: CALCIUM 9.3 MG/DL (8.5-10.1)
[2020-01-21 18:02] LABS: TOTAL PROTEIN 7.3 GM/DL (6.4-8.2)
[2020-01-21 18:03] LABS: BILIRUBIN,TOTAL 0.5 MG/DL (0.1-1.0)
[2020-01-21 18:05] LABS: CREATININE SERUM 1.68 MG/DL (0.60-1.30)
--- NOTE | 2020-01-21 18:21 | ED General ---
General Chief Complaint: Respiratory Problems Stated Complaint: SOA;HEAVINESS IN ARMS AND LEGS Nursing Triage Note: PT TO [facility] 6 WITH COMPLAINT OF HEAVINESS IN ARMS AND LEGS. PT ALSO HAS SOA ON EXERTION. Nursing Sepsis Screen: No Definite Risk Source of Information: Patient Exam Limitations: No Limitations (SIVA ANAYA MD) History of Present Illness Date Seen by Provider: Jan 21, 2020 Time Seen by Provider: 17:20 Initial Comments This 89-year-old gentleman presents to the emergency room with complaints of a feeling of heaviness in his arms and legs when he tried to get out of the wheelchair today. He also reports feeling short of breath with exertion. He denies any chest pain, cough, or fever. He was noted to be short of breath when he got into the bed but that quickly resolved after he rested. Oxygen saturation is 100 percent on room air and he is afebrile. He reports having a low hemoglobin recently but he has never required transfusion. He reports [facility] (SIVA ANAYA MD) Allergies and Home Medications Allergies Coded Allergies: No Known Drug Allergies (Unverified , 06/07/13) Home Medications Codeine/Promethazine Hcl 120 Ml Syrup, 1 TSP PO Q 4 - 6 HRS PRN Prescribed by: LINDA ALCALA on 06/07/13 1158 Hydrocodone Bit/Acetaminophen 1 Tab Tab, 1 EACH PO Q8H PRN for PAIN-MODERATE Prescribed by: BAY SAUCEDA on 05/04/19 1020 Patient Home Medication List Home Medication List Reviewed: Yes (SIVA ANAYA MD) Review of Systems Review of Systems Constitutional: see HPI EENTM: no symptoms reported Respiratory: see HPI Cardiovascular: no symptoms reported Gastrointestinal: no symptoms reported Genitourinary: no symptoms reported Musculoskeletal: no symptoms reported Skin: no symptoms reported Psychiatric/Neurological: No Symptoms Reported Hematologic/Lymphatic: See HPI Immunological/Allergic: no symptoms reported (SIVA ANAYA MD) Past Wgckutn-Gtuuqr-Yofdjk Hx Past Med/Social Hx: Reviewed Nursing Past Med/Soc Hx (SIVA ANAYA MD) Patient Social History Alcohol Use: Denies Use Recreational Drug Use: No Smoking Status: Never a Smoker 2nd Hand Smoke Exposure: No Recent Foreign Travel: No Contact w/Someone Who Travel: No Recent Infectious Disease Expo: No Recent Hopitalizations: No (SIVA ANAYA MD) Immunizations Up To Date Tetanus Booster (TDap): Unknown (SIVA ANAYA MD) Seasonal Allergies Seasonal Allergies: No (SIVA ANAYA MD) Past Medical History Surgeries: Yes Prostatectomy Respiratory: No Cardiac: Yes Neurological: No Genitourinary: Yes Renal Failure (chronic kidney disease) Gastrointestinal: No Musculoskeletal: No Endocrine: No HEENT: No Cancer: Yes Prostate Psychosocial: No Integumentary: No Blood Disorders: No (SIVA ANAYA MD) Physical Exam Vital Signs Vital Signs - First Documented 01/21/20 17:18 Temp 35.9 Pulse 80 Resp 17 B/P (MAP) 181/100 (127) Pulse Ox 100 O2 Delivery Room Air (ARGENIS ALONSO MD) Vital Signs Capillary Refill : Less Than 3 Seconds (SIVA ANAYA MD) Height, Weight, BMI Height: 6'" Weight: 180lbs. oz. 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 Norm as Tested Skin: Normal Color, Warm/Dry (SIVA ANAYA MD) Progress/Results/Core Measures Suspected Sepsis Recent Fever Within 48 Hours: No Infection Criteria Present: None New/Unexplained Altered Menta: No Sepsis Screen: No Definite Risk SIRS Temperature: Pulse: 80 Respiratory Rate: 17 Laboratory Tests 01/21/20 17:37: White Blood Count 7.1 Blood Pressure 181 /100 Mean: 127 Laboratory Tests 01/21/20 17:37: Creatinine 1.68H, Platelet Count 160, Total Bilirubin 0.5 (SIVA ANAYA MD) Results/Orders Lab Results Laboratory Tests Test 01/21/20 17:37 01/21/20 18:26 Range/Units White Blood Count 7.1 4.3-11.0 10^3/uL Red Blood Count 3.00 L 4.30-5.52 10^6/uL Hemoglobin 10.2 L 13.3-17.7 g/dL Hematocrit 30 L 40-54 % Mean Corpuscular Volume 100 H 80-99 fL Mean Corpuscular Hemoglobin 34 25-34 pg Mean Corpuscular Hemoglobin Concent 34 32-36 g/dL Red Cell Distribution Width 13.5 10.0-14.5 % Platelet Count 160 130-400 10^3/uL Mean Platelet Volume 13.0 H 9.0-12.2 fL Immature Granulocyte % (Auto) 0 % Neutrophils (%) (Auto) 65 42-75 % Lymphocytes (%) (Auto) 21 12-44 % Monocytes (%) (Auto) 12 0-12 % Eosinophils (%) (Auto) 1 0-10 % Basophils (%) (Auto) 0 0-10 % Neutrophils # (Auto) 4.6 1.8-7.8 10^3/uL Lymphocytes # (Auto) 1.5 1.0-4.0 10^3/uL Monocytes # (Auto) 0.9 0.0-1.0 10^3/uL Eosinophils # (Auto) 0.1 0.0-0.3 10^3/uL Basophils # (Auto) 0.0 0.0-0.1 10^3/uL Immature Granulocyte # (Auto) 0.0 0.0-0.1 10^3/uL Sodium Level 129 L 135-145 MMOL/L Potassium Level 4.1 3.6-5.0 MMOL/L Chloride Level 97 L 98-107 MMOL/L Carbon Dioxide Level 21 21-32 MMOL/L Anion Gap 11 5-14 MMOL/L Blood Urea Nitrogen 30 H 7-18 MG/DL Creatinine 1.68 H 0.60-1.30 MG/DL Estimat Glomerular Filtration Rate 39 BUN/Creatinine Ratio 18 Glucose Level 97 70-105 MG/DL Calcium Level 9.3 8.5-10.1 MG/DL Corrected Calcium 9.2 8.5-10.1 MG/DL Magnesium Level 2.0 1.6-2.4 MG/DL Total Bilirubin 0.5 0.1-1.0 MG/DL Aspartate Amino Transf (AST/SGOT) 26 5-34 U/L Alanine Aminotransferase (ALT/SGPT) 13 0-55 U/L Alkaline Phosphatase 79 40-136 U/L Total Creatine Kinase 150 30-200 U/L Troponin I 0.034 H <0.028 NG/ML C-Reactive Protein High Sensitivity 0.13 0.00-0.50 MG/DL Total Protein 7.3 6.4-8.2 GM/DL Albumin 4.1 3.2-4.5 GM/DL Urine Color YELLOW Urine Clarity CLEAR Urine pH 5.5 5-9 Urine Specific [place] 1.010 L 1.016-1.022 Urine Protein NEGATIVE NEGATIVE Urine Glucose (UA) NEGATIVE NEGATIVE Urine Ketones NEGATIVE NEGATIVE Urine Nitrite NEGATIVE NEGATIVE Urine Bilirubin NEGATIVE NEGATIVE Urine Urobilinogen 0.2 < = 1.0 MG/DL Urine Leukocyte Esterase NEGATIVE NEGATIVE Urine RBC (Auto) NEGATIVE NEGATIVE Urine RBC NONE /HPF Urine WBC NONE /HPF Urine Squamous Epithelial Cells NONE /HPF Urine Crystals NONE /LPF Urine Bacteria NEGATIVE /HPF Urine Casts NONE /LPF Urine Mucus NEGATIVE /LPF Urine Culture Indicated NO (ARGENIS ALONSO MD) My Orders Orders - ARGENIS ALONSO MD Ns Iv 500 Ml (Sodium Chloride 0.9%) (01/21/20 19:19) Chest 1 View, Ap/Pa Only (01/21/20 19:38) Troponin I (01/21/20 19:38) (ARGENIS ALONSO MD) Medications Given in ED Current Medications Medications Dose Ordered Sig/Rohan Route Start Time Stop Time Status Last Admin Dose Admin Sodium Chloride 500 ml @ 0 mls/hr Q0M ONCE IV 01/21/20 19:19 01/21/20 19:20 DC 01/21/20 19:23 0 MLS/HR (ARGENIS ALONSO MD) Vital Signs/I&O 01/21/20 01/21/20 17:18 19:45 Temp 35.9 Pulse 80 79 Resp 17 20 B/P (MAP) 181/100 (127) 153/74 Pulse Ox 100 100 O2 Delivery Room Air Room Air (ARGENIS ALONSO MD) Vital Signs/I&O Capillary Refill : Less Than 3 Seconds (SIVA ANAYA MD) Blood Pressure Mean: 127 Progress Note : Time: 18:19 Progress Note Labs were obtained. Troponin is slightly elevated. EKG was reviewed which showed LVH but no ischemia. Care of this patient is being transitioned to Dr. Alonso at this time. (SIVA ANAYA MD) Progress Note : Progress Note 193: I have assumed care of the patient and reviewed the labs. Normal saline 500 mL bolus ordered. Patient does have rather significant aortic stenosis and when dehydrated, symptoms worsen. I did discuss the case with Dr. Poon as this is his third visit in 10 days. He is on flecainide and Lasix. He may need some adjustment. His troponin was also slightly bumped. We will get chest x-ray and repeat troponin. We have decided to put him in overnight observation status and have cardiology evaluate as well. I did discuss the case with Dr. Leigh and he will see him in the morning. He request 2-D echo which was ordered. Patient agrees to admission and plan. Patient requested DO NOT RESUSCITATE status. (ARGENIS ALONSO MD) ECG Initial ECG Impression Date: Jan 21, 2020 Initial ECG Impression Time: 17:26 Initial ECG Rate: 81 Initial ECG Rhythm: Normal Sinus Comment Normal sinus rhythm with no ST elevation or depression. No abnormal intervals or axis deviation. (SIVA ANAYA MD) Departure Communication (Admissions) Time/Spoke to Admitting Phy: 19:22 Time/Spoke to Consulting Phy: 19:30 (ARGENIS ALONSO MD) Impression Primary Impression: Aortic stenosis Qualified Codes: I35.0 - Nonrheumatic aortic (valve) stenosis Additional Impressions: Hypertension Qualified Codes: I10 - Essential (primary) hypertension Dehydration Disposition: ADMITTED INPATIENT Condition: Stable Admissions Decision to Admit Reason: Admit from ER (General) Decision to Admit/Date: Jan 21, 2020 Time/Decision to Admit Time: 19:22 (ARGENIS ALONSO MD) Departure-Patient Inst. Referrals: DAMARIS POON DO (PCP/Family) Primary Care Physician SIVA ANAYA MD Jan 21, 2020 18:21 ARGENIS ALONSO MD Jan 21, 2020 19:41
[2020-01-21 18:33] LABS: BILIRUBIN,URINE NEGATIVE (NEGATIVE); CLARITY,URINE CLEAR; COLOR,URINE YELLOW; GLUCOSE, URINE (UA) NEGATIVE (NEGATIVE); KETONES,URINE NEGATIVE (NEGATIVE); LEUKOCYTE ESTERASE ,URINE NEGATIVE (NEGATIVE); NITRITE,URINE NEGATIVE (NEGATIVE); PH,URINE 5.5 (5-9); PROTEIN,URINE NEGATIVE (NEGATIVE)
[2020-01-21 18:43] LABS: BACTERIA,URINE NEGATIVE /HPF
[2020-01-21] MEDS ORDERED: NS IV 500 ML 500 ML IV ONE (19:19)
--- NOTE | 2020-01-21 19:53 | Diagnostic Imaging Report ---
EXAMINATION: Chest 1 view HISTORY: Shortness of breath. COMPARISON: 09/15/2019. FINDINGS: The lung volumes are normal. No focal consolidation is seen. No large pleural effusion or pneumothorax is seen. The cardiomediastinal silhouette is normal in size and contour. No acute osseous abnormality is seen. IMPRESSION: 1. No acute pleuroparenchymal process. Dictated by: Dictated on workstation # [id number]
--- NOTE | 2020-01-21 20:35 | NUR ---
KAROLINE AGUILAR admitted to room 417-1, with an admitting diagnosis of Aortic Stenosis, HTN, Dehydration, on 01/21/20 from ED via hospital bed, accompanied by staff.KAROLINE AGUILAR introduced to surroundings, call light, bed controls, phone, TV, temperature control, lights, meal times, smoking policy, visitor policy, side rail policy, bathrooms and showers. Patient Rights given to patient in the handbook. KAROLINE AGUILAR verbalizes understanding that [facility] is not responsible for the loss or damage to any personal effects or valuables that are kept in the patients posession during their hospitalization. KAROLINE AGUILAR verbalizes understanding of Interdisciplinary Patient Education. Patient and/or family were informed about the Rapid Response Team and its purpose.
[2020-01-21 20:45] VITALS: BP 183/84
[2020-01-21] MEDS: NS IV 1000 ML 1,000 ML IV SCH (21:53)
[2020-01-21] MEDS ORDERED: lisINopril 10 MG (PRINIVIL) TABLET PO ONE (22:15)
[2020-01-21] MEDS ORDERED: ENOXAPARIN 30 MG/0.3 ML (LOVENOX) SYR SC SCH (23:00)
[2020-01-22 00:32] VITALS: BP 156/69
[2020-01-22 04:10] VITALS: BP 169/87
[2020-01-22 05:23] LABS: BASOPHILS % (AUTO) 0 % (0-10); EOSINOPHILS # (AUTO) 0.1 10^3/uL (0.0-0.3); EOSINOPHILS % (AUTO) 1 % (0-10); HEMATOCRIT 27 % (40-54); HEMOGLOBIN 9.1 g/dL (13.3-17.7); LYMPHOCYTES # (AUTO) 1.3 10^3/uL (1.0-4.0); LYMPHOCYTES % (AUTO) 23 % (12-44); MEAN CORPUSCULAR HEMOGLOBIN 34 pg (25-34); MEAN CORPUSCULAR HGB CONC 34 g/dL (32-36); MEAN CORPUSCULAR VOLUME 100 fL (80-99); MEAN PLATELET VOLUME 12.8 fL (9.0-12.2); MONOCYTES # (AUTO) 0.8 10^3/uL (0.0-1.0); MONOCYTES % (AUTO) 13 % (0-12); NEUTROPHILS # (AUTO) 3.6 10^3/uL (1.8-7.8); NEUTROPHILS % (AUTO) 62 % (42-75); PLATELET COUNT 151 10^3/uL (130-400); WHITE BLOOD COUNT 5.8 10^3/uL (4.3-11.0)
[2020-01-22 05:38] LABS: ALBUMIN 3.6 GM/DL (3.2-4.5); POTASSIUM 4.7 MMOL/L (3.6-5.0)
[2020-01-22 05:39] LABS: CALCIUM 8.9 MG/DL (8.5-10.1)
[2020-01-22 05:40] LABS: TOTAL PROTEIN 6.5 GM/DL (6.4-8.2)
[2020-01-22 05:42] LABS: BILIRUBIN,TOTAL 0.4 MG/DL (0.1-1.0)
[2020-01-22 05:44] LABS: CREATININE SERUM 1.5 MG/DL (0.60-1.30)
[2020-01-22 07:38] VITALS: BP 161/81
--- NOTE | 2020-01-22 11:10 | Consultation-Cardiology ---
HPI-Cardiology Cardiology Consultation: Date of Consultation 01/22/20 Time Seen by a Provider: 10:45 Date of Admission 01-21-2020 Attending Physician Eleni Poon DO Admitting Physician Eleni Poon DO Consulting Physician Cammie Leigh MD HPI: Chief Complaint: Cardiac murmur Mr. Aguilar is an 89 year old male who has been admitted to [facility] from the ED. He reports his primary strategies analyst is Dr. Caruso at [facility] in [place], [place]. He reports he lives at home alone with family close by to help. He states he uses a walker to ambulate or a w/c at home. He states he got up from his recliner around 1600 yesterday to go to the fridge for a drink. He reports when he got to the fridge he went to raise his arms and he had a sudden feeling of weakness in his arms and legs. He reports some blurred vision at the time. He states he called his daughter and family PCP and was advised to go to the ED. He states the symptoms lasted for approx an hour and gradually improved. He states he is feeling better this morning. No c/o CP, palpitations, syncope or near syncope. No c/o LE swelling. No c/o n/v/d. No c/o fever or chills. He reports he had a stress test, echocardiogram and carotid u/s with Dr. Caruso approx a year ago and was told he passed with flying colors. He reports he has had frequent falls at home in the past, but none recently. Review of Systems-Cardiology Review of Systems Constitutional: As described under HPI; No chills, No fever Eyes: blurred vision Ears/Nose/Throat: No epistaxis, No recent hearing loss Respiratory: As described under HPI Cardiovascular: As described under HPI Gastrointestinal: No constipation, No diarrhea, No nausea, No vomiting Genitourinary: No dysuria, No hematuria Musculoskeletal: joint pain Skin: No rash on exposed areas, No ulcerations on exposed areas Psychiatric/Neurological: No anxiety, No depression, No seizure, No focal weakness, No syncope Hematologic: No bleeding abnormalities WGQ-[id number]-Yiitlc Hx Patient Social History Alcohol Use: Denies Use Recreational Drug Use: No Smoking Status: Never a Smoker 2nd Hand Smoke Exposure: No Recent Foreign Travel: No Recent Infectious Disease Expo: No Hospitalization with Isolation: Denies Immunizations Up To Date Tetanus Booster (TDap): Unknown Past Medical History PMH As described under Assessment. Family Medical History Family Medical History: He reports his mother had HTN. He reports his father had a CVA. Allergies and Home Medications Allergies Coded Allergies: No Known Drug Allergies (Unverified , 06/07/13) Home Medications Codeine/Promethazine Hcl 120 Ml Syrup, 1 TSP PO Q 4 - 6 HRS PRN Prescribed by: LINDA ALCALA on 06/07/13 1158 Hydrocodone Bit/Acetaminophen 1 Tab Tab, 1 EACH PO Q8H PRN for PAIN-MODERATE Prescribed by: BAY SAUCEDA on 05/04/19 1020 Physical Exam-Cardiology Physical Exam Vital Signs/I&O 01/22/20 01/22/20 01/22/20 01/22/20 04:10 06:43 07:38 08:00 Temp 36.8 37.1 Pulse 81 113 90 Resp 20 20 B/P (MAP) 169/87 (114) 161/81 (107) Pulse Ox 100 100 O2 Delivery Room Air Room Air Room Air 01/22/20 01/22/20 12:00 12:44 Temp 36.7 Pulse 85 89 Resp 20 B/P (MAP) 132/88 (103) Pulse Ox 100 O2 Delivery Room Air Capillary Refill : Less Than 3 Seconds Constitutional: AAO x 3, well-developed, well-nourished HEENT: PERRL, hearing is well preserved, oral hygience is good Neck: carotid bruit (carotid bruit vs transmitted murmur), carotid pulses are 2 + bilaterally Respiratory: No accessory muscle use, No respiratory distress; chest expansion is symmetric, chest is bilaterally symmetric, lungs clear to auscultation Cardiovascular: regular rate-rhythm; No JVD; S1 and S2, systolic murmur Gastrointestinal: No tender; soft, round, audible bowel sounds Extremities: no lower extremity edema bilateral Neurologic/Psychiatric: grossly intact (moves all extremities) Skin: No rash on exposed areas, No ulcerations on exposed areas Data Review Labs Laboratory Tests 01/21/20 17:37: White Blood Count 7.1, Red Blood Count 3.00L, Hemoglobin 10.2L, Hematocrit 30L, Mean Corpuscular Volume 100H, Mean Corpuscular Hemoglobin 34, Mean Corpuscular Hemoglobin Concent 34, Red Cell Distribution Width 13.5, Platelet Count 160, Mean Platelet Volume 13.0H, Immature Granulocyte % (Auto) 0, Neutrophils (%) (Auto) 65, Lymphocytes (%) (Auto) 21, Monocytes (%) (Auto) 12, Eosinophils (%) (Auto) 1, Basophils (%) (Auto) 0, Neutrophils # (Auto) 4.6, Lymphocytes # (Auto) 1.5, Monocytes # (Auto) 0.9, Eosinophils # (Auto) 0.1, Basophils # (Auto) 0.0, Immature Granulocyte # (Auto) 0.0, Sodium Level 129L, Potassium Level 4.1, Chloride Level 97L, Carbon Dioxide Level 21, Anion Gap 11, Blood Urea Nitrogen 30H, Creatinine 1.68H, Estimat Glomerular Filtration Rate 39, BUN/Creatinine Ratio 18, Glucose Level 97, Calcium Level 9.3, Corrected Calcium 9.2, Magnesium Level 2.0, Total Bilirubin 0.5, Aspartate Amino Transf (AST/SGOT) 26, Alanine Aminotransferase (ALT/SGPT) 13, Alkaline Phosphatase 79, Total Creatine Kinase 150, Troponin I 0.034H, C-Reactive Protein High Sensitivity 0.13, Total Protein 7.3, Albumin 4.1 01/21/20 18:26: Urine Color YELLOW, Urine Clarity CLEAR, Urine pH 5.5, Urine Specific [place] 1.010L, Urine Protein NEGATIVE, Urine Glucose (UA) NEGATIVE, Urine Ketones NEGATIVE, Urine Nitrite NEGATIVE, Urine Bilirubin NEGATIVE, Urine Urobilinogen 0.2, Urine Leukocyte Esterase NEGATIVE, Urine RBC (Auto) NEGATIVE, Urine RBC NONE, Urine WBC NONE, Urine Squamous Epithelial Cells NONE, Urine Crystals NONE, Urine Bacteria NEGATIVE, Urine Casts NONE, Urine Mucus NEGATIVE, Urine Culture Indicated NO 01/21/20 20:05: Troponin I 0.034H 01/22/20 04:55: White Blood Count 5.8, Red Blood Count 2.69L, Hemoglobin 9.1L, Hematocrit 27L, Mean Corpuscular Volume 100H, Mean Corpuscular Hemoglobin 34, Mean Corpuscular Hemoglobin Concent 34, Red Cell Distribution Width 13.5, Platelet Count 151, Mean Platelet Volume 12.8H, Immature Granulocyte % (Auto) 0, Neutrophils (%) (Auto) 62, Lymphocytes (%) (Auto) 23, Monocytes (%) (Auto) 13H, Eosinophils (%) (Auto) 1, Basophils (%) (Auto) 0, Neutrophils # (Auto) 3.6, Lymphocytes # (Auto) 1.3, Monocytes # (Auto) 0.8, Eosinophils # (Auto) 0.1, Basophils # (Auto) 0.0, Immature Granulocyte # (Auto) 0.0, Sodium Level 133L, Potassium Level 4.7, Chloride Level 102, Carbon Dioxide Level 23, Anion Gap 8, Blood Urea Nitrogen 27H, Creatinine 1.50H, Estimat Glomerular Filtration Rate 44, BUN/Creatinine Ratio 18, Glucose Level 86, Calcium Level 8.9, Corrected Calcium 9.2, Total Bilirubin 0.4, Aspartate Amino Transf (AST/SGOT) 24, Alanine Aminotransferase (ALT/SGPT) 13, Alkaline Phosphatase 66, Troponin I 0.035H, Total Protein 6.5, Albumin 3.6 Radiology NAME: KAROLINE AGUILAR [facility] REC#: [id number] PT STATUS: ADM Dileep : [id number] PHYSICIAN: ARGENIS ALONSO MD ADMIT DATE: 01/21/20 Signed Date of Exam:01/21/20 CHEST 1 VIEW, AP/PA ONLY EXAMINATION: Chest 1 view HISTORY: Shortness of breath. COMPARISON: 09/15/2019. FINDINGS: The lung volumes are normal. No focal consolidation is seen. No large pleural effusion or pneumothorax is seen. The cardiomediastinal silhouette is normal in size and contour. No acute osseous abnormality is seen. IMPRESSION: 1. No acute pleuroparenchymal process. Dictated by: Dictated on workstation # [id number] Dict: 01/21/201949 Trans: 01/21/201955 [facility] [id number] Interpreted by: KOLE MALHOTRA DO Electronically signed by: KOLE MALHOTRA DO 01/21/201955 ECG Impression ECG Initial ECG Rhythm: Normal Sinus A/P-Cardiology Assessment/Admission Diagnosis Episode of weakness with vision change of undetermined etiology - possible TIA Cardiac murmur HTN Reports h/o irregular heart rhythm (by description suspect a-fib) - details unknown - on Flecainide Reports previously on warfarin, but stopped years ago d/t frequent falls - maintained on low dose ASA Reports cardiac cath by Dr. Caruso more than 5 years ago which he reports showed mild CAD Reports stress test by Dr. Caruso last year is reported as normal Reports echocardiogram by Dr. Caruso last year showed a "tight valve" - details unknown CKD H/O chronic anemia - follows with hematology services H/O prostate cancer with prostatectomy 18 years ago Discussion and Recomendations Episode of arm/leg weakness with associated blurred vision - resolved - possible TIA - management per medical services Cardiac murmur - echocardiogram pending Request records from [facility], Dr. Caruso Keep on tele to monitor for arrhythmia Clinical Quality Measures DVT/VTE Risk/Contraindication: Risk Factor Score Per Nursin RFS Level Per Nursing on Admit: 3=High JACOB GREENBERG Jan 22, 2020 11:10
[2020-01-22 12:00] VITALS: BP 132/88
[2020-01-22] MEDS ORDERED: lisINopril 20 MG (PRINIVIL) TABLET PO NR (12:15)
--- NOTE | 2020-01-22 12:29 | History & Physical ---
History of Present Illness History of Present Illness Reason for visit/HPI This is an 89 year old male with known severe aortic stenosis who has been complaining of shortness of air and weakness when he uses his arms. Yesterday, he had an episode where he was reaching with his arms and he felt weak all over. He was brought to the emergency room where he was found to have a minimally elevated troponin-I. He was once again found to be dehydrated so he will be giv en gentle IVF rehydration. I have explained to him that with his anemia coupled with getting dehydrated that there is more strain on his heart and therefore he has more symptoms from his damaged valve when this happens. He will be admitted for further monitoring and cardiac evaluation and possible medication adjustment. Date of Admission Jan 21, 2020 at 19:37 Date Seen by a Provider: Jan 22, 2020 Time Seen by a Provider: 12:24 I consulted on this patient on 01/22/20 12:24 Attending Physician Eleni Olsen DO Admitting Physician Eleni Olsen DO Consult Allergies and Home Medications Allergies Coded Allergies: No Known Drug Allergies (Unverified , 06/07/13) Home Medications Codeine/Promethazine Hcl 120 Ml Syrup, 1 TSP PO Q 4 - 6 HRS PRN Prescribed by: LINDA ALCALA on 06/07/13 1158 Hydrocodone Bit/Acetaminophen 1 Tab Tab, 1 EACH PO Q8H PRN for PAIN-MODERATE Prescribed by: BAY SAUCEDA on 05/04/19 1020 Patient Home Medication List Home Medication List Reviewed: Yes Past Mhumsba-Ceslio-Qizemu Hx Past Med/Social Hx: Reviewed Nursing Past Med/Soc Hx Patient Social History Alcohol Use: Denies Use Recreational Drug Use: No Smoking Status: Never a Smoker 2nd Hand Smoke Exposure: No Recent Foreign Travel: No Contact w/other who traveled: No Recent Hopitalizations: No Recent Infectious Disease Expo: No Immunizations Up To Date Tetanus Booster (TDap): Unknown Seasonal Allergies Seasonal Allergies: No Past Medical History Surgeries: Prostatectomy Genitourinary: Renal Failure (chronic kidney disease) Cancer: Prostate History of Blood Disorders: No Review of Systems Constitutional: weakness EENTM: No see HPI, No no symptoms reported, No ear discharge, No hearing loss, No ear pain, No blurred vision, No double vision, No eye pain, No tearing, No vision loss, No dental problems, No hoarseness, No mouth pain, No mouth swelling, No epistaxis, No nose congestion, No nose pain, No throat pain, No throat swelling, No other Respiratory: dyspnea on exertion, short of breath Cardiovascular: chest pain, vascular heart diseas Gastrointestinal: No RUQ, No LUQ, No RLQ, No LLQ, No no symptoms reported, No see HPI, No abdominal pain, No constipation, No diarrhea, No dysphagia, No hematemesis, No heartburn, No jaundice, No loss of appetite, No melena, No nausea, No vomiting, No other Genitourinary: frequency, nocturia Musculoskeletal: muscle weakness Skin: No no symptoms reported, No see HPI, No change in color, No change in hair/nails, No dryness, No hx of skin cancer, No lesions, No lumps, No pruritus, No rash, No other Psychiatric/Neurological: Weakness Physical Exam Vital Signs Vital Signs - First Documented 01/21/20 17:18 Temp 35.9 Pulse 80 Resp 17 B/P (MAP) 181/100 (127) Pulse Ox 100 O2 Delivery Room Air Capillary Refill : Less Than 3 Seconds Height, Weight, BMI Height: 6'" Weight: 180lbs. oz. 81.436481pf; 21.21 BMI Method: General Appearance: No Apparent Distress HEENT: Normal ENT Inspection Neck: Supple Respiratory: Lungs Clear Cardiovascular: Regular Rate, Rhythm, Systolic Murmur, Gallop/S4 Gastrointestinal: Normal Bowel Sounds, Non Tender, Soft Rectal: Deferred Back: No CVA Tenderness Extremity: Non Tender, No Calf Tenderness, No Pedal Edema Neurologic/Psychiatric: Alert, Oriented x3 Skin: Warm/Dry Comments 1. Severe aortic stenosis with weakness/shortness of air when uses arms--cardiology evaluation with possible medication adjustment 2. Acute on chronic renal insufficiency/dehydration--hydrate and monitor BUN/Cr 3. Anemia--may be of chronic disease but hematology evaluation is pending 4. Weakness/Fall risk--start PT Assessment/Plan Admission Diagnosis Admission Status: Observation Clinical Quality Measures DVT/VTE Risk/Contraindication: Risk Factor Score Per Nursin RFS Level Per Nursing on Admit: 3=High ELENI OLSEN DO Jan 22, 2020 12:29
--- NOTE | 2020-01-22 13:38 | Physical Therapy Evaluation ---
PT Evaluation-General Medical Diagnosis Admission Date Jan 21, 2020 at 19:37 Medical Diagnosis: aortic stenosis/HTN/ dehydration Onset Date: Jan 21, 2020 Therapy Diagnosis Therapy Diagnosis: debility Height/Weight Height (Feet): 6 Weight (Pounds): 180 Precautions Precautions/Isolations: Standard Precautions Referral Physician: Ayah Reason for Referral: Evaluation/Treatment Medical History Pertinent Medical History: Renal Insufficiency Current History ER secondary to c/o heaviness in UE's and LE's and SOA Reviewed History: Yes Social History Home: Single Level Current Living Status: Alone Entry Into Home: Ramp Prior Prior Level of Function SCALE: Activities may be completed with or without assistive devices. 0-Qqmweqamoq-vkaszpi completes the activity by him/herself with no assistance from a helper. 5-Set-up or Clean-up Assistance-helper sets up or cleans up; patient completes activity. Newton assists only prior to or following the activity. 4-Supervision or Touching Assistance-helper provides verbal cues and/or touching/steadying and/or contact guard assistance as patient completes activity. Assistance may be provided throughout the activity or intermittently. 3-Partial/Moderate Assistance-helper does LESS THAN HALF the effort. Newton lifts, holds or supports trunk or limbs, but provides less than half the effort. 2-Substantial/Maximal Assistance-helper does MORE THAN HALF the effort. Newton lifts or holds trunk or limbs and provides more than half the effort. 8-Mqcnhxqtu-onzfwb does ALL the effort. Patient does none of the effort to compl ete the activity. Or, the assistance of 2 or more helpers is required for the patient to complete the activity. If activity was not attempted, code reason: 7-Patient Refused. 9-Not Applicable-not attempted and the patient did not perform the activity before the current illness, exacerbation or injury. 10-Not Attempted due to Environmental Limitations-(lack of equipment, weather restraints, etc.). 88-Not Attempted due to Medical Conditions or Safety Concerns. Bed Mobility: 6 Transfers (B,C,W/C): 6 Gait: 6 Stairs: 9 Wheelchair Mobility: 9 Indoor Mobility (Ambulation): Independent Stairs: Not Applicalbe Prior Devices Use: Walker PT Evaluation-Current Subjective Patient reports he is feeling much better and agrees to PT. Pain Location: No Pain Reported Objective Patient Orientation: Normal For Age Attachments: IV ROM/Strength ROM Lower Extremities bilateral LE WFL Strength Lower Extremities 4/5 grossly bilateral LE Integumentary/Posture Integumentary refer to nursing notes Bowel Incontinence: No Bladder Incontinence: No Posture kyphotic/flexed knee posture in stand Neuromuscular (Tone, Coordination, Reflexes) grossly intact Sensory Vision: Functional Hearing: Functional Sensation Right Lower Extremit: Intact Sensation Left Lower Extremity: Intact Transfers Roll Left to Right (QC): 6 Sit to Lying (QC): 6 Lying to Sitting/Side of Bed(Q: 6 Sit to Stand (QC): 6 Chair/Bnf-hy-Doobk Xfer(QC): 6 Gait Does the Patient Walk?: Yes Walk 10 feet (QC): 6 Walk 50 ft with 2 Turns(QC): 6 Walk 150 ft (QC): 6 Distance: 400' Gait Assistive Device: FWW Comments/Gait Description NBOS with flexed knee posture/functional gait sequence Balance Sitting Static: Normal Sitting Dynamic: Normal Standing Static: Normal Standing Dynamic: Fair Treatment Education on widening SABA for safety and balance. Patient demonstrated the ability to perform, however, reverted back to NBOS. Assessment/Needs 89 y.o. male, will be seen x 2 sessions to ensure functional mobility remains safe upon dismissal to home. Rehab Potential: Fair PT Short Term Goals Short Term Goals Time Frame: Jan 23, 2020 Roll Left & Right: 6 Sit to lyin Lying to sitting on side of be: 6 Sit to stand: 6 Chair/vvw-zh-grlhi transfer: 6 Toilet transfer: 6 Walk 10 feet: 6 Walk 50 feet with two turns: 6 Walk 150 feet: 6 PT Plan Treatment/Plan Treatment Plan: Continue Plan of Care Treatment Plan: Education, Functional Activity Von, Gait, Safety, Therapeutic Exercise Treatment Duration: Jan 23, 2020 Frequency: 2 times per week Estimated Hrs Per Day: .25 hour per day Patient and/or Family Agrees t: Yes Discharge Recommendations Therapy Discharge Recommendati: Home & Family Time/GCodes Time In: 1245 Time Out: 1309 Total Billed Treatment Time: 24 Total Billed Treatment 1 visit EVModC 24 min BRITTANY MCCLOUD PT Jan 22, 2020 13:37
--- NOTE | 2020-01-22 13:57 | Consultation-Cardiology ---
HPI-Cardiology Cardiology Consultation: Date of Consultation 01/22/20 Time Seen by a Provider: 13:50 Date of Admission Attending Physician Eleni Poon DO Admitting Physician Eleni Poon DO Consulting Physician MARTY BANEGAS MD, MA, FACP, FACC, FSCAI, CCDS Primary county coroner: Dr Caruso HPI: Chief Complaint: Reason for consultation: Aortic stenosis HPI Mr. Jaramillo is an 89 year old male who has been admitted to [facility] from the ED. He re ports his primary county coroner is Dr. Caruso at [facility] in [place], [place]. He reports he lives at home alone with family close by to help. He states he uses a walker to ambulate or a w/c at home. He states he got up from his recliner around 1600 yesterday to go to the fridge for a drink. He reports when he got to the fridge he went to raise his arms and he had a sudden feeling of weakness in his arms and legs. He reports some blurred vision at the time. He states he called his daughter and family PCP and was advised to go to the ED. He states the symptoms lasted for approx an hour and gradually improved. He states he is feeling better this morning. No c/o CP, palpitations, syncope or near syncope. No c/o LE swelling. No c/o n/v/d. No c/o fever or chills. He reports he had a stress test, echocardiogram and carotid u/s with Dr. Caruso approx a year ago and was told he passed with flying colors. He reports he has had frequent falls at home in the past, but none recently. Review of Systems-Cardiology Review of Systems Constitutional: As described under HPI; No chills, No fever Eyes: blurred vision Ears/Nose/Throat: No epistaxis, No recent hearing loss Respiratory: As described under HPI Cardiovascular: As described under HPI Gastrointestinal: No constipation, No diarrhea, No nausea, No vomiting Genitourinary: No dysuria, No hematuria Musculoskeletal: joint pain Skin: No rash on exposed areas, No ulcerations on exposed areas Psychiatric/Neurological: No anxiety, No depression, No seizure, No focal weakness, No syncope Hematologic: No bleeding abnormalities RFV-Kvxwoh-Wrbaum Hx Patient Social History Alcohol Use: Denies Use Recreational Drug Use: No Smoking Status: Never a Smoker 2nd Hand Smoke Exposure: No Recent Foreign Travel: No Recent Infectious Disease Expo: No Hospitalization with Isolation: Denies Immunizations Up To Date Tetanus Booster (TDap): Unknown Past Medical History PMH As described under Assessment. Family Medical History Family Medical History: He reports his mother had HTN. He reports his father had a CVA. Allergies and Home Medications Allergies Coded Allergies: No Known Drug Allergies (Unverified , 06/07/13) Home Medications Codeine/Promethazine Hcl 120 Ml Syrup, 1 TSP PO Q 4 - 6 HRS PRN Prescribed by: LINDA ALCALA on 06/07/13 1158 Hydrocodone Bit/Acetaminophen 1 Tab Tab, 1 EACH PO Q8H PRN for PAIN-MODERATE Prescribed by: BAY SAUCEDA on 05/04/19 1020 Patient Home Medication List Home Medication List Reviewed: Yes Physical Exam-Cardiology Physical Exam Vital Signs/I&O 01/22/20 01/22/20 01/22/20 01/22/20 04:10 06:43 07:38 08:00 Temp 36.8 37.1 Pulse 81 113 90 Resp 20 20 B/P (MAP) 169/87 (114) 161/81 (107) Pulse Ox 100 100 O2 Delivery Room Air Room Air Room Air 01/22/20 01/22/20 12:00 12:44 Temp 36.7 Pulse 85 89 Resp 20 B/P (MAP) 132/88 (103) Pulse Ox 100 O2 Delivery Room Air Capillary Refill : Less Than 3 Seconds Constitutional: AAO x 3, well-developed, well-nourished HEENT: PERRL, hearing is well preserved, oral hygience is good Neck: carotid bruit (carotid bruit vs transmitted murmur), carotid pulses are 2 + bilaterally Respiratory: No accessory muscle use, No respiratory distress; chest expansion is symmetric, chest is bilaterally symmetric, lungs clear to auscultation Cardiovascular: regular rate-rhythm; No JVD; S1 and S2, systolic murmur Gastrointestinal: No tender; soft, round, audible bowel sounds Extremities: no lower extremity edema bilateral Neurologic/Psychiatric: grossly intact (moves all extremities) Skin: No rash on exposed areas, No ulcerations on exposed areas Data Review Labs Laboratory Tests 01/21/20 17:37: White Blood Count 7.1, Red Blood Count 3.00L, Hemoglobin 10.2L, Hematocrit 30L, Mean Corpuscular Volume 100H, Mean Corpuscular Hemoglobin 34, Mean Corpuscular Hemoglobin Concent 34, Red Cell Distribution Width 13.5, Platelet Count 160, Mean Platelet Volume 13.0H, Immature Granulocyte % (Auto) 0, Neutrophils (%) (Auto) 65, Lymphocytes (%) (Auto) 21, Monocytes (%) (Auto) 12, Eosinophils (%) (Auto) 1, Basophils (%) (Auto) 0, Neutrophils # (Auto) 4.6, Lymphocytes # (Auto) 1.5, Monocytes # (Auto) 0.9, Eosinophils # (Auto) 0.1, Basophils # (Auto) 0.0, Immature Granulocyte # (Auto) 0.0, Sodium Level 129L, Potassium Level 4.1, Chloride Level 97L, Carbon Dioxide Level 21, Anion Gap 11, Blood Urea Nitrogen 30H, Creatinine 1.68H, Estimat Glomerular Filtration Rate 39, BUN/Creatinine Ratio 18, Glucose Level 97, Calcium Level 9.3, Corrected Calcium 9.2, Magnesium Level 2.0, Total Bilirubin 0.5, Aspartate Amino Transf (AST/SGOT) 26, Alanine Aminotransferase (ALT/SGPT) 13, Alkaline Phosphatase 79, Total Creatine Kinase 150, Troponin I 0.034H, C-Reactive Protein High Sensitivity 0.13, Total Protein 7.3, Albumin 4.1 01/21/20 18:26: Urine Color YELLOW, Urine Clarity CLEAR, Urine pH 5.5, Urine Specific [place] 1.010L, Urine Protein NEGATIVE, Urine Glucose (UA) NEGATIVE, Urine Ketones NEGATIVE, Urine Nitrite NEGATIVE, Urine Bilirubin NEGATIVE, Urine Urobilinogen 0.2, Urine Leukocyte Esterase NEGATIVE, Urine RBC (Auto) NEGATIVE, Urine RBC NONE, Urine WBC NONE, Urine Squamous Epithelial Cells NONE, Urine Crystals NONE, Urine Bacteria NEGATIVE, Urine Casts NONE, Urine Mucus NEGATIVE, Urine Culture Indicated NO 01/21/20 20:05: Troponin I 0.034H 01/22/20 04:55: White Blood Count 5.8, Red Blood Count 2.69L, Hemoglobin 9.1L, Hematocrit 27L, Mean Corpuscular Volume 100H, Mean Corpuscular Hemoglobin 34, Mean Corpuscular Hemoglobin Concent 34, Red Cell Distribution Width 13.5, Platelet Count 151, Mean Platelet Volume 12.8H, Immature Granulocyte % (Auto) 0, Neutrophils (%) (Auto) 62, Lymphocytes (%) (Auto) 23, Monocytes (%) (Auto) 13H, Eosinophils (%) (Auto) 1, Basophils (%) (Auto) 0, Neutrophils # (Auto) 3.6, Lymphocytes # (Auto) 1.3, Monocytes # (Auto) 0.8, Eosinophils # (Auto) 0.1, Basophils # (Auto) 0.0, Immature Granulocyte # (Auto) 0.0, Sodium Level 133L, Potassium Level 4.7, Chlo ride Level 102, Carbon Dioxide Level 23, Anion Gap 8, Blood Urea Nitrogen 27H, Creatinine 1.50H, Estimat Glomerular Filtration Rate 44, BUN/Creatinine Ratio 18, Glucose Level 86, Calcium Level 8.9, Corrected Calcium 9.2, Total Bilirubin 0.4, Aspartate Amino Transf (AST/SGOT) 24, Alanine Aminotransferase (ALT/SGPT) 13, Alkaline Phosphatase 66, Troponin I 0.035H, Total Protein 6.5, Albumin 3.6 A/P-Cardiology Assessment/Admission Diagnosis Episode of weakness of both arms and both legs with some blurriness of the vision, etiology unclear Mild to mod on echo of 01/22/20. Echo showed LVEF 60-65%, mild to mod and MR, PASP 55-60 mmHg HTN Reports h/o irregular heart rhythm (?a-fib) - details unknown - on Flecainide (initiated and managed by his primary county coroner, Dr Caruso) Reports previously on warfarin, but stopped years ago d/t frequent falls - currently on low dose ASA Reports cardiac cath by Dr. Caruso more than 5 years ago which he reports showed mild CAD Reports stress test by Dr. Caruso last year was normal Reports echocardiogram by Dr. Caruso last year showed a "tight valve" - details unknown CKD 3 H/O chronic anemia - follows with hematology services H/O prostate cancer with prostatectomy 18 years ago Discussion and Recomendations He has had nonspecific symptoms that do not appear to be of cardiac origin We recommend continuing close f/u with his county coroner, Dr Caruso, in [place], [place]. We have advised him to see him within a week I discussed his case with Dr Poon on the phone Clinical Quality Measures DVT/VTE Risk/Contraindication: Risk Factor Score Per Nursin RFS Level Per Nursing on Admit: 3=High MARTY BANEGAS MD FACP FAC CCDS Jan 22, 2020 13:57
--- NOTE | 2020-01-22 14:19 | NUR ---
Mr Jaramillo [place], [place] He is a as his 14 months ago. His main caregiver is a step-daughter Aylin and her daughters who live nearby and provide homemaker services and intermittent care. Aylin states pt has been independent and has not been in need of home health services as sets up his own medications and has managed quite well. Aylin did state that if pt continues to decline they may be interested in Home Health services . Will follow and assist.
[2020-01-22 16:21] VITALS: BP 117/68
[2020-01-22] MEDS ORDERED: ASPI-1238 PO (17:33)
[2020-01-22] MEDS ORDERED: FURO20TA4 PO (17:33)
[2020-01-22] MEDS ORDERED: FLEC100T PO (17:33)
--- NOTE | 2020-01-22 17:33 | NUR ---
SPOKE WITH THE PT (I CALLED HIS ROOM PHONE) AND WENT THRU THE EXT MED HISTORY TO COMPLETE THE MED REC ON 01-08-2020 IMIPRAMINE 25MG #90/30DS WAS FILLED AT [facility], HOWEVER PT SAYS HE IS NO LONGER TAKING THIS MEDICATION FLECAINIDE 100MG- DIRECTIONS SHOW 1 TAB BID HOWEVER PT SAYS HE IS BREAKING THEM IN 1/2 AND TAKING 1/2 TAB ONCE DAILY (PT SAYS HE DOES THIS TO STRETCH THE MEDICATION OUT) OTC MEDS: ASPIRIN 81MG
[2020-01-22] MEDS: NS IV 1000 ML 1,000 ML IV SCH (17:46)
[2020-01-22 20:09] VITALS: BP 146/73
[2020-01-22] MEDS ORDERED: ENOXAPARIN 40 MG/0.4 ML (LOVENOX) SYR SC SCH (21:00)
[2020-01-23] VITALS: BP 172/81
[2020-01-23 04:46] VITALS: BP 169/82
[2020-01-23 05:02] LABS: BASOPHILS % (AUTO) 0 % (0-10); EOSINOPHILS # (AUTO) 0.1 10^3/uL (0.0-0.3); EOSINOPHILS % (AUTO) 1 % (0-10); HEMATOCRIT 26 % (40-54); HEMOGLOBIN 8.7 g/dL (13.3-17.7); LYMPHOCYTES # (AUTO) 1.4 10^3/uL (1.0-4.0); LYMPHOCYTES % (AUTO) 21 % (12-44); MEAN CORPUSCULAR HEMOGLOBIN 34 pg (25-34); MEAN CORPUSCULAR HGB CONC 34 g/dL (32-36); MEAN CORPUSCULAR VOLUME 101 fL (80-99); MEAN PLATELET VOLUME 13.1 fL (9.0-12.2); MONOCYTES # (AUTO) 0.9 10^3/uL (0.0-1.0); MONOCYTES % (AUTO) 13 % (0-12); NEUTROPHILS # (AUTO) 4.3 10^3/uL (1.8-7.8); NEUTROPHILS % (AUTO) 65 % (42-75); PLATELET COUNT 144 10^3/uL (130-400); WHITE BLOOD COUNT 6.7 10^3/uL (4.3-11.0)
[2020-01-23 05:14] LABS: POTASSIUM 4.9 MMOL/L (3.6-5.0)
[2020-01-23 05:15] LABS: CALCIUM 8.5 MG/DL (8.5-10.1)
[2020-01-23 05:19] LABS: CREATININE SERUM 1.61 MG/DL (0.60-1.30)
[2020-01-23 07:31] VITALS: BP 130/76
[2020-01-23] MEDS ORDERED: lisINopril 20 MG (PRINIVIL) TABLET PO SCH (09:00)
--- NOTE | 2020-01-23 10:33 | Cardiology Progress Note ---
Subjective Date Seen by Provider: Jan 23, 2020 Time Seen by Provider: 11:06 Subjective/Events-last exam Patient is sitting up in bed, no new complaints. Denies any chest pain, dyspnea, dizziness or lightheadedness. Review of Systems General: No Chills, No Night Sweats; Fatigue, Malaise; No Appetite, No Other HEENT: No Head Aches, No Visual Changes, No Eye Pain, No Ear Pain, No Dysphasia, No Sinus Congestion, No Post Nasal Drip, No Sore Throat, No Other Pulmonary: No Dyspnea, No Cough, No Pleuritic Chest Pain, No Other Cardiovascular: No: Chest Pain, Palpitations, Orthopnea, Paroxysmal Noc. Dyspnea, Edema, Lt Headedness, Other Objective-Cardiology Exam Last Set of Vital Signs Vital Signs 01/23/20 11:11 Temp 36.6 Pulse 80 Resp 16 B/P (MAP) 156/79 (104) Pulse Ox 99 O2 Delivery Room Air Capillary Refill : Less Than 3 Seconds I&O Intake and Output 01/23/20 00:00 Intake Total 1920 ml Output Total 1655 ml Balance 265 ml Intake Oral 1920 ml Output Urine Total 1655 ml # Voids 2 # Bowel Movements 2 General: Alert, Oriented X3, Cooperative HEENT: Atraumatic, PERRLA Neck: Supple, No JVD, No Thyromegaly Lungs: Clear to Auscultation, Normal Air Movement Heart: Normal S1, Normal S2, Other (tachycardic, grade 2 SM) Abdomen: Soft, No Tenderness, No Hepatosplenomegaly Extremities: No Edema, Normal Pulses Skin: No Rashes, No Significant Lesion Neuro: Normal Speech, Cranial Nerves 3-12 NL Psych/Mental Status: Mental Status NL, Mood NL Results Lab Laboratory Tests 01/23/20 04:45 A/P-Cardiology Admission Diagnosis generalized weakness HTN CKD Assessment/Plan Mild elevation in troponin level, patient reporting having mild coronary artery disease, 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 No evidence of acute myocardial infarction at this point. Episode of weakness of both arms and both legs with some blurriness of the vision, etiology unclear, possibly secondary to orthostatic hypotension, continue to monitor. Mild to mod on echo of 01/22/20. Echo showed LVEF 60-65%, mild to mod and MR, PASP 55-60 mmHg HTN, controlled, continue to monitor. Reports h/o irregular heart rhythm (?a-fib) - details unknown - on Flecainide (initiated and managed by his primary commissioner public works, Dr Caruso) Reports previously on warfarin, but stopped years ago d/t frequent falls - currently on low dose ASA Reports cardiac cath by Dr. Caruso more than 5 years ago which he reports showed mild CAD Reports stress test by Dr. Caruso last year was normal Reports echocardiogram by Dr. Caruso last year showed a "tight valve" - details unknown CKD 3 H/O chronic anemia - follows with hematology services H/O prostate cancer with prostatectomy 18 years ago Patient was seen and evaluated with Rupinder, examination performed, management plan was discussed, agree with the current scribed note, I made few changes to the note using Italic font Patient is reporting improvement in symptoms, no further weakness or blurred vision reported Mild to moderate aortic valve stenosis, probably had transient episode of hypotension with mild elevation in troponin level. Reported that he had a cardiac catheterization more than 5 years ago reported mild coronary artery disease and a stress test done recently/within the last year with no significant abnormality I agree with conservative management. No changes are recommended Clinical Quality Measures DVT/VTE Risk/Contraindication: Risk Factor Score Per Nursin RFS Level Per Nursing on Admit: 3=High RUPINDER TEMPLETON Jan 23, 2020 10:33 KRISTIE MOTTA MD Jan 23, 2020 12:29
--- NOTE | 2020-01-23 10:44 | Physical Therapy Daily Note ---
PT Daily Note-Current Subjective Pt. friendly, makes conversation and agrees to Rx. States he is so happy he is feeling better. "Isnt this whole mess the craziest thing?" Pain Location: No Pain Reported Mental Status Patient Orientation: Normal For Age Attachments: IV Transfers SCALE: Activities may be completed with or without assistive devices. 1-Xnaubjbhod-ihzwoyi completes the activity by him/herself with no assistance from a helper. 5-Set-up or Clean-up Assistance-helper sets up or cleans up; patient completes activity. Clymer assists only prior to or following the activity. 4-Supervision or Touching Assistance-helper provides verbal cues and/or touching/steadying and/or contact guard assistance as patient completes activity. Assistance may be provided throughout the activity or intermittently. 3-Partial/Moderate Assistance-helper does LESS THAN HALF the effort. Clymer lifts, holds or supports trunk or limbs, but provides less than half the effort. 2-Substantial/Maximal Assistance-helper does MORE THAN HALF the effort. Clymer lifts or holds trunk or limbs and provides more than half the effort. 6-Ytddebwva-uwcykw does ALL the effort. Patient does none of the effort to complete the activity. Or, the assistance of 2 or more helpers is required for the patient to complete the activity. If activity was not attempted, code reason: 7-Patient Refused. 9-Not Applicable-not attempted and the patient did not perform the activity before the current illness, exacerbation or injury. 10-Not Attempted due to Environmental Limitations-(lack of equipment, weather restraints, etc.). 88-Not Attempted due to Medical Conditions or Safety Concerns. Roll Left & Right (QC): 6 Sit to Lying (QC): 6 Lying to Sitting/Side of Bed(Q: 6 Sit to Stand (QC): 6 Chair/Qcn-oy-Xsziq Xfer(QC): 6 Gait Training Does the Patient Walk?: Yes Walk 10 feet (QC): 6 Walk 50 ft with 2 Turns(QC): 6 Walk 150 ft (QC): 6 Gait Persons Needed: 1 (for IV ) Gait Assistive Device: FWW gait training 400 ft with good velocity, good alignment , equal step length and good handling of device, no LOB or incident, no SOB Exercises Supine Ex: Rolling, Heel Slides, Hip abd/add Supine Reps: 10 Assessment Current Status: Good Progress PT Short Term Goals Short Term Goals Time Frame: Jan 23, 2020 Roll Left & Right: 6 Sit to lyin Lying to sitting on side of be: 6 Sit to stand: 6 Chair/xwz-jb-jtqtc transfer: 6 Toilet transfer: 6 Walk 10 feet: 6 Walk 50 feet with two turns: 6 Walk 150 feet: 6 PT Plan Treatment/Plan Treatment Plan: Continue Plan of Care Treatment Plan: Education, Functional Activity Von, Gait, Safety, Therapeutic Exercise Treatment Duration: Jan 23, 2020 Frequency: 2 times per week Estimated Hrs Per Day: .25 hour per day Patient and/or Family Agrees t: Yes Safety Risks/Education Patient Education: Gait Training, Transfer Techniques, Correct Positioning, Safety Issues Teaching Recipient: Patient Teaching Methods: Demonstration, Discussion Response to Teaching: Verbalize Understanding, Return Demonstration Time/GCodes Time In: 1020 Time Out: 1035 Total Billed Treatment Time: 15 Total Billed Treatment 1,GT15m BRENDA BARAJAS SECURITY SYSTEMS ENGINEER Jan 23, 2020 10:43
[2020-01-23 11:11] VITALS: BP 156/79
[2020-01-23] MEDS ORDERED: meTOprolol 5 MG/5 ML (LOPRESSOR) VIAL IV NR (12:00)
[2020-01-23] MEDS ORDERED: LISI-552 PO (12:31)
[2020-01-23] MEDS ORDERED: MTP25TSR PO (12:31)
--- NOTE | 2020-01-23 12:39 | Discharge Summary ---
Diagnosis/Chief Complaint Date of Admission Jan 21, 2020 at 19:37 Date of Discharge Discharge Date: Jan 23, 2020 Discharge Diagnosis 1. Weakness of arms/legs--likely due to aortic stenosis and fleicanide 2. Acute on chronic renal insufficiency with dehydration--improved with gentle IVF rehydration 3. Hypertension--home on lisinopril/metoprolol 4. Chronic Anemia--sees hematology next week Reason Hospital Visit This is an 89 year old male with known severe aortic stenosis who has been complaining of shortness of air and weakness when he uses his arms. Yesterday, he had an episode where he was reaching with his arms and he felt weak all over. He was brought to the emergency room where he was found to have a minimally elevated troponin-I. He was once again found to be dehydrated so he will be given gentle IVF rehydration. I have explained to him that with his anemia coupled with getting dehydrated that there is more strain on his heart and therefore he has more symptoms from his damaged valve when this happens. He will be admitted for further monitoring and cardiac evaluation and possible medication adjustment. Discharge Summary Hospital Course Was the Problem List Reviewed?: Yes Hospital Course This is an 89 year old male with known severe aortic stenosis who has been complaining of shortness of air and weakness when he uses his arms. Yesterday, he had an episode where he was reaching with his arms and he felt weak all over. He was brought to the emergency room where he was found to have a minimally elevated troponin-I. He was once again found to be dehydrated so he will be given gentle IVF rehydration. I have explained to him that with his anemia coupled with getting dehydrated that there is more strain on his heart and therefore he has more symptoms from his damaged valve when this happens. He will be admitted for further monitoring and cardiac evaluation and possible medication adjustment. He was admitted to the medical floor with telemetry. He remained in a NSR. He has no further weakness. His troponin-I did not elevate any further. His echo showed that his aortic stenosis was stable. He was started on lisinopril and metoprolol for his blood pressure and his fleicanide was held. He will be discharged home on the lisinopril and metoprolol and aspirin and will hold lasix and fleicanide. He has a hematology evaluation on Tuesday and will see me in 1 week and we will schedule cardiology fwup at that time. Labs Laboratory Tests 10/5/20 17:37: Red Blood Count 3.00L, Hemoglobin 10.2L, Hematocrit 30L, Mean Corpuscular Volume 100H, Mean Platelet Volume 13.0H, Sodium Level 129L, Chloride Level 97L, Blood Urea Nitrogen 30H, Creatinine 1.68H, Troponin I 0.034H 01/21/20 18:26: Urine Specific [place] 1.010L 01/21/20 20:05: Troponin I 0.034H 01/22/20 04:55: Red Blood Count 2.69L, Hemoglobin 9.1L, Hematocrit 27L, Mean Corpuscular Volume 100H, Mean Platelet Volume 12.8H, Sodium Level 133L, Blood Urea Nitrogen 27H, Creatinine 1.50H, Troponin I 0.035H, Monocytes (%) (Auto) 13H 01/23/20 04:45: Red Blood Count 2.54L, Hemoglobin 8.7L, Hematocrit 26L, Mean Corpuscular Volume 101H, Mean Platelet Volume 13.1H, Monocytes (%) (Auto) 13H, Sodium Level 132L, Blood Urea Nitrogen 23H, Creatinine 1.61H Procedures Cardiology--Dr. Leigh Discharge Physical Examination Allergies: Coded Allergies: No Known Drug Allergies (Unverified , 06/07/13) Vitals & I&Os Vital Signs Date Time Temp Pulse Resp B/P (MAP) Pulse Ox O2 Delivery O2 Flow Rate FiO2 01/23/20 11:11 36.6 80 16 156/79 (104) 99 Room Air General Appearance: Alert, Oriented X3, Cooperative Respiratory: Clear to Auscultation Cardiovascular: Regular Rate Abdominal: Normal Bowel Sounds, Soft, No Tenderness Extremities: No Clubbing, No Cyanosis, No Edema Neuro: Normal Gait Psych/Mental Status: Mental Status NL, Mood NL Discharge Home Medications Reviewed and agree with Discharge Medication list on patient's Discharge Instruction sheet Instructions to Patient/Family Please see electronic discharge instructions given to patient. Clinical Quality Measures DVT/VTE Risk/Contraindication: Risk Factor Score Per Nursin RFS Level Per Nursing on Admit: 3=High DAMARIS OLSEN DO Jan 23, 2020 12:39
== END 2020-01-23 13:55 | disposition home or self-care (01) ==
LOC: EDUNIT# 17:15 → ER 17:16 → 4TH 19:37
PROVIDERS: ADMIT Family Medicine; ATTEND Family Medicine
DX: I35.0 Nonrheumatic aortic (valve) stenosis (principal); M62.81 Muscle weakness (generalized); I12.9 Hypertensive chronic kidney disease with stage 1 through stage 4 chronic kidney disease, or unspecified chronic kidney disease; N18.9 Chronic kidney disease, unspecified; N17.9 Acute kidney failure, unspecified; D63.1 Anemia in chronic kidney disease; H53.8 Other visual disturbances; E86.0 Dehydration; Z79.899 Other long term (current) drug therapy; Z85.46 Personal history of malignant neoplasm of prostate
CPT/HCPCS: 71045; 80048; 80053 ×2; 81000; 82550; 83735; 84484 ×2; 85025 ×3; 86141; 93005; 93041; 93306; 97116; 99284; G0378; 36415

== ENCOUNTER 2020-03-24 12:54 | Outpatient (RCR) | payer MEDICARE ==
[2020-01-28 14:14] LABS: BASOPHILS % (AUTO) 0 % (0-10); EOSINOPHILS # (AUTO) 0.1 10^3/uL (0.0-0.3); EOSINOPHILS % (AUTO) 1 % (0-10); HEMATOCRIT 28 % (40-54); HEMOGLOBIN 9.1 g/dL (13.3-17.7); LYMPHOCYTES # (AUTO) 1.3 10^3/uL (1.0-4.0); LYMPHOCYTES % (AUTO) 19 % (12-44); MEAN CORPUSCULAR HEMOGLOBIN 34 pg (25-34); MEAN CORPUSCULAR HGB CONC 33 g/dL (32-36); MEAN CORPUSCULAR VOLUME 104 fL (80-99); MEAN PLATELET VOLUME 12.6 fL (9.0-12.2); MONOCYTES # (AUTO) 0.8 10^3/uL (0.0-1.0); MONOCYTES % (AUTO) 12 % (0-12); NEUTROPHILS # (AUTO) 4.8 10^3/uL (1.8-7.8); NEUTROPHILS % (AUTO) 68 % (42-75); PLATELET COUNT 152 10^3/uL (130-400); WHITE BLOOD COUNT 7.1 10^3/uL (4.3-11.0)
[2020-01-28 14:31] LABS: ALBUMIN 3.8 GM/DL (3.2-4.5); BILIRUBIN,TOTAL 0.4 MG/DL (0.1-1.0); CREATININE SERUM 1.66 MG/DL (0.60-1.30); POTASSIUM 4.8 MMOL/L (3.6-5.0); TOTAL PROTEIN 6.9 GM/DL (6.4-8.2)
[2020-01-28 15:39] LABS: ABSOLUTE RETIC # 62 10e9/uL (24-90); RETICULOCYTE % 2.33 % (0.50-2.40)
[2020-02-25 13:57] LABS: BASOPHILS % (AUTO) 0 % (0-10); EOSINOPHILS # (AUTO) 0.1 10^3/uL (0.0-0.3); EOSINOPHILS % (AUTO) 1 % (0-10); HEMATOCRIT 28 % (40-54); HEMOGLOBIN 9.4 g/dL (13.3-17.7); LYMPHOCYTES # (AUTO) 1.8 10^3/uL (1.0-4.0); LYMPHOCYTES % (AUTO) 21 % (12-44); MEAN CORPUSCULAR HEMOGLOBIN 35 pg (25-34); MEAN CORPUSCULAR HGB CONC 34 g/dL (32-36); MEAN CORPUSCULAR VOLUME 104 fL (80-99); MEAN PLATELET VOLUME 12.5 fL (9.0-12.2); MONOCYTES % (AUTO) 12 % (0-12); NEUTROPHILS # (AUTO) 5.5 10^3/uL (1.8-7.8); NEUTROPHILS % (AUTO) 66 % (42-75); PLATELET COUNT 148 10^3/uL (130-400); WHITE BLOOD COUNT 8.4 10^3/uL (4.3-11.0)
[2020-02-25 14:16] LABS: ALBUMIN 3.9 GM/DL (3.2-4.5); BILIRUBIN,TOTAL 0.4 MG/DL (0.1-1.0); CREATININE SERUM 1.87 MG/DL (0.60-1.30); POTASSIUM 5.6 MMOL/L (3.6-5.0); TOTAL PROTEIN 6.9 GM/DL (6.4-8.2)
[~2020-03-24 12:54] MED LIST changes: +ASPI-1238 PO; +CYANOCOBALAMIN INJ 1000 MCG/ML (CANCER CENTER) ONE; +FLEC100T PO; +FURO20TA4 PO; +LISI-552 PO; +MTP25TSR PO
[2020-03-24 13:20] LABS: BASOPHILS % (AUTO) 0 % (0-10); EOSINOPHILS # (AUTO) 0.1 10^3/uL (0.0-0.3); EOSINOPHILS % (AUTO) 1 % (0-10); HEMATOCRIT 26 % (40-54); HEMOGLOBIN 8.9 g/dL (13.3-17.7); LYMPHOCYTES # (AUTO) 1.6 10^3/uL (1.0-4.0); LYMPHOCYTES % (AUTO) 22 % (12-44); MEAN CORPUSCULAR HEMOGLOBIN 35 pg (25-34); MEAN CORPUSCULAR HGB CONC 34 g/dL (32-36); MEAN CORPUSCULAR VOLUME 102 fL (80-99); MEAN PLATELET VOLUME 12.9 fL (9.0-12.2); MONOCYTES % (AUTO) 13 % (0-12); NEUTROPHILS # (AUTO) 4.6 10^3/uL (1.8-7.8); NEUTROPHILS % (AUTO) 63 % (42-75); PLATELET COUNT 136 10^3/uL (130-400); WHITE BLOOD COUNT 7.2 10^3/uL (4.3-11.0)
[2020-03-24 13:29] LABS: ALBUMIN 3.6 GM/DL (3.2-4.5); BILIRUBIN,TOTAL 0.4 MG/DL (0.1-1.0); CALCIUM 8.8 MG/DL (8.5-10.1); CREATININE SERUM 1.47 MG/DL (0.60-1.30); TOTAL PROTEIN 6.6 GM/DL (6.4-8.2)
[2020-03-24] MEDS ORDERED: CYANOCOBALAMIN INJ 1000 MCG/ML (CANCER CENTER) ONE (14:37)
[2020-03-24 15:45] LABS: BASOPHILS % (AUTO) 0 % (0-10); EOSINOPHILS # (AUTO) 0.1 10^3/uL (0.0-0.3); EOSINOPHILS % (AUTO) 2 % (0-10); HEMATOCRIT 26 % (40-54); HEMOGLOBIN 8.8 g/dL (13.3-17.7); LYMPHOCYTES # (AUTO) 1.6 10^3/uL (1.0-4.0); LYMPHOCYTES % (AUTO) 24 % (12-44); MEAN CORPUSCULAR HEMOGLOBIN 35 pg (25-34); MEAN CORPUSCULAR HGB CONC 34 g/dL (32-36); MEAN CORPUSCULAR VOLUME 103 fL (80-99); MEAN PLATELET VOLUME 13.4 fL (9.0-12.2); MONOCYTES # (AUTO) 0.8 10^3/uL (0.0-1.0); MONOCYTES % (AUTO) 11 % (0-12); NEUTROPHILS # (AUTO) 4.2 10^3/uL (1.8-7.8); NEUTROPHILS % (AUTO) 63 % (42-75); PLATELET COUNT 149 10^3/uL (130-400); WHITE BLOOD COUNT 6.7 10^3/uL (4.3-11.0)
[2020-03-24 18:00] LABS: EOSINOPHILS % (MANUAL) 2 %; LYMPHOCYTES % (MANUAL) 19 %; MONOCYTES % (MANUAL) 10 %; NEUTROPHILS % (MANUAL) 69 %; RBC MORPH NORMAL
[2020-03-24 18:35] LABS: ABSOLUTE RETIC # 63 10e9/uL (24-90); RETICULOCYTE % 2.45 % (0.50-2.40)
== END 2020-04-21 09:23 | disposition home or self-care (01) ==
LOC: ONC 12:54
PROVIDERS: ATTEND Internal Medicine Hematology & Oncology
DX: D53.9 Nutritional anemia, unspecified (principal); I12.9 Hypertensive chronic kidney disease with stage 1 through stage 4 chronic kidney disease, or unspecified chronic kidney disease; N18.9 Chronic kidney disease, unspecified; Z85.46 Personal history of malignant neoplasm of prostate; Z90.79 Acquired absence of other genital organ(s)
CPT/HCPCS: 80053; 83615; 84443; 85025; 85045; 96372; G0463; 82728; 83090; 83540; 83921; 84153; 85007; 85027; 85055; 99214

== ENCOUNTER 2020-04-21 10:37 | Emergency (ER) | payer MEDICARE ==
[~2020-04-21] VITALS: Ht 177 cm; Wt 77.0 kg
[~2020-04-21 10:37] MED LIST changes: -CYANOCOBALAMIN INJ 1000 MCG/ML (CANCER CENTER) ONE
[2020-04-21 10:59] LABS: BASOPHILS % (AUTO) 0 % (0-10); EOSINOPHILS % (AUTO) 0 % (0-10); HEMATOCRIT 31 % (40-54); HEMOGLOBIN 10.7 g/dL (13.3-17.7); LYMPHOCYTES # (AUTO) 2.2 10^3/uL (1.0-4.0); LYMPHOCYTES % (AUTO) 18 % (12-44); MEAN CORPUSCULAR HEMOGLOBIN 35 pg (25-34); MEAN CORPUSCULAR HGB CONC 34 g/dL (32-36); MEAN CORPUSCULAR VOLUME 100 fL (80-99); MEAN PLATELET VOLUME 12.9 fL (9.0-12.2); MONOCYTES # (AUTO) 1.4 10^3/uL (0.0-1.0); MONOCYTES % (AUTO) 11 % (0-12); NEUTROPHILS # (AUTO) 8.6 10^3/uL (1.8-7.8); NEUTROPHILS % (AUTO) 69 % (42-75); PLATELET COUNT 162 10^3/uL (130-400); WHITE BLOOD COUNT 12.4 10^3/uL (4.3-11.0)
[2020-04-21 11:08] LABS: INR 1.1 (0.8-1.4); PROTHROMBIN TIME PATIENT 14.4 SEC (12.2-14.7)
[2020-04-21 11:09] LABS: ALBUMIN 4.2 GM/DL (3.2-4.5); POTASSIUM 4.3 MMOL/L (3.6-5.0)
[2020-04-21 11:11] LABS: CALCIUM 9.4 MG/DL (8.5-10.1)
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
[2020-04-21 11:12] LABS: TOTAL PROTEIN 7.5 GM/DL (6.4-8.2)
[2020-04-21 11:13] LABS: BILIRUBIN,TOTAL 0.6 MG/DL (0.1-1.0)
[2020-04-21 11:15] LABS: CREATININE SERUM 1.7 MG/DL (0.60-1.30)
--- NOTE | 2020-04-21 11:17 | NUR ---
CALLED AND UPDATE DAUGHTER LUCIEN OF PATIENTS CURRENT CONDITION.
[2020-04-21 11:18] LABS: MAGNESIUM 1.9 MG/DL (1.6-2.4)
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
[2020-04-21] MEDS ORDERED: NS IV 1000 ML 1,000 ML IV SCH (11:45)
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
[2020-04-21] MEDS ORDERED: NS 100 ML (IVPB) BAG IV ONE (13:15)
[2020-04-21] MEDS ORDERED: IOHEXOL 350 MG/ML 100 ML (OMNIPAQUE 350) VIAL IV ONE (13:15)
[2020-04-21] MEDS ORDERED: HOLD METFORMIN - RECEIVED CONTRAST 20 ML VIAL IV SCH (13:15)
[2020-04-21] MEDS ORDERED: LABETALOL HCL 20 MG/4 ML VIAL IV ONE ×2 (13:15→14:30)
[2020-04-21] MEDS ORDERED: CATHETER FLUSH 10 ML SYR IV PRN (13:15)
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
[2020-04-21 14:17] VITALS: BP 175/99
== END 2020-04-21 14:19 | disposition short-term general hospital (02) ==
LOC: EDUNIT# 10:37 → ER 10:38
DX: S06.360A Traumatic hemorrhage of cerebrum, unspecified, without loss of consciousness, initial encounter (principal); S22.32XA Fracture of one rib, left side, initial encounter for closed fracture; S12.600A Unspecified displaced fracture of seventh cervical vertebra, initial encounter for closed fracture; I10 Essential (primary) hypertension; Z79.82 Long term (current) use of aspirin; Z85.46 Personal history of malignant neoplasm of prostate; V89.2XXA Person injured in unspecified motor-vehicle accident, traffic, initial encounter
CPT/HCPCS: 36415; 70450; 71045; 71260; 72125; 74177; 80053; 83735; 83874; 83880; 84484; 85025; 85610; 85730; 93005; 93041

== ENCOUNTER 2020-07-24 11:24 | Outpatient (RCR) | payer MEDICARE ==
[2020-05-07 13:49] LABS: BASOPHILS % (AUTO) 0 % (0-10); EOSINOPHILS # (AUTO) 0.1 10^3/uL (0.0-0.3); EOSINOPHILS % (AUTO) 1 % (0-10); HEMATOCRIT 27 % (40-54); HEMOGLOBIN 8.8 g/dL (13.3-17.7); LYMPHOCYTES # (AUTO) 1.8 10^3/uL (1.0-4.0); LYMPHOCYTES % (AUTO) 27 % (12-44); MEAN CORPUSCULAR HEMOGLOBIN 34 pg (25-34); MEAN CORPUSCULAR HGB CONC 33 g/dL (32-36); MEAN CORPUSCULAR VOLUME 105 fL (80-99); MEAN PLATELET VOLUME 12.4 fL (9.0-12.2); MONOCYTES # (AUTO) 0.7 10^3/uL (0.0-1.0); MONOCYTES % (AUTO) 11 % (0-12); NEUTROPHILS # (AUTO) 4.1 10^3/uL (1.8-7.8); NEUTROPHILS % (AUTO) 62 % (42-75); PLATELET COUNT 172 10^3/uL (130-400); WHITE BLOOD COUNT 6.7 10^3/uL (4.3-11.0)
[2020-05-07 14:11] LABS: ALBUMIN 3.7 GM/DL (3.2-4.5); BILIRUBIN,TOTAL 0.4 MG/DL (0.1-1.0); CREATININE SERUM 1.57 MG/DL (0.60-1.30); POTASSIUM 4.7 MMOL/L (3.6-5.0); TOTAL PROTEIN 6.8 GM/DL (6.4-8.2)
[2020-07-02 13:49] LABS: BASOPHILS % (AUTO) 0 % (0-10); EOSINOPHILS # (AUTO) 0.1 10^3/uL (0.0-0.3); EOSINOPHILS % (AUTO) 2 % (0-10); HEMATOCRIT 29 % (40-54); HEMOGLOBIN 9.9 g/dL (13.3-17.7); LYMPHOCYTES # (AUTO) 1.6 10^3/uL (1.0-4.0); LYMPHOCYTES % (AUTO) 28 % (12-44); MEAN CORPUSCULAR HEMOGLOBIN 35 pg (25-34); MEAN CORPUSCULAR HGB CONC 34 g/dL (32-36); MEAN CORPUSCULAR VOLUME 104 fL (80-99); MEAN PLATELET VOLUME 12.1 fL (9.0-12.2); MONOCYTES # (AUTO) 0.6 10^3/uL (0.0-1.0); MONOCYTES % (AUTO) 10 % (0-12); NEUTROPHILS # (AUTO) 3.5 10^3/uL (1.8-7.8); NEUTROPHILS % (AUTO) 60 % (42-75); PLATELET COUNT 134 10^3/uL (130-400); WHITE BLOOD COUNT 5.8 10^3/uL (4.3-11.0)
[2020-07-02 14:11] LABS: ALBUMIN 3.8 GM/DL (3.2-4.5); BILIRUBIN,TOTAL 0.4 MG/DL (0.1-1.0); CREATININE SERUM 1.52 MG/DL (0.60-1.30); TOTAL PROTEIN 7.3 GM/DL (6.4-8.2)
[~2020-07-24 11:24] MED LIST changes: +CYANOCOBALAMIN INJ 1000 MCG/ML (CANCER CENTER) ONE; -LISI-552 PO; +LISI20TA26 PO
[2020-07-24] MEDS ORDERED: CYANOCOBALAMIN INJ 1000 MCG/ML (CANCER CENTER) ONE (11:28)
== END 2020-08-05 | disposition home or self-care (01) ==
LOC: ONC 11:24
PROVIDERS: ATTEND Internal Medicine Hematology & Oncology
DX: D53.9 Nutritional anemia, unspecified (principal); I12.9 Hypertensive chronic kidney disease with stage 1 through stage 4 chronic kidney disease, or unspecified chronic kidney disease; C61 Malignant neoplasm of prostate; D50.9 Iron deficiency anemia, unspecified; N18.9 Chronic kidney disease, unspecified; Z85.46 Personal history of malignant neoplasm of prostate; Z90.79 Acquired absence of other genital organ(s)
CPT/HCPCS: 80053; 85025; 96372; G0463; 82728; 83540

== ENCOUNTER → 2020-11-19 | Outpatient (RCR) | payer MEDICARE ==
[2020-08-21 13:12] LABS: ABSOLUTE RETIC # 52 10e9/uL (24-90); BASOPHILS % (AUTO) 0 % (0-10); EOSINOPHILS % (AUTO) 1 % (0-10); HEMATOCRIT 28 % (40-54); HEMOGLOBIN 9.2 g/dL (13.3-17.7); LYMPHOCYTES # (AUTO) 1.3 10^3/uL (1.0-4.0); LYMPHOCYTES % (AUTO) 35 % (12-44); MEAN CORPUSCULAR HEMOGLOBIN 34 pg (25-34); MEAN CORPUSCULAR HGB CONC 33 g/dL (32-36); MEAN CORPUSCULAR VOLUME 103 fL (80-99); MEAN PLATELET VOLUME 12.5 fL (9.0-12.2); MONOCYTES # (AUTO) 0.3 10^3/uL (0.0-1.0); MONOCYTES % (AUTO) 8 % (0-12); NEUTROPHILS # (AUTO) 2.1 10^3/uL (1.8-7.8); NEUTROPHILS % (AUTO) 57 % (42-75); PLATELET COUNT 98 10^3/uL (130-400); RETICULOCYTE % 1.92 % (0.50-2.40); WHITE BLOOD COUNT 3.8 10^3/uL (4.3-11.0)
[2020-08-21 13:39] LABS: ALBUMIN 3.7 GM/DL (3.2-4.5); BILIRUBIN,TOTAL 0.4 MG/DL (0.1-1.0); CALCIUM 8.9 MG/DL (8.5-10.1); CREATININE SERUM 1.51 MG/DL (0.60-1.30); POTASSIUM 4.4 MMOL/L (3.6-5.0); TOTAL PROTEIN 6.8 GM/DL (6.4-8.2)
[2020-10-01 13:39] LABS: ABSOLUTE RETIC # 51 10e9/uL (24-90); BASOPHILS % (AUTO) 0 % (0-10); EOSINOPHILS % (AUTO) 0 % (0-10); HEMATOCRIT 26 % (40-54); HEMOGLOBIN 8.7 g/dL (13.3-17.7); LYMPHOCYTES # (AUTO) 1.2 10^3/uL (1.0-4.0); LYMPHOCYTES % (AUTO) 37 % (12-44); MEAN CORPUSCULAR HEMOGLOBIN 36 pg (25-34); MEAN CORPUSCULAR HGB CONC 34 g/dL (32-36); MEAN CORPUSCULAR VOLUME 105 fL (80-99); MONOCYTES # (AUTO) 0.3 10^3/uL (0.0-1.0); MONOCYTES % (AUTO) 9 % (0-12); NEUTROPHILS # (AUTO) 1.7 10^3/uL (1.8-7.8); NEUTROPHILS % (AUTO) 54 % (42-75); PLATELET COUNT 110 10^3/uL (130-400); RETICULOCYTE % 2.09 % (0.50-2.40); WHITE BLOOD COUNT 3.2 10^3/uL (4.3-11.0)
[2020-10-01 13:57] LABS: ALBUMIN 3.4 GM/DL (3.2-4.5); BILIRUBIN,TOTAL 0.4 MG/DL (0.1-1.0); CALCIUM 9.1 MG/DL (8.5-10.1); CREATININE SERUM 1.39 MG/DL (0.60-1.30); POTASSIUM 4.8 MMOL/L (3.6-5.0); TOTAL PROTEIN 7.1 GM/DL (6.4-8.2)
[2020-10-22 14:07] LABS: BASOPHILS % (AUTO) 0 % (0-10); EOSINOPHILS % (AUTO) 0 % (0-10); HEMOGLOBIN 8.4 g/dL (13.3-17.7); MEAN CORPUSCULAR VOLUME 108 fL (80-99); MEAN PLATELET VOLUME 11.7 fL (9.0-12.2); NEUTROPHILS # (AUTO) 1.3 10^3/uL (1.8-7.8)
[2020-10-22 14:09] LABS: HEMATOCRIT 25 % (40-54); LYMPHOCYTES # (AUTO) 1.2 10^3/uL (1.0-4.0); LYMPHOCYTES % (AUTO) 45 % (12-44); MEAN CORPUSCULAR HEMOGLOBIN 37 pg (25-34); MEAN CORPUSCULAR HGB CONC 34 g/dL (32-36); MONOCYTES # (AUTO) 0.2 10^3/uL (0.0-1.0); MONOCYTES % (AUTO) 6 % (0-12); NEUTROPHILS % (AUTO) 48 % (42-75); PLATELET COUNT 114 10^3/uL (130-400); WHITE BLOOD COUNT 2.7 10^3/uL (4.3-11.0)
[2020-10-22 14:34] LABS: ALBUMIN 3.3 GM/DL (3.2-4.5); BILIRUBIN,TOTAL 0.3 MG/DL (0.1-1.0); CREATININE SERUM 1.62 MG/DL (0.60-1.30); POTASSIUM 5.1 MMOL/L (3.6-5.0); TOTAL PROTEIN 7.2 GM/DL (6.4-8.2)
[~2020-11-19] MED LIST changes: +DARBEPOETIN 40 MCG/ML (ARANESP) 1 ML VIAL SC SCH; +DARBEPOETIN 60 MCG/ML ARANESP (CANCER CTR) INJ SCH
[2020-11-19 11:21] LABS: BASOPHILS % (AUTO) 0 % (0-10); EOSINOPHILS % (AUTO) 0 % (0-10); HEMOGLOBIN 8.1 g/dL (13.3-17.7)
[2020-11-19 11:23] LABS: HEMATOCRIT 24 % (40-54); LYMPHOCYTES # (AUTO) 1.3 10^3/uL (1.0-4.0); LYMPHOCYTES % (AUTO) 51 % (12-44); MEAN CORPUSCULAR HEMOGLOBIN 37 pg (25-34); MEAN CORPUSCULAR HGB CONC 33 g/dL (32-36); MEAN CORPUSCULAR VOLUME 112 fL (80-99); MONOCYTES # (AUTO) 0.2 10^3/uL (0.0-1.0); MONOCYTES % (AUTO) 6 % (0-12); NEUTROPHILS # (AUTO) 1.1 10^3/uL (1.8-7.8); NEUTROPHILS % (AUTO) 42 % (42-75); PLATELET COUNT 114 10^3/uL (130-400); WHITE BLOOD COUNT 2.5 10^3/uL (4.3-11.0)
== END | disposition home or self-care (01) ==
LOC: ONC 08-21 12:57
PROVIDERS: ATTEND Internal Medicine Hematology & Oncology
DX: D53.9 Nutritional anemia, unspecified (principal); D50.9 Iron deficiency anemia, unspecified; I12.9 Hypertensive chronic kidney disease with stage 1 through stage 4 chronic kidney disease, or unspecified chronic kidney disease; N18.30 Chronic kidney disease, stage 3 unspecified; D63.1 Anemia in chronic kidney disease; Z85.46 Personal history of malignant neoplasm of prostate; Z90.79 Acquired absence of other genital organ(s); Z79.899 Other long term (current) drug therapy
CPT/HCPCS: 80053; 82728; 83540; 83550; 85025; 85045; 96372; G0463

== ENCOUNTER 2020-12-15 11:21 | Emergency (ER) | payer MEDICARE ==
[~2020-12-15] VITALS: Ht 182.8 cm; Wt 70.0 kg
[~2020-12-15 11:21] MED LIST changes: -CYANOCOBALAMIN INJ 1000 MCG/ML (CANCER CENTER) ONE; -DARBEPOETIN 40 MCG/ML (ARANESP) 1 ML VIAL SC SCH; -DARBEPOETIN 60 MCG/ML ARANESP (CANCER CTR) INJ SCH
--- NOTE | 2020-12-15 11:44 | ED GU-Female ---
General Chief Complaint: - Urinary Stated Complaint: BOWEL OBS Source: patient Exam Limitations: no limitations History of Present Illness Date Seen by Provider: Dec 15, 2020 Time Seen by Provider: 11:43 Initial Comments To ER by EMS from home with reports of difficulty producing urine. He is on hospice. He denies pain. He is not sure what he is on hospice for. Timing/Duration: constant Location: unknown Radiation: none Activities at Onset: none Prior Genitourinary Problems: none Sexual [place] History: not active Associated Symptoms: denies symptoms Allergies and Home Medications Allergies Coded Allergies: No Known Drug Allergies (Unverified , 06/07/13) Home Medications Aspirin 81 Mg Tablet.dr, 81 MG PO DAILY, (Reported) Cefuroxime Axetil 250 Mg Tablet, 250 MG PO BID Prescribed by: MARION DEGROOT on 12/15/20 1354 Lisinopril 20 Mg Tablet, 20 MG PO DAILY Prescribed by: DAMARIS OLSEN on 01/23/20 1231 Metoprolol Succinate 25 Mg Tab.er.24h, 25 MG PO DAILY Prescribed by: DAMARIS OLSEN on 01/23/20 1231 Patient Home Medication List Home Medication List Reviewed: Yes Review of Systems Review of Systems Constitutional: see HPI, other (Unable to obtain) Past Jskghpo-Wbnwnq-Womrbj Hx Immunizations Up To Date Tetanus Booster (TDap): Unknown Seasonal Allergies Seasonal Allergies: No Past Medical History Surgeries: Yes Prostatectomy Respiratory: No Cardiac: Yes Hypertension Neurological: No Genitourinary: Yes Renal Failure Gastrointestinal: No Musculoskeletal: No Endocrine: No HEENT: No Cancer: Yes Prostate Psychosocial: No Integumentary: No Blood Disorders: No Physical Exam Vital Signs Vital Signs - First Documented 12/15/20 11:28 Temp 35.8 Pulse 101 Resp 15 B/P (MAP) 159/83 (108) Pulse Ox 100 O2 Delivery Room Air Capillary Refill : Height, Weight, BMI Height: 6'" Weight: 180lbs. oz. [id number]; 24.00 BMI Method: General Appearance: WD/WN, no apparent distress, thin, other (Cachectic, chronically ill) Neck: non-tender, full range of motion Respiratory: no respiratory distress, no accessory muscle use Gastrointestinal: normal bowel sounds, non tender Extremities: normal range of motion, non-tender Neurologic/Psychiatric: alert, normal mood/affect, oriented x 3 Skin: normal color, warm/dry Progress/Results/Core Measures Suspected Sepsis SIRS Temperature: Pulse: Respiratory Rate: Laboratory Tests 12/15/20 12:00: White Blood Count 1.6L Blood Pressure / Mean: Laboratory Tests 12/15/20 12:00: Creatinine 1.60H, Platelet Count 118L Results/Orders Lab Results Laboratory Tests Test 12/15/20 12:00 12/15/20 13:40 Range/Units White Blood Count 1.6 L 4.3-11.0 10^3/uL Red Blood Count 1.63 L 4.30-5.52 10^6/uL Hemoglobin 6.2 *L 13.3-17.7 g/dL Hematocrit 19 *L 40-54 % Mean Corpuscular Volume 118 H 80-99 fL Mean Corpuscular Hemoglobin 38 H 25-34 pg Mean Corpuscular Hemoglobin Concent 32 32-36 g/dL Red Cell Distribution Width 17.1 H 10.0-14.5 % Platelet Count 118 L 130-400 10^3/uL Mean Platelet Volume 10.6 9.0-12.2 fL Immature Granulocyte % (Auto) 0 % Neutrophils (%) (Auto) 52 42-75 % Lymphocytes (%) (Auto) 41 12-44 % Monocytes (%) (Auto) 7 0-12 % Eosinophils (%) (Auto) 1 0-10 % Basophils (%) (Auto) 0 0-10 % Neutrophils # (Auto) 0.8 L 1.8-7.8 10^3/uL Lymphocytes # (Auto) 0.7 L 1.0-4.0 10^3/uL Monocytes # (Auto) 0.1 0.0-1.0 10^3/uL Eosinophils # (Auto) 0.0 0.0-0.3 10^3/uL Basophils # (Auto) 0.0 0.0-0.1 10^3/uL Immature Granulocyte # (Auto) 0.0 0.0-0.1 10^3/uL Percent Immature Platelet Fraction 8.5 H 0.0-7.6 % Sodium Level 130 L 135-145 MMOL/L Potassium Level 4.7 3.6-5.0 MMOL/L Chloride Level 99 98-107 MMOL/L Carbon Dioxide Level 21 21-32 MMOL/L Anion Gap 10 5-14 MMOL/L Blood Urea Nitrogen 39 H 7-18 MG/DL Creatinine 1.60 H 0.60-1.30 MG/DL Estimat Glomerular Filtration Rate 41 BUN/Creatinine Ratio 24 Glucose Level 122 H 70-105 MG/DL Calcium Level 9.7 8.5-10.1 MG/DL Urine Color YELLOW Urine Clarity CLEAR Urine pH 7.0 5-9 Urine Specific [place] 1.015 L 1.016-1.022 Urine Protein 1+ H NEGATIVE Urine Glucose (UA) NEGATIVE NEGATIVE Urine Ketones 1+ H NEGATIVE Urine Nitrite NEGATIVE NEGATIVE Urine Bilirubin 1+ H NEGATIVE Urine Urobilinogen 1.0 < = 1.0 MG/DL Urine Leukocyte Esterase TRACE H NEGATIVE Urine RBC (Auto) 3+ H NEGATIVE Urine RBC >100 H /HPF Urine WBC 10-25 H /HPF Urine Squamous Epithelial Cells 0-2 /HPF Urine Crystals NONE /LPF Urine Bacteria LARGE H /HPF Urine Casts NONE /LPF Urine Mucus NEGATIVE /LPF Urine Culture Indicated YES My Orders Orders - MARION DEGROOT APRN Cbc With Automated Diff (12/15/20 11:42) Basic Metabolic Panel (12/15/20 11:42) Ua Culture If Indicated (12/15/20 11:42) Ed Iv/Invasive Line Start (12/15/20 11:42) Ct Abdomen/Pelvis Wo (12/15/20 11:42) Lactated Ringers (Lr 1000 Ml Iv Solution (12/15/20 11:45) Lidocaine 2% (Urojet) (Xylocaine Urojet) (12/15/20 12:45) Red Cells Leukocytes Reduced (12/15/20 12:44) Type And Screen (12/15/20 12:44) Fentanyl Inj (Sublimaze Injection) (12/15/20 13:00) Fentanyl Inj (Sublimaze Injection) (12/15/20 13:27) Lidocaine 2% (Urojet) (Xylocaine Urojet) (12/15/20 13:27) Ceftriaxone (Rocephin) (12/15/20 14:00) Urine Culture (12/15/20 13:40) Medications Given in ED Current Medications Medications Dose Ordered Sig/Rohan Route Start Time Stop Time Status Last Admin Dose Admin Ceftriaxone Sodium 1000 mg/ Sterile Water 10 ml @ 200 mls/hr ONCE ONCE IV 12/15/20 14:00 12/15/20 14:02 DC 12/15/20 14:31 200 MLS/HR Fentanyl Citrate 100 mcg STK-MED ONCE .ROUTE 12/15/20 13:00 12/15/20 13:02 DC 12/15/20 13:07 50 MCG Fentanyl Citrate 100 mcg STK-MED ONCE .ROUTE 12/15/20 13:27 12/15/20 13:29 DC 12/15/20 13:30 50 MCG Lidocaine HCl 10 ml ONCE ONCE TOP 12/15/20 12:45 12/15/20 12:46 DC 12/15/20 13:09 10 ML Lidocaine HCl 10 ml STK-MED ONCE .ROUTE 12/15/20 13:27 12/15/20 13:29 DC 12/15/20 13:30 10 ML Vital Signs/I&O 12/15/20 12/15/20 11:28 15:28 Temp 35.8 35.8 Pulse 101 101 Resp 15 15 B/P (MAP) 159/83 (108) 159/83 (108) Pulse Ox 100 100 O2 Delivery Room Air Room Air Capillary Refill : Diagnostic Imaging Diagonstic Imaging: CT Comments NAME: KAROLINE AGUILAR [facility] REC#: [id number] PT STATUS: REG ER : 1930 PHYSICIAN: MARION DEGROOT APRN ADMIT DATE: 12/15/20/ER Draft Date of Exam:12/15/20 CT ABDOMEN/PELVIS WO PROCEDURE: CT abdomen and pelvis without contrast. TECHNIQUE: Multiple contiguous axial images were obtained through the abdomen and pelvis without the use of intravenous contrast. Auto Exposure Controls were utilized during the CT exam to meet ALARA standards for radiation dose reduction. INDICATION: Abdominal pain. Correlation is made with prior CT from 04/21/2020. The lung bases are clear. Liver, gallbladder, pancreas and spleen are unremarkable. Adrenal glands and kidneys are unremarkable. There is no hydronephrosis. Aorta is calcified but nonaneurysmal. There is a large amount of stool throughout the right colon as well as transverse colon. There is moderate stool in the sigmoid as well. No bowel obstruction is seen. There is no free fluid. Bladder is unremarkable. There are postoperative changes from prostatectomy. No lymphadenopathy is seen. 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 No acute bony abnormality is detected. IMPRESSION: Essentially unremarkable noncontrast CT of the abdomen and pelvis with exception of moderate stool in the colon suggestive of constipation. No acute feature is detected. Dictated on workstation # [id number] Dict: 12/15/20 1222 Trans: 12/15/20 1244 [facility] [id number] Interpreted by: JEREMIAH BOLAÑOS MD Electronically signed by: Departure Communication (Admissions) [id number]-Upon digital rectal exam there is no in the rectum vault. Dr. Galdamez came down to help with Valentine catheter placement as I was unable to place a catheter. He was initially unable to place it but then using filiform and followers for urethral dilatation he was able to dilate to 24 Greek and then inserted a 16 Greek Valentine catheter. We will discharged home with catheter in place. I will transfer him up to the outpatient department for 2 units of packed red cells prior to discharge. Impression Primary Impression: Pancytopenia Additional Impression: Urinary obstruction Disposition: HOME, SELF-CARE Condition: Stable Departure-Patient Inst. Decision time for Depature: 13:49 Referrals: DAMARIS OLSEN DO (PCP/Family) Primary Care Physician Patient Instructions: Urinary Obstruction (DC) Add. Discharge Instructions: 1. Use a fleets enema at home. Antibiotic as directed. Return to ER for concerns. All discharge instructions reviewed with patient and/or family. Voiced understanding. Scripts Cefuroxime Axetil (Cefuroxime) 250 Mg Tablet 250 MG PO BID, #10 TAB Prov: MARION DEGROOT APRN 12/15/20 MARION DEGROOT APRN Dec 15, 2020 11:44
[2020-12-15] MEDS ORDERED: LACTATED RINGERS 1,000 ML IV SCH (11:45)
[2020-12-15 12:11] LABS: BASOPHILS % (AUTO) 0 % (0-10); EOSINOPHILS % (AUTO) 1 % (0-10)
[2020-12-15 12:12] LABS: LYMPHOCYTES # (AUTO) 0.7 10^3/uL (1.0-4.0); LYMPHOCYTES % (AUTO) 41 % (12-44); MEAN CORPUSCULAR HEMOGLOBIN 38 pg (25-34); MEAN CORPUSCULAR HGB CONC 32 g/dL (32-36); MEAN CORPUSCULAR VOLUME 118 fL (80-99); MEAN PLATELET VOLUME 10.6 fL (9.0-12.2); MONOCYTES # (AUTO) 0.1 10^3/uL (0.0-1.0); MONOCYTES % (AUTO) 7 % (0-12); NEUTROPHILS # (AUTO) 0.8 10^3/uL (1.8-7.8); NEUTROPHILS % (AUTO) 52 % (42-75); PLATELET COUNT 118 10^3/uL (130-400); WHITE BLOOD COUNT 1.6 10^3/uL (4.3-11.0)
[2020-12-15 12:16] LABS: HEMATOCRIT 19 % (40-54); HEMOGLOBIN 6.2 g/dL (13.3-17.7)
[2020-12-15 12:43] LABS: CALCIUM 9.7 MG/DL (8.5-10.1); CREATININE SERUM 1.6 MG/DL (0.60-1.30); POTASSIUM 4.7 MMOL/L (3.6-5.0)
--- NOTE | 2020-12-15 12:44 | Diagnostic Imaging Report ---
PROCEDURE: CT abdomen and pelvis without contrast. TECHNIQUE: Multiple contiguous axial images were obtained through the abdomen and pelvis without the use of intravenous contrast. Auto Exposure Controls were utilized during the CT exam to meet ALARA standards for radiation dose reduction. INDICATION: Abdominal pain. Correlation is made with prior CT from 04/21/2020. The lung bases are clear. Liver, gallbladder, pancreas and spleen are unremarkable. Adrenal glands and kidneys are unremarkable. There is no hydronephrosis. Aorta is calcified but nonaneurysmal. There is a large amount of stool throughout the right colon as well as transverse colon. There is moderate stool in the sigmoid as well. No bowel obstruction is seen. There is no free fluid. Bladder is unremarkable. There are postoperative changes from prostatectomy. No lymphadenopathy is seen. 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 No acute bony abnormality is detected. IMPRESSION: Essentially unremarkable noncontrast CT of the abdomen and pelvis with exception of moderate stool in the colon suggestive of constipation. No acute feature is detected. Dictated by: Dictated on workstation # [id number]
[2020-12-15] MEDS ORDERED: LIDOCAINE UROJET 2% GEL 10 ML PKG TOP ONE (12:45)
[2020-12-15] MEDS ORDERED: fentaNYL INJ 100 MCG/2 ML AMP ONE ×2 (13:00→13:27)
[2020-12-15] MEDS ORDERED: LIDOCAINE UROJET 2% GEL 10 ML PKG ONE (13:27)
[2020-12-15 13:47] LABS: CLARITY,URINE CLEAR; COLOR,URINE YELLOW; GLUCOSE, URINE (UA) NEGATIVE (NEGATIVE); KETONES,URINE 1+ (NEGATIVE); LEUKOCYTE ESTERASE ,URINE TRACE (NEGATIVE); NITRITE,URINE NEGATIVE (NEGATIVE); PROTEIN,URINE 1+ (NEGATIVE)
[2020-12-15] MEDS ORDERED: CEFU250T80 PO (13:54)
[2020-12-15] MEDS ORDERED: cefTRIAXone 1,000 MG in WATER (STERILE) FOR INJECTION 10 ML IV ONE (14:00)
[2020-12-15 14:03] LABS: BACTERIA,URINE LARGE /HPF; BILIRUBIN,URINE 1+ (NEGATIVE); RBC,URINE >100 /HPF
[2020-12-15 14:04] LABS: SQUAMOUS EPITHELIAL CELL,UR 0-2 /HPF
[2020-12-15 15:28] VITALS: BP 159/83
== END 2020-12-15 15:28 | disposition home or self-care (01) ==
LOC: EDUNIT# 11:21 → ER 11:22
DX: D61.818 Other pancytopenia (principal); N13.9 Obstructive and reflux uropathy, unspecified; I10 Essential (primary) hypertension; Z79.82 Long term (current) use of aspirin; Z79.899 Other long term (current) drug therapy
CPT/HCPCS: 36415; 51702; 53620; 74176; 80048; 81000; 85025; 86850; 86900; 86901; 86920; 87077; 87088; 93005